=== PATIENT | female | born 1940 | race Caucasian/White ===

== ENCOUNTER → 2016-09-16 | Outpatient (CLI) | payer MEDICARE ==
[~2016-09-16] MED LIST: AMLO5TAB2 PO; AMLO5TAB22 PO; BACI500O OP; BENA25CA4 PO; BETAM.05%T TOP; BIOT1000 PO; BIOTSPR PO; CINN500C13 PO; COUM6TAB PO; CYAN25005 PO; FRESDRO EACH EYE; GUAI400T8 PO; LORA-520 PO; MEDR4PAK3 PO; REST0.05 EACH EYE; SENN-3 PO; TRAM50TA PO; VITA2000 PO; VITATAB11 PO; WARF-23 PO; WARF1TAB PO; WARF5TAB PO; ZANT300T PO
[2016-09-16 08:54] LABS: AUTOMATED NEUTROPHIL # 4.8 TH/MM3 (1.8-7.7); BASOPHIL # 0.1 TH/MM3 (0-0.2); BASOPHIL % 0.8 % (0.0-2.0); EOSINOPHIL # 0.1 TH/MM3 (0-0.4); EOSINOPHIL % 1.7 % (0.0-4.0); HEMATOCRIT 38.2 % (35.0-46.0); HEMO FLAGS DIFF FINAL; LYMPH % 19.6 % (9.0-44.0); LYMPHOCYTE # 1.4 TH/MM3 (1.0-4.8); MEAN CELL VOLUME 95.6 FL (80.0-100.0); MEAN CORPUSCULAR HEMOGLOBIN 32.2 PG (27.0-34.0); MEAN CORPUSCULAR HGB CONC 33.7 % (32.0-36.0); MONO % 8.3 % (0.0-8.0); NEUT % 69.6 % (16.0-70.0); PLATELET COUNT 345 TH/MM3 (150-450); RED CELL DISTRIBUTION WIDTH 12.7 % (11.6-17.2); WHITE BLOOD COUNT 6.9 TH/MM3 (4.0-11.0)
[2016-09-16 09:03] LABS: INTERNATIONAL NORMALIZED RATIO 2.9 RATIO; PROTHROMBIN TIME - PATIENT 33.2 SEC (9.8-11.6)
[2016-09-16 09:08] LABS: MUCUS URINE FEW /lpf (OCC); SQUAMOUS EPITHELIAL CELL URINE <1 /hpf (0-5)
[2016-09-16 09:25] LABS: GLUCOSE,URINE NEG (NEG); KETONE, URINE NEG (NEG); PH, URINE 5.5 (5.0-8.5); URINE COLOR YELLOW (YELLW/STRAW)
[2016-09-16 09:26] LABS: BLOOD, URINE NEG (NEG); COMMENT (UR) CATH-CULT NOT IND; CULTURE IF INDICATED CATH CULTURE NOT IND; NITRITE,URINE NEG (NEG)
[2016-09-16 09:28] LABS: BICARBONATE 26.7 MEQ/L (21.0-32.0); POTASSIUM 4.3 MEQ/L (3.5-5.1)
--- NOTE | 2016-09-16 10:05 | RADRPT ---
EXAM DATE/TIME: 09/16/2016 09:38 [facility] COMPARISON: No previous studies available for comparison. INDICATIONS : Evaluate for Communicable disease, pneumonia, pneumothorax. Preop right total knee MEDICAL HISTORY : Atrial Fib SURGICAL HISTORY : None. ENCOUNTER: Initial ACUITY: 1 day PAIN SCORE: 0/10 LOCATION: Bilateral chest FINDINGS: The heart is at the upper limits of normal in size. There diffuse chronic interstitial changes within the pulmonary parenchyma. There is mild bronchiectasis in the lung bases bilaterally. The visualized bony structures are grossly intact. CONCLUSION: Chronic appearing interstitial changes and mild bronchiectasis. No acute abnormality. Alex Patel MD on September 16, 2016 at 10:02 Board Certified Radiologist. This report was verified electronically.
== END ==
LOC: CPRE 07:40
PROVIDERS: ATTEND Orthopaedic Surgery
DX: Z01.810 Encounter for preprocedural cardiovascular examination (principal); Z01.811 Encounter for preprocedural respiratory examination; Z01.812 Encounter for preprocedural laboratory examination; Z79.01 Long term (current) use of anticoagulants; M17.11 Unilateral primary osteoarthritis, right knee
CPT/HCPCS: 36415; 71020; 80048; 81001; 85025; 85610

== ENCOUNTER → 2016-09-23 | Outpatient (CLI) | payer MEDICARE ==
[~2016-09-23] MED LIST changes: -AMLO5TAB22 PO; -BACI500O OP; -BETAM.05%T TOP; -COUM6TAB PO; -MEDR4PAK3 PO; -WARF1TAB PO; -WARF5TAB PO
[2016-09-23 09:00] LABS: PROTHROMBIN TIME - PATIENT 11.4 SEC (9.8-11.6)
== END ==
LOC: CPRE 07:57
PROVIDERS: ATTEND Orthopaedic Surgery
DX: Z01.812 Encounter for preprocedural laboratory examination (principal); Z51.81 Encounter for therapeutic drug level monitoring; Z79.01 Long term (current) use of anticoagulants
CPT/HCPCS: 36415; 85610

== ENCOUNTER → 2016-11-01 | Outpatient (CLI) | payer MEDICARE ==
[~2016-11-01] MED LIST changes: +AUGM875T3 PO; +COLA100C PO; +DOXY50 PO; +LINA145C PO; +METR-1 PO; +TOBR3.5O LEFT EYE
[2016-11-01 11:10] LABS: AUTOMATED NEUTROPHIL # 4.1 TH/MM3 (1.8-7.7); BASOPHIL # 0.1 TH/MM3 (0-0.2); BASOPHIL % 1.2 % (0.0-2.0); EOSINOPHIL # 0.2 TH/MM3 (0-0.4); EOSINOPHIL % 2.5 % (0.0-4.0); HEMATOCRIT 39.2 % (35.0-46.0); HEMO FLAGS DIFF FINAL; LYMPHOCYTE # 1.8 TH/MM3 (1.0-4.8); MEAN CELL VOLUME 96.6 FL (80.0-100.0); MEAN CORPUSCULAR HEMOGLOBIN 32.7 PG (27.0-34.0); MEAN CORPUSCULAR HGB CONC 33.8 % (32.0-36.0); MONO % 9.8 % (0.0-8.0); NEUT % 60.5 % (16.0-70.0); PLATELET COUNT 295 TH/MM3 (150-450); RED BLOOD COUNT 4.06 MIL/MM3 (4.00-5.30); RED CELL DISTRIBUTION WIDTH 12.7 % (11.6-17.2); WHITE BLOOD COUNT 6.7 TH/MM3 (4.0-11.0)
[2016-11-01 11:23] LABS: PROTHROMBIN TIME - PATIENT 34.7 SEC (9.8-11.6)
[2016-11-01 11:37] LABS: BICARBONATE 28.1 MEQ/L (21.0-32.0); POTASSIUM 4.2 MEQ/L (3.5-5.1)
[2016-11-01 12:06] LABS: BLOOD, URINE NEG (NEG); GLUCOSE,URINE NEG (NEG); KETONE, URINE NEG (NEG); NITRITE,URINE NEG (NEG); PH, URINE 5.5 (5.0-8.5); SQUAMOUS EPITHELIAL CELL URINE <1 /hpf (0-5); URINE COLOR LIGHT-YELLOW (YELLW/STRAW)
[2016-11-01 12:11] LABS: COMMENT (UR) CATH-CULT NOT IND; CULTURE IF INDICATED CATH CULTURE NOT IND
== END ==
LOC: CPRE 10:31
PROVIDERS: ATTEND Orthopaedic Surgery
DX: Z01.812 Encounter for preprocedural laboratory examination (principal); M17.11 Unilateral primary osteoarthritis, right knee; Z79.01 Long term (current) use of anticoagulants
CPT/HCPCS: 36415; 80048; 81001; 85025; 85610

== ENCOUNTER 2016-11-19 15:42 | Emergency (ER) | payer MEDICARE ==
[~2016-11-19] VITALS: Ht 160 cm; Wt 67.0 kg
[~2016-11-19 15:42] MED LIST changes: -AUGM875T3 PO; -COLA100C PO; -METR-1 PO
[2016-11-19 15:44] VITALS: BP 141/76; PULSE 89; RESP 16; TEMP 98.1; O2SAT 95
[2016-11-19] MEDS ORDERED: SODIUM CHLORIDE 0.9% FLUSH 10 ML FLUSH IV FLUSH PRN (17:45)
[2016-11-19] MEDS ORDERED: ONDANSETRON HCL 4 MG/2 ML VIAL IVP ONE (17:45)
[2016-11-19 18:20] VITALS: PULSE 83; RESP 16; O2SAT 100
--- NOTE | 2016-11-19 18:44 | PD ---
HPI Chief Complaint: Complaint Time Seen by Provider: 17:36 Travel History International Travel<30 days: No Contact w/Intl Traveler<30days: No Traveled to known affect area: No History of Present Illness HPI Patient is a 76-year-old female presenting to the emergency department for evaluation of abdominal pain. Patient reports a history of urinary tract infection is currently on Cipro daily. She states for the last 4 days she has been having lower abdominal pain and nausea. She was uncertain if it was related to another urinary tract infection or diverticulitis. She has not vomited, she denies any fever or chills. She reports the pain as aching and crampy in nature. At its worst is a 5 out of 10. She denies any alleviating or exacerbating factors. Patient states that she also has burning and frequency with urination. PFSH Past Medical History Cancer: No Cardiovascular Problems: Yes (atrial fibrillation) Diabetes: No Endocrine: No Genitourinary: Yes (prolapsed bladder) Hepatitis: No Hiatal Hernia: No Immune Disorder: No Musculoskeletal: Yes (arthritis, chronic lower back and left leg, right shoulder) Neurologic: Yes (intermittent tingling/numbness hands and feet) Psychiatric: No Respiratory: No Thyroid Disease: No Past Surgical History Abdominal Surgery: Yes (appendectomy, colectomy) AICD: No Cardiac Surgery: No Ear Surgery: No Endocrine Surgery: No Eye Surgery: Yes (bilat cataracts) Genitourinary Surgery: Yes (bladder tack 2013) Gynecologic Surgery: Yes (partial hysterectomy) Joint Replacement: No Oral Surgery: No Pacemaker: No Thoracic Surgery: No Social History Alcohol Use: No Tobacco Use: No Substance Use: No Allergies-Medications (Allergen,Severity, Reaction): Coded Allergies: azithromycin (Verified Allergy, Severe, Rash, 11/19/16) erythromycin base (Verified Allergy, Severe, Rash, 11/19/16) codeine (Verified Allergy, Intermediate, Nausea/Vomiting, 11/19/16) Reported Meds & Prescriptions Reported Meds & Active Scripts Active Augmentin (Amoxicillin-Clavulanate) 875-125 Mg Tab 1 Tab PO BID 10 Days Flagyl (Metronidazole) 500 Mg Tab 500 Mg PO TID 10 Days Reported Colace (Docusate Sodium) 100 Mg Capsule 300 Mg PO DAILY Linzess (Linaclotide) 145 Mcg Cap 145 Mcg PO DAILY Restasis Opth 0.05% (Cyclosporine Opth 0.05%) 0.05% Emul 1 Drop EACH EYE HS Biotin 1,000 Mcg Tab 1,000 Mg PO DAILY Vitamin D3 (Cholecalciferol) 2,000 Unit Cap 2,000 Units PO DAILY Eql Cinnamon (Cinnamon) 500 Mg Cap 1,000 Mg PO DAILY Vitamin B12 (Cyanocobalamin (Vitamin B-12)) 2,500 Mcg Tab.chew 5,000 Mcg PO DAILY Tramadol (Tramadol HCl) 50 Mg Tab 50 Mg PO Q6H PRN Zantac (Ranitidine HCl) 300 Mg Tab 300 Mg PO DAILY PRN Warfarin 5 Mg Tab 5 Mg PO HS Amlodipine (Amlodipine Besylate) 5 Mg Tab 5 Mg PO DAILY Review of Systems Except as stated in HPI: all other systems reviewed are Neg Gastrointestinal: Positive: Nausea, Abdominal Pain Genitourinary: Positive: Frequency, Dysuria Physical Exam Narrative GENERAL: Well developed, well-nourished, alert female. Resting of the brain no acute distress. SKIN: Warm and dry. HEAD: Atraumatic. Normocephalic. EYES: Pupils equal and round. No scleral icterus. No injection or drainage. ENT: No nasal bleeding or discharge. Mucous membranes pink and moist. NECK: Trachea midline. No JVD. CARDIOVASCULAR: Regular rate and rhythm. RESPIRATORY: No accessory muscle use. Clear to auscultation. Breath sounds equal bilaterally. GASTROINTESTINAL: Abdomen soft, tender to palpation in left lower quadrant suprapubic region, nondistended. Hepatic and splenic margins not palpable. Positive bowel sounds, no rebound, no guarding. MUSCULOSKELETAL: Extremities without clubbing, cyanosis, or edema. No obvious deformities. NEUROLOGICAL: Awake and alert. No obvious cranial nerve deficits. Motor grossly within normal limits. Five out of 5 muscle strength in the arms and legs. Normal speech. PSYCHIATRIC: Appropriate mood and affect; insight and judgment normal. Data Data Last Documented VS Vital Signs Date Time Temp Pulse Resp B/P (MAP) Pulse Ox O2 Delivery O2 Flow Rate FiO2 11/19/16 22:50 11/19/16 18:20 83 16 100 Room Air 11/19/16 15:44 98.1 Orders Orders Complete Blood Count With Diff (11/19/16 17:45) Comprehensive Metabolic Panel (11/19/16 17:45) Prothrombin Time / Inr (Pt) (11/19/16 17:45) Act Partial Throm Time (Ptt) (11/19/16 17:45) Urinalysis - C+S If Indicated (11/19/16 17:45) Ct Abd/Pel W Iv Contrast(Rout) (11/19/16 17:45) Iv Access Insert/Monitor (11/19/16 17:45) Ecg Monitoring (11/19/16 17:45) Oximetry (11/19/16 17:45) Ondansetron Inj (Zofran Inj) (11/19/16 17:45) Sodium Chloride 0.9% Flush (Ns Flush) (11/19/16 17:45) Iohexol 350 Inj (Omnipaque 350 Inj) (11/19/16 20:42) Labs Laboratory Tests Test 11/19/16 18:15 White Blood Count 14.2 TH/MM3 Red Blood Count 3.86 MIL/MM3 Hemoglobin 12.8 GM/DL Hematocrit 36.9 % Mean Corpuscular Volume 95.7 FL Mean Corpuscular Hemoglobin 33.2 PG Mean Corpuscular Hemoglobin Concent 34.7 % Red Cell Distribution Width 12.7 % Platelet Count 265 TH/MM3 Mean Platelet Volume 8.2 FL Neutrophils (%) (Auto) 80.2 % Lymphocytes (%) (Auto) 11.2 % Monocytes (%) (Auto) 7.6 % Eosinophils (%) (Auto) 0.4 % Basophils (%) (Auto) 0.6 % Neutrophils # (Auto) 11.3 TH/MM3 Lymphocytes # (Auto) 1.6 TH/MM3 Monocytes # (Auto) 1.1 TH/MM3 Eosinophils # (Auto) 0.1 TH/MM3 Basophils # (Auto) 0.1 TH/MM3 CBC Comment DIFF FINAL Differential Comment Prothrombin Time 27.3 SEC Prothromb Time International Ratio 2.4 RATIO Activated Partial Thromboplast Time 47.0 SEC Urine Color YELLOW Urine Turbidity CLEAR Urine pH 6.0 Urine Specific [place] 1.019 Urine Protein TRACE mg/dL Urine Glucose (UA) NEG mg/dL Urine Ketones 10 mg/dL Urine Occult Blood TRACE Urine Nitrite NEG Urine Bilirubin NEG Urine Urobilinogen LESS THAN 2.0 MG/DL Urine Leukocyte Esterase LARGE Urine RBC 4 /hpf Urine WBC 5 /hpf Urine Squamous Epithelial Cells 2 /hpf Urine Bacteria RARE /hpf Urine Mucus FEW /lpf Microscopic Urinalysis Comment CULT NOT INDICATED Blood Urea Nitrogen 10 MG/DL Creatinine 0.56 MG/DL Random Glucose 99 MG/DL Total Protein 7.6 GM/DL Albumin 3.7 GM/DL Calcium Level 8.5 MG/DL Alkaline Phosphatase 69 U/L Aspartate Amino Transf (AST/SGOT) 10 U/L Alanine Aminotransferase (ALT/SGPT) 17 U/L Total Bilirubin 0.6 MG/DL Sodium Level 129 MEQ/L Potassium Level 4.4 MEQ/L Chloride Level 95 MEQ/L Carbon Dioxide Level 25.3 MEQ/L Anion Gap 9 MEQ/L Estimat Glomerular Filtration Rate 106 ML/MIN MDM Medical Decision Making Medical Screen Exam Complete: Yes Emergency Medical Condition: Yes Interpretation(s) Vital Signs Date Time Temp Pulse Resp B/P (MAP) Pulse Ox O2 Delivery O2 Flow Rate FiO2 11/19/16 18:20 83 16 100 Room Air 11/19/16 18:20 16 11/19/16 15:44 98.1 89 16 141/76 (97) 95 Differential Diagnosis UTI versus diverticulitis versus colitis versus gastroenteritis versus metabolic abnormality versus other Narrative Course Patient is a 76-year-old female presenting to emergency for evaluation of abdominal pain and urinary complaints. Patient has a history of urinary tract infections and has been seen by Dr. Patiño. She has an appointment tomorrow. She is currently on Cipro 1 tablet daily. She presented that she is unsure of her pain is from a bladder infection or diverticulitis. She also has felt nauseated but has not vomited. Her vital signs are stable. Labs and imaging ordered and pending. CBC with a white count of 14.2 with left shift Chemistry with a sodium of 129 otherwise unremarkable INR is 2.4, patient is on Coumadin for atrial fibrillation. Urinalysis with trace occult blood, large leukocyte esterase, 4 red blood cells , rare bacteria and mucus. We'll defer treatment until culture results as patient is already on ciprofloxacin. CT scan of the abdomen and pelvis is pending. Care of patient was transferred to Shanique HERNANDEZ at the end of my shift. She will determine patient's disposition. Scripts Amoxicillin-Clavulanate (Augmentin) 875-125 Mg Tab 1 TAB PO BID for Infection for 10 Days, #20 TAB 0 Refills Prov: Shanique Pitts 11/19/16 Metronidazole (Flagyl) 500 Mg Tab 500 MG PO TID for Infection for 10 Days, TAB 0 Refills Prov: Shanique Pitts 11/19/16 Kisha Friend Nov 19, 2016 18:44
[2016-11-19 18:47] LABS: AUTOMATED NEUTROPHIL # 11.3 TH/MM3 (1.8-7.7); BASOPHIL # 0.1 TH/MM3 (0-0.2); BASOPHIL % 0.6 % (0.0-2.0); EOSINOPHIL # 0.1 TH/MM3 (0-0.4); EOSINOPHIL % 0.4 % (0.0-4.0); HEMATOCRIT 36.9 % (35.0-46.0); HEMO FLAGS DIFF FINAL; LYMPH % 11.2 % (9.0-44.0); LYMPHOCYTE # 1.6 TH/MM3 (1.0-4.8); MEAN CELL VOLUME 95.7 FL (80.0-100.0); MEAN CORPUSCULAR HEMOGLOBIN 33.2 PG (27.0-34.0); MEAN CORPUSCULAR HGB CONC 34.7 % (32.0-36.0); MONO % 7.6 % (0.0-8.0); NEUT % 80.2 % (16.0-70.0); PLATELET COUNT 265 TH/MM3 (150-450); RED BLOOD COUNT 3.86 MIL/MM3 (4.00-5.30); RED CELL DISTRIBUTION WIDTH 12.7 % (11.6-17.2); WHITE BLOOD COUNT 14.2 TH/MM3 (4.0-11.0)
[2016-11-19 18:48] LABS: BACTERIA, URINE RARE /hpf; BLOOD, URINE TRACE (NEG); COMMENT (UR) CULT NOT INDICATED; CULTURE IF INDICATED CULT NOT INDICATED; GLUCOSE,URINE NEG (NEG); KETONE, URINE 10 mg/dL (NEG); MUCUS URINE FEW /lpf (OCC); NITRITE,URINE NEG (NEG); SQUAMOUS EPITHELIAL CELL URINE 2 /hpf (0-5); URINE COLOR YELLOW (YELLW/STRAW)
[2016-11-19 18:54] LABS: INTERNATIONAL NORMALIZED RATIO 2.4 RATIO; PROTHROMBIN TIME - PATIENT 27.3 SEC (9.8-11.6)
[2016-11-19 19:05] LABS: ANION GAP 9 MEQ/L (5-15); AST (GOT) 10 U/L (15-37); BICARBONATE 25.3 MEQ/L (21.0-32.0); BLOOD UREA NITROGEN 10 MG/DL (7-18); CHLORIDE 95 MEQ/L (98-107); GLOMERULAR FILTRATION RATE 106 ML/MIN (>89); POTASSIUM 4.4 MEQ/L (3.5-5.1); SODIUM (NA) 129 MEQ/L (136-145)
[2016-11-19 19:14] LABS: ALKALINE PHOSPHATASE 69 U/L (45-117); ALT (GPT) 17 U/L (10-53); TOTAL BILIRUBIN ADULT 0.6 MG/DL (0.2-1.0)
[2016-11-19] MEDS ORDERED: COLA100C PO (19:24)
[2016-11-19] MEDS ORDERED: IOHEXOL 350 MG/ML 10 ML VIAL (for RAD DIAG) IVCONTRAST ONE (20:42)
--- NOTE | 2016-11-19 21:34 | RADRPT ---
EXAM DATE/TIME: 11/19/2016 20:32 [facility] COMPARISON: No previous studies available for comparison. INDICATIONS : Lower abdominal pain. Frequent bladder infections. IV CONTRAST: 95 cc Omnipaque 350 (iohexol) IV ORAL CONTRAST: No oral contrast ingested. RADIATION DOSE: 10.52 CTDIvol (mGy) MEDICAL HISTORY : Ulcers. Prolapsed bladder. SURGICAL HISTORY : Appendectomy. Cholecystectomy. ENCOUNTER: Initial ACUITY: 1 day PAIN SCALE: 6/10 LOCATION: Bilateral lower quadrant TECHNIQUE: Volumetric scanning of the abdomen and pelvis was performed. Using automated exposure control and ad justment of the mA and/or kV according to patient size, radiation dose was kept as low as reasonably achievable to obtain optimal diagnostic quality images. DICOM format image data is available electro nically for review and comparison. FINDINGS: LOWER LUNGS: The visualized lower lungs are clear. LIVER: Homogeneous density without lesion. There is no dilation of the biliary tree. No calcified gallston es. SPLEEN: Normal size without lesion. PANCREAS: Within normal limits. KIDNEYS: Normal in size and shape. There is no mass, stone or hydronephrosis. ADRENAL GLANDS: Within normal limits. VASCULAR: There is no aortic aneurysm. BOWEL/MESENTERY: There is moderate diverticulitis of the sigmoid colon. No abscess, perforation or obstruction demonst rated. Tiny ventral hernia noted approximately midway between the umbilicus and pubic symphysis. A sm all segment of small bowel protrudes through the defect, series 2 image 70. The defect is estimated a t approximate 16 mm across. There is no bowel obstruction or definite bowel induration but the fat of the adjacent anterior abdominal wall is mildly edematous. ABDOMINAL WALL: Within normal limits. RETROPERITONEUM: There is no lymphadenopathy. BLADDER: No wall thickening or mass. REPRODUCTIVE: Previous hysterectomy. No free fluid. INGUINAL: There is no lymphadenopathy or hernia. MUSCULOSKELETAL: No acute bony abnormality. CONCLUSION: 1. Moderate severity uncomplicated sigmoid colon diverticulitis. 2. Tiny ventral hernia containing small bowel below the umbilicus. No associated obstruction but the adjacent anterior abdominal wall fat appears mildly indurated. No fluid collection. Tonny Lemon MD on November 19, 2016 at 21:30 Board Certified Radiologist. This report was verified electronically.
[2016-11-19] MEDS ORDERED: AUGM875T3 PO (21:54)
[2016-11-19] MEDS ORDERED: METR-1 PO (21:54)
--- NOTE | 2016-11-19 21:54 | PD ---
Physical Exam Time Seen by Provider: 21:51 Data Data Last Documented VS Vital Signs Date Time Temp Pulse Resp B/P (MAP) Pulse Ox O2 Delivery O2 Flow Rate FiO2 11/19/16 18:20 83 16 100 Room Air 11/19/16 15:44 98.1 Orders Orders Complete Blood Count With Diff (11/19/16 17:45) Comprehensive Metabolic Panel (11/19/16 17:45) Prothrombin Time / Inr (Pt) (11/19/16 17:45) Act Partial Throm Time (Ptt) (11/19/16 17:45) Urinalysis - C+S If Indicated (11/19/16 17:45) Ct Abd/Pel W Iv Contrast(Rout) (11/19/16 17:45) Iv Access Insert/Monitor (11/19/16 17:45) Ecg Monitoring (11/19/16 17:45) Oximetry (11/19/16 17:45) Ondansetron Inj (Zofran Inj) (11/19/16 17:45) Sodium Chloride 0.9% Flush (Ns Flush) (11/19/16 17:45) Iohexol 350 Inj (Omnipaque 350 Inj) (11/19/16 20:42) Labs Laboratory Tests Test 11/19/16 18:15 White Blood Count 14.2 TH/MM3 Red Blood Count 3.86 MIL/MM3 Hemoglobin 12.8 GM/DL Hematocrit 36.9 % Mean Corpuscular Volume 95.7 FL Mean Corpuscular Hemoglobin 33.2 PG Mean Corpuscular Hemoglobin Concent 34.7 % Red Cell Distribution Width 12.7 % Platelet Count 265 TH/MM3 Mean Platelet Volume 8.2 FL Neutrophils (%) (Auto) 80.2 % Lymphocytes (%) (Auto) 11.2 % Monocytes (%) (Auto) 7.6 % Eosinophils (%) (Auto) 0.4 % Basophils (%) (Auto) 0.6 % Neutrophils # (Auto) 11.3 TH/MM3 Lymphocytes # (Auto) 1.6 TH/MM3 Monocytes # (Auto) 1.1 TH/MM3 Eosinophils # (Auto) 0.1 TH/MM3 Basophils # (Auto) 0.1 TH/MM3 CBC Comment DIFF FINAL Differential Comment Prothrombin Time 27.3 SEC Prothromb Time International Ratio 2.4 RATIO Activated Partial Thromboplast Time 47.0 SEC Urine Color YELLOW Urine Turbidity CLEAR Urine pH 6.0 Urine Specific [place] 1.019 Urine Protein TRACE mg/dL Urine Glucose (UA) NEG mg/dL Urine Ketones 10 mg/dL Urine Occult Blood TRACE Urine Nitrite NEG Urine Bilirubin NEG Urine Urobilinogen LESS THAN 2.0 MG/DL Urine Leukocyte Esterase LARGE Urine RBC 4 /hpf Urine WBC 5 /hpf Urine Squamous Epithelial Cells 2 /hpf Urine Bacteria RARE /hpf Urine Mucus FEW /lpf Microscopic Urinalysis Comment CULT NOT INDICATED Blood Urea Nitrogen 10 MG/DL Creatinine 0.56 MG/DL Random Glucose 99 MG/DL Total Protein 7.6 GM/DL Albumin 3.7 GM/DL Calcium Level 8.5 MG/DL Alkaline Phosphatase 69 U/L Aspartate Amino Transf (AST/SGOT) 10 U/L Alanine Aminotransferase (ALT/SGPT) 17 U/L Total Bilirubin 0.6 MG/DL Sodium Level 129 MEQ/L Potassium Level 4.4 MEQ/L Chloride Level 95 MEQ/L Carbon Dioxide Level 25.3 MEQ/L Anion Gap 9 MEQ/L Estimat Glomerular Filtration Rate 106 ML/MIN [facility] Medical Record Reviewed: Yes Supervised Visit with TAMARA: No Narrative Course Patient decided to me with CT imaging pending. Please refer to previous providers documentation for details surrounding the patient's current visit. CT imaging results moderate severity diverticulitis without complication. Patient be started on Cipro and Flagyl outpatient. She is encouraged to follow- up with primary care provider and return immediately with any acute worsening of symptoms. Diagnosis Primary Impression: Diverticulitis Qualified Codes: K57.32 - Diverticulitis of large intestine without perforation or abscess without bleeding Referrals: Risk Control Specialist Primary Care Physician Patient Instructions: Diverticulitis (ED), General Instructions Additional Instruction: Follow-up with a primary care provider Seek gastroenterology evaluation Monitor INR carefully as antibiotic may affect your Coumadin therapeutic level Stop Cipro Start antibiotic as prescribed [id number] probiotic may help to alleviate GI upset Return immediately to the emergency department with any acute worsening symptoms Med/Other Pt SpecificInfo: Prescription(s) given Scripts Amoxicillin-Clavulanate (Augmentin) 875-125 Mg Tab 1 TAB PO BID for Infection for 10 Days, #20 TAB 0 Refills Prov: Shanique Pitts 11/19/16 Metronidazole (Flagyl) 500 Mg Tab 500 MG PO TID for Infection for 10 Days, TAB 0 Refills Prov: Shanique Pitts 11/19/16 Disposition: 01 DISCHARGE HOME Condition: Stable Shanique Pitts Nov 19, 2016 21:54
== END 2016-11-19 22:50 | disposition home or self-care (01) ==
LOC: NEPD 15:42
DX: K57.32 Diverticulitis of large intestine without perforation or abscess without bleeding (principal); Z87.440 Personal history of urinary (tract) infections
CPT/HCPCS: 74177; 80053; 81001; 85025; 85610; 85730; 96374; 99285; J2405; Q9967

== ENCOUNTER 2017-03-20 09:19 | Emergency (ER) | payer MEDICARE ==
[~2017-03-20] VITALS: Ht 157.5 cm; Wt 68.0 kg
[~2017-03-20 09:19] MED LIST changes: +AUGM875T3 PO; -BENA25CA4 PO; -BIOTSPR PO; -CINN500C13 PO; +CINN500C2 PO; +COLA100C5 PO; -DOXY50 PO; -FRESDRO EACH EYE; -GUAI400T8 PO; -LORA-520 PO; +METR-1 PO; -SENN-3 PO; -TOBR3.5O LEFT EYE; -VITATAB11 PO
[2017-03-20 09:35] VITALS: BP 138/77; PULSE 90; RESP 16; TEMP 98.9; O2SAT 95
--- NOTE | 2017-03-20 10:46 | PD ---
HPI Chief Complaint: Injury Time Seen by Provider: 10:28 Travel History International Travel<30 days: No Contact w/Intl Traveler<30days: No Traveled to known affect area: No History of Present Illness HPI Patient comes in complaining of right wrist and left rib pain status post mechanical fall last night. Patient states she's been having to use a walker to get around secondary to needing a knee replacement. Patient states she got up to go to the bathroom last night was using her walker, however it tipped over on her causing her to fall hitting her left rib cage on the corner of the chest, then catching herself with her right wrist, and then finally hitting her face on the ground. Patient complaining of a aching stabbing pain in her left anterior rib cage radiates to the back. Pain is worse with certain movement and deep inspiration. Patient complaining of an achy pain over the radial aspect of her right wrist without radiation. Pain is worse to palpation and radial deviation. Patient denies any numbness or tingling. Denies chest pain, headache, facial pain, head pain, numbness or tingling anywhere, shortness of breath, loss or change in bowel or bladder, or dizziness. Patient reports she is on Coumadin and her last INR was 1.9 checked 2 weeks ago. [facility] Past Medical History Cancer: No Cardiovascular Problems: Yes (atrial fibrillation) Diabetes: No Endocrine: No Gastrointestinal Disorders: Yes (acid reflux, 4 camaroon ulcers) Genitourinary: Yes (prolapsed bladder) Hepatitis: No Hiatal Hernia: No Hypertension: Yes (chol) Immune Disorder: No Medical other: Yes (restless leg) Musculoskeletal: Yes (arthritis, chronic lower back and left leg, right shoulder) Neurologic: Yes (intermittent tingling/numbness hands and feet) Psychiatric: No Respiratory: No Thyroid Disease: No Influenza Vaccination: Yes Past Surgical History Abdominal Surgery: Yes (appendectomy, colectomy) AICD: No Cardiac Surgery: No Ear Surgery: No Endocrine Surgery: No Eye Surgery: Yes (bilat cataracts) Genitourinary Surgery: Yes (bladder tack 2013) Gynecologic Surgery: Yes (partial hysterectomy) Joint Replacement: No Oral Surgery: No Pacemaker: No Thoracic Surgery: No Other Surgery: Yes Social History Alcohol Use: No Tobacco Use: No Substance Use: No Allergies-Medications (Allergen,Severity, Reaction): Coded Allergies: azithromycin (Verified Allergy, Severe, Rash, 03/20/17) erythromycin base (Verified Allergy, Severe, Rash, 03/20/17) codeine (Verified Allergy, Intermediate, Nausea/Vomiting, 03/20/17) Reported Meds & Prescriptions Reported Meds & Active Scripts Active Reported Colace (Docusate Sodium) 100 Mg Capsule 300 Mg PO DAILY Linzess (Linaclotide) 145 Mcg Cap 145 Mcg PO DAILY Restasis Opth (Cyclosporine Opth) 0.05% Emul 1 Drop EACH EYE HS Biotin 1,000 Mcg Tab 1,000 Mg PO DAILY Vitamin D3 (Cholecalciferol) 2,000 Unit Cap 2,000 Units PO DAILY Eql Cinnamon (Cinnamon) 500 Mg Cap 1,000 Mg PO DAILY Vitamin B12 (Cyanocobalamin (Vitamin B-12)) 2,500 Mcg Tab.chew 5,000 Mcg PO DAILY Tramadol (Tramadol HCl) 50 Mg Tab 50 Mg PO Q6H PRN Zantac (Ranitidine HCl) 300 Mg Tab 300 Mg PO DAILY PRN Warfarin 5 Mg Tab 5 Mg PO HS Amlodipine (Amlodipine Besylate) 5 Mg Tab 5 Mg PO DAILY Review of Systems Except as stated in HPI: all other systems reviewed are Neg Physical Exam Narrative GENERAL: Well-developed, overly nourished, in no acute distress, and non-ill appearing. SKIN: Focused skin assessment warm and dry. HEAD: Atraumatic. Normocephalic. EYES: Pupils equal and round. EOMI. No scleral icterus. No injection or drainage. ENT: No nasal bleeding or discharge. Mucous membranes pink and moist. No ecchymosis to the face. No flattening cheeks. No crepitus facial bones. No tenderness to the facial bones. NECK: Trachea midline. No tenderness or crepitus or midline cervical spine. Supple. No nuclear rigidity. CARDIOVASCULAR: Regular rate and rhythm. No murmur appreciated. Radial pulses 2+, intact, and equal bilaterally. Capillary refill less than 2 seconds. RESPIRATORY: No accessory muscle use. No respiratory distress. Clear to auscultation. Breath sounds equal bilaterally. GASTROINTESTINAL: Abdomen soft, non-tender, nondistended, and no guarding. Hepatic and splenic margins not palpable. No pulsatile mass. MUSCULOSKELETAL: No obvious deformities. No clubbing. No cyanosis. No edema. Full range of motion. Wrist: FROM and equal BL with passive flexion, extension, and pronation/supination. Capillary refill less than 2 seconds distal to injury and equal BL. FROM distal to injury and equal BL. Strength distal to injury equal BL. NV intact distal to injury. Flexion and extension of thumb equal BL. Equal strength and movement with abduction/adductions of BL fingers. Doctor [employer] strength equal BL. No tenderness to the anatomical snuffbox. Patient reports tenderness to palpation medial aspect of right wrist. No crepitus. Minimal soft tissue swelling noted. Patient reports tenderness to palpation left inferior rib cage. There is no crepitus noted. NEUROLOGICAL: Awake and alert. No obvious cranial nerve deficits. Motor grossly within normal limits. Normal speech. PSYCHIATRIC: Appropriate mood and affect; insight and judgment normal. Data Data Last Documented VS Vital Signs Date Time Temp Pulse Resp B/P (MAP) Pulse Ox O2 Delivery O2 Flow Rate FiO2 03/20/17 09:35 98.9 90 16 138/77 (97) [address] Brain W/O Iv Contrast(Rout) (03/20/17 ) Ct Cerv Spine W/O Contrast (03/20/17 ) Ribs, Uni (W/Exp Cxr-Min 3vw) (03/20/17 ) Wrist, Complete ([id number]) (03/20/17 ) Ice/Cold Pack (03/20/17 10:40) Act Partial Throm Time (Ptt) (03/20/17 10:41) Prothrombin Time / Inr (Pt) (03/20/17 10:41) Splint Or Brace Apply/Monitor (03/20/17 12:02) Resp Incentive Spirometry (03/20/17 ) Ed Discharge Order (03/20/17 12:39) Cockup Hand Splint (03/20/17 ) Labs Laboratory Tests Test 03/20/17 10:50 Prothrombin Time 29.2 SEC Prothromb Time International Ratio 2.9 RATIO Activated Partial Thromboplast Time 46.2 SEC MDM Medical Decision Making Medical Screen Exam Complete: Yes Emergency Medical Condition: Yes Interpretation(s) Last Impressions Wrist X-Ray 03/20/17 0000 Signed Impressions: Service Date/Time: March 11:05 - CONCLUSION: Negative trauma study. Khoi Wright MD Ribs X-Ray 03/20/17 Signed Impressions: Service Date/Time: March 11:05 - CONCLUSION: No rib fractures identified. There is no pneumothorax. Khoi Wright MD Head CT 03/20/17 0000 Signed Impressions: Service Date/Time: March 11:54 - CONCLUSION: Normal examination. Gibson Finch MD Cervical Spine CT 03/20/17 Signed Impressions: Service Date/Time: March 11:54 - CONCLUSION: Normal examination. Gibson Finch MD Differential Diagnosis Fracture, strain, contusion, sprain, supratherapeutic INR, subtherapeutic INR, intracranial hemorrhage, closed head injury, fall, pneumothorax Narrative Course Patient presents with closed head injury. There was no evidence of cranial or intracranial injury noted on CT of the head and no evidence of fracture or injury to cervical spine on C-spine CT. The patient has been behaving normally and no notable altered mental status. [place] score of 15. The neurologic exam is normal. The patient is awake and aware and motor sensory exams are normal. There is no clinical evidence to support intracranial injury or bleed. The patient suffered a minor chest wall contusion. There is no clinical evidence to suggest intrathoracic injury nor cardiac injury at this time. The patient has no significant pain, shortness of breath or dyspnea. The patient moves air well without difficulty and is clear to auscultation. Heart sounds are audible without rubs, murmurs or gallops. There is no palpable crepitus. Pulses are symmetrical and strong. There is no significant tenderness over the lower chest to suggest injury to the liver nor spleen. Diagnosis was discussed with they patient. The patient is to return if develops any worsening pain difficulty breathing, or if coughs up blood or develops fever. Patient agrees with plan and was recommended to follow up with their regular physician. There is no clinical evidence for fracture. There is no clinical evidence to suspect bony injury by exam. Radiographic examination revealed no fracture seen at this time. No obvious ligamental injury or internal derangement is noted at this time. The distal extremity appears neurovascularly intact, without evidence of neurovascular injury nor compartment syndrome. Tendon exam also was intact. The effected limb was splinted. The patient was discharged with sprain and splint care instructions and given warnings for vascular compromise. The patient is to follow up with hand surgeon. The patient agrees with plan. Patient in no obvious distress upon re-evaluation. All pertinent Radiology result(s) discussed with patient/family. Any questions/concerns in reference to patient diagnosis/condition discussed and clarified prior to patient's discharge. Reinforced sheer importance of close follow up with patient's primary physician or primary care clinic and/or hand surgeon. Instructed patient to return to ED immediately, if symptoms return/worsen. Patient showed understanding of above instructions. Further instructions and recommendations were detailed in discharge paperwork. Patient ambulated without difficulty out of ED at discharge. Diagnosis Primary Impression: Closed head injury Qualified Codes: S09.90XA - Unspecified injury of head, initial encounter Additional Impressions: Contusion of rib on left side Qualified Codes: S20.212A - Contusion of left front wall of thorax, initial encounter Right wrist sprain Qualified Codes: S63.501A - Unspecified sprain of right wrist, initial encounter Fall Qualified Codes: W19.XXXA - Unspecified fall, initial encounter therapeutic INR Referrals: Ari Philippe MD Patient Instructions: Fall Prevention (ED), General Instructions, Head Injury ( ED), Rib Contusion (ED), Splint Care (DC), Wrist Sprain (ED) Additional Instructions: Follow-up with your primary care physician and/or hand surgeon in 3-5 days for reevaluation. Use [id number] Tylenol as needed for pain control. Follow instructions on the packaging. Uses a spirometer 10 times per hour as instructed to help prevent pneumonia. Apply ice to affected area 20 minutes per hour for pain. Return to the emergency department if symptoms get worse. Disposition: 01 DISCHARGE HOME Condition: Stable Adán Clement Mar 20, 2017 10:46
[2017-03-20 11:19] LABS: INTERNATIONAL NORMALIZED RATIO 2.9 RATIO; PROTHROMBIN TIME - PATIENT 29.2 SEC (9.8-11.6)
--- NOTE | 2017-03-20 11:58 | RADRPT ---
EXAM DATE/TIME: 03/20/2017 11:05 [facility] COMPARISON: No previous studies available for comparison. INDICATIONS : Fall, left rib pain under breast. MEDICAL HISTORY : None. SURGICAL HISTORY : None. ENCOUNTER: Initial ACUITY: 1 day PAIN SCORE: 9/10 LOCATION: Left ribs FINDINGS: Multiple views of the left ribs were performed. There is no evidence of displaced fracture. No dest ructive lesions or areas of periosteal thickening are seen. Expiratory view of the chest is negative for pneumothorax. The mediastinal structures are midline. Tracheal calcifications are noted. There is mild scarring at the left lung base. Calcification is noted in the rib cartilage. CONCLUSION: No rib fractures identified. There is no pneumothorax. Khoi Wright MD on March 20, 2017 at 11:54 Board Certified Radiologist. This report was verified electronically.
--- NOTE | 2017-03-20 11:59 | RADRPT ---
EXAM DATE/TIME: 03/20/2017 11:05 [facility] COMPARISON: No previous studies available for comparison. INDICATIONS : Fall, right wrist pain and swelling. MEDICAL HISTORY : None. SURGICAL HISTORY : None. ENCOUNTER: Initial ACUITY: 1 day PAIN SCORE: 9/10 LOCATION: Right wrist FINDINGS: Three view examination of the right wrist demonstrates no soft tissue swelling, dislocation, or fract ure. The carpal bones are in normal alignment. There are mild degenerative changes with sclerosis. V ascular calcifications are present. Bony mineralization is normal. CONCLUSION: Negative trauma study. Khoi Wright MD on March 20, 2017 at 11:56 Board Certified Radiologist. This report was verified electronically.
--- NOTE | 2017-03-20 12:26 | RADRPT ---
EXAM DATE/TIME: 03/20/2017 11:54 [facility] COMPARISON: No previous studies available for comparison. INDICATIONS : Trauma. Fell last night. RADIATION DOSE: 56.88 CTDIvol (mGy) MEDICAL HISTORY : Cardiovascular disease. Ulcers. Hypertension. SURGICAL HISTORY : Appendectomy. Cholecystectomy.Hysterectomy.Bladder tack. ENCOUNTER: Initial ACUITY: 1 day PAIN SCALE: 2/10 LOCATION: cranial TECHNIQUE: Multiple contiguous axial images were obtained of the head. Using automated exposure control and adj ustment of the mA and/or kV according to patient size, radiation dose was kept as low as reasonably a chievable to obtain optimal diagnostic quality images. DICOM format image data is available electro nically for review and comparison. FINDINGS: CEREBRUM: The ventricles are normal for age. No evidence of midline shift, mass lesion, hemorrhage or acute in farction. No extra-axial fluid collections are seen. POSTERIOR FOSSA: The cerebellum and brainstem are intact. The 4th ventricle is midline. The cerebellopontine angle i s unremarkable. EXTRACRANIAL: The visualized portion of the orbits is intact. SKULL: The calvaria is intact. No evidence of skull fracture. CONCLUSION: Normal examination. Gibson Finch MD on March 20, 2017 at 12:24 Board Certified Radiologist. This report was verified electronically.
--- NOTE | 2017-03-20 12:28 | RADRPT ---
EXAM DATE/TIME: 03/20/2017 11:54 [facility] COMPARISON: No previous studies available for comparison. INDICATIONS : Trauma. Fell last night. RADIATION DOSE: 24.79 CTDIvol (mGy) MEDICAL HISTORY : Cardiovascular disease. Ulcers. Hypertension. SURGICAL HISTORY : Appendectomy. Cholecystectomy.Hysterectomy. ENCOUNTER: Initial ACUITY: 1 day PAIN SCALE: 4/10 LOCATION: neck TECHNIQUE: Volumetric scanning of the cervical spine was performed. Multiplanar reconstructions in the sagittal, coronal and oblique axial planes were performed. Using automated exposure control and adjustment o f the mA and/or kV according to patient size, radiation dose was kept as low as reasonably achievable to obtain optimal diagnostic quality images. DICOM format image data is available electronically f or review and comparison. FINDINGS: VERTEBRAE: Normal vertebral body height. ALIGNMENT: No evidence of subluxation. C2-C3: The bony spinal canal is normal in size. No evidence of disc bulge or herniation. The neural forami na are bilaterally patent. C3-C4: The bony spinal canal is normal in size. No evidence of disc bulge or herniation. The neural forami na are bilaterally patent. C4-C5: The bony spinal canal is normal in size. No evidence of disc bulge or herniation. The neural forami na are bilaterally patent. C5-C6: The bony spinal canal is normal in size. No evidence of disc bulge or herniation. The neural forami na are bilaterally patent. C6-C7: The bony spinal canal is normal in size. No evidence of disc bulge or herniation. The neural forami na are bilaterally patent. C7-T1: The bony spinal canal is normal in size. No evidence of disc bulge or herniation. The neural forami na are bilaterally patent. CONCLUSION: Normal examination. Gibson Finch MD on March 20, 2017 at 12:25 Board Certified Radiologist. This report was verified electronically.
== END 2017-03-20 13:13 | disposition home or self-care (01) ==
LOC: PHED 09:19 → PHEFT 13:13
DX: S09.90XA Unspecified injury of head, initial encounter (principal); S20.212A Contusion of left front wall of thorax, initial encounter; S60.211A Contusion of right wrist, initial encounter; S63.501A Unspecified sprain of right wrist, initial encounter; I48.91 Unspecified atrial fibrillation; W19.XXXA Unspecified fall, initial encounter; Z79.01 Long term (current) use of anticoagulants
CPT/HCPCS: 70450; 71101; 72125; 73110; 85610; 85730; 94150; 99285; L3908

== ENCOUNTER → 2017-05-22 | Outpatient (CLI) | payer MEDICARE ==
[~2017-05-22] MED LIST changes: -AUGM875T3 PO; -METR-1 PO
[2017-05-22 10:37] LABS: AUTOMATED NEUTROPHIL # 3.1 TH/MM3 (1.8-7.7); BASOPHIL # 0.1 TH/MM3 (0-0.2); EOSINOPHIL # 0.2 TH/MM3 (0-0.4); EOSINOPHIL % 3.6 % (0.0-4.0); HEMATOCRIT 37.9 % (35.0-46.0); HEMOGLOBIN 13.1 GM/DL (11.6-15.3); LYMPHOCYTE # 1.6 TH/MM3 (1.0-4.8); MEAN CELL VOLUME 94.1 FL (80.0-100.0); MEAN CORPUSCULAR HEMOGLOBIN 32.5 PG (27.0-34.0); MEAN CORPUSCULAR HGB CONC 34.5 % (32.0-36.0); MEAN PLATELET VOLUME 8.2 FL (7.0-11.0); MONO % 10.2 % (0.0-8.0); MONOCYTE # 0.6 TH/MM3 (0-0.9); NEUT % 55.2 % (16.0-70.0); PLATELET COUNT 272 TH/MM3 (150-450); RED BLOOD COUNT 4.03 MIL/MM3 (4.00-5.30); RED CELL DISTRIBUTION WIDTH 13.5 % (11.6-17.2); WHITE BLOOD COUNT 5.6 TH/MM3 (4.0-11.0)
[2017-05-22 10:39] LABS: INTERNATIONAL NORMALIZED RATIO 2.4 RATIO; PROTHROMBIN TIME - PATIENT 24.1 SEC (9.8-11.6)
[2017-05-22 10:39] LABS: BILIRUBIN, URINE NEG (NEG); BLOOD, URINE TRACE (NEG); GLUCOSE,URINE NEG (NEG); KETONE, URINE NEG (NEG); MUCUS URINE FEW /lpf (OCC); NITRITE,URINE NEG (NEG); SQUAMOUS EPITHELIAL CELL URINE 5 /hpf (0-5); TRANSITIONAL EPI CELLS, URINE <1 /hpf; URINE COLOR YELLOW (YELLW/STRAW); URINE LEUKOCYTE ESTERASE MOD (NEG)
--- NOTE | 2017-05-22 10:56 | RADRPT ---
EXAM DATE/TIME: 05/22/2017 10:39 [facility] COMPARISON: CHEST PA & LAT, September 16, 2016, 9:38. INDICATIONS : Evaluate for pneumonia, pneumothorax, or communicable disease. Pre-op for colon resection. MEDICAL HISTORY : None. SURGICAL HISTORY : None. ENCOUNTER: Initial ACUITY: 1 day PAIN SCORE: 0/10 LOCATION: Bilateral chest FINDINGS: PA and lateral views of the chest demonstrate the lungs to be symmetrically aerated without evidence of mass, infiltrate or effusion. The cardiomediastinal contours are unremarkable. Degenerative garcia es and scoliosis of the thoracolumbar spine are noted. CONCLUSION: No acute cardiopulmonary disease. Clayton Desouza MD on May 22, 2017 at 10:54 Board Certified Radiologist. This report was verified electronically.
[2017-05-22 11:02] LABS: ALBUMIN 3.9 GM/DL (3.4-5.0); AST (GOT) 16 U/L (15-37); BICARBONATE 29.7 MEQ/L (21.0-32.0); BLOOD UREA NITROGEN 13 MG/DL (7-18); CALCIUM 9.1 MG/DL (8.5-10.1); CHLORIDE 102 MEQ/L (98-107); GLOMERULAR FILTRATION RATE 97 ML/MIN (>89); GLUCOSE,FASTING 84 MG/DL (74-99); SODIUM (NA) 139 MEQ/L (136-145)
[2017-05-22 11:06] LABS: ALKALINE PHOSPHATASE 93 U/L (45-117); ALT (GPT) 18 U/L (10-53); TOTAL BILIRUBIN ADULT 0.4 MG/DL (0.2-1.0)
--- NOTE | 2017-05-22 13:52 | EKG ---
Date Performed: 05/22/2017 Time Performed: 09:44:56 PTAGE: 76 years EKG: ATRIAL FIBRILLATION ABNORMAL RHYTHM ECG NO PREVIOUS TRACING DOCTOR: Vijaya Calzada Interpretating Date/Time 05/22/2017 13:50:12
== END ==
LOC: CPRE 09:11
PROVIDERS: ATTEND Colon & Rectal Surgery
DX: Z01.810 Encounter for preprocedural cardiovascular examination (principal); Z01.811 Encounter for preprocedural respiratory examination; Z01.812 Encounter for preprocedural laboratory examination; Z01.818 Encounter for other preprocedural examination; Z79.01 Long term (current) use of anticoagulants; K57.32 Diverticulitis of large intestine without perforation or abscess without bleeding; R94.31 Abnormal electrocardiogram [ECG] [EKG]
CPT/HCPCS: 36415; 71046; 80053; 81001; 85025; 85610; 85730; 93005

== ENCOUNTER 2017-05-29 11:18 | Inpatient (IN) | payer MEDICARE ==
[2017-05-29] VITALS (8 sets, daily range): BP systolic 146–172; BP diastolic 70–79; PULSE 75–100; RESP 16–20; TEMP 97.9–98.3; O2SAT 96–99
[~2017-05-29] VITALS: Ht 160 cm; Wt 68.0 kg
[2017-05-29] MEDS ORDERED: ROCURONIUM INJ 50 MG/5 ML SYRINGE IV PUSH ONE (12:00)
[2017-05-29] MEDS ORDERED: LACTATED RINGER'S 1000 ML INJ 1,000 ML IV ONE (12:00)
[2017-05-29] MEDS ORDERED: ONDANSETRON HCL 4 MG/2 ML VIAL IV ONE (12:00)
[2017-05-29] MEDS ORDERED: LIDOCAINE HCL 1% PF 5 ML SYRINGE OTHER ONE (12:00)
[2017-05-29] MEDS ORDERED: DEXAMETHASONE SOD PHOS 4 MG/ML VIAL IV ONE (12:00)
[2017-05-29] MEDS ORDERED: GLYCOPYRROLATE 1 MG/5 ML SYRINGE IV PUSH ONE (12:00)
[2017-05-29] MEDS ORDERED: NEOSTIGMINE 5 MG/5 ML SYRINGE IV PUSH ONE (12:00)
[2017-05-29] MEDS ORDERED: PROPOFOL 200 MG/20 ML AMP IV ONE (12:00)
[2017-05-29] MEDS ORDERED: LACTATED RINGER'S 1000 ML IV PRN (13:00)
[2017-05-29] MEDS ORDERED: ceFAZolin 1,000 MG/NS 100 ML IV SCH ×2 (13:00)
[2017-05-29] MEDS ORDERED: INSULIN HUMAN REGULAR 1,000 UNITS/10 ML VIAL SQ PRN (13:00)
[2017-05-29] MEDS ORDERED: SODIUM CHLORID 0.9% 500 ML IV PRN (13:00)
[2017-05-29] MEDS ORDERED: METRONIDAZOLE 500 MG/100 ML ISONTONIC SOLN IV SCH (13:00)
[2017-05-29] MEDS ORDERED: POVIDONE IODINE 5% (ANTISEPSIS KIT) 4 APPLICATIONS EACH NARE PRN (13:00)
[2017-05-29] MEDS ORDERED: METOPROLOL TARTRATE 25 MG TAB PO PRN (13:00)
[2017-05-29] MEDS ORDERED: DEXT 5%-NACL 0.9% 1000 ML INJ 1,000 ML IV SCH (13:00)
[2017-05-29] MEDS ORDERED: ALVIMOPAN 12 MG CAPSULE - On Call PO SCH (13:00)
[2017-05-29] MEDS ORDERED: CHLORHEXIDINE GLUCONATE 2 % 1 PACK (2 CLOTHS) TOPICAL PRN (13:00)
[2017-05-29 13:07] LABS: INTERNATIONAL NORMALIZED RATIO 1.1 RATIO; PROTHROMBIN TIME - PATIENT 11.5 SEC (9.8-11.6)
[2017-05-29] MEDS ORDERED: ACETAMINOPHEN 1000 MG/100 ML 100 ML IV ONE (13:19)
--- NOTE | 2017-05-29 14:26 | PD.OP ---
Operative Report Date of Surgery: May 29, 2017 Preoperative Diagnosis: Sigmoid diverticulitis Postoperative Diagnosis: Same Procedure: Cystoscopy with bilateral ureteral catheter placement Anesthesia: [facility] Surgeon: Markus Harris Marshmallow Maker(s): None Resident Surgeon: None Operation and Findings: 76-year-old female with history of sigmoid diverticulitis elected to go undergo colon surgery by Dr. Del Valle and Dr. Larson. Request for made for bilateral ureteral catheter placement. Patient was brought to the operating room and placed in the dorsal lithotomy position. She was prepped and draped in usual sterile fashion and preprocedure antibiotics were administered. General endotracheal tube anesthesia was also administered. 22 Sudanese cystoscope was inserted in the bladder mac cystoscopy did not reveal any abnormalities. She was noted however to have a cystocele present. The left ureteral orifice was identified and a 5 Sudanese open-ended catheter was inserted in the left ureteral orifice without difficulty. This was repeated again on the right side without difficulty. The Stephenson was attached to the catheters and inserted without difficulty. She tolerated the procedure well. Markus Harris DO May 29, 2017 14:26
[2017-05-29] MEDS ORDERED: ENALAPRILAT 1.25 MG/ML VIAL IV PUSH PRN (16:15)
[2017-05-29] MEDS ORDERED: ZOLPIDEM TARTRATE 5 MG TAB PO PRN (16:15)
[2017-05-29] MEDS ORDERED: ACETAMINOPHEN/HYDROcodone 325 MG/5 MG TAB PO PRN (16:15)
[2017-05-29] MEDS ORDERED: POTASSIUM CHLOR 40 MEQ PREMIX 100 ML IV PRN (16:15)
[2017-05-29] MEDS ORDERED: ONDANSETRON HCL 4 MG/2 ML VIAL IV PUSH PRN (16:15)
[2017-05-29] MEDS: PCA - TOTAL MG MORPHINE DELIVERED PER SHIFT SCH ×2 (16:15→22:00)
[2017-05-29] MEDS ORDERED: POTASSIUM CHLOR 20 MEQ PREMIX 100 ML IV PRN (16:15)
[2017-05-29] MEDS ORDERED: NALOXONE HCL 0.4 MG/ML AMP IV PUSH PRN (16:15)
[2017-05-29] MEDS ORDERED: SODIUM CHLORIDE 0.9% FLUSH 10 ML FLUSH IV FLUSH PRN (16:15)
[2017-05-29] MEDS ORDERED: Post-op Orders (for Pharmacy) XX ONE (16:15)
[2017-05-29] MEDS ORDERED: *morphine SULFATE 4 MG/ML PERIprocedure ONLY ONE (16:35)
[2017-05-29] MEDS ORDERED: *morphine SULFATE 8 MG/ML PERIprocedure ONLY ONE (16:47)
[2017-05-29] MEDS ORDERED: HYDROmorphone HCL PF 2 MG/ML VIAL ONE ×2 (16:56→17:13)
[2017-05-29] MEDS: D5-LR + KCL 20 MEQ INJ 1,000 ML IV SCH ×2 (17:00→17:42)
[2017-05-29 17:10] LABS: AUTOMATED NEUTROPHIL # 18.4 TH/MM3 (1.8-7.7); BASOPHIL # 0.1 TH/MM3 (0-0.2); BASOPHIL % 0.3 % (0.0-2.0); EOSINOPHIL % 0.1 % (0.0-4.0); HEMATOCRIT 37.2 % (35.0-46.0); HEMOGLOBIN 12.4 GM/DL (11.6-15.3); LYMPH % 6.5 % (9.0-44.0); LYMPHOCYTE # 1.3 TH/MM3 (1.0-4.8); MEAN CORPUSCULAR HEMOGLOBIN 31.7 PG (27.0-34.0); MEAN CORPUSCULAR HGB CONC 33.3 % (32.0-36.0); MONO % 2.8 % (0.0-8.0); MONOCYTE # 0.6 TH/MM3 (0-0.9); NEUT % 90.3 % (16.0-70.0); PLATELET COUNT 267 TH/MM3 (150-450); RED BLOOD COUNT 3.92 MIL/MM3 (4.00-5.30); WHITE BLOOD COUNT 20.4 TH/MM3 (4.0-11.0)
[2017-05-29] MEDS ORDERED: LABETALOL HCL 100 MG/20 ML VIAL ONE (17:11)
[2017-05-29 17:16] LABS: BICARBONATE 23.3 MEQ/L (21.0-32.0); CALCIUM 8.2 MG/DL (8.5-10.1); CREATININE 0.58 MG/DL (0.50-1.00)
[2017-05-29] MEDS: KETOROLAC TROMETHAMINE 30 MG/ML (IVP) VIAL IVP PRN (17:16)
[2017-05-29] MEDS: MORPHINE SULFATE 30 MG/30 ML PCA IV SCH ×2 (17:44→23:58)
[2017-05-29] MEDS ORDERED: DO NOT ADM ANY ANTICOAGULANT DRUGS PRN (17:45)
[2017-05-29] MEDS ORDERED: POTASSIUM CHLOR 20 MEQ PREMIX 100 ML IV SCH (17:45)
[2017-05-29] MEDS: METOCLOPRAMIDE HCL 10 MG/2 ML VIAL IVS SCH ×2 (17:55→23:24)
--- NOTE | 2017-05-29 20:04 | MP ---
cc: Tonny Medina MD [facility] Hospital[facility]irley MD,Aureliano Adams MD DATE OF OPERATION: 05/29/2017 PREOPERATIVE DIAGNOSIS: Diverticulitis. POSTOPERATIVE DIAGNOSES: Diverticulitis with diffuse abdominal adhesions. PROCEDURE PERFORMED: 1. Descending and sigmoid colectomy with colorectal anastomosis, low anterior resection. 2. Extensive lysis of adhesions. SURGEON: Tonny Medina MD WARP CLAMPER: Michel Gong MD ANESTHESIA: General endotracheal. ESTIMATED BLOOD LOSS: 400 mL. OPERATING TIME: 1 hour and 50 minutes. OPERATIVE FINDINGS: This patient had multiple bouts of diverticulitis and she had difficult bowel motions with chronic constipation and a very difficult colonoscopy by Dr. Negrete because of sigmoid tortuosity. After multiple discussions with the patient and her family and friends, it was decided to plan on a sigmoid colectomy. Bilateral ureteral catheters were placed by Dr. Markus Harris to facilitate identification of the ureters. Exploration of the abdominal cavity revealed that the liver and gallbladder were palpably normal. There were diffuse adhesions throughout the abdomen including to the anterior abdominal wall from her previous midline incisions, as well as dense adhesions in the pelvis and her sigmoid was densely stuck in the pelvis with omental adhesions. There was one little area next to the short thickened area of diverticular disease that had fluid present in it, but it did not appear to be an abscess cavity. The fluid was brownish-green stained fluid. It was well away from the bowel wall, but appeared to be a walled off cavity from previous diverticulitis attacks. Nevertheless, after fully lysing the adhesions, allowing the surgery to proceed, the sigmoid colon and descending colon and transverse colon and splenic flexure were all fully mobilized, mobilizing the omentum from the colon to use as an omental flap at termination of the procedure. A full left colectomy was done with a colorectal anastomosis. OPERATIVE TECHNIQUE: The patient was placed on the table in the supine position. After adequate general endotracheal anesthesia, the legs were placed in the perineal lithotomy position and the abdomen and perineum were prepped and draped in usual manner. Transverse infraumbilical skin incision was made, carried down through the subcutaneous tissue and the rectus muscles and the peritoneal cavity was entered with the above-mentioned findings. Extensive lysis of adhesions was undertaken for at least an hour, fully mobilizing her bowel. The sigmoid colon, descending colon, splenic flexure and transverse colon were then mobilized along their peritoneal reflections. Both ureters were identified with the presence of the ureteral catheters and protected at all times. The superior hemorrhoidal vessels were doubly clamped, cut, and doubly ligated with 0 Vicryl ligatures, as was the inferior mesenteric vein. Next, the retrorectal space was entered and the lateral pelvic peritoneum was incised bilaterally and the sigmoid loop was quite stuck in the pelvis. Once it was freed from the bladder and the pelvic peritoneal edges, the rectum was actually quite free of inflammation or adhesions. The retrorectal space was entered and dissected down with electrocautery all the way to the pelvic floor and the lateral pelvic peritoneum was incised bilaterally. The anterior cul-de-sac was not entered. The mesorectum was then successively clamped, cut, and ligated in its upper portion and the upper rectum was cleared and was aspirated free of stool from below. A pursestring stapling device was used prior to dividing the rectum below the sigmoid. Once this was done, the point was chosen for division of the descending colon after full mobilization of the colon as above and the left colic vessel was clamped, cut, and ligated and the dissection of the mesentery was taken up to the marginal vessels distal to the middle colic vessels. Once this was done, the descending colon was divided after placing a pursestring stapling device and the anvil of the Ethicon 33 EEA was placed in the proximal bowel and the pursestring was tied. Once this was done, Dr. Gong went below and placed the EEA instrument transanally and the distal pursestring was tied and then the instrument was connected, closed and fired, creating the circular anastomosis. There was no tension on the anastomosis, the blood supply was excellent. Dr. Gong then did proctosigmoidoscopy examination, insufflating air into the rectum with saline solution in the pelvis and no air leaks were identified. Next, the omentum was placed down the left colic gutter and filled the pelvis as an omental flap and the abdominal cavity had been irrigated previously with several liters of saline solution and aspirated dry. A 10 flat Wallace drain was placed in the right lower quadrant and down into the retrorectal space. Next, the bowels were replaced in the abdominal cavity in an harpoon engagement planning operator manner and the abdominal cavity was closed in layers using a double-stranded #1 PDS for the posterior rectus sheath, a double-stranded #1 PDS for the anterior rectus sheath after irrigating the rectus muscle layer and then the subcutaneous tissue was irrigated thoroughly with saline solution and aspirated dry. The skin was closed with skin jose m because of her obesity. Dressings were applied. Sponge, needle and instrument counts were reported as correct. Estimated blood loss was 400 mL. Operating time was 1 hour and 50 minutes. The patient tolerated the procedure well and left the operating room in good condition. Tonny Medina MD JPRAVEEN/AMIRA , 07:35 PM , 08:03 PM
[2017-05-29] MEDS: ceFAZolin 2 GM PREMIX 50 ML IV SCH (20:33)
[2017-05-29] MEDS: SODIUM CHLORIDE 0.9% FLUSH 10 ML FLUSH IV FLUSH SCH (20:34)
[2017-05-29] MEDS: FUROSEMIDE 20 MG/2 ML VIAL IV PUSH SCH (20:34)
[2017-05-29] MEDS: metroNIDAZOLE 500 MG INJ 100 ML IV SCH (20:34)
[2017-05-29] MEDS: BENZOCAINE 6 MG/MENTHOL 10 MG LOZENGE BUCCAL PRN (20:41)
[2017-05-29] MEDS ORDERED: PT:CYCLOSPORINE OPTH SOL EACH EYE SCH (21:00)
[2017-05-29] MEDS ORDERED: CYCLOSPORINE OPTH EACH EYE SCH (21:00)
[2017-05-30] VITALS (22 sets, daily range): BP systolic 122–152; BP diastolic 59–79; PULSE 79–108; RESP 16–20; TEMP 98–99.6; O2SAT 94–99
[2017-05-30] MEDS: KETOROLAC TROMETHAMINE 30 MG/ML (IVP) VIAL IVP PRN ×2 (00:05→08:15)
[2017-05-30] MEDS: D5-LR + KCL 20 MEQ INJ 1,000 ML IV SCH ×2 (01:00→01:38)
[2017-05-30 03:25] LABS: AUTOMATED NEUTROPHIL # 16.9 TH/MM3 (1.8-7.7); BASOPHIL # 0.1 TH/MM3 (0-0.2); BASOPHIL % 0.3 % (0.0-2.0); HEMATOCRIT 33.2 % (35.0-46.0); HEMOGLOBIN 11.3 GM/DL (11.6-15.3); LYMPH % 2.7 % (9.0-44.0); LYMPHOCYTE # 0.5 TH/MM3 (1.0-4.8); MEAN CORPUSCULAR HEMOGLOBIN 31.9 PG (27.0-34.0); MEAN CORPUSCULAR HGB CONC 33.9 % (32.0-36.0); MEAN PLATELET VOLUME 8.7 FL (7.0-11.0); MONO % 7.7 % (0.0-8.0); MONOCYTE # 1.5 TH/MM3 (0-0.9); NEUT % 89.3 % (16.0-70.0); PLATELET COUNT 247 TH/MM3 (150-450); RED BLOOD COUNT 3.53 MIL/MM3 (4.00-5.30); RED CELL DISTRIBUTION WIDTH 13.1 % (11.6-17.2)
[2017-05-30 04:16] LABS: BICARBONATE 23.6 MEQ/L (21.0-32.0); CALCIUM 7.9 MG/DL (8.5-10.1); CREATININE 0.83 MG/DL (0.50-1.00)
[2017-05-30] MEDS: ceFAZolin 2 GM PREMIX 50 ML IV SCH ×2 (04:34→13:14)
[2017-05-30] MEDS: metroNIDAZOLE 500 MG INJ 100 ML IV SCH ×2 (05:24→14:00)
[2017-05-30] MEDS: METOCLOPRAMIDE HCL 10 MG/2 ML VIAL IVS SCH ×4 (05:25→22:50)
[2017-05-30] MEDS: PCA - TOTAL MG MORPHINE DELIVERED PER SHIFT SCH ×3 (05:59→21:47)
[2017-05-30] MEDS: amLODIPine BESYLATE 5 MG TAB PO SCH (08:54)
[2017-05-30] MEDS: PANTOPRAZOLE SODIUM 40 MG VIAL IVP SCH (08:54)
[2017-05-30] MEDS: ALVIMOPAN 12 MG CAPSULE - Post-op dosing PO SCH ×2 (08:54→21:00)
[2017-05-30] MEDS: FUROSEMIDE 20 MG/2 ML VIAL IV PUSH SCH ×2 (08:54→21:00)
[2017-05-30] MEDS: SODIUM CHLORIDE 0.9% FLUSH 10 ML FLUSH IV FLUSH SCH ×2 (09:00→21:00)
[2017-05-30] MEDS: BENZOCAINE 6 MG/MENTHOL 10 MG LOZENGE BUCCAL PRN (10:17)
--- NOTE | 2017-05-30 16:42 | HHI.PR ---
Subjective Remarks Multiple complaints. Pain in epigastrium and pelvis.. No N or V. No BMs Objective Vital Signs Date Time Temp Pulse Resp B/P (MAP) Pulse Ox O2 Delivery O2 Flow Rate FiO2 05/30/17 13:24 20 05/30/17 12:13 98.0 100 18 152/67 (95) 98 05/30/17 11:00 79 05/30/17 10:00 92 05/30/17 09:00 90 05/30/17 08:00 98 05/30/17 07:26 98.3 98 18 130/59 (82) 99 05/30/17 07:00 102 05/30/17 06:00 98 05/30/17 05:59 20 05/30/17 05:00 98 05/30/17 04:00 90 05/30/17 03:36 98.6 96 20 122/62 (82) 99 05/30/17 03:00 105 05/30/17 02:00 92 05/30/17 01:00 96 05/30/17 00:03 20 05/30/17 00:00 94 05/29/17 23:58 20 05/29/17 23:24 98.3 93 20 146/70 (95) 97 05/29/17 23:00 90 05/29/17 22:00 92 05/29/17 22:00 20 05/29/17 21:00 100 05/29/17 20:21 99 Nasal Cannula 1.00 05/29/17 20:00 75 05/29/17 19:00 98.0 98 20 172/77 (108) 96 05/29/17 19:00 82 05/29/17 18:39 97.9 78 16 150/79 (102) 99 05/29/17 18:15 20 05/29/17 17:45 97.7 68 17 147/70 (95) 100 Nasal Cannula 2 05/29/17 17:44 16 05/29/17 17:30 63 17 154/71 (98) 100 Nasal Cannula 2 05/29/17 17:15 63 17 136/61 (86) 99 Nasal Cannula 2 05/29/17 17:00 78 18 187/89 (121) 100 Nasal Cannula 2 05/29/17 16:45 78 18 194/80 (118) 100 Nasal Cannula 2 I/O 05/29/17 05/29/17 05/29/17 05/30/17 05/30/17 05/30/17 07:00 15:00 23:00 07:00 15:00 23:00 Intake Total 2500 ml 3050 ml 50 ml Output Total 1045 ml 1307 ml Balance 1455 ml 1743 ml 50 ml Intake Oral 400 ml IV Total 2500 ml 2650 ml 50 ml Output Urine Total 575 ml 1100 ml Drainage Total 70 ml 207 ml Estimated Blood Loss 400 ml Result Diagram: 05/30/17 0255 05/30/17 0255 Objective Remarks VS-S Abd: soft,dressing dry. I&Os and Labs-OK Assessment and Plan Assessment and Plan Stable POD#1 Remove christy tomorrow. Remove dressing tomorrow. IV to 125 Tonny Medina MD May 30, 2017 16:42
[2017-05-30] MEDS: MORPHINE SULFATE 30 MG/30 ML PCA IV SCH (17:10)
[2017-05-30] MEDS ORDERED: ALVIMOPAN 12 MG CAPSULE PO SCH (21:00)
[2017-05-31] VITALS: BP 149/68; PULSE 107; RESP 17; TEMP 99.4; O2SAT 92
[2017-05-31] MEDS: D5-LR + KCL 20 MEQ INJ 1,000 ML IV SCH ×3 (02:07→18:43)
[2017-05-31] MEDS: METOCLOPRAMIDE HCL 10 MG/2 ML VIAL IVS SCH ×4 (04:13→22:58)
[2017-05-31] MEDS: MORPHINE SULFATE 30 MG/30 ML PCA IV SCH (04:37)
[2017-05-31] MEDS: PCA - TOTAL MG MORPHINE DELIVERED PER SHIFT SCH (04:38)
[2017-05-31 04:39] VITALS: BP 165/66; PULSE 109; RESP 17; TEMP 97.7; O2SAT 97
[2017-05-31 07:16] LABS: AUTOMATED NEUTROPHIL # 14.9 TH/MM3 (1.8-7.7); BASOPHIL % 0.2 % (0.0-2.0); EOSINOPHIL # 0.1 TH/MM3 (0-0.4); EOSINOPHIL % 0.3 % (0.0-4.0); HEMATOCRIT 27.3 % (35.0-46.0); HEMOGLOBIN 9.5 GM/DL (11.6-15.3); LYMPH % 8.9 % (9.0-44.0); LYMPHOCYTE # 1.6 TH/MM3 (1.0-4.8); MEAN CELL VOLUME 94.6 FL (80.0-100.0); MEAN CORPUSCULAR HEMOGLOBIN 32.9 PG (27.0-34.0); MEAN CORPUSCULAR HGB CONC 34.7 % (32.0-36.0); MEAN PLATELET VOLUME 8.1 FL (7.0-11.0); MONO % 8.9 % (0.0-8.0); MONOCYTE # 1.6 TH/MM3 (0-0.9); NEUT % 81.7 % (16.0-70.0); PLATELET COUNT 201 TH/MM3 (150-450); RED BLOOD COUNT 2.89 MIL/MM3 (4.00-5.30); RED CELL DISTRIBUTION WIDTH 13.5 % (11.6-17.2); WHITE BLOOD COUNT 18.3 TH/MM3 (4.0-11.0)
[2017-05-31 07:49] LABS: BICARBONATE 30.7 MEQ/L (21.0-32.0); CALCIUM 8.1 MG/DL (8.5-10.1); CREATININE 0.46 MG/DL (0.50-1.00)
[2017-05-31 08:00] VITALS: BP 173/74; PULSE 112; RESP 19; TEMP 99; O2SAT 91
[2017-05-31] MEDS: ALVIMOPAN 12 MG CAPSULE - Post-op dosing PO SCH ×2 (08:36→22:40)
[2017-05-31] MEDS: FUROSEMIDE 20 MG/2 ML VIAL IV PUSH SCH ×2 (08:37→22:39)
[2017-05-31] MEDS: SODIUM CHLORIDE 0.9% FLUSH 10 ML FLUSH IV FLUSH SCH ×2 (08:37→22:40)
[2017-05-31] MEDS: PANTOPRAZOLE SODIUM 40 MG VIAL IVP SCH (08:39)
[2017-05-31] MEDS: amLODIPine BESYLATE 5 MG TAB PO SCH (08:42)
[2017-05-31 12:00] VITALS: BP 115/57; PULSE 102; RESP 19; TEMP 98.4; O2SAT 96
[2017-05-31 16:00] VITALS: BP 153/74; PULSE 109; RESP 19; TEMP 98.4; O2SAT 96
[2017-05-31] MEDS: ACETAMINOPHEN/HYDROcodone 325 MG/5 MG TAB PO PRN ×2 (17:24→23:54)
[2017-05-31 20:00] VITALS: BP 132/59; PULSE 103; RESP 20; TEMP 98; O2SAT 94
[2017-06-01] VITALS: BP 151/70; PULSE 91; RESP 17; TEMP 97.7; O2SAT 94
[2017-06-01] MEDS: ACETAMINOPHEN/HYDROcodone 325 MG/5 MG TAB PO PRN (06:06)
[2017-06-01] MEDS: METOCLOPRAMIDE HCL 10 MG/2 ML VIAL IVS SCH (06:07)
[2017-06-01] MEDS: D5-LR + KCL 20 MEQ INJ 1,000 ML IV SCH (06:14)
[2017-06-01 08:00] VITALS: BP 132/60; PULSE 108; RESP 18; TEMP 98.3; O2SAT 93
[2017-06-01] MEDS: PANTOPRAZOLE SODIUM 40 MG VIAL IVP SCH (08:50)
[2017-06-01] MEDS: FUROSEMIDE 20 MG/2 ML VIAL IV PUSH SCH (08:50)
[2017-06-01] MEDS: amLODIPine BESYLATE 5 MG TAB PO SCH (08:50)
[2017-06-01] MEDS: ALVIMOPAN 12 MG CAPSULE - Post-op dosing PO SCH (08:50)
[2017-06-01] MEDS: SODIUM CHLORIDE 0.9% FLUSH 10 ML FLUSH IV FLUSH SCH (08:51)
== END 2017-06-01 11:25 | disposition home or self-care (01) | DRG 331 ==
LOC: HSDI 11:18 → EDSTATUS 13:30 → HCPC 18:05 → N07A 05-30 22:35
PROVIDERS: ADMIT Colon & Rectal Surgery; ATTEND Colon & Rectal Surgery
PROC: 0DNM0ZZ Release Descending Colon, Open Approach (ICD-10-PCS; 2017-05-29)
PROC: 0DNN0ZZ Release Sigmoid Colon, Open Approach (ICD-10-PCS; 2017-05-29)
PROC: 0TJB8ZZ Inspection of Bladder, Via Natural or Artificial Opening Endoscopic (ICD-10-PCS; 2017-05-29)
PROC: 0T9880Z Drainage of Bilateral Ureters with Drainage Device, Via Natural or Artificial Opening Endoscopic (ICD-10-PCS; 2017-05-29)
PROC: 0DTN0ZZ Resection of Sigmoid Colon, Open Approach (ICD-10-PCS; principal; 2017-05-29 13:34)
PROC: 0DBM0ZZ Excision of Descending Colon, Open Approach (ICD-10-PCS; 2017-05-29 13:34)
DX: K57.32 Diverticulitis of large intestine without perforation or abscess without bleeding (principal); I48.91 Unspecified atrial fibrillation; K66.0 Peritoneal adhesions (postprocedural) (postinfection); N81.10 Cystocele, unspecified; I20.9 Angina pectoris, unspecified; Z79.01 Long term (current) use of anticoagulants; I10 Essential (primary) hypertension; K21.9 Gastro-esophageal reflux disease without esophagitis
CPT/HCPCS: 36430; 80048; 85025; 85610; 86077; 86850; 86870; 86900; 86901; 86902; 86920; 86922; 88309; 94150; C9113; J0131; J0690; J1100; J1170; J1885; J1940; J2270; J2405; J2710; J2765; J3010; J3480; J7120; P9016

== ENCOUNTER 2017-06-03 18:53 | Inpatient (IN) | payer MEDICARE ==
[~2017-06-03] VITALS: Ht 160 cm; Wt 64.0 kg
[2017-06-03 18:58] VITALS: BP 127/79; PULSE 84; RESP 18; TEMP 97.6; O2SAT 96
[2017-06-03 19:11] VITALS: BP 152/67; PULSE 93; RESP 20; TEMP 98; O2SAT 96
[2017-06-03 19:15] VITALS: RESP 20
[2017-06-03] MEDS ORDERED: SODIUM CHLORIDE 0.9% FLUSH 10 ML FLUSH IVF PRN (19:15)
--- NOTE | 2017-06-03 19:34 | PD ---
HPI . Neuro symptoms/deficits Chief Complaint: Neuro Symptoms/ Deficits Time Seen by Provider: 19:07 Travel History International Travel<30 days: No Contact w/Intl Traveler<30days: No Traveled to known affect area: No History of Present Illness HPI 76-year-old female with history of atrial fibrillation status post recent colon surgery just discharged from the hospital, noted having involuntary movements of her right arm when trying to use it this morning to hold a coffee cup. Patient expressed concern she may be having a stroke, EMS was called. Upon history taking, was noted the patient was taking 2 tablets of Ultram 50 mg every several hours over the past day since discharge from the hospital. Patient presents with slurred speech and toxidrome for possible intoxication. Patient also noted having paresthesias in the left side of her face since approximately 830 this morning which are still persistent. The involuntary movements of her right arm are no longer present. Patient normally takes Coumadin for her atrial fibrillation anticoagulation, however this was discontinued since 24 May for her recent surgery. Patient has not been reinstituted on blood thinners since. Patient's responses are somewhat slowed secondary possibly to the effects of the Ultram, however patient is offering a seemingly accurate history. Patient denies any headache, visual changes, neck pain or stiffness, chest pain, palpitations, worsening abdominal pain other than her postsurgical pain, and has no focal weakness or numbness currently. Family notes possible slight left facial droop PFSH Past Medical History Narrative Medical Past medical history reviewed. Past surgical history reviewed Cancer: No Cardiovascular Problems: Yes (atrial fibrillation) Diabetes: No Diminished Hearing: No Endocrine: No Gastrointestinal Disorders: Yes (acid reflux, 4 camaroon ulcers) Genitourinary: Yes (prolapsed bladder) Hepatitis: No Hiatal Hernia: No Hypertension: Yes ( ) Immune Disorder: No Medical other: Yes ( ) Musculoskeletal: Yes (arthritis, chronic lower back and left leg, right shoulder) Neurologic: Yes Psychiatric: No Reproductive: No Respiratory: No Immunizations Current: Yes Thyroid Disease: No Tetanus Vaccination: < 5 Years Influenza Vaccination: Yes ?: Not Past Surgical History Abdominal Surgery: Yes (appendectomy, colectomy) AICD: No Cardiac Surgery: No Ear Surgery: No Endocrine Surgery: No Eye Surgery: Yes (bilat cataracts) Genitourinary Surgery: Yes (bladder tack 2013) Gynecologic Surgery: Yes (partial hysterectomy) Joint Replacement: No Oral Surgery: No Pacemaker: No Thoracic Surgery: No Other Surgery: Yes Social History Alcohol Use: No Tobacco Use: No Substance Use: No Allergies-Medications (Allergen,Severity, Reaction): Coded Allergies: azithromycin (Verified Allergy, Severe, Rash, 03/20/17) erythromycin base (Verified Allergy, Severe, Rash, 03/20/17) codeine (Verified Allergy, Intermediate, Nausea/Vomiting, 03/20/17) Reported Meds & Prescriptions Reported Meds & Active Scripts Active Reported Colace (Docusate Sodium) 100 Mg Capsule 300 Mg PO DAILY Linzess (Linaclotide) 145 Mcg Cap 145 Mcg PO DAILY Restasis Opth (Cyclosporine Opth) 0.05% Emul 1 Drop EACH EYE HS Biotin 1,000 Mcg Tab 1,000 Mg PO DAILY Vitamin D3 (Cholecalciferol) 2,000 Unit Cap 4,000 Units PO DAILY Eql Cinnamon (Cinnamon) 500 Mg Cap 1,000 Mg PO DAILY Vitamin B12 (Cyanocobalamin (Vitamin B-12)) 2,500 Mcg Tab.chew 5,000 Mcg PO DAILY Tramadol (Tramadol HCl) 50 Mg Tab 50 Mg PO Q6H PRN Zantac (Ranitidine HCl) 300 Mg Tab 300 Mg PO DAILY PRN Warfarin 5 Mg Tab 5 Mg PO HS Amlodipine (Amlodipine Besylate) 5 Mg Tab 5 Mg PO DAILY Narrative Medication Allergies and medications reviewed. See HPI Review of Systems Except as stated in HPI: all other systems reviewed are Neg General / Constitutional: No: Fever Eyes: No: Visual changes HENT: No: Headaches Cardiovascular: No: Chest Pain or Discomfort Respiratory: No: Shortness of Breath Gastrointestinal: No: Abdominal Pain Genitourinary: No: Dysuria Musculoskeletal: No: Pain Skin: No Rash Neurologic: Positive: Focal Abnormalities, Tremor, Change in Mentation, Slurred Speech, Paresthesia, No: Weakness, Dizziness, Syncope, Coordination Problem, Ataxia, Incontinence, Sensory Disturbance Psychiatric: No: Depression Endocrine: No: Polydipsia Hematologic/Lymphatic: No: Easy Bruising Physical Exam Narrative GENERAL: Awake and possibly somewhat intoxicated, with slight slurred speech and slowed responses. Vital signs afebrile normal and stable. 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 Color is slightly pale otherwise no diaphoresis cyanosis HEAD: Atraumatic. Normocephalic. EYES: Pupils equal and round. No scleral icterus. No injection or drainage. No nystagmus ENT: No nasal bleeding or discharge. Mucous membranes pink and moist. NECK: Trachea midline. No JVD. Supple full range of motion CARDIOVASCULAR: Atrial fibrillation rate controlled at 87 bpm on building insulation installer , no murmurs rubs or gallops noted RESPIRATORY: No accessory muscle use. Clear to auscultation. Breath sounds equal bilaterally. GASTROINTESTINAL: Abdomen soft, non-tender, nondistended. Hepatic and splenic margins not palpable. MUSCULOSKELETAL: Extremities without clubbing, cyanosis, or edema. No obvious deformities. NEUROLOGICAL: Awake and possibly somewhat intoxicated, mild left facial droop, motor intact equal bilateral 4+5, reflexes intact equal bilateral, sensory to confrontation intact. Slight incoordination slight/ataxia bilaterally, possible medication effect PSYCHIATRIC: Appropriate mood and affect; insight and judgment normal. Data Data Last Documented VS Vital Signs Date Time Temp Pulse Resp B/P (MAP) Pulse Ox O2 Delivery O2 Flow Rate FiO2 06/03/17 19:15 20 06/03/17 19:11 98.0 93 96 Room Air Orders Orders Electrocardiogram (06/03/17 19:10) Prothrombin Time / Inr (Pt) (06/03/17 19:10) Act Partial Throm Time (Ptt) (06/03/17 19:10) Complete Blood Count With Diff (06/03/17 19:10) Comprehensive Metabolic Panel (06/03/17 19:10) Creatine Kinase (Cpk) (06/03/17 19:10) Drug Screen, Random Urine (06/03/17 19:10) Troponin I (06/03/17 19:10) Urinalysis - C+S If Indicated (06/03/17 19:10) Ct Brain W/O Iv Contrast(Rout) (06/03/17 19:10) Chest, Single Ap (06/03/17 19:10) Ecg Monitoring (06/03/17 19:10) Iv Access Insert/Monitor (06/03/17 19:10) Oximetry (06/03/17 19:10) Blood Glucose (06/03/17 19:10) Sodium Chloride 0.9% Flush (Ns Flush) (06/03/17 19:15) Sodium Chlorid 0.9% 500 Ml Inj (Ns 500 M (06/03/17 20:30) Ondansetron Inj (Zofran Inj) (06/03/17 20:30) Abdomen, Flat & Upright (06/03/17 ) Urine Culture (06/03/17 20:05) Diet Npo (06/04/17 Breakfast) D5-Lr + Kcl 20 Meq Inj (D5-Lr + Kcl 20 M (06/03/17 21:00) Enoxaparin Inj (Lovenox Inj) (06/03/17 21:00) Admit Order (Ed Use Only) (06/03/17 22:19) Place In Observation (06/03/17 ) Vital Signs (Adult) Q2HX12,Q4H (06/03/17 22:50) Nih Stroke Scale - Nihss .Daily (06/03/17 22:50) Neuro Checks Q2HX12,Q4H (06/03/17 22:50) Notify Dr: Other (06/03/17 22:50) Remove Urinary Catheter .ONCE (06/03/17 22:50) Ot Request For Service (06/03/17 22:50) Pt Request For Service (06/03/17 22:50) Case Management Consult (06/03/17 ) Activity Oob Ad Sonja (06/03/17 22:50) Nursing Bedside Swallow Assess .ONCE (06/03/17 22:50) Scd Bilateral/Knee High CYNTHIA.QSHIFT (06/03/17 22:50) Complete Blood Count With Diff (06/04/17 06:00) Hemoglobin (Hgb) A1c (06/03/17 22:50) Basic Metabolic Panel (Bmp) (06/04/17 06:00) Lipid Profile (06/04/17 06:00) Us Carotid Arteries Comp Bilat (06/03/17 ) Mra Brain W/O Contrast (Cow) (06/03/17 ) Mri Brain W/O Contrast (06/03/17 ) Echo 2d Comp With Doppler (06/03/17 ) ^ Hold Medication (06/03/17 22:50) Consult Neurology (06/03/17 ) Sodium Chloride 0.9% Flush (Ns Flush) (06/04/17 09:00) Sodium Chloride 0.9% Flush (Ns Flush) (06/03/17 23:00) Sodium Chlor 0.9% 1000 Ml Inj (Ns 1000 M (06/03/17 23:00) Bedside Glucose CYNTHIA.CSUGAR (06/03/17 22:50) ^ Discontinue Insulin Orders (06/03/17 22:50) Insulin Aspart Supplemtl Scale (Novolog (06/04/17 08:00) Dextrose 50% In Nadia (Vial) Inj (D50w (Vi (06/03/17 23:00) Glucagon Inj (Glucagon Inj) (06/03/17 23:00) Stock Blender / Telemetry CYNTHIA.Q8H (06/03/17 22:50) Consult Stroke Navigator (06/03/17 ) Labs Laboratory Tests Test 06/03/17 19:28 06/03/17 20:05 White Blood Count 11.3 TH/MM3 Red Blood Count 3.18 MIL/MM3 Hemoglobin 10.3 GM/DL Hematocrit 29.5 % Mean Corpuscular Volume 92.8 FL Mean Corpuscular Hemoglobin 32.5 PG Mean Corpuscular Hemoglobin Concent 35.0 % Red Cell Distribution Width 12.8 % Platelet Count 358 TH/MM3 Mean Platelet Volume 7.9 FL Neutrophils (%) (Auto) 89.3 % Lymphocytes (%) (Auto) 5.4 % Monocytes (%) (Auto) 4.4 % Eosinophils (%) (Auto) 0.4 % Basophils (%) (Auto) 0.5 % Neutrophils # (Auto) 10.1 TH/MM3 Lymphocytes # (Auto) 0.6 TH/MM3 Monocytes # (Auto) 0.5 TH/MM3 Eosinophils # (Auto) 0.0 TH/MM3 Basophils # (Auto) 0.1 TH/MM3 CBC Comment DIFF FINAL Differential Comment Prothrombin Time 11.0 SEC Prothromb Time International Ratio 1.1 RATIO Activated Partial Thromboplast Time 24.7 SEC Blood Urea Nitrogen 9 MG/DL Creatinine 0.46 MG/DL Random Glucose 118 MG/DL Total Protein 7.3 GM/DL Albumin 3.1 GM/DL Calcium Level 8.5 MG/DL Alkaline Phosphatase 72 U/L Aspartate Amino Transf (AST/SGOT) 18 U/L Alanine Aminotransferase (ALT/SGPT) 21 U/L Total Bilirubin 0.6 MG/DL Sodium Level 134 MEQ/L Potassium Level 3.1 MEQ/L Chloride Level 95 MEQ/L Carbon Dioxide Level 27.3 MEQ/L Anion Gap 12 MEQ/L Estimat Glomerular Filtration Rate 132 ML/MIN Total Creatine Kinase 63 U/L Troponin I LESS THAN 0.02 NG/ML Urine Color YELLOW Urine Turbidity CLEAR Urine pH 6.5 Urine Specific [place] 1.012 Urine Protein TRACE mg/dL Urine Glucose (UA) NEG mg/dL Urine Ketones 40 mg/dL Urine Occult Blood MOD Urine Nitrite NEG Urine Bilirubin NEG Urine Urobilinogen LESS THAN 2.0 MG/DL Urine Leukocyte Esterase TRACE Urine RBC 74 /hpf Urine WBC 8 /hpf Urine Squamous Epithelial Cells 1 /hpf Urine Mucus FEW /lpf Microscopic Urinalysis Comment CATH-CULTURE IND Urine Opiates Screen NEG Urine Barbiturates Screen NEG Urine Amphetamines Screen NEG Urine Benzodiazepines Screen NEG Urine Cocaine Screen NEG Urine Cannabinoids Screen NEG MDM Medical Decision Making Medical Screen Exam Complete: Yes Emergency Medical Condition: Yes Medical Record Reviewed: Yes Differential Diagnosis Medication reaction, intoxication from medication, acute CVA, TIA Narrative Course CT head negative for acute intracranial injury or hemorrhage. No obvious acute CVA noted Case discussed with neurology Dr. Stafford. Patient outside of TPA protocol secondary to atypical presentation, time of onset, and he H score of 1, resolution of symptoms. Aspirin 81 mg currently. Will discuss with surgery and hospitalist team regarding possible heparinization Surgery presented to ED to evaluate patient for postsurgical abdominal pain and vomiting. Flat and upright abdominal x-ray revealed no obstruction Case discussed with hospitalist service, admitted for CVA/TIA Diagnosis Primary Impression: CVA (cerebral vascular accident) Qualified Codes: I63.9 - Cerebral infarction, unspecified Additional Impression: Atrial fibrillation Qualified Codes: I48.2 - Chronic atrial fibrillation Admitting Information Admitting Physician Requests: Admit Chris Hirsch MD Jun 03, 2017 19:34
[2017-06-03 19:55] LABS: AUTOMATED NEUTROPHIL # 10.1 TH/MM3 (1.8-7.7); BASOPHIL # 0.1 TH/MM3 (0-0.2); BASOPHIL % 0.5 % (0.0-2.0); EOSINOPHIL % 0.4 % (0.0-4.0); HEMATOCRIT 29.5 % (35.0-46.0); HEMOGLOBIN 10.3 GM/DL (11.6-15.3); INTERNATIONAL NORMALIZED RATIO 1.1 RATIO; LYMPH % 5.4 % (9.0-44.0); LYMPHOCYTE # 0.6 TH/MM3 (1.0-4.8); MEAN CELL VOLUME 92.8 FL (80.0-100.0); MEAN CORPUSCULAR HEMOGLOBIN 32.5 PG (27.0-34.0); MEAN PLATELET VOLUME 7.9 FL (7.0-11.0); MONO % 4.4 % (0.0-8.0); MONOCYTE # 0.5 TH/MM3 (0-0.9); NEUT % 89.3 % (16.0-70.0); PLATELET COUNT 358 TH/MM3 (150-450); RED BLOOD COUNT 3.18 MIL/MM3 (4.00-5.30); RED CELL DISTRIBUTION WIDTH 12.8 % (11.6-17.2); WHITE BLOOD COUNT 11.3 TH/MM3 (4.0-11.0)
--- NOTE | 2017-06-03 20:03 | RADRPT ---
EXAM DATE/TIME: 06/03/2017 19:34 [facility] COMPARISON: No previous studies available for comparison. INDICATIONS : Short of breath. MEDICAL HISTORY : None. SURGICAL HISTORY : None. ENCOUNTER: Initial ACUITY: 1 day PAIN SCORE: 0/10 LOCATION: Bilateral chest FINDINGS: The heart size is normal. There is increased density at the left base in the retrocardiac region. The right lung is clear. No effusion is seen. CONCLUSION: Mild left lower lobe consolidation or atelectasis. Tonny Kohler MD on June 03, 2017 at 20:01 Board Certified Radiologist. This report was verified electronically.
[2017-06-03 20:17] LABS: ALBUMIN 3.1 GM/DL (3.4-5.0); ALKALINE PHOSPHATASE 72 U/L (45-117); ALT (GPT) 21 U/L (10-53); AST (GOT) 18 U/L (15-37); BICARBONATE 27.3 MEQ/L (21.0-32.0); BLOOD UREA NITROGEN 9 MG/DL (7-18); CALCIUM 8.5 MG/DL (8.5-10.1); CHLORIDE 95 MEQ/L (98-107); CREATININE 0.46 MG/DL (0.50-1.00); GLOMERULAR FILTRATION RATE 132 ML/MIN (>89); GLUCOSE,RANDOM 118 MG/DL (74-106); SODIUM (NA) 134 MEQ/L (136-145); TOTAL BILIRUBIN ADULT 0.6 MG/DL (0.2-1.0); TOTAL PROTEIN 7.3 GM/DL (6.4-8.2); TROPONIN I LESS THAN 0.02 NG/ML (0.02-0.05)
[2017-06-03] MEDS ORDERED: ONDANSETRON HCL 4 MG/2 ML VIAL IV PUSH ONE (20:30)
[2017-06-03] MEDS ORDERED: SODIUM CHLORID 0.9% 500 ML INJ 500 ML IV ONE (20:30)
--- NOTE | 2017-06-03 20:39 | RADRPT ---
EXAM DATE/TIME: 06/03/2017 19:35 [facility] COMPARISON: CT BRAIN W/O CONTRAST, March 20, 2017, 11:54. INDICATIONS : Difficulty speaking. RADIATION DOSE: 56.35 CTDIvol (mGy) MEDICAL HISTORY : Cardiovascular disease. Hypertension. SURGICAL HISTORY : Hysterectomy. ENCOUNTER: Initial ACUITY: 1 day PAIN SCALE: 5/10 LOCATION: cranial TECHNIQUE: Multiple contiguous axial images were obtained of the head. Using automated exposure control and adj ustment of the mA and/or kV according to patient size, radiation dose was kept as low as reasonably a chievable to obtain optimal diagnostic quality images. DICOM format image data is available electro nically for review and comparison. FINDINGS: CEREBRUM: The ventricles are normal for age. No evidence of midline shift, mass lesion, hemorrhage or acute in farction. No extra-axial fluid collections are seen. There is low-density seen throughout the cerebr al white matter. There is possible small old lacunar infarct of the anterior left basal ganglia. POSTERIOR FOSSA: The cerebellum and brainstem are intact. The 4th ventricle is midline. The cerebellopontine angle i s unremarkable. EXTRACRANIAL: The visualized portion of the orbits is intact. SKULL: The calvaria is intact. No evidence of skull fracture. CONCLUSION: 1. No acute abnormality seen. 2. Persistent low density in the cerebral white matter likely from small vessel ischemic change. Tonny Kohler MD on June 03, 2017 at 20:36 Board Certified Radiologist. This report was verified electronically.
--- NOTE | 2017-06-03 21:01 | MR ---
cc: Michel Gong MD [facility]ir[facility] MD DATE: 06/03/2017 HISTORY OF PRESENT ILLNESS: This is a 76-year-old who is 5 days status post low anterior resection for diverticulitis. The patient was discharged 2 days ago. She has had difficulty today with vomiting and was also noticing some numbness and tingling in her face and hands. She presents to the emergency room for further evaluation. She has been having normal incisional pain. She denies fevers. She states that her bowels have been moving with some stool and gas. She has taken a large amount of tramadol in the last 10 hours. She apparently has had eight 50 mg pills. PAST MEDICAL HISTORY: Includes atrial fibrillation. She is normally on Coumadin, she was offered prior to surgery and she has not resumed it after surgery. PHYSICAL EXAMINATION: GENERAL: She is alert. Her speech is slightly slurred. She is moving her arms and legs well at this time. LUNGS: Respirations are normal. SKIN: Warm and dry. ABDOMEN: Soft, nontender and nondistended without tympany. EXTREMITIES: Normal. LABORATORY DATA: Show normal CBC. Coagulation studies are normal. Chemistries are pending. A CT scan of the brain was negative and a chest x-ray shows some possible left lower lobe consolidation. ASSESSMENT: Likely tramadol reaction creating the neurologic symptoms and nausea. The patient will be admitted to the hospital for IV fluids and observation. Michel Gong MD DLM/rt , 08:22 PM , 09:00 PM
[2017-06-03 21:06] LABS: BILIRUBIN, URINE NEG (NEG); BLOOD, URINE MOD (NEG); GLUCOSE,URINE NEG (NEG); KETONE, URINE 40 mg/dL (NEG); MUCUS URINE FEW /lpf (OCC); NITRITE,URINE NEG (NEG); PH, URINE 6.5 (5.0-8.5); SQUAMOUS EPITHELIAL CELL URINE 1 /hpf (0-5); URINE COLOR YELLOW (YELLW/STRAW); URINE LEUKOCYTE ESTERASE TRACE (NEG)
[2017-06-03] MEDS: D5-LR + KCL 20 MEQ INJ 1,000 ML IV SCH (21:52)
[2017-06-03] MEDS ORDERED: ASPIRIN 325 MG TAB PO ONE (22:00)
--- NOTE | 2017-06-03 22:07 | RADRPT ---
EXAM DATE/TIME: 06/03/2017 21:10 [facility] COMPARISON: No previous studies available for comparison. INDICATIONS : Abdominal obstruction. MEDICAL HISTORY : None. SURGICAL HISTORY : None. ENCOUNTER: Initial ACUITY: 1 day PAIN SCORE: 3/10 LOCATION: Bilateral abdomen FINDINGS: Supine and upright views of the abdomen were performed. The abdominal bowel gas pattern is normal. No air fluid levels are seen. No abnormal masses, calcifications, or organomegaly is seen. The visu alized lower lungs are clear. No evidence of free intraperitoneal gas. There is degenerative change in the lumbar spine. Skin jose m are seen over the lower abdomen. CONCLUSION: Significantly distended bowel is not seen. Tonny Kohler MD on June 03, 2017 at 22:05 Board Certified Radiologist. This report was verified electronically.
--- NOTE | 2017-06-03 22:25 | EKG ---
Date Performed: 06/03/2017 Time Performed: 19:20:43 PTAGE: 76 years EKG: ATRIAL FIBRILLATION WITH ABERRANT CONDUCTION OR VENTRICULAR PREMATURE COMPLEXES VOLTAGE CRI TERIA FOR LVH NONSPECIFIC ST & T-WAVE ABNORMALITY ABNORMAL ECG PREVIOUS TRACING : 05/22/2017 09.44 Since the previous tracing, no significant change noted DOCTOR: Dee Dee Vance Interpretating Date/Time 06/03/2017 22:23:32
[2017-06-03] MEDS: ENOXAPARIN SODIUM 40 MG/0.4 ML SYRINGE SQ SCH (22:59)
[2017-06-03] MEDS ORDERED: GLUCAGON 1 MG/ML VIAL OTHER PRN (23:00)
[2017-06-03] MEDS ORDERED: SODIUM CHLORIDE 0.9% FLUSH 10 ML FLUSH IV FLUSH PRN (23:00)
[2017-06-03] MEDS: SODIUM CHLOR 0.9% 1000 ML INJ 1,000 ML IV SCH (23:00)
[2017-06-03] MEDS ORDERED: DEXTROSE 50% IN WATER 50 ML VIAL(D50) IV PUSH PRN (23:00)
[2017-06-03 23:12] VITALS: BP 150/59; PULSE 107; RESP 18; O2SAT 96
[2017-06-03] MEDS ORDERED: ASPIRIN 81 MG CHEW TAB PO ONE (23:30)
[2017-06-04] MEDS ORDERED: PROCHLORPERAZINE INJ 10 MG/2 ML VIAL IV PUSH PRN (04:30)
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
[2017-06-04 04:44] VITALS: BP 142/79; PULSE 82; RESP 16; O2SAT 98
[2017-06-04 06:00] LABS: AUTOMATED NEUTROPHIL # 11.1 TH/MM3 (1.8-7.7); BASOPHIL % 0.3 % (0.0-2.0); EOSINOPHIL # 0.2 TH/MM3 (0-0.4); EOSINOPHIL % 1.3 % (0.0-4.0); HEMATOCRIT 26.6 % (35.0-46.0); HEMOGLOBIN 9.5 GM/DL (11.6-15.3); LYMPH % 8.4 % (9.0-44.0); LYMPHOCYTE # 1.1 TH/MM3 (1.0-4.8); MEAN CELL VOLUME 92.4 FL (80.0-100.0); MEAN CORPUSCULAR HEMOGLOBIN 32.9 PG (27.0-34.0); MEAN CORPUSCULAR HGB CONC 35.6 % (32.0-36.0); MEAN PLATELET VOLUME 7.3 FL (7.0-11.0); MONO % 8.9 % (0.0-8.0); MONOCYTE # 1.2 TH/MM3 (0-0.9); NEUT % 81.1 % (16.0-70.0); PLATELET COUNT 327 TH/MM3 (150-450); RED BLOOD COUNT 2.88 MIL/MM3 (4.00-5.30); WHITE BLOOD COUNT 13.7 TH/MM3 (4.0-11.0)
[2017-06-04 06:07] VITALS: BP 164/78; PULSE 100; RESP 17; O2SAT 97
[2017-06-04 06:31] LABS: BICARBONATE 27.7 MEQ/L (21.0-32.0); BLOOD UREA NITROGEN 8 MG/DL (7-18); CALCIUM 8.1 MG/DL (8.5-10.1); CHLORIDE 100 MEQ/L (98-107); CHOLESTEROL 140 MG/DL (120-200); CHOLESTEROL/ HDL RATIO 4.82 RATIO; CREATININE 0.45 MG/DL (0.50-1.00); GLOMERULAR FILTRATION RATE 136 ML/MIN (>89); GLUCOSE,RANDOM 106 MG/DL (74-106); LDL CHOLESTEROL 84 MG/DL (0-99); SODIUM (NA) 137 MEQ/L (136-145); TRIGLYCERIDES 133 MG/DL (42-150)
[2017-06-04 07:30] VITALS: BP 136/75; PULSE 78; RESP 16; O2SAT 95
[2017-06-04] MEDS: INSULIN ASPART SUPPLEMENTAL SCALE SQ SCH ×4 (08:00→21:00)
[2017-06-04] MEDS: SODIUM CHLORIDE 0.9% FLUSH 10 ML FLUSH IV FLUSH SCH ×2 (09:00→21:58)
--- NOTE | 2017-06-04 09:03 | RADRPT ---
EXAM DATE/TIME: 06/04/2017 08:23 [facility] COMPARISON: No previous studies available for comparison. INDICATIONS : Cerebrovascular accident. MEDICAL HISTORY : Hypertension. Arthritis. Tinnitus. Afib. Ulcers. GERD. Prolapsed bladder. SURGICAL HISTORY : Appendectomy. Hysterectomy. Bilateral cataracts. Colectomy. Bladder tuck. Left hip orthoscopic. Rig ht wrist surgery. ENCOUNTER: Initial ACUITY: 2 days PAIN SCORE: 2/10 LOCATION: Bilateral neck PEAK SYSTOLIC VELOCITIES (cm/sec): ICA/CCA RATIO: Right: 2.0 Left: 1.1 ICA: Right: 146 Left: 101 CCA: Right: 75 Left: 90 ECA: Right: 82 Left: 98 VERTEBRAL: Right: 57 antegrade Left: 82 antegrade Elevated flow velocities and ICA/CCA ratios have been found to correlate with increased degrees of vessel stenosis, calculated as percentage of diameter relative to a normal segment of distal ICA/CCA FINDINGS: RIGHT CAROTID: There is mild atherosclerotic plaquing at the carotid bifurcation. There is mild elevated velocity wi thin the right internal carotid artery. LEFT CAROTID: There is mild atherosclerotic plaquing in the common carotid artery at the bifurcation. No significan t stenosis is visualized. The waveforms are within normal limits. VERTEBRAL ARTERIES: Antegrade flow is seen in both vertebral arteries. MISCELLANEOUS: None. CONCLUSION: 1. There is mild atherosclerotic plaquing at both carotid bifurcations. 2. There is mild elevated velocity within the right internal carotid artery suggesting some mild to m oderate narrowing. If clinically indicated, CTA of the carotids could be performed for further evalua tion. 3. Otherwise, no focal high grade or hemodynamically significant stenosis is demonstrated. Jaciel Chin MD on June 04, 2017 at 8:59 Board Certified Radiologist. This report was verified electronically.
[2017-06-04] MEDS: ENOXAPARIN SODIUM 40 MG/0.4 ML SYRINGE SQ SCH ×2 (09:24→21:58)
--- NOTE | 2017-06-04 10:28 | RADRPT ---
EXAM DATE/TIME: 06/04/2017 09:52 [facility] COMPARISON: MRI BRAIN W/O CONTRAST, June 04, 2017, 9:52. INDICATIONS : Altered mental status. CVA. MEDICAL HISTORY : Hypertension. Gastroesophageal reflux disease. SURGICAL HISTORY : Appendectomy. Hysterectomy. Left hip. Colectomy. Bladder. ENCOUNTER: Subsequent ACUITY: 2 day PAIN SCORE: 0/10 LOCATION: head. Please note a normal MRA of the brain does not entirely exclude the possibility of a small aneurysm, nor the possibility of distal intracranial vessel disease. TECHNIQUE: 3D time of flight MRA was performed. Source images, multiplanar STS MIP, and 3D volume MIP reconstru ctions were reviewed. FINDINGS: There is excellent visualization of the major intracranial arteries out to the second-order branch ve ssels. There is no evidence for aneurysm, vessel truncation or stenosis, and no evidence for vascula r malformation. There is mild relative hypoplasia of the left A1 segment of anterior cerebral artery and origin of the left posterior cerebral artery. CONCLUSION: No acute [place] vascular findings Tonny Fletcher MD on June 04, 2017 at 10:22 Board Certified Radiologist. This report was verified electronically.
[2017-06-04 10:30] VITALS: BP 139/61; PULSE 102; RESP 16; O2SAT 95
--- NOTE | 2017-06-04 10:33 | RADRPT ---
EXAM DATE/TIME: 06/04/2017 09:52 [facility] COMPARISON: CT BRAIN W/O CONTRAST, June 03, 2017, 19:35. INDICATIONS : Altered mental status. CVA. MEDICAL HISTORY : Hypertension. Gastroesophageal reflux disease. SURGICAL HISTORY : Appendectomy. Hysterectomy. Colectomy. Left hip. Bladder surgery. ENCOUNTER: Subsequent ACUITY: 2 day PAIN SCORE: 0/10 LOCATION: head. TECHNIQUE: Multiplanar, multisequence MRI of the brain was performed without contrast. FINDINGS: CEREBRUM: The ventricles are normal for age. There is bilateral cortical atrophy. No evidence of midline shift, mass lesion, hemorrhage or acute infarction. No extraaxial fluid collections are seen. The pituita ry gland and suprasellar cistern are normal in configuration. WHITE MATTER: Moderate diffuse chronic white matter changes are seen throughout the white matter tracts. This is ch aracteristic of ischemic demyelinization. POSTERIOR FOSSA: There is evidence of several focal areas of acute infarction involving predominantly in the right cer ebellar hemisphere and the right side of the midbrain. This is best demonstrated on the diffusion alisha ghted images. The largest focal acute infarct is seen directly adjacent to the fourth ventricle in th e right cerebellar hemisphere measuring 1.3 cm. On the SWI images, there may be a small microhemorrha ge in the right cerebellar hemisphere. DIFFUSION IMAGING: There is areas of restricted diffusion noted in the right cerebellar hemisphere. There is also some r estricted diffusion on the right side of the midbrain characteristic of areas of acute infarction. EXTRACRANIAL: The visualized portions of the orbits and paranasal sinuses are unremarkable. CONCLUSION: 1. There is several focal areas of acute infarction involving the right cerebellar hemisphere and rig ht side of the midbrain best demonstrated on the diffusion weighted images. 2. Possible small microhemorrhage in the right cerebellar hemisphere seen on the SWI images. 3. Diffuse bilateral cortical atrophy and diffuse chronic white matter changes characteristic for [facility]'s age. Jaciel Chin MD on June 04, 2017 at 10:26 Board Certified Radiologist. This report was verified electronically.
--- NOTE | 2017-06-04 11:16 | MB ---
cc: Esther Longo MD DATE: 06/04/2017 DATE OF : 1940 AGE: [age] years old. REASON FOR CONSULTATION: Stroke. HISTORY OF PRESENT ILLNESS: This is a 76-year-old woman with a history of atrial fibrillation, usually on Coumadin as an outpatient, placed on hold 05/24/2017 for sigmoid colectomy to be performed on 05/29/2017 for severe diverticular disease. She presented to the ED on 06/03/2017 after experiencing numbness and tingling in her left face, hand with slurred speech. She was out of the window for t-PA. My associate was called. She still has dysarthria, numbness in the left arm and face. PAST MEDICAL HISTORY: She has a history of severe diverticular disease, colectomy on 05/29/2017, atrial fibrillation, cataracts, hypertension, impaired hearing, reflux, cystocele, cataracts. PAST SURGICAL HISTORY: Sigmoid colectomy, partial hysterectomy, bladder suspension, left hip arthroplasty, right wrist repair, appendectomy. HOME MEDICATIONS: 1. Colace. 2. Linzess. 3. Restasis. 4. Biotin. 5. Vitamin D3. 6. Cinnamon. 7. B12. 8. Tramadol. 9. Zantac. 10. Warfarin that was on hold. 11. Amlodipine. ALLERGIES: AZITHROMYCIN, ERYTHROMYCIN, CODEINE. FAMILY HISTORY: Atrial fibrillation and heart disease in a brother. SOCIAL HISTORY: He does not smoke, drink or use drugs. PHYSICAL EXAMINATION: VITAL SIGNS: Temperature 98, pulse 102 irregular, respiratory rate 16, blood pressure 139/61, sating 95% on room air. NECK: Supple, no bruits. HEART: Irregularly irregular. NEUROLOGICAL EXAMINATION: She is awake, alert and follows commands. She has a left facial droop. Pupils reactive. Visual freire are full. Tongue is midline. Left face V2-3 is abnormal to light touch. She states her tongue and inner cheek part is also numb. Motor-silva, she has a left drift and a left leg lag. Left toe is upgoing. She is at best day 4/5 in the arm. DTRs are 1+. Cerebellar is intact except slower on the left. Gait is withheld. IMAGING: Brain MRI does confirm several foci of acute infarct right cerebellar hemisphere and also right side of the mid-brain best on diffusion seen. There is also possible small micro-hemorrhage in the right cerebellar hemisphere on SWI, atrophy, white matter change also noted. Carotid ultrasound - Mild atherosclerotic plaquing both carotids. Mild elevated velocity right internal and mild to moderate narrowing. Otherwise no focal high-grade stenosis. MRA of [place] did not show anything acute in the [place]. LABORATORY DATA: White count 13.7, hemoglobin 9.5, hematocrit 26.6, platelets are 327,000. Coag panel is normal. Chemistries: Her potassium is 2.8. Hemoglobin A1c is pending. Calcium 8.1. Cholesterol 140, triglycerides 133, LDL 84, HDL 29. Tox screen is negative. Urine culture is pending. IMAGING: As stated. ASSESSMENT AND PLAN: A 76-year-old woman with atrial fibrillation off of her Coumadin with what looks like embolic strokes in the cerebellum and right midbrain. There is some question of micro-hemorrhage on SWI imaging. Recommend restarting her on Lovenox. Followup CT in the morning. PT, OT, speech therapy. Diet has been ordered with thickened liquids. Echo should be done. I will consult also rehabilitation, Dr. Rocha' team for evaluation to see if she is a candidate for inpatient physical therapy. This occurred approximately 2 days ago. Start normalizing her blood pressure and, at this point even though she does have that little micro-hemorrhage possibility, I will continue her on anticoagulants with a follow-up CT in the morning. MD MALCOM Raygoza/BRANDYN , 10:55 AM , 11:15 AM
--- NOTE | 2017-06-04 12:04 | ECHRPT ---
Indication: CVA/TIA CONCLUSIONS Normal left ventricular size. Wall thickness is normal. The left ventricular systolic function is normal with an estimated ejection fraction in the range of 60-65%. Mitral annular calcification is present. mild to moderate mitral valve regurgitation. Aortic valve sclerosis is present. mean gradient = 20 mm hg c/w mild aortic valve stenosis There is severe tricuspid regurgitation. The estimated pulmonary arterial pressure is 64.9 mmHg. There is estimated fbenlfob-zx-[id number] pulmonary hypertension present BP: / HR: Rhythm: MEASUREMENTS (Male / Female) Normal Values Technical Quality: 2D ECHO LV Diastolic Diameter PLAX 4.1 cm 4.2 - 5.9 / 3.9 - 5.3 cm LV Systolic Diameter PLAX 3.1 cm IVS Diastolic Thickness 1.1 cm 0.6 - 1.0 / 0.6 - 0.9 cm LVPW Diastolic Thickness 0.7 cm 0.6 - 1.0 / 0.6 - 0.9 cm LV Relative Wall Thickness 0.4 LA Systolic Diameter LX 4.1 cm 3.0 - 4.0 / 2.7 - 3.8 cm M-MODE Aortic Root Diameter MM 2.8 cm AV Cusp Separation MM 1.7 cm DOPPLER AV Peak Velocity 292.7 cm/s AV Peak Gradient 34.3 mmHg AV Mean Gradient 16.7 mmHg AV Velocity Time Integral 53.5 cm LVOT Peak Velocity 106.0 cm/s LVOT Peak Gradient 4.5 mmHg LVOT Velocity Time Integral 18.2 cm TR Peak Velocity 387.0 cm/s TR Peak Gradient 59.9 mmHg Right Atrial Pressure 5.0 mmHg Pulmonary Artery Systolic Pressu 64.9 mmHg Right Ventricular Systolic Press 64.9 mmHg FINDINGS LEFT VENTRICLE Normal left ventricular size. Wall thickness is normal. The left ventricular systolic function is normal with an estimated ejection fraction in the range of 60-65%. RIGHT VENTRICLE Normal right ventricular size and systolic function. LEFT ATRIUM The left atrial size is normal. RIGHT ATRIUM The right atrial size is normal. ATRIAL SEPTUM Normal atrial septal thickness without atrial level shunting by limited color doppler interrogation. AORTA The aortic root and proximal ascending aorta are normal in size on limited imaging. MITRAL VALVE Mitral annular calcification is present. Trace mitral valve regurgitation. AORTIC VALVE Aortic valve sclerosis is present. TRICUSPID VALVE There is severe tricuspid regurgitation. The estimated pulmonary arterial pressure is 64.9 mmHg. There is estimated [id number] pulmonary hypertension present PULMONARY VALVE No pulmonary valve regurgitation or stenosis. VESSELS The inferior vena cava is normal in size. PERICARDIUM No pericardial effusion. Antelmo Linares MD, FACC, FSCAI (Electronically Signed) Final Date:04 June 2017 12:03
[2017-06-04] MEDS: D5-LR + KCL 20 MEQ INJ 1,000 ML IV SCH (13:37)
[2017-06-04] MEDS: SODIUM CHLOR 0.9% 1000 ML INJ 1,000 ML IV SCH (13:38)
--- NOTE | 2017-06-04 13:41 | HHI.PR ---
Subjective Remarks Pt seen last night on arrival by Dr Gong and by me at 9AM today. Pts Coumadin was not on hold . She was instructed to restart on Friday(see D/C instructions) . She did not start it. Has been off Coumadin 10-11 days. OK from my standpoint to be on Coumadin. Has mild Aphasia and ataxia. Objective Vital Signs Date Time Temp Pulse Resp B/P (MAP) Pulse Ox O2 Delivery O2 Flow Rate FiO2 06/04/17 12:45 06/04/17 10:30 102 16 139/61 (87) 95 Room Air 06/04/17 07:30 78 16 136/75 (95) 95 Room Air 06/04/17 06:07 100 17 164/78 (106) 97 Room Air 06/04/17 04:44 82 16 142/79 (100) 98 Room Air 06/03/17 23:12 107 18 150/59 (89) 96 Room Air 06/03/17 19:15 20 06/03/17 19:11 98.0 93 20 152/67 (95) 96 Room Air 06/03/17 18:58 97.6 84 18 127/79 (95) 96 Result Diagram: 06/04/17 0545 06/04/17 0545 Objective Remarks VS-S Abd: soft,non tender,wound clean Assessment and Plan Assessment and Plan Stable from CRS standpoint. OK to resume diet if able to swallow. OK to resume Coumadin anytime. Will follow with you Tonny Medina MD Jun 04, 2017 13:41
[2017-06-04] MEDS ORDERED: ENALAPRILAT 1.25 MG/ML VIAL IV PUSH PRN (14:00)
--- NOTE | 2017-06-04 14:56 | HHI.PR ---
Addendum to Inpatient Note Addendum Reason: Additional Documentation Additional Information Pt feels down w currently diagnosis. No CP/SOB/N/V. Pt states she still has trouble w her speech. feels some weakness on her lower ext. Stroke educator at bedside. son at bedside Acute ischemic CVA v -Head CT with no acute abnormality seen. Persistent low density in the cerebral white matter likely from small vessel ischemic change. -Neurology consulted in the ER -patient outside the window of TPA -appreciate assistance and recommendations - Dr. Stafford recommended chewable baby aspirin in ED -continue neuro checks. MRI shows acute infarction involving right cerebellar hemisphere and right side of the midbrain. Possible small microhemorrhate in right cerebellar hemisphere. MRA neg. -echo pending -carotid arteries shows mild to mod narrowing in the right internal carotid art -Continuous cardiac telemetry to monitor arrhythmia -Lipid profile TG 133, LDL 84, HDL 29 and hemoglobin A1c pending. -PT, OT, and ST evaluations -Repeat CT of head in AM to monitor microhemorrhages. neurology recommends lovenox which pt is on -Per neuro, ok to start normalizing BP. Slowly bring it down. I have resumed pt' s home amlodipine dose. Atrial fibrillation -Dr. Wheeler is patient's outpatient greenhouse worker. -Anticoagulation with Lovenox 40 mg twice daily per colorectal surgery -will need to bridge to Coumadin -Continuous cardiac telemetry to monitor her arrhythmia and rate -Control rate as needed -cardiology consultation if necessary Hypokalemia -Initial K+ 2.8 today. replace w 60mEq KCl. check Mg -D5LR + KCL 20 meq at 100 cc/hr Abnormal urinalysis -Patient status post cystoscopy with bilateral ureteral cath insertion during sigmoid colectomy surgery -performed by Dr. Markus Harris -Abnormalities may be secondary to recent procedure and do not clearly point to infection -white blood count downward trending since recent hospitalization - was 18.3 on 05/31 and is now 11.3 and patient is afebrile -she has chronic urinary symptoms secondary to cystocele -Await final urine culture -urine neg x 24 hrs. Rosy Vega MD Jun 04, 2017 14:56
[2017-06-04] MEDS ORDERED: POTASSIUM CHLORIDE 20 MEQ CONTROLLED RELEASE TAB PO ONE (15:00)
[2017-06-04 15:15] VITALS: BP 119/58; PULSE 79; RESP 12; TEMP 98.8; O2SAT 98
[2017-06-04 20:10] VITALS: BP 133/66; PULSE 90; RESP 17; O2SAT 98
[2017-06-04] MEDS ORDERED: CYCLOSPORINE OPTH 0.05% EACH EYE SCH (21:00)
[2017-06-04 22:34] LABS: HEMOGLOBIN A1C 5.2 % (4.3-6.0)
[2017-06-05] VITALS (12 sets, daily range): BP systolic 134–157; BP diastolic 60–69; PULSE 69–109; RESP 17–18; TEMP 96.6–100.1; O2SAT 95–99
[2017-06-05] MEDS: SODIUM CHLOR 0.9% 1000 ML INJ 1,000 ML IV SCH (03:37)
[2017-06-05 04:57] LABS: AUTOMATED NEUTROPHIL # 12.5 TH/MM3 (1.8-7.7); BASOPHIL # 0.1 TH/MM3 (0-0.2); BASOPHIL % 0.5 % (0.0-2.0); EOSINOPHIL # 0.3 TH/MM3 (0-0.4); EOSINOPHIL % 1.7 % (0.0-4.0); HEMATOCRIT 28.3 % (35.0-46.0); HEMOGLOBIN 9.9 GM/DL (11.6-15.3); LYMPH % 10.9 % (9.0-44.0); LYMPHOCYTE # 1.8 TH/MM3 (1.0-4.8); MEAN CELL VOLUME 95.9 FL (80.0-100.0); MEAN CORPUSCULAR HEMOGLOBIN 33.4 PG (27.0-34.0); MEAN CORPUSCULAR HGB CONC 34.9 % (32.0-36.0); MEAN PLATELET VOLUME 7.7 FL (7.0-11.0); MONO % 9.7 % (0.0-8.0); MONOCYTE # 1.6 TH/MM3 (0-0.9); NEUT % 77.2 % (16.0-70.0); PLATELET COUNT 364 TH/MM3 (150-450); RED BLOOD COUNT 2.95 MIL/MM3 (4.00-5.30); RED CELL DISTRIBUTION WIDTH 13.3 % (11.6-17.2); WHITE BLOOD COUNT 16.2 TH/MM3 (4.0-11.0)
[2017-06-05] MEDS: INSULIN ASPART SUPPLEMENTAL SCALE SQ SCH ×4 (08:00→21:00)
[2017-06-05] MEDS: SODIUM CHLORIDE 0.9% FLUSH 10 ML FLUSH IV FLUSH SCH ×2 (08:15→21:00)
[2017-06-05] MEDS: amLODIPine BESYLATE 5 MG TAB PO SCH (08:45)
[2017-06-05] MEDS: ENOXAPARIN SODIUM 40 MG/0.4 ML SYRINGE SQ SCH ×2 (08:47→21:45)
--- NOTE | 2017-06-05 12:04 | RADRPT ---
EXAM DATE/TIME: 06/05/2017 11:29 [facility] COMPARISON: MRA BRAIN W/O CONTRAST, June 04, 2017, 9:52. MRI BRAIN W/O CONTRAST, June 04, 2017, 9:52. CT BRAI N W/O CONTRAST, June 03, 2017, 19:35. INDICATIONS : CVA, rule out bleed. RADIATION DOSE: 56.35 CTDIvol (mGy) MEDICAL HISTORY : Hypertension. Cardiovascular disease Cerebrovascular disease. SURGICAL HISTORY : None. ENCOUNTER: Initial ACUITY: 1 day PAIN SCALE: 0/10 LOCATION: cranial TECHNIQUE: Multiple contiguous axial images were obtained of the head. Using automated exposure control and adj ustment of the mA and/or kV according to patient size, radiation dose was kept as low as reasonably a chievable to obtain optimal diagnostic quality images. DICOM format image data is available electro nically for review and comparison. FINDINGS: CEREBRUM: The ventricles are normal for age. Cerebral hemispheres appear stable compared to recent CT. No evid ence of midline shift, mass lesion, hemorrhage or acute infarction. No extra-axial fluid collections are seen. POSTERIOR FOSSA: The evolving infarct is identified in the right cerebellum. There is no evidence of acute hemorrhage. There is no significant mass effect. EXTRACRANIAL: The visualized portion of the orbits is intact. SKULL: The calvaria is intact. No evidence of skull fracture. CONCLUSION: 1. No evidence of acute hemorrhage. 2. Evolving right cerebellar infarct. 3. No CT evidence of infarct or hemorrhage within the cerebral hemispheres. Nate Talley MD on June 05, 2017 at 11:58 Board Certified Radiologist. This report was verified electronically.
[2017-06-05 15:40] LABS: CALCIUM 8.1 MG/DL (8.5-10.1); CREATININE 0.49 MG/DL (0.50-1.00); MAGNESIUM 1.8 MG/DL (1.5-2.5)
--- NOTE | 2017-06-05 17:55 | HHI.PR ---
Subjective Remarks Patient says she is feeling well. Denies any chest pain shortness of breath. Denies any abdominal pain. Objective Vital Signs Date Time Temp Pulse Resp B/P (MAP) Pulse Ox O2 Delivery O2 Flow Rate FiO2 06/05/17 16:14 98.5 105 18 145/61 (89) 99 06/05/17 15:19 95 06/05/17 13:06 98.8 86 18 157/64 (95) 99 06/05/17 11:56 86 06/05/17 08:17 96.6 80 18 134/60 (84) 98 06/05/17 07:08 109 06/05/17 03:40 98.3 87 17 154/69 (97) 96 06/05/17 02:00 69 06/05/17 00:04 100.1 86 17 148/65 (92) 95 06/04/17 20:10 90 17 133/66 (88) 98 06/04/17 18:15 I/O 06/04/17 06/04/17 06/04/17 06/05/17 06/05/17 06/05/17 07:00 15:00 23:00 07:00 15:00 23:00 Output Total 300 ml Balance -300 ml Output Urine Total 300 ml # Voids 5 Result Diagram: 06/05/17 0417 06/05/17 1443 Objective Remarks GENERAL: Patient sitting up in chair. Appears comfortable. SKIN: Warm and dry. HEAD: Normocephalic. EYES: No scleral icterus. No injection or drainage. NECK: Supple, trachea midline. No JVD. CARDIOVASCULAR: Regular rate and rhythm without murmurs, gallops, or rubs. RESPIRATORY: Breath sounds equal bilaterally. No accessory muscle use. GASTROINTESTINAL: Abdomen soft, non-tender, nondistended. MUSCULOSKELETAL: No cyanosis. +1 BL LE EDEMA BACK: Nontender without obvious deformity. No CVA tenderness. A/P Assessment and Plan //Acute ischemic CVA -Head CT with no acute abnormality seen. Persistent low density in the cerebral white matter likely from small vessel ischemic change. -Neurology consulted in the ER -patient outside the window of TPA -appreciate assistance and recommendations - Dr. Stafford recommended chewable baby aspirin in ED -continue neuro checks. MRI shows acute infarction involving right cerebellar hemisphere and right side of the midbrain. Possible small microhemorrhate in right cerebellar hemisphere. MRA neg. -echo pending -carotid arteries shows mild to mod narrowing in the right internal carotid art -Continuous cardiac telemetry to monitor arrhythmia -Lipid profile TG 133, LDL 84, HDL 29 and hemoglobin A1c pending. -PT, OT, and ST evaluations -Repeat CT of head in AM to monitor microhemorrhages. neurology recommends lovenox which pt is on -Per neuro, ok to start normalizing BP. Slowly bring it down. I have resumed pt' s home amlodipine dose. = Back on nectar thick liquids. Vital signs stable. Patient comfortable. Rehab medicine following. Appreciate assistance. //Atrial fibrillation //Moderate to severe pulmonary hypertension //Bilateral lower extremity edema -Dr. Wheeler is patient's outpatient hog operator. -Anticoagulation with Lovenox 40 mg twice daily per colorectal surgery -will need to bridge to Coumadin -Continuous cardiac telemetry to monitor her arrhythmia and rate -Control rate as needed = Stop IV fluids. Cardiology consultation to rule out cardioembolic phenomenon PFO versus A. fib. Bilateral ultrasound to rule out DVT. Hypokalemia -Initial K+ 2.8 today. replace w 60mEq KCl. check Mg -D5LR + KCL 20 meq at 100 cc/hr = 06/05. Potassium 3.2. Replace. //Abnormal urinalysis -Patient status post cystoscopy with bilateral ureteral cath insertion during sigmoid colectomy surgery -performed by Dr. Markus Harris -Abnormalities may be secondary to recent procedure and do not clearly point to infection -white blood count downward trending since recent hospitalization - was 18.3 on 05/31 and is now 11.3 and patient is afebrile -she has chronic urinary symptoms secondary to cystocele = -urine neg x 24 hrs. = Mild hematuria. Follow-up with primary care. //Leukocytosis of 16. Could be secondary to stress. No signs of infection currently. Continue to monitor. //Recent colon resection for diverticulitis. Colorectal surgery following. Appreciate assistance. Discharge Planning Pending ultrasound to rule out DVT Cardiology consultation Rehab medicine Possibly discharge to rehab tomorrow if cleared by neurology, cardiology. Placido Rodas MD Jun 05, 2017 17:55
[2017-06-05] MEDS ORDERED: POTASSIUM CHLORIDE 10 MEQ CONTROLLED RELEASE TAB PO ONE (18:00)
--- NOTE | 2017-06-05 18:04 | HHI.PR ---
Subjective . No N or V. No BMs. CVA Sxs improved. No further facial droop. Speech clear. Objective . VS-S Abd: Benign,jose m intact Assessment/Plan . Improved CVA Plan: OK to restart Coumadin from CRS standpoint Tonny Medina MD Jun 05, 2017 18:04
[2017-06-05] MEDS ORDERED: IOHEXOL 350 MG/ML 100 ML BTL (for RAD DIAG) IVCONTRAST ONE (21:30)
[2017-06-05] MEDS ORDERED: traMADol HCL 50 MG TAB PO ONE (21:30)
--- NOTE | 2017-06-05 21:42 | RADRPT ---
EXAM DATE/TIME: 06/05/2017 20:57 [facility] COMPARISON: No previous studies available for comparison. INDICATIONS : Syncopal episode. IV CONTRAST: 75 cc Omnipaque 350 (iohexol) IV RADIATION DOSE: 32.35 CTDIvol (mGy) MEDICAL HISTORY : Cardiovascular disease. SURGICAL HISTORY : None. ENCOUNTER: Subsequent ACUITY: 2 days PAIN SCALE: 0/10 LOCATION: neck Elevated flow velocities and ICA/CCA ratios have been found to correlate with increased degrees of vessel stenosis, calculated as percentage of diameter relative to a normal segment of distal ICA/CCA. TECHNIQUE: Volumetric scanning was performed using a multirow detector CT scanner. The data was post processed with a variety of visualization algorithms including full-volume maximum intensity projection, multip lanar sliding thin-slab reformation, curved-planar reformation, and surface-rendering techniques. Us ing automated exposure control and adjustment of the mA and/or kV according to patient size, radiatio n dose was kept as low as reasonably achievable to obtain optimal diagnostic quality images. DICOM f ormat image data is available electronically for review and comparison. FINDINGS: AORTIC ARCH: There is a three-vessel origin of the great vessels from the aorta. No evidence of ostial narrowing. Calcifications are seen at the ostial regions without significant stenosis. RIGHT CAROTID: The common carotid artery is intact. Calcifications are seen at the carotid bulb regions without sign ificant stenosis. The internal carotid artery lumen is smooth without stenosis. The external carotid artery is intact. LEFT CAROTID: The common carotid artery is intact. Calcifications are seen at the carotid bulb regions without sig nificant stenosis. The internal carotid artery lumen is smooth without stenosis. The external caroti d artery is intact. VERTEBRALS: The vertebral arteries have a symmetric diameter. No stenotic lesions are seen. CONCLUSION: Atherosclerotic calcifications without a significant stenosis. Tonny Kohler MD on June 05, 2017 at 21:38 Board Certified Radiologist. This report was verified electronically.
--- NOTE | 2017-06-05 22:57 | RADRPT ---
EXAM DATE/TIME: 06/05/2017 22:33 [facility] COMPARISON: No previous studies available for comparison. INDICATIONS : Leg pain. MEDICAL HISTORY : Hypertension. Gastroesophageal reflux disease. Arthritis. SURGICAL HISTORY : Appendectomy.Colon resection. Partial hysterectomy. Bladder suspension 2012. Left hip arthroplasty. Right wrist repair. ENCOUNTER: Initial ACUITY: 2 day PAIN SCORE: 3/10 LOCATION: Left leg. TECHNIQUE: Venous ultrasound of the left and right leg was performed from the inguinal ligament to the proximal calf. Real-time, color Doppler and spectral tracing, compression and augmentation techniques were us ed. FINDINGS: RIGHT LEG: There is normal compressibility of the deep venous system from the inguinal region to the proximal ca lf. No echogenic clot is seen in the lumen of the common femoral, femoral, popliteal, and posterior tibial veins. There is a normal response of the venous system to proximal and distal augmentation an d respiration. LEFT LEG: There is normal compressibility of the deep venous system from the inguinal region to the proximal ca lf. No echogenic clot is seen in the lumen of the common femoral, femoral, popliteal, and posterior tibial veins. There is a normal response of the venous system to proximal and distal augmentation an d respiration. CONCLUSION: No DVT. Tonny Kohler MD on June 05, 2017 at 22:54 Board Certified Radiologist. This report was verified electronically.
[2017-06-06] VITALS (7 sets, daily range): BP systolic 132–168; BP diastolic 65–81; PULSE 62–123; RESP 14–18; TEMP 96.8–98.4; O2SAT 90–99
[2017-06-06 07:31] LABS: AUTOMATED NEUTROPHIL # 7.5 TH/MM3 (1.8-7.7); BASOPHIL # 0.1 TH/MM3 (0-0.2); BASOPHIL % 0.9 % (0.0-2.0); EOSINOPHIL # 0.4 TH/MM3 (0-0.4); EOSINOPHIL % 3.5 % (0.0-4.0); HEMATOCRIT 23.7 % (35.0-46.0); HEMOGLOBIN 8.2 GM/DL (11.6-15.3); LYMPHOCYTE # 1.4 TH/MM3 (1.0-4.8); MEAN CELL VOLUME 95.4 FL (80.0-100.0); MEAN CORPUSCULAR HGB CONC 34.6 % (32.0-36.0); MEAN PLATELET VOLUME 7.5 FL (7.0-11.0); MONO % 11.5 % (0.0-8.0); MONOCYTE # 1.2 TH/MM3 (0-0.9); NEUT % 71.1 % (16.0-70.0); PLATELET COUNT 370 TH/MM3 (150-450); RED BLOOD COUNT 2.49 MIL/MM3 (4.00-5.30); RED CELL DISTRIBUTION WIDTH 13.5 % (11.6-17.2); WHITE BLOOD COUNT 10.6 TH/MM3 (4.0-11.0)
[2017-06-06 07:59] LABS: ALBUMIN 2.6 GM/DL (3.4-5.0); BICARBONATE 25.9 MEQ/L (21.0-32.0); CALCIUM 8.1 MG/DL (8.5-10.1); CREATININE 0.4 MG/DL (0.50-1.00); MAGNESIUM 1.9 MG/DL (1.5-2.5)
[2017-06-06] MEDS: INSULIN ASPART SUPPLEMENTAL SCALE SQ SCH ×4 (08:00→21:00)
[2017-06-06 08:01] LABS: PHOSPHORUS 3.2 MG/DL (2.5-4.9)
[2017-06-06] MEDS ORDERED: ENOX40P SQ (08:36)
[2017-06-06] MEDS ORDERED: ATOR10TA15 PO (08:36)
[2017-06-06] MEDS ORDERED: ASPI81TA23 PO (08:39)
[2017-06-06] MEDS: SODIUM CHLORIDE 0.9% FLUSH 10 ML FLUSH IV FLUSH SCH ×2 (08:59→21:34)
[2017-06-06] MEDS: amLODIPine BESYLATE 5 MG TAB PO SCH (09:00)
[2017-06-06] MEDS: ENOXAPARIN SODIUM 40 MG/0.4 ML SYRINGE SQ SCH ×3 (09:00→21:33)
--- NOTE | 2017-06-06 09:17 | HHI.PR ---
Subjective Remarks Pt much improved. Speaking normally. Denies weakness. Swallowing well. Had BM Objective Vital Signs Date Time Temp Pulse Resp B/P (MAP) Pulse Ox O2 Delivery O2 Flow Rate FiO2 06/06/17 07:19 96.8 82 14 145/65 (91) 98 06/06/17 04:32 98.3 75 18 155/70 (98) 93 06/05/17 23:02 98.5 94 18 136/68 (90) 98 06/05/17 23:00 85 06/05/17 22:45 18 06/05/17 21:14 98.3 85 18 153/67 (95) 96 06/05/17 16:14 98.5 105 18 145/61 (89) 99 06/05/17 15:19 95 06/05/17 13:06 98.8 86 18 157/64 (95) 99 06/05/17 11:56 86 I/O 06/05/17 06/05/17 06/05/17 06/06/17 06/06/17 06/06/17 07:00 15:00 23:00 07:00 15:00 23:00 Intake Total 240 ml Output Total 720 ml Balance -480 ml Intake Oral 240 ml Output Urine Total 720 ml # Voids 5 Result Diagram: 06/06/1718 06/06/17617 Objective Remarks VS-S Abd: soft,non tender,wound clean Assessment and Plan Assessment and Plan Stable from CRS standpoint. OK to resume Coumadin anytime. Remove skin jose m today Tonny Medina MD Jun 06, 2017 09:17
[2017-06-06] MEDS ORDERED: traMADol HCL 50 MG TAB PO ONE (10:00)
--- NOTE | 2017-06-06 13:04 | RADRPT ---
EXAM DATE/TIME: 06/06/2017 12:45 [facility] COMPARISON: CT BRAIN W/O CONTRAST, June 05, 2017, 11:29. INDICATIONS : Stroke alert, aphasia and left sided weakness. RADIATION DOSE: 30.48 CTDIvol (mGy) This report was called by Dr. Martin to Dr. Hernandez at 1300 MEDICAL HISTORY : Non-responsive. SURGICAL HISTORY : Non-responsive. ENCOUNTER: Initial ACUITY: 1 day PAIN SCALE: Non-responsive LOCATION: cranial TECHNIQUE: Multiple contiguous axial images were obtained of the head. Using automated exposure control and adj ustment of the mA and/or kV according to patient size, radiation dose was kept as low as reasonably a chievable to obtain optimal diagnostic quality images. DICOM format image data is available electro nically for review and comparison. FINDINGS: CEREBRUM: The ventricles are normal for age. Stable periventricular areas of diminished attenuation characteris tic of small vessel ischemic demyelination. Stable bifrontal atrophic changes. No evidence of midline shift, mass lesion, hemorrhage or acute infarction. No extra-axial fluid collections are seen. POSTERIOR FOSSA: Right cerebellar infarct is stable. No new lesions. The 4th ventricle is midline. The cerebellopont ine angle is unremarkable. EXTRACRANIAL: The visualized portion of the orbits is intact. SKULL: The calvaria is intact. No evidence of skull fracture. CONCLUSION: 1. Stable chronic changes of periventricular small vessel ischemic demyelination, symmetric bifrontal atrophy and 1.9 cm right cerebellar infarct. 2. Nothing acute. No acute intracranial hemorrhage. David Martin MD on June 06, 2017 at 12:58 Board Certified Radiologist. This report was verified electronically.
--- NOTE | 2017-06-06 13:06 | MB ---
cc: Elia Westbrook DO DATE: 06/06/2017 IMPRESSIONS: 1. Acute cerebrovascular accident, cerebellar possible micro hemorrhage noted on MRI. 2. Hypertension. 3. Chronic atrial fibrillation on Warfarin. 4. Diverticulitis and diverticulosis. 5. Esophageal reflux disease. 6. Presbycusis. RECOMMENDATIONS: The patient is currently on Lovenox therapy. Need to restart Coumadin when okay with Neurology. The possibility of a cerebellar hemorrhage is of great concern, may need to wait 7-10 days prior to resuming warfarin. I would continue Lovenox at this point in time. CLINICAL DATA: Mrs. Bishop is a 76-year-old female who was admitted to the hospital with perioral numbness and loss of coordination in her right upper extremity. She has a history of atrial fibrillation. She apparently had stopped her warfarin on 05/24/2017 and had a sigmoid colectomy performed on 05/29/2017 for severe diverticular disease. There apparently was some confusion as she did not start her warfarin after discharge from the hospital. She developed neurologic symptoms on the 06/04/2017 prompting readmission to the hospital. She has a history of chronic atrial fibrillation. She has a history of hypertension. There is no history of diabetes or dyslipidemia. She does not smoke or use alcohol. She has no history of peripheral vascular or atherosclerotic heart disease. There is no history of myocardial infarction, congestive heart failure or ventricular arrhythmias. She has no previous history of stroke or seizure. There is no history of asthma, chronic bronchitis, or emphysema. There is no history of bleeding complications from long-term warfarin therapy. There is no history of liver or gallbladder disease. There is no history of renal disease. ALLERGIES: AZITHROMYCIN, ERYTHROMYCIN, CODEINE. MEDICATIONS: At the time of his admission included: Colace, Linzess, Restasis eyedrops, Biotin, vitamin D3, cinnamon capsules, vitamin B12, amlodipine 5 mg daily, ranitidine 300 mg as needed, and warfarin 5 mg daily, she was not taking warfarin, however. PAST SURGICAL HISTORY: Includes a recent partial colectomy, appendectomy, partial hysterectomy, bladder surgery, left hip replacement and orthopedic surgery on her right arm. She has had SYSTEMS: Chest pain. She has had no syncope. She has had no palpitations. She has had no shortness of breath. She has had no vertigo or dizzy spells. She does have hearing loss. PHYSICAL EXAMINATION: GENERAL: At this time, exam demonstrates an alert, oriented female. She is sitting on the bedside commode in the emergency room. VITAL SIGNS: Blood pressure 136/68 with a heart rate of 80 and irregularly irregular. NEUROLOGIC: Her speech is fluent. NECK: Jugular venous pressures are normal. There are no bruits. LUNGS: She has clear lung freire. CARDIAC: There is an irregularly irregular rhythm, 1/6 systolic ejection murmur. There are no gallops noted. EXTREMITIES: Free of cyanosis, clubbing or edema. PERTINENT LABORATORY STUDIES: Most recent electrolytes 141, 3.4, 106, 26 with a BUN of 6, creatinine of 0.4, cholesterol 140, LDL 84, HDL 29. Hematocrit 24%, white cell count 10,600, platelet count 370,000. Electrocardiogram demonstrates atrial fibrillation, normal axis, controlled ventricular response rate, nonspecific ST-T changes and voltage criteria for left ventricular hypertrophy. Multiple [employer]ARD [employer] SUPER[employer]OR imaging studies as noted in the open remarks demonstrated an acute cerebellar stroke with possible micro hemorrhage. DISCUSSION: This is a 76-year-old female admitted to the hospital with an acute cerebrovascular accident related to atrial fibrillation. Her warfarin had been stopped in anticipation for a sigmoid colectomy. Recommendations are as noted above. Elia Westbrook, DO BGS/DL , 12:39 PM , 01:04 PM
[2017-06-06] MEDS ORDERED: IODIXANOL 320 MG/ML 10 ML VIAL (for Rad CT) IVCONTRAST ONE (13:10)
[2017-06-06 13:12] LABS: AUTOMATED NEUTROPHIL # 8.1 TH/MM3 (1.8-7.7); BASOPHIL # 0.1 TH/MM3 (0-0.2); BASOPHIL % 0.7 % (0.0-2.0); EOSINOPHIL # 0.3 TH/MM3 (0-0.4); EOSINOPHIL % 2.3 % (0.0-4.0); HEMATOCRIT 26.2 % (35.0-46.0); LYMPH % 13.3 % (9.0-44.0); LYMPHOCYTE # 1.5 TH/MM3 (1.0-4.8); MEAN CELL VOLUME 94.9 FL (80.0-100.0); MEAN CORPUSCULAR HEMOGLOBIN 32.7 PG (27.0-34.0); MEAN CORPUSCULAR HGB CONC 34.5 % (32.0-36.0); MEAN PLATELET VOLUME 7.1 FL (7.0-11.0); MONO % 12.2 % (0.0-8.0); MONOCYTE # 1.4 TH/MM3 (0-0.9); NEUT % 71.5 % (16.0-70.0); PLATELET COUNT 424 TH/MM3 (150-450); RED BLOOD COUNT 2.76 MIL/MM3 (4.00-5.30); RED CELL DISTRIBUTION WIDTH 13.8 % (11.6-17.2); WHITE BLOOD COUNT 11.3 TH/MM3 (4.0-11.0)
[2017-06-06] MEDS ORDERED: ASPIRIN 81 MG CHEW TAB CHEW ONE (13:15)
[2017-06-06] MEDS ORDERED: POTASSIUM CHLOR 10 MEQ PREMIX 100 ML IV ONE (13:15)
--- NOTE | 2017-06-06 13:17 | HHI.PR ---
Subjective Remarks Patient says she is feeling well. Denies any chest pain shortness of breath. Denies any abdominal pain. Objective Vital Signs Date Time Temp Pulse Resp B/P (MAP) Pulse Ox O2 Delivery O2 Flow Rate FiO2 06/06/17 12:05 98.2 62 14 143/77 (99) 96 06/06/17 07:19 96.8 82 14 145/65 (91) 98 06/06/17 04:32 98.3 75 18 155/70 (98) 93 06/05/17 23:02 98.5 94 18 136/68 (90) 98 06/05/17 23:00 85 06/05/17 22:45 18 06/05/17 21:14 98.3 85 18 153/67 (95) 96 06/05/17 16:14 98.5 105 18 145/61 (89) 99 06/05/17 15:19 95 I/O 06/05/17 06/05/17 06/05/17 06/06/17 06/06/17 06/06/17 07:00 15:00 23:00 07:00 15:00 23:00 Intake Total 240 ml Output Total 720 ml Balance -480 ml Intake Oral 240 ml Output Urine Total 720 ml # Voids 5 Result Diagram: 06/06/1718 06/06/17617 Objective Remarks GENERAL: Patient sitting up in chair. Appears comfortable. No change on exam. SKIN: Warm and dry. HEAD: Normocephalic. EYES: No scleral icterus. No injection or drainage. NECK: Supple, trachea midline. No JVD. CARDIOVASCULAR: Regular rate and rhythm without murmurs, gallops, or rubs. RESPIRATORY: Breath sounds equal bilaterally. No accessory muscle use. GASTROINTESTINAL: Abdomen soft, non-tender, nondistended. MUSCULOSKELETAL: No cyanosis. +1 BL LE EDEMA BACK: Nontender without obvious deformity. No CVA tenderness. A/P Assessment and Plan //Acute ischemic CVA -Head CT with no acute abnormality seen. Persistent low density in the cerebral white matter likely from small vessel ischemic change. -Neurology consulted in the ER -patient outside the window of TPA -appreciate assistance and recommendations - Dr. Stafford recommended chewable baby aspirin in ED -continue neuro checks. MRI shows acute infarction involving right cerebellar hemisphere and right side of the midbrain. Possible small microhemorrhate in right cerebellar hemisphere. MRA neg. -echo pending -carotid arteries shows mild to mod narrowing in the right internal carotid art -Continuous cardiac telemetry to monitor arrhythmia -Lipid profile TG 133, LDL 84, HDL 29 and hemoglobin A1c pending. -PT, OT, and ST evaluations -Repeat CT of head in AM to monitor microhemorrhages. neurology recommends lovenox which pt is on -Per neuro, ok to start normalizing BP. Slowly bring it down. I have resumed pt' s home amlodipine dose. = Back on nectar thick liquids. Vital signs stable. Patient comfortable. Rehab medicine following. Appreciate assistance. = Patient doing well this morning. //Atrial fibrillation //Moderate to severe pulmonary hypertension //Bilateral lower extremity edema -Dr. Wheeler is patient's outpatient life science taxonomist. -Anticoagulation with Lovenox 40 mg twice daily per colorectal surgery -will need to bridge to Coumadin -Continuous cardiac telemetry to monitor her arrhythmia and rate -Control rate as needed = Stop IV fluids. Cardiology consultation to rule out cardioembolic phenomenon PFO versus A. fib. Bilateral ultrasound to rule out DVT. Hypokalemia -Initial K+ 2.8 today. replace w 60mEq KCl. check Mg -D5LR + KCL 20 meq at 100 cc/hr = 06/05. Potassium 3.2. Replace. = 06/06. Potassium 3.4. Replace. //Abnormal urinalysis -Patient status post cystoscopy with bilateral ureteral cath insertion during sigmoid colectomy surgery -performed by Dr. Markus Harris -Abnormalities may be secondary to recent procedure and do not clearly point to infection -white blood count downward trending since recent hospitalization - was 18.3 on 05/31 and is now 11.3 and patient is afebrile -she has chronic urinary symptoms secondary to cystocele = -urine neg x 24 hrs. = Mild hematuria. Follow-up with primary care. //Leukocytosis of 16. Could be secondary to stress. No signs of infection currently. Continue to monitor. = Resolved. //Anemia. Hemoglobin 8.2 from 9.9 yesterday. Could be dilutional. Versus lab error. Repeat CBC. //Recent colon resection for diverticulitis. Colorectal surgery following. Appreciate assistance. Discharge Planning DVT Cardiology consultation Rehab medicine Placido Rodas MD Jun 06, 2017 13:17
--- NOTE | 2017-06-06 13:18 | RADRPT ---
EXAM DATE/TIME: 06/06/2017 12:45 [facility] COMPARISON: No previous studies available for comparison. INDICATIONS : Stroke alert, left sided weakness and aphasia. IV CONTRAST: 78 cc Visipaque (iodixanol) IV ; Cumulative dose for multiple exams. RADIATION DOSE: 25.43 CTDIvol (mGy) ; Combined studies - Thorax/Abdomen/Pelvis MEDICAL HISTORY : Non-responsive. SURGICAL HISTORY : Non-responsive. ENCOUNTER: Initial ACUITY: 1 day PAIN SCALE: 0/10 LOCATION: cranial TECHNIQUE: Volumetric scanning was performed using a multi-row detector CT scanner. The data was post processed with a variety of visualization algorithms including full volume maximum intensity projection, multi -planar sliding thin slab reformation, curved planar reformation, and surface rendering techniques. Using automated exposure control and adjustment of the mA and/or kV according to patient size, radiat ion dose was kept as low as reasonably achievable to obtain optimal diagnostic quality images. DICO M format image data is available electronically for review and comparison. FINDINGS: There is excellent visualization of the major intracranial arteries out to the second-order branch ve ssels. There is no evidence for aneurysm, vessel truncation or stenosis, and no evidence for vascula r malformation. CONCLUSION: Unremarkable examination. Khoi Wright MD on June 06, 2017 at 13:13 Board Certified Radiologist. This report was verified electronically.
[2017-06-06 13:20] LABS: INTERNATIONAL NORMALIZED RATIO 1.1 RATIO; PROTHROMBIN TIME - PATIENT 11.3 SEC (9.8-11.6)
[2017-06-06 13:35] LABS: TROPONIN I LESS THAN 0.02 NG/ML (0.02-0.05)
--- NOTE | 2017-06-06 13:44 | RADRPT ---
EXAM DATE/TIME: 06/06/2017 12:45 [facility] COMPARISON: No previous studies available for comparison. INDICATIONS : Stroke alert, left sided weakness and aphasia. IV CONTRAST: 78 cc Visipaque (iodixanol) IV ; Cumulative dose for multiple exams. RADIATION DOSE: 25.43 CTDIvol (mGy) ; Combined studies MEDICAL HISTORY : Non-responsive. SURGICAL HISTORY : Non-responsive. ENCOUNTER: Initial ACUITY: 1 day PAIN SCALE: 0/10 LOCATION: neck Elevated flow velocities and ICA/CCA ratios have been found to correlate with increased degrees of vessel stenosis, calculated as percentage of diameter relative to a normal segment of distal ICA/CCA. TECHNIQUE: Volumetric scanning was performed using a multirow detector CT scanner. The data was post processed with a variety of visualization algorithms including full-volume maximum intensity projection, multip lanar sliding thin-slab reformation, curved-planar reformation, and surface-rendering techniques. Us ing automated exposure control and adjustment of the mA and/or kV according to patient size, radiatio n dose was kept as low as reasonably achievable to obtain optimal diagnostic quality images. DICOM f ormat image data is available electronically for review and comparison. FINDINGS: AORTIC ARCH: There is a three-vessel origin of the great vessels from the aorta. No evidence of ostial narrowing. RIGHT CAROTID: The common carotid artery is intact. The carotid bulb has a normal configuration without ulceration o r narrowing. The internal carotid artery lumen is smooth without stenosis. The external carotid yanely ry is intact. LEFT CAROTID: The common carotid artery is intact. The carotid bulb has a normal configuration without ulceration or narrowing. The internal carotid artery lumen is smooth without stenosis. The external carotid ar prema is intact. VERTEBRALS: Vertebral arteries are patent bilaterally, left side dominant. There is patchy mild parenchymal disease in the lung apices. CONCLUSION: No evidence of carotid stenosis. Parenchymal opacities in the lung apices. Further evaluation with CT chest recommended Tonny Fletcher MD on June 06, 2017 at 13:37 Board Certified Radiologist. This report was verified electronically.
--- NOTE | 2017-06-06 14:42 | MB ---
cc: Kelechi Hernandez MD, PhD DATE: 06/06/2017 REASON FOR CONSULTATION: Stroke alert. HISTORY OF PRESENT ILLNESS: Ms. Bishop is a 76-year-old woman who had abdominal surgery for diverticulitis on the 05/29/2017. She has a history of atrial fibrillation. She had a recent cerebellar and brainstem infarct demonstrated on MRI scan several days ago. She was recovering, getting ready to go to rehab when she had sudden onset of aphasia as well as right-sided weakness with abnormal choreiform convulsive-type movements of the right upper extremity. Therefore, a stroke alert was called. Emergent CT scan of the brain was obtained and reviewed showing a 1.9 cm right cerebellar infarct. No hemorrhage was seen. Periventricular ischemic demyelination was identified. The patient was not a candidate for IV TPA because of the recent stroke with micro hemorrhage as well as the recent surgery, so we elected to proceed with an emergent CTA of the neck and head to evaluate for the possibility of large vessel occlusion. However, these studies were within normal limits with no evidence of any large vessel occlusion and no evidence of any significant carotid artery stenosis. The patient does have atrial fibrillation. She has been started on Lovenox 40 mg subq b.i.d. PAST MEDICAL HISTORY: Remarkable for her diverticulitis with recent abdominal surgery, atrial fibrillation, recent cerebellar and brainstem stroke, cataracts, hypertension, GE reflux, Chandana ulcer, cystocele, osteoarthritis of the spine, hysterectomy, bladder suspension, left hip arthroplasty, appendectomy. CURRENT MEDICATIONS: Lovenox 40 mg subcutaneous b.i.d., aspirin 81 mg daily which was just started, potassium chloride, amlodipine 5 mg daily,Vasotec p.r.n. hypertension, insulin sliding scale p.r.n. PHYSICAL EXAMINATION: VITAL SIGNS: Blood pressure is 149/74, pulse 122, respiratory rate is 14, temperature 98 degrees. HIGHER CORTICAL FUNCTION: At this time, she is much improved. She is alert, oriented x 3. Speech is slightly dysarthric but not aphasic. She follows commands. She can repeat simple phrases. Cranial nerves are normal. On motor examination, there is 5/5 strength of all groups in the upper and lower extremities. There is no drift. Cognitive skills normal. Reflexes are symmetric. IMAGING STUDIES: CT scan as well as CTA of the brain as noted above. LABORATORY DATA: White count 11,300; hemoglobin 9; hematocrit 26%; platelet count is 424,000. PT 11.3, INR 1.1, APTT 25. Sodium is 138, potassium 3.5, chloride 98, BUN is 6, creatinine 0.4. LDL 84, HDL is 29. IMPRESSION AND PLAN: The event today was most likely a transient ischemic attack, which is resolving. As noted above, the patient was not a TPA candidate due to the recent surgery, as well as the recent posterior circulation stroke with micro hemorrhage and also the fact that she is resolving her symptoms. She has been evaluated for the possibility of intra-arterial therapy, but there is no evidence of any large vessel occlusion. At the present time, would recommend continuing the current dose of Lovenox. I would not recommend increasing the Lovenox dose because of the micro hemorrhages in the cerebellum. We will increase the aspirin to 325 mg daily. Also, resume Coumadin with close followup of the INR. Once Coumadin therapeutic could stop the Lovenox. We will continue close neuro checks. She will be admitted to the fifth floor of the hospital for further evaluation. Kelechi Hernandez MD, PhD GRETA/AMIRA , 02:12 PM , 02:41 PM
[2017-06-06] MEDS: WARFARIN SOD 5 MG TAB PO SCH (16:40)
--- NOTE | 2017-06-06 20:27 | MG ---
cc: Kelechi Hernandez MD, PhD TEST NUMBER: [id number]. TECHNIQUE: A 17-channel EEG. DESCRIPTION: The background rhythm reveals a symmetrical alpha rhythm, frequency of 8 Hz. Amplitude is about 20-30 microvolts. During drowsiness, there is slowing in the theta range. There is a fair amount of muscle artifact. There are no epileptiform discharges. No lateralizing features are identified. Photic results in a fairly well-developed driving response. INTERPRETATION: This is a normal EEG. Kelechi Hernandez MD, PhD GRETA/ALEXNADR , 08:12 PM , 08:27 PM
[2017-06-06] MEDS ORDERED: diphenhydrAMINE HCL 25 MG CAP PO ONE (20:30)
[2017-06-06 21:36] LABS: BACTERIA, URINE RARE /hpf; BILIRUBIN, URINE NEG (NEG); BLOOD, URINE TRACE (NEG); GLUCOSE,URINE NEG (NEG); KETONE, URINE NEG (NEG); MUCUS URINE FEW /lpf (OCC); NITRITE,URINE NEG (NEG); PH, URINE 6.5 (5.0-8.5); SQUAMOUS EPITHELIAL CELL URINE 1 /hpf (0-5); URINE COLOR LIGHT-YELLOW (YELLW/STRAW); URINE LEUKOCYTE ESTERASE LARGE (NEG)
[2017-06-06] MEDS: NYSTATIN SUSP 500,000 U/5 ML CUP SWISH-SWAL SCH (21:42)
[2017-06-06] MEDS: traMADol HCL 50 MG TAB PO PRN (23:10)
[2017-06-07] VITALS (13 sets, daily range): BP systolic 123–169; BP diastolic 58–103; PULSE 64–110; RESP 18–21; TEMP 97.4–99.1; O2SAT 96–100
[2017-06-07 04:22] LABS: AUTOMATED NEUTROPHIL # 10.1 TH/MM3 (1.8-7.7); BASOPHIL # 0.1 TH/MM3 (0-0.2); BASOPHIL % 0.9 % (0.0-2.0); EOSINOPHIL # 0.4 TH/MM3 (0-0.4); EOSINOPHIL % 3.4 % (0.0-4.0); HEMOGLOBIN 8.9 GM/DL (11.6-15.3); LYMPH % 10.3 % (9.0-44.0); LYMPHOCYTE # 1.4 TH/MM3 (1.0-4.8); MEAN CELL VOLUME 94.8 FL (80.0-100.0); MEAN CORPUSCULAR HEMOGLOBIN 32.4 PG (27.0-34.0); MEAN CORPUSCULAR HGB CONC 34.2 % (32.0-36.0); MEAN PLATELET VOLUME 7.4 FL (7.0-11.0); MONO % 9.5 % (0.0-8.0); MONOCYTE # 1.3 TH/MM3 (0-0.9); NEUT % 75.9 % (16.0-70.0); PLATELET COUNT 453 TH/MM3 (150-450); RED BLOOD COUNT 2.74 MIL/MM3 (4.00-5.30); RED CELL DISTRIBUTION WIDTH 13.4 % (11.6-17.2); WHITE BLOOD COUNT 13.4 TH/MM3 (4.0-11.0)
[2017-06-07 04:24] LABS: INTERNATIONAL NORMALIZED RATIO 1.1 RATIO; PROTHROMBIN TIME - PATIENT 11.5 SEC (9.8-11.6)
[2017-06-07 04:41] LABS: ALBUMIN 2.8 GM/DL (3.4-5.0); BICARBONATE 28.4 MEQ/L (21.0-32.0); CREATININE 0.43 MG/DL (0.50-1.00); MAGNESIUM 1.8 MG/DL (1.5-2.5); PHOSPHORUS 3.8 MG/DL (2.5-4.9)
[2017-06-07] MEDS: traMADol HCL 50 MG TAB PO PRN (06:04)
[2017-06-07] MEDS: INSULIN ASPART SUPPLEMENTAL SCALE SQ SCH ×4 (08:00→21:00)
--- NOTE | 2017-06-07 08:53 | PD.CARD.PN ---
Subjective Subjective Remarks 76 year old female lying flat in bed. Her 2 daughters are at the bedside. They state they have noticed a significant change in her mental status over night. Yesterday she was able to get out of bed to the toilet and talk normally. Today her speech is slurred. She is able to nod her head to answer questions. She denies any chest pain or SOB. She repots having pain in the back of her head and neck. She is receiving lovenox injections and her coumadin was restarted yesterday, will continue to follow INR closely. Will notify neurology about her change in mental status. (Vidhya Iglesias) Objective Medications Current Medications Medications (Trade) Dose Ordered Sig/Rita Route Start Time Stop Time Status Last Admin (Lovenox Inj) 40 mg BID SQ 06/03/17 21:00 06/06/17 21:33 (NS Flush) 2 ml BID IV FLUSH 06/04/17 09:00 06/06/17 21:34 (NS Flush) 2 ml UNSCH PRN IV FLUSH 06/03/17 23:00 (NovoLOG SUPPLEMENTAL SCALE) 1 ACHS SQ 06/04/17 08:00 (D50w (Vial) Inj) 50 ml UNSCH PRN IV PUSH 06/03/17 23:00 (Glucagon Inj) 1 mg UNSCH PRN OTHER 06/03/17 23:00 (Compazine Inj) 5 mg Q4H PRN IV PUSH 06/04/17 04:30 (Norvasc) 5 mg DAILY PO 06/05/17 09:00 06/06/17 09:00 Patient Own Medication PT OWN MED: (Cyclosporine O... HS EACH EYE 06/04/17 21:00 Future Hold (Vasotec Inj) 1.25 mg Q6H PRN IV PUSH 06/04/17 14:00 (Aspirin) 325 mg DAILY PO 06/07/17 09:00 (Coumadin) 5 mg DAILY@1600 PO 06/06/17 16:00 06/06/17 16:40 (Mycostatin Liq) 5 ml QID SWISH-SWAL 06/06/17 21:00 06/06/17 21:42 (Ultram) 50 mg Q6H PRN PO 06/06/17 19:45 06/07/17 06:04 Vital Signs / I&O Vital Signs Date Time Temp Pulse Resp B/P (MAP) Pulse Ox O2 Delivery O2 Flow Rate FiO2 06/07/17 08:14 Nasal Cannula 2.00 06/07/17 07:39 97.9 80 18 169/70 (103) 98 06/07/17 04:00 97.9 92 18 149/69 (95) 96 06/07/17 00:30 98 06/07/17 00:00 98.3 98 18 152/68 (96) 99 06/06/17 20:30 114 06/06/17 20:00 98.4 123 18 168/70 (102) 97 06/06/17 16:30 97.8 76 16 132/81 (98) 99 06/06/17 13:04 98.4 122 14 149/74 (99) 90 06/06/17 12:05 98.2 62 14 143/77 (99) 96 I/O 06/06/17 06/06/17 06/06/17 06/07/17 06/07/17 06/07/17 07:00 15:00 23:00 07:00 15:00 23:00 Output Total 700 ml Balance -700 ml Output Urine Total 700 ml # Voids 3 3 # Bowel Movements 0 0 Physical Exam GENERAL: Elderly female lying in bed NEUROLOGIC: Slurred speech NECK: Jugular venous pressures are normal. There are no bruits. LUNGS: She has clear lung freire. No wheezes or crackles noted. CARDIAC: There is an irregularly irregular rhythm, 1/6 systolic ejection murmur. There are no gallops noted. EXTREMITIES: Free of cyanosis, clubbing or edema. NEUROLOGIC: Follows commands, speech is slurred, weakness noted in left arm and left leg. Laboratory Laboratory Tests Test 06/06/17 12:55 06/06/17 20:50 06/07/17 03:28 White Blood Count 11.3 TH/MM3 13.4 TH/MM3 Red Blood Count 2.76 MIL/MM3 2.74 MIL/MM3 Hemoglobin 9.0 GM/DL 8.9 GM/DL Bedside Hemoglobin 8.5 G/DL Hematocrit 26.2 % 26.0 % Bedside Hematocrit 25.0 % Mean Corpuscular Volume 94.9 FL 94.8 FL Mean Corpuscular Hemoglobin 32.7 PG 32.4 PG Mean Corpuscular Hemoglobin Concent 34.5 % 34.2 % Red Cell Distribution Width 13.8 % 13.4 % Platelet Count 424 TH/MM3 453 TH/MM3 Mean Platelet Volume 7.1 FL 7.4 FL Neutrophils (%) (Auto) 71.5 % 75.9 % Lymphocytes (%) (Auto) 13.3 % 10.3 % Monocytes (%) (Auto) 12.2 % 9.5 % Eosinophils (%) (Auto) 2.3 % 3.4 % Basophils (%) (Auto) 0.7 % 0.9 % Neutrophils # (Auto) 8.1 TH/MM3 10.1 TH/MM3 Lymphocytes # (Auto) 1.5 TH/MM3 1.4 TH/MM3 Monocytes # (Auto) 1.4 TH/MM3 1.3 TH/MM3 Eosinophils # (Auto) 0.3 TH/MM3 0.4 TH/MM3 Basophils # (Auto) 0.1 TH/MM3 0.1 TH/MM3 CBC Comment DIFF FINAL DIFF FINAL Differential Comment Prothrombin Time 11.3 SEC 11.5 SEC Prothromb Time International Ratio 1.1 RATIO 1.1 RATIO Activated Partial Thromboplast Time 25.0 SEC Fibrinogen 402 mg/dL Bedside Sodium 138 MMOL/L Bedside Potassium 3.5 MMOL/L Bedside Chloride 98 MMOL/L Bedside Blood Urea Nitrogen 5 MG/DL Bedside Creatinine 0.4 MG/DL Bedside Glucose 99 MG/DL Total Creatine Kinase 38 U/L Troponin I LESS THAN 0.02 NG/ML Human Chorionic Gonadotropin, Quant 3 MIU/ML Urine Color LIGHT-YELLOW Urine Turbidity HAZY Urine pH 6.5 Urine Specific [place] 1.015 Urine Protein NEG mg/dL Urine Glucose (UA) NEG mg/dL Urine Ketones NEG mg/dL Urine Occult Blood TRACE Urine Nitrite NEG Urine Bilirubin NEG Urine Urobilinogen LESS THAN 2.0 MG/DL Urine Leukocyte Esterase LARGE Urine RBC 5 /hpf Urine WBC 23 /hpf Urine Squamous Epithelial Cells 1 /hpf Urine Bacteria RARE /hpf Urine Mucus FEW /lpf Urine Opiates Screen NEG Urine Barbiturates Screen NEG Urine Amphetamines Screen NEG Urine Benzodiazepines Screen NEG Urine Cocaine Screen NEG Urine Cannabinoids Screen NEG Blood Urea Nitrogen 6 MG/DL Creatinine 0.43 MG/DL Random Glucose 100 MG/DL Albumin 2.8 GM/DL Calcium Level 8.0 MG/DL Phosphorus Level 3.8 MG/DL Magnesium Level 1.8 MG/DL Sodium Level 139 MEQ/L Potassium Level 3.3 MEQ/L Chloride Level 103 MEQ/L Carbon Dioxide Level 28.4 MEQ/L Anion Gap 8 MEQ/L Estimat Glomerular Filtration Rate 143 ML/MIN Imaging Last 72 hours Impressions Neck CTA 06/06/17 1243 Signed Impressions: Service Date/Time: Tuesday, June 06, 2017 12:45 - CONCLUSION: No evidence of carotid stenosis. Parenchymal opacities in the lung apices. Further evaluation with CT chest recommended Tonny Fletcher MD Head CTA 06/06/17 124 Signed Impressions: Service Date/Time: Tuesday, June 06, 2017 12:45 - CONCLUSION: Unremarkable examination. Khoi Wright MD Head CT 06/06/17 0000 Signed Impressions: Service Date/Time: Tuesday, June 06, 2017 12:45 - CONCLUSION: 1. Stable chronic changes of periventricular small vessel ischemic demyelination, symmetric bifrontal atrophy and 1.9 cm right cerebellar infarct. 2. Nothing acute. No acute intracranial hemorrhage. David Martin MD Neck CTA 06/05/17 1828 Signed Impressions: Service Date/Time: May 20:57 - CONCLUSION: Atherosclerotic calcifications without a significant stenosis. Tonny Kohler MD Lower Extremity Ultrasound 06/05/17 0000 Signed Impressions: Service Date/Time: May 22:33 - CONCLUSION: No DVT. Tonny Kohler MD Head CT 06/05/17 0000 Signed Impressions: Service Date/Time: May 11:29 - CONCLUSION: 1. No evidence of acute hemorrhage. 2. Evolving right cerebellar infarct. 3. No CT evidence of infarct or hemorrhage within the cerebral hemispheres. Nate Talley MD Last 24 hours Impressions Neck CTA 06/06/17 1243 Signed Impressions: Service Date/Time: Tuesday, June 06, 2017 12:45 - CONCLUSION: No evidence of carotid stenosis. Parenchymal opacities in the lung apices. Further evaluation with CT chest recommended Tonny Fletcher MD Head CTA 06/06/17 1243 Signed Impressions: Service Date/Time: Tuesday, June 06, 2017 12:45 - CONCLUSION: Unremarkable examination. Khoi Wright MD ([facility]) Assessment and Plan Assessment and Plan -Acute cerebrovascular accident, cerebellar possible micro hemorrhage noted on MRI. -Chronic atrial fibrillation on Warfarin. -Hypokalemia -Hypertension -Diverticulitis and diverticulosis. -Frequent UTI Plan Spoke with Dr. Hernandez, he is ordering STAT CT head and transferring pt to the unit. Pending CT results he will decide if anticoagulation needs to be held. Will recheck potassium level at 4pm The patient was seen by Dr. Wilburn who completed face to face encounter and physical exam and participated in evaluation and management. (Vidhya Iglesias) Assessment and Plan The exam, history, and the medical decision-making described in the above note were completed with the assistance of the mid-level provider. I reviewed and agree with the findings presented. I attest that I had a [id number] encounter with the patient on the same day, and personally performed and documented my assessment and findings in the medical record. ct scan shows no new hemorrhage, so will continue present rx or as per Dr Hernandez neurology (Andrea Wilburn MD) Vidhya Iglesias Jun 07, 2017 08:53 Andrea Wilburn MD Jun 07, 2017 12:04
[2017-06-07] MEDS ORDERED: ASPIRIN 325 MG TAB PO SCH (09:00)
[2017-06-07] MEDS: amLODIPine BESYLATE 5 MG TAB PO SCH (09:00)
[2017-06-07] MEDS ORDERED: ASPIRIN 81 MG CHEW TAB CHEW SCH (09:00)
[2017-06-07] MEDS: NYSTATIN SUSP 500,000 U/5 ML CUP SWISH-SWAL SCH ×4 (09:00→21:00)
[2017-06-07] MEDS: ENOXAPARIN SODIUM 40 MG/0.4 ML SYRINGE SQ SCH (09:00)
--- NOTE | 2017-06-07 09:08 | HHI.PR ---
Review/Management Diagnosis recent right cerebellar cva and midbrain cva--now with left HP and increased dysarthria afib---on lovenox and coumadin started yesterday and on asa. Plan STAT CT brain to r/o hemorrhage vs stroke extension transfer to ICU Diagnosis/Plan: Subjective Subjective Comments Patient has developed more lethargy and dysarthria and left sided weakness Active Medications Current Medications Medications (Trade) Dose Ordered Sig/Rita Route Start Time Stop Time Status Last Admin (Lovenox Inj) 40 mg BID SQ 06/03/17 21:00 06/06/17 21:33 (NS Flush) 2 ml BID IV FLUSH 06/04/17 09:00 06/06/17 21:34 (NS Flush) 2 ml UNSCH PRN IV FLUSH 06/03/17 23:00 (NovoLOG SUPPLEMENTAL SCALE) 1 ACHS SQ 06/04/17 08:00 (D50w (Vial) Inj) 50 ml UNSCH PRN IV PUSH 06/03/17 23:00 (Glucagon Inj) 1 mg UNSCH PRN OTHER 06/03/17 23:00 (Compazine Inj) 5 mg Q4H PRN IV PUSH 06/04/17 04:30 (Norvasc) 5 mg DAILY PO 06/05/17 09:00 06/06/17 09:00 Patient Own Medication PT OWN MED: (Cyclosporine O... HS EACH EYE 06/04/17 21:00 Future Hold (Vasotec Inj) 1.25 mg Q6H PRN IV PUSH 06/04/17 14:00 (Aspirin) 325 mg DAILY PO 06/07/17 09:00 (Coumadin) 5 mg DAILY@1600 PO 06/06/17 16:00 06/06/17 16:40 (Mycostatin Liq) 5 ml QID SWISH-SWAL 06/06/17 21:00 06/06/17 21:42 (Ultram) 50 mg Q6H PRN PO 06/06/17 19:45 06/07/17 06:04 Allergies Allergies Coded Allergies azithromycin (Verified Allergy, Severe, Rash, 03/20/17) erythromycin base (Verified Allergy, Severe, Rash, 03/20/17) codeine (Verified Allergy, Intermediate, Nausea/Vomiting, 03/20/17) Exam I&O / VS Vital Signs Date Time Temp Pulse Resp B/P (MAP) Pulse Ox O2 Delivery O2 Flow Rate FiO2 06/07/17 08:14 Nasal Cannula 2.00 06/07/17 07:39 97.9 80 18 169/70 (103) 98 06/07/17 04:00 97.9 92 18 149/69 (95) 96 06/07/17 00:30 98 06/07/17 00:00 98.3 98 18 152/68 (96) 99 06/06/17 20:30 114 06/06/17 20:00 98.4 123 18 168/70 (102) 97 06/06/17 16:30 97.8 76 16 132/81 (98) 99 06/06/17 13:04 98.4 122 14 149/74 (99) 90 06/06/17 12:05 98.2 62 14 143/77 (99) 96 Exam Comments lethargic but arouses easily and follows commands Speech is very dyarthric--more so than yesterday perrl EOM intact Left facial weakness 3/5 LUE and 2/5 LLE 5/5 RUE and RLE Objective Micro and Labs Laboratory Tests Test 06/06/17 12:55 06/06/17 20:50 06/07/17 03:28 White Blood Count 11.3 13.4 Red Blood Count 2.76 2.74 Hemoglobin 9.0 8.9 Bedside Hemoglobin 8.5 Hematocrit 26.2 26.0 Bedside Hematocrit 25.0 Mean Corpuscular Volume 94.9 94.8 Mean Corpuscular Hemoglobin 32.7 32.4 Mean Corpuscular Hemoglobin Concent 34.5 34.2 Red Cell Distribution Width 13.8 13.4 Platelet Count 424 453 Mean Platelet Volume 7.1 7.4 Neutrophils (%) (Auto) 71.5 75.9 Lymphocytes (%) (Auto) 13.3 10.3 Monocytes (%) (Auto) 12.2 9.5 Eosinophils (%) (Auto) 2.3 3.4 Basophils (%) (Auto) 0.7 0.9 Neutrophils # (Auto) 8.1 10.1 Lymphocytes # (Auto) 1.5 1.4 Monocytes # (Auto) 1.4 1.3 Eosinophils # (Auto) 0.3 0.4 Basophils # (Auto) 0.1 0.1 CBC Comment DIFF FINAL DIFF FINAL Differential Comment Prothrombin Time 11.3 11.5 Prothromb Time International Ratio 1.1 1.1 Activated Partial Thromboplast Time 25.0 Fibrinogen 402 Bedside Sodium 138 Bedside Potassium 3.5 Bedside Chloride 98 Bedside Blood Urea Nitrogen 5 Bedside Creatinine 0.4 Bedside Glucose 99 Total Creatine Kinase 38 Troponin I LESS THAN 0.02 Human Chorionic Gonadotropin, Quant 3 Urine Color LIGHT-YELLOW Urine Turbidity HAZY Urine pH 6.5 Urine Specific [place] 1.015 Urine Protein NEG Urine Glucose (UA) NEG Urine Ketones NEG Urine Occult Blood TRACE Urine Nitrite NEG Urine Bilirubin NEG Urine Urobilinogen LESS THAN 2.0 Urine Leukocyte Esterase LARGE Urine RBC 5 Urine WBC 23 Urine Squamous Epithelial Cells 1 Urine Bacteria RARE Urine Mucus FEW Urine Opiates Screen NEG Urine Barbiturates Screen NEG Urine Amphetamines Screen NEG Urine Benzodiazepines Screen NEG Urine Cocaine Screen NEG Urine Cannabinoids Screen NEG Blood Urea Nitrogen 6 Creatinine 0.43 Random Glucose 100 Albumin 2.8 Calcium Level 8.0 Phosphorus Level 3.8 Magnesium Level 1.8 Sodium Level 139 Potassium Level 3.3 Chloride Level 103 Carbon Dioxide Level 28.4 Anion Gap 8 Estimat Glomerular Filtration Rate 143 Date/Time Source Procedure Growth Status 06/03/17 20:05 Urine Catheterized Urine Urine Culture - Final NO GROWTH IN 48 HOURS. Complete Kelechi Hernandez MD PhD Jun 07, 2017 09:08
--- NOTE | 2017-06-07 09:54 | RADRPT ---
EXAM DATE/TIME: 06/07/2017 09:40 [facility] COMPARISON: MRI BRAIN W/O CONTRAST, June 04, 2017, 9:52. CT BRAIN W/O CONTRAST, June 05, 2017, 11:29. CT BRAI N W/O CONTRAST, June 06, 2017, 12:45. INDICATIONS : Lethargy, left side weakness; recent right cerebellar infarct. RADIATION DOSE: 44.61 CTDIvol (mGy) MEDICAL HISTORY : Stroke. Hypertension. Atrial fibrillation. SURGICAL HISTORY : None. ENCOUNTER: Initial ACUITY: 1 day PAIN SCALE: 0/10 LOCATION: cranial TECHNIQUE: Multiple contiguous axial images were obtained of the head. Using automated exposure control and adj ustment of the mA and/or kV according to patient size, radiation dose was kept as low as reasonably a chievable to obtain optimal diagnostic quality images. DICOM format image data is available electro nically for review and comparison. FINDINGS: CEREBRUM: The ventricles are normal for age. No evidence of midline shift, mass lesion, hemorrhage or acute in farction. No extra-axial fluid collections are seen. POSTERIOR FOSSA: The brainstem remains intact. The known right cerebellar infarct and area of decreased attenuation is not significantly changed. The 4th ventricle is midline. The cerebellopontine angle is unremarkable . EXTRACRANIAL: The visualized portion of the orbits is intact. SKULL: The calvaria is intact. No evidence of skull fracture. CONCLUSION: 1. No significant change in the known subacute right cerebellar hemisphere infarct. 2. No evidence of hemorrhage or mass effect. Khoi Wright MD on June 07, 2017 at 9:49 Board Certified Radiologist. This report was verified electronically.
[2017-06-07] MEDS ORDERED: ASPIRIN 300 MG SUPP RECTAL SCH (10:30)
--- NOTE | 2017-06-07 10:31 | HHI.PR ---
Subjective Remarks 3- PATIENTS DC WAS HELD SEEN BY NEUROLOGY 3 FELT TO HAVE A RECENT RIGHT CEREBELLAR CVA AND MIDBRAIN CVA- NO WITH LEFT HP AND INCREASED DYSARTHRIA GOING FOR STAT CT AND CTA OF BRAIN SWITCH ASPIRIN TO 300MG PER RECTUM START ROCEPHIN FOR ?UTI IV FLUIDS DW RN AND PATIENT AND FAMILY WILL BE TRANSFERRED TO ICU FOR CLOSE MONITORING HAS BEEN SEEN AGAIN BY NEUROLOGY Objective Vitals Vital Signs Date Time Temp Pulse Resp B/P (MAP) Pulse Ox O2 Delivery O2 Flow Rate FiO2 06/07/17 08:14 Nasal Cannula 2.00 06/07/17 07:39 97.9 80 18 169/70 (103) 98 06/07/17 04:00 97.9 92 18 149/69 (95) 96 06/07/17 00:30 98 06/07/17 00:00 98.3 98 18 152/68 (96) 99 06/06/17 20:30 114 06/06/17 20:00 98.4 123 18 168/70 (102) 97 06/06/17 16:30 97.8 76 16 132/81 (98) 99 06/06/17 13:04 98.4 122 14 149/74 (99) 90 06/06/17 12:05 98.2 62 14 143/77 (99) 96 I/O 06/06/17 06/06/17 06/06/17 06/07/17 06/07/17 06/07/17 07:00 15:00 23:00 07:00 15:00 23:00 Output Total 700 ml Balance -700 ml Output Urine Total 700 ml # Voids 3 3 # Bowel Movements 0 0 Result Diagram: 06/07/17 0328 06/07/17 0328 Other Results Laboratory Tests Test 06/05/17 04:17 06/05/17 14:43 06/06/17 06:18 06/06/17 12:55 White Blood Count 16.2 TH/MM3 10.6 TH/MM3 11.3 TH/MM3 Red Blood Count 2.95 MIL/MM3 2.49 MIL/MM3 2.76 MIL/MM3 Hemoglobin 9.9 GM/DL 8.2 GM/DL 9.0 GM/DL Hematocrit 28.3 % 23.7 % 26.2 % Mean Corpuscular Volume 95.9 FL 95.4 FL 94.9 FL Mean Corpuscular Hemoglobin 33.4 PG 33.0 PG 32.7 PG Mean Corpuscular Hemoglobin Concent 34.9 % 34.6 % 34.5 % Red Cell Distribution Width 13.3 % 13.5 % 13.8 % Platelet Count 364 TH/MM3 370 TH/MM3 424 TH/MM3 Mean Platelet Volume 7.7 FL 7.5 FL 7.1 FL Neutrophils (%) (Auto) 77.2 % 71.1 % 71.5 % Lymphocytes (%) (Auto) 10.9 % 13.0 % 13.3 % Monocytes (%) (Auto) 9.7 % 11.5 % 12.2 % Eosinophils (%) (Auto) 1.7 % 3.5 % 2.3 % Basophils (%) (Auto) 0.5 % 0.9 % 0.7 % Neutrophils # (Auto) 12.5 TH/MM3 7.5 TH/MM3 8.1 TH/MM3 Lymphocytes # (Auto) 1.8 TH/MM3 1.4 TH/MM3 1.5 TH/MM3 Monocytes # (Auto) 1.6 TH/MM3 1.2 TH/MM3 1.4 TH/MM3 Eosinophils # (Auto) 0.3 TH/MM3 0.4 TH/MM3 0.3 TH/MM3 Basophils # (Auto) 0.1 TH/MM3 0.1 TH/MM3 0.1 TH/MM3 CBC Comment DIFF FINAL DIFF FINAL DIFF FINAL Differential Comment Blood Urea Nitrogen 5 MG/DL 6 MG/DL Creatinine 0.49 MG/DL 0.40 MG/DL Random Glucose 120 MG/DL 94 MG/DL Calcium Level 8.1 MG/DL 8.1 MG/DL Magnesium Level 1.8 MG/DL 1.9 MG/DL Sodium Level 144 MEQ/L 141 MEQ/L Potassium Level 3.2 MEQ/L 3.4 MEQ/L Chloride Level 108 MEQ/L 106 MEQ/L Carbon Dioxide Level 28.0 MEQ/L 25.9 MEQ/L Anion Gap 8 MEQ/L 9 MEQ/L Estimat Glomerular Filtration Rate 123 ML/MIN 156 ML/MIN Albumin 2.6 GM/DL Phosphorus Level 3.2 MG/DL Bedside Hemoglobin 8.5 G/DL Bedside Hematocrit 25.0 % Prothrombin Time 11.3 SEC Prothromb Time International Ratio 1.1 RATIO Activated Partial Thromboplast Time 25.0 SEC Fibrinogen 402 mg/dL Bedside Sodium 138 MMOL/L Bedside Potassium 3.5 MMOL/L Bedside Chloride 98 MMOL/L Bedside Blood Urea Nitrogen 5 MG/DL Bedside Creatinine 0.4 MG/DL Bedside Glucose 99 MG/DL Total Creatine Kinase 38 U/L Troponin I LESS THAN 0.02 NG/ML Human Chorionic Gonadotropin, Quant 3 MIU/ML Test 06/06/17 20:50 06/07/17 03:28 Urine Color LIGHT-YELLOW Urine Turbidity HAZY Urine pH 6.5 Urine Specific [place] 1.015 Urine Protein NEG mg/dL Urine Glucose (UA) NEG mg/dL Urine Ketones NEG mg/dL Urine Occult Blood TRACE Urine Nitrite NEG Urine Bilirubin NEG Urine Urobilinogen LESS THAN 2.0 MG/DL Urine Leukocyte Esterase LARGE Urine RBC 5 /hpf Urine WBC 23 /hpf Urine Squamous Epithelial Cells 1 /hpf Urine Bacteria RARE /hpf Urine Mucus FEW /lpf Urine Opiates Screen NEG Urine Barbiturates Screen NEG Urine Amphetamines Screen NEG Urine Benzodiazepines Screen NEG Urine Cocaine Screen NEG Urine Cannabinoids Screen NEG White Blood Count 13.4 TH/MM3 Red Blood Count 2.74 MIL/MM3 Hemoglobin 8.9 GM/DL Hematocrit 26.0 % Mean Corpuscular Volume 94.8 FL Mean Corpuscular Hemoglobin 32.4 PG Mean Corpuscular Hemoglobin Concent 34.2 % Red Cell Distribution Width 13.4 % Platelet Count 453 TH/MM3 Mean Platelet Volume 7.4 FL Neutrophils (%) (Auto) 75.9 % Lymphocytes (%) (Auto) 10.3 % Monocytes (%) (Auto) 9.5 % Eosinophils (%) (Auto) 3.4 % Basophils (%) (Auto) 0.9 % Neutrophils # (Auto) 10.1 TH/MM3 Lymphocytes # (Auto) 1.4 TH/MM3 Monocytes # (Auto) 1.3 TH/MM3 Eosinophils # (Auto) 0.4 TH/MM3 Basophils # (Auto) 0.1 TH/MM3 CBC Comment DIFF FINAL Differential Comment Prothrombin Time 11.5 SEC Prothromb Time International Ratio 1.1 RATIO Blood Urea Nitrogen 6 MG/DL Creatinine 0.43 MG/DL Random Glucose 100 MG/DL Albumin 2.8 GM/DL Calcium Level 8.0 MG/DL Phosphorus Level 3.8 MG/DL Magnesium Level 1.8 MG/DL Sodium Level 139 MEQ/L Potassium Level 3.3 MEQ/L Chloride Level 103 MEQ/L Carbon Dioxide Level 28.4 MEQ/L Anion Gap 8 MEQ/L Estimat Glomerular Filtration Rate 143 ML/MIN Imaging Last Impressions Head CT 06/07/17 0000 Signed Impressions: Service Date/Time: Wednesday, June 07, 2017 09:40 - CONCLUSION: 1. No significant change in the known subacute right cerebellar hemisphere infarct. 2. No evidence of hemorrhage or mass effect. Khoi Wright MD Neck CTA 06/06/[id number] Signed Impressions: Service Date/Time: Tuesday, June 06, 2017 12:45 - CONCLUSION: No evidence of carotid stenosis. Parenchymal opacities in the lung apices. Further evaluation with CT chest recommended Tonny Fletcher MD Head CTA 06/06/17 1243 Signed Impressions: Service Date/Time: Tuesday, June 06, 2017 12:45 - CONCLUSION: Unremarkable examination. Khoi Wright MD Lower Extremity Ultrasound 06/05/17 0000 Signed Impressions: Service Date/Time: May 22:33 - CONCLUSION: No DVT. Tonny Kohler MD Head Magnetic Resonance Angiography 06/04/17 0000 Signed Impressions: Service Date/Time: Sunday, June 04, 2017 09:52 - CONCLUSION: No acute [place] vascular findings Tonny Fletcher MD Carotid Artery Ultrasound 06/04/17 0000 Signed Impressions: Service Date/Time: Sunday, June 04, 2017 08:23 - CONCLUSION: 1. There is mild atherosclerotic plaquing at both carotid bifurcations. 2. There is mild elevated velocity within the right internal carotid artery suggesting some mild to moderate narrowing. If clinically indicated, CTA of the carotids could be performed for further evaluation. 3. Otherwise, no focal high grade or hemodynamically significant stenosis is demonstrated. Jaciel Chin MD Brain MRI 06/04/17 0000 Signed Impressions: Service Date/Time: Sunday, June 04, 2017 09:52 - CONCLUSION: 1. There is several focal areas of acute infarction involving the right cerebellar hemisphere and right side of the midbrain best demonstrated on the diffusion weighted images. 2. Possible small microhemorrhage in the right cerebellar hemisphere seen on the SWI images. 3. Diffuse bilateral cortical atrophy and diffuse chronic white matter changes characteristic for patient's age. Jaciel Chin MD Chest X-Ray 3/27/18 1910 Signed Impressions: Service Date/Time: Saturday, June 03, 2017 19:34 - CONCLUSION: Mild left lower lobe consolidation or atelectasis. Tonny Kohler MD Abdomen X-Ray 06/03/17 0000 Signed Impressions: Service Date/Time: Saturday, June 03, 2017 21:10 - CONCLUSION: Significantly distended bowel is not seen. Tonny Kohler MD Objective Remarks GENERAL: AWake and alert and aphasic not moving left side as well as she was yesterday Poor oral and SKIN: Warm and dry. HEAD: Atraumatic. Normocephalic. EYES: Pupils equal and round. No scleral icterus. No injection or drainage. Extraocular muscles intact ENT: No nasal bleeding or discharge. Mucous membranes pink and moist. Tongue is midline NECK: Trachea midline. No JVD. Supple CARDIOVASCULAR: IRRegular rate and rhythm. S1-S2 no S3 or S4 RESPIRATORY: No accessory muscle use. Clear to auscultation. Breath sounds equal bilaterally. GASTROINTESTINAL: Abdomen soft, non-tender, nondistended. Hepatic and splenic margins not palpable. MUSCULOSKELETAL: Extremities without clubbing, cyanosis, or edema. No obvious deformities. NEUROLOGICAL: Awake and alert. No obvious cranial nerve deficits. Motor grossly within normal limits. 3 out of 5 muscle strength in the arms and legs on the left 5 out of 5 in upper extremity and lower extremity on the right. ABNormal speech. PSYCHIATRIC: INAppropriate mood and affect; insight and judgment ABnormal. Aphasic Medications and IVs Current Medications Sodium Chloride (NS Flush) 2 ml UNSCH PRN IVF FLUSH AFTER USING IV ACCESS; Start 06/03/17 at 19:15; Stop 06/06/17 at 20:09; Status DC Sodium Chloride 500 ml @ 500 mls/hr BOLUS ONCE IV Last administered on at 21:23; Start 06/03/17 at 20:30; Stop 06/03/17 at 21:29; Status DC Ondansetron HCl (Zofran Inj) 4 mg ONCE ONCE IV PUSH Last administered on at 21:24; Start 06/03/17 at 20:30; Stop 06/03/17 at 20:31; Status DC Potassium Cl/ Dextrose/Lact Ringer's 1,000 ml @ 100 mls/hr Q10H IV Last administered on 06/04/17at 13:37; Start 06/03/17 at 21:00; Stop 06/04/17 at 13:49 ; Status DC Enoxaparin Sodium (Lovenox Inj) 40 mg BID SQ Last administered on 06/06/17at 21: 33; Start 06/03/17 at 21:00 Aspirin (Aspirin) 81 mg ONCE ONCE PO ; Start 06/03/17 at 22:00; Stop 06/03/17 at 22:01; Status Cancel Sodium Chloride (NS Flush) 2 ml BID IV FLUSH Last administered on 06/06/17at 21: 34; Start 06/04/17 at 09:00 Sodium Chloride (NS Flush) 2 ml UNSCH PRN IV FLUSH FLUSH AFTER USING IV ACCESS ; Start 06/03/17 at 23:00 Sodium Chloride 1,000 ml @ 70 mls/hr [id number] IV Last administered on at 03:37; Start 06/03/17 at 23:00; Stop 06/05/17 at 17:42; Status DC Insulin Aspart (NovoLOG SUPPLEMENTAL SCALE) 1 ACHS SQ ; Start 06/04/17 at 08:00 Dextrose (D50w (Vial) Inj) 50 ml UNSCH PRN IV PUSH HYPOGLYCEMIA-SEE COMMENTS; Start 06/03/17 at 23:00 Glucagon (Glucagon Inj) 1 mg UNSCH PRN OTHER HYPOGLYCEMIA-SEE COMMENTS; Start 06/03/17 at 23:00 Aspirin (Aspirin Chew) 81 mg ONCE ONCE PO Last administered on 06/03/17at 23:28 ; Start 06/03/17 at 23:30; Stop 06/03/17 at 23:31; Status DC Prochlorperazine Edisylate (Compazine Inj) 5 mg Q4H PRN IV PUSH NAUSEA OR VOMITING; Start 06/04/17 at 04:30 Amlodipine Besylate (Norvasc) 5 mg DAILY PO Last administered on 06/06/17at 09: 00; Start 06/05/17 at 09:00 Patient Own Medication PT OWN MED: (Cyclosporine O... HS EACH EYE ; Start at 21:00; Status Future Hold Enalaprilat (Vasotec Inj) 1.25 mg Q6H PRN IV PUSH SBP>160, DBP>90; Start 3/28/ 18 at 14:00 Potassium Chloride (KCl) 60 meq ONCE ONCE PO Last administered on 06/04/17at 15 :00; Start 06/04/17 at 15:00; Stop 06/04/17 at 15:01; Status DC Potassium Chloride (KCl) 30 meq ONCE ONCE PO Last administered on 06/05/17at 18 :32; Start 06/05/17 at 18:00; Stop 06/05/17 at 18:02; Status DC Tramadol HCl (Ultram) 50 mg ONCE ONCE PO Last administered on 06/05/17at 21:45 ; Start 06/05/17 at 21:30; Stop 06/05/17 at 21:31; Status DC Iohexol (Omnipaque 350 Inj) 75 ml STK-MED ONCE IVCONTRAST Last administered on 06/05/17at 21:30; Start 06/05/17 at 21:30; Stop 06/05/17 at 21:31; Status DC Tramadol HCl (Ultram) 50 mg ONCE ONCE PO ; Start 06/06/17 at 10:00; Stop at 10:01; Status DC Potassium Chloride 100 ml @ 100 mls/hr BOLUS ONCE IV Last administered on at 13:49; Start 06/06/17 at 13:15; Stop 06/06/17 at 14:14; Status DC Aspirin (Aspirin Chew) 324 mg ONCE ONCE CHEW Last administered on 06/06/17at 13 :48; Start 06/06/17 at 13:15; Stop 06/06/17 at 13:16; Status DC Aspirin (Aspirin Chew) 81 mg DAILY CHEW ; Start 06/07/17 at 09:00; Stop at 09:00; Status DC Iodixanol (VISIPAQUE 320 INJ (Rad CT)) 78 ml STK-MED ONCE IVCONTRAST Last administered on 06/06/17at 13:10; Start 06/06/17 at 13:10; Stop 06/06/17 at 13:11 ; Status DC Aspirin (Aspirin) 325 mg DAILY PO ; Start 06/07/17 at 09:00 Warfarin Sodium (Coumadin) 5 mg DAILY@1600 PO Last administered on 06/06/17at 16 :40; Start 06/06/17 at 16:00 Nystatin (Mycostatin Liq) 5 ml QID SWISH-SWAL Last administered on 06/06/17at 21:42; Start 06/06/17 at 21:00 Tramadol HCl (Ultram) 50 mg Q6H PRN PO pain 1-10 Last administered on at 06:04; Start 06/06/17 at 19:45 Diphenhydramine HCl (Benadryl) 25 mg ONCE ONCE PO Last administered on at 21:39; Start 06/06/17 at 20:30; Stop 06/06/17 at 20:31; Status DC A/P Assessment and Plan //Acute ischemic CVA -Head CT with no acute abnormality seen. Persistent low density in the cerebral white matter likely from small vessel ischemic change. -Neurology consulted in the ER -patient outside the window of TPA -appreciate assistance and recommendations - Dr. Stafford recommended chewable baby aspirin in ED -continue neuro checks. MRI shows acute infarction involving right cerebellar hemisphere and right side of the midbrain. Possible small microhemorrhage in right cerebellar hemisphere. MRA neg. -echo pending -carotid arteries shows mild to mod narrowing in the right internal carotid art -Continuous cardiac telemetry to monitor arrhythmia -Lipid profile TG 133, LDL 84, HDL 29 and hemoglobin A1c pending. -PT, OT, and ST evaluations -Repeat CT of head in AM to monitor microhemorrhages. neurology recommends lovenox which pt is on -Per neuro, ok to start normalizing BP. Slowly bring it down. I have resumed pt' s home amlodipine dose. = Back on nectar thick liquids. Vital signs stable. Patient comfortable. Rehab medicine following. Appreciate assistance. = Had a stroke alert called yesterday. June 06 Seen by neurology who wants her moved to ICU We will make sure she has a rectal aspirin continue on Lovenox //Atrial fibrillation //Moderate to severe pulmonary hypertension //Bilateral lower extremity edema -Dr. Wheeler is patient's outpatient pre fabricator. -Anticoagulation with Lovenox 40 mg twice daily per colorectal surgery -will need to bridge to Coumadin -Continuous cardiac telemetry to monitor her arrhythmia and rate -Control rate as needed Continue rectal aspirin Continue on Lovenox = Restart IV fluids due to poor oral intake cardiology consultation to rule out cardioembolic phenomenon PFO versus A. fib. Bilateral ultrasound to rule out DVT. Hypokalemia -Initial K+ 2.8 today. replace w 60mEq KCl. check Mg -D5LR + KCL 20 meq at 100 cc/hr = 06/05. Potassium 3.2. Replace. = 06/06. Potassium 3.4. Replace. 06-07 remains low we will replace potassium and //Abnormal urinalysis -Patient status post cystoscopy with bilateral ureteral cath insertion during sigmoid colectomy surgery -performed by Dr. Markus Harris -Abnormalities may be secondary to recent procedure and do not clearly point to infection -white blood count downward trending since recent hospitalization - was 18.3 on 05/31 and is now 11.3 and patient is afebrile -she has chronic urinary symptoms secondary to cystocele = -urine neg x 24 hrs. = Mild hematuria. Follow-up with primary care. Continue on Rocephin 1 g IV daily for the urinary tract--continue IV fluid //Leukocytosis of 16. Could be secondary to stress. No signs of infection currently. Continue to monitor. = Resolved. //Anemia. Hemoglobin 8.2 from 9.9 yesterday. Could be dilutional. Versus lab error. Repeat CBC. //Recent colon resection for diverticulitis. Colorectal surgery following. Appreciate assistance. Discharge Planning Pending neurologic improvement and clearance by neuro Ar Danilele DO Jun 07, 2017 10:31
[2017-06-07] MEDS: POTASSIUM CHLOR 20 MEQ PREMIX 100 ML IV SCH ×3 (11:00→19:00)
[2017-06-07] MEDS: SODIUM CHLOR 0.9% 1000 ML INJ 1,000 ML IV SCH ×2 (11:16→22:25)
[2017-06-07] MEDS ORDERED: IOHEXOL 350 MG/ML 10 ML VIAL (for RAD DIAG) IVCONTRAST ONE (11:17)
[2017-06-07] MEDS: cefTRIAXone INJ 1,000 MG in SODIUM CHLORIDE 0.9% INJ 100 ML IV SCH (11:19)
[2017-06-07] MEDS: SODIUM CHLORIDE 0.9% FLUSH 10 ML FLUSH IV FLUSH SCH ×2 (11:20→22:01)
--- NOTE | 2017-06-07 11:40 | RADRPT ---
EXAM DATE/TIME: 06/07/2017 10:55 [facility] COMPARISON: MRA BRAIN W/O CONTRAST, June 04, 2017, 9:52. CTA BRAIN W 3D RECON, June 06, 2017, 12:45. INDICATIONS : Altered mental status. Patient with known acute stroke with left-sided weakness and aphasia. Patient has new symptoms and is being evaluated for possible basilar artery occlusion. IV CONTRAST: 70 cc Omnipaque 350 (iohexol) IV RADIATION DOSE: 14.45 CTDIvol (mGy) MEDICAL HISTORY : Hypertension. SURGICAL HISTORY : Hysterectomy. ENCOUNTER: Initial ACUITY: 1 day PAIN SCALE: 0/10 LOCATION: Bilateral head TECHNIQUE: Volumetric scanning was performed using a multi-row detector CT scanner. The data was post processed with a variety of visualization algorithms including full volume maximum intensity projection, multi -planar sliding thin slab reformation, curved planar reformation, and surface rendering techniques. Using automated exposure control and adjustment of the mA and/or kV according to patient size, radiat ion dose was kept as low as reasonably achievable to obtain optimal diagnostic quality images. DICO M format image data is available electronically for review and comparison. FINDINGS: There is excellent visualization of the major intracranial arteries out to the second-order branch ve ssels. There is no evidence for aneurysm, vessel truncation or stenosis, and no evidence for vascula r malformation. The basal artery remains patent and intact. Mild atherosclerotic changes remain. CONCLUSION: Stable appearance. The basilar artery remains stable and intact. Khoi Wright MD on June 07, 2017 at 11:34 Board Certified Radiologist. This report was verified electronically.
--- NOTE | 2017-06-07 12:55 | HHI.PR ---
Subjective Remarks PO CVA after colon resection repeat event yesterday, no with dysarthria, left sided weakness Objective Vital Signs Date Time Temp Pulse Resp B/P (MAP) Pulse Ox O2 Delivery O2 Flow Rate FiO2 06/07/17 11:41 97.4 104 18 152/72 (98) 97 06/07/17 08:14 Nasal Cannula 2.00 06/07/17 07:39 97.9 80 18 169/70 (103) 98 06/07/17 04:00 97.9 92 18 149/69 (95) 96 06/07/17 00:30 98 06/07/17 00:00 98.3 98 18 152/68 (96) 99 06/06/17 20:30 114 06/06/17 20:00 98.4 123 18 168/70 (102) 97 06/06/17 16:30 97.8 76 16 132/81 (98) 99 06/06/17 13:04 98.4 122 14 149/74 (99) 90 I/O 06/06/17 06/06/17 06/06/17 06/07/17 06/07/17 06/07/17 06:59 14:59 22:59 06:59 14:59 22:59 Output Total 700 ml Balance -700 ml Output Urine Total 700 ml # Voids 3 3 # Bowel Movements 0 0 Result Diagram: 06/07/178 06/07/17327 Objective Remarks Abdomen benign Awakens easily, speech garbled, follows commands, left side weak Assessment and Plan Assessment and Plan Await OT/PT Stable from CRS standpoint Zenaida Turner MD Jun 07, 2017 12:55
--- NOTE | 2017-06-07 14:34 | EKG ---
Date Performed: 06/06/2017 Time Performed: 13:22:26 PTAGE: 76 years EKG: ATRIAL FIBRILLATION NONSPECIFIC ST & T-WAVE ABNORMALITY ABNORMAL RHYTHM ECG Since PREVIOUS TRACING , no significant change noted PREVIOUS TRACIN06/03/2017 19.20 DOCTOR: Michel Turner Interpretating Date/Time 06/07/2017 14:34:03
--- NOTE | 2017-06-07 15:41 | HHI.PR ---
Review/Management Diagnosis recent right cerebellar cva and midbrain cva--now with left HP and increased dysarthria afib---on lovenox and coumadin started yesterday and on asa. Event this after noon could represent extension of her brainstem stroke, but focal sz is a possibility as well Plan STAT MRI brai start cerebyx If MRI negative for hemorrhage, resume lovenox. Diagnosis/Plan: Subjective Subjective Comments I was called because the patient had a change in status--becoming less responsive and weaker on the left side I reviewed previous CT and CTA from earlier today--no change and no sign of basilar artery thrombus Active Medications Current Medications Medications (Trade) Dose Ordered Sig/Rita Route Start Time Stop Time Status Last Admin (Lovenox Inj) 40 mg BID SQ 06/03/17 21:00 06/06/17 21:33 (NS Flush) 2 ml BID IV FLUSH 06/04/17 09:00 06/07/17 11:20 (NS Flush) 2 ml UNSCH PRN IV FLUSH 06/03/17 23:00 (NovoLOG SUPPLEMENTAL SCALE) 1 ACHS SQ 06/04/17 08:00 (D50w (Vial) Inj) 50 ml UNSCH PRN IV PUSH 06/03/17 23:00 (Glucagon Inj) 1 mg UNSCH PRN OTHER 06/03/17 23:00 (Compazine Inj) 5 mg Q4H PRN IV PUSH 06/04/17 04:30 (Norvasc) 5 mg DAILY PO 06/05/17 09:00 06/06/17 09:00 Patient Own Medication PT OWN MED: (Cyclosporine O... HS EACH EYE 06/04/17 21:00 Future Hold (Vasotec Inj) 1.25 mg Q6H PRN IV PUSH 06/04/17 14:00 (Aspirin) 325 mg DAILY PO 06/07/17 09:00 (Coumadin) 5 mg DAILY@1600 PO 06/06/17 16:00 06/06/17 16:40 (Mycostatin Liq) 5 ml QID SWISH-SWAL 06/06/17 21:00 06/06/17 21:42 (Ultram) 50 mg Q6H PRN PO 06/06/17 19:45 06/07/17 06:04 Ceftriaxone Sodium 1000 mg/ Sodium Chloride 100 ml @ 200 mls/hr Q24H IV 06/07/17 11:00 06/07/17 11:19 (Aspirin Supp) 300 mg DAILY RECTAL 06/07/17 10:30 06/07/17 11:19 Sodium Chloride 1,000 ml @ 84 mls/hr [id number] IV 06/07/17 10:30 06/07/17 11:16 Potassium Chloride 100 ml @ 50 mls/hr Q2H IV 06/07/17 11:00 06/07/17 16:59 06/07/17 11:00 Allergies Allergies Coded Allergies azithromycin (Verified Allergy, Severe, Rash, 03/20/17) erythromycin base (Verified Allergy, Severe, Rash, 03/20/17) codeine (Verified Allergy, Intermediate, Nausea/Vomiting, 03/20/17) Exam I&O / VS 06/07/17 06/07/17 06/08/17 14:59 22:59 06:59 # Voids 1 Vital Signs Date Time Temp Pulse Resp B/P (MAP) Pulse Ox O2 Delivery O2 Flow Rate FiO2 06/07/17 11:41 97.4 104 18 152/72 (98) 97 06/07/17 08:14 Nasal Cannula 2.00 06/07/17 07:39 97.9 80 18 169/70 (103) 98 06/07/17 04:00 97.9 92 18 149/69 (95) 96 06/07/17 00:30 98 06/07/17 00:00 98.3 98 18 152/68 (96) 99 06/06/17 20:30 114 06/06/17 20:00 98.4 123 18 168/70 (102) 97 06/06/17 16:30 97.8 76 16 132/81 (98) 99 Exam Comments lethargic but arouses. No speech. Follow simple commands Left gaze preferecne. PERRL ? Left facial droop MOTOR--has repetative movement RUE--hold the arm up and moves it in a rotational pattern. Has approximately equal shift production supervisor Objective Micro and Labs Laboratory Tests Test 06/06/17 20:50 06/07/17 03:28 Urine Color LIGHT-YELLOW Urine Turbidity HAZY Urine pH 6.5 Urine Specific [place] 1.015 Urine Protein NEG Urine Glucose (UA) NEG Urine Ketones NEG Urine Occult Blood TRACE Urine Nitrite NEG Urine Bilirubin NEG Urine Urobilinogen LESS THAN 2.0 Urine Leukocyte Esterase LARGE Urine RBC 5 Urine WBC 23 Urine Squamous Epithelial Cells 1 Urine Bacteria RARE Urine Mucus FEW Urine Opiates Screen NEG Urine Barbiturates Screen NEG Urine Amphetamines Screen NEG Urine Benzodiazepines Screen NEG Urine Cocaine Screen NEG Urine Cannabinoids Screen NEG White Blood Count 13.4 Red Blood Count 2.74 Hemoglobin 8.9 Hematocrit 26.0 Mean Corpuscular Volume 94.8 Mean Corpuscular Hemoglobin 32.4 Mean Corpuscular Hemoglobin Concent 34.2 Red Cell Distribution Width 13.4 Platelet Count 453 Mean Platelet Volume 7.4 Neutrophils (%) (Auto) 75.9 Lymphocytes (%) (Auto) 10.3 Monocytes (%) (Auto) 9.5 Eosinophils (%) (Auto) 3.4 Basophils (%) (Auto) 0.9 Neutrophils # (Auto) 10.1 Lymphocytes # (Auto) 1.4 Monocytes # (Auto) 1.3 Eosinophils # (Auto) 0.4 Basophils # (Auto) 0.1 CBC Comment DIFF FINAL Differential Comment Prothrombin Time 11.5 Prothromb Time International Ratio 1.1 Blood Urea Nitrogen 6 Creatinine 0.43 Random Glucose 100 Albumin 2.8 Calcium Level 8.0 Phosphorus Level 3.8 Magnesium Level 1.8 Sodium Level 139 Potassium Level 3.3 Chloride Level 103 Carbon Dioxide Level 28.4 Anion Gap 8 Estimat Glomerular Filtration Rate 143 Date/Time Source Procedure Growth Status 06/03/17 20:05 Urine Catheterized Urine Urine Culture - Final NO GROWTH IN 48 HOURS. Complete Kelechi Hernandez MD PhD Jun 07, 2017 15:41
[2017-06-07] MEDS ORDERED: FOSPHENYTOIN INJ 1,000 MGPE in SODIUM CHLORIDE 0.9% INJ 50 ML IV ONE (15:45)
[2017-06-07] MEDS: WARFARIN SOD 5 MG TAB PO SCH (16:00)
--- NOTE | 2017-06-07 16:45 | RADRPT ---
EXAM DATE/TIME: 06/07/2017 16:12 [facility] COMPARISON: CTA BRAIN W 3D RECON, June 06, 2017, 12:45. MRI BRAIN W/O CONTRAST, June 04, 2017, 9:52. INDICATIONS : Altered mental status. MEDICAL HISTORY : Hypertension. SURGICAL HISTORY : Hysterectomy. Appendectomy. Colectomy. ENCOUNTER: Initial ACUITY: 1 day PAIN SCORE: 0/10 LOCATION: cranial TECHNIQUE: Multiplanar, multisequence MRI of the brain was performed without contrast. FINDINGS: There is increased diffusion abnormality involving the right cerebellar hemisphere, as well as persis tent diffusion abnormality but slightly less conspicuous in the right midbrain. There is a new diffus ion abnormality in the right frontal parafalcine region as well as the left temporal and occipital re gion characteristic of areas of acute infarction. There is extensive white matter disease again seen. There is no definite hemorrhage. No midline shift or mass effect. CONCLUSION: Evolving right cerebellar infarct, as well as no areas of acute infarction as described above bilater al cerebral hemispheres. Malcolm Briones MD on June 07, 2017 at 16:40 Board Certified Radiologist. This report was verified electronically.
[2017-06-07] MEDS: ENOXAPARIN SODIUM 80 MG/0.8 ML SYRINGE SQ SCH (18:30)
[2017-06-07] MEDS: FOSPHENYTOIN SODIUM 100 MG PE/2 ML VIAL IV SCH (22:00)
[2017-06-08] VITALS (15 sets, daily range): BP systolic 122–173; BP diastolic 56–74; PULSE 68–114; RESP 16–22; TEMP 99–99.6; O2SAT 99–100
[2017-06-08 05:23] LABS: AUTOMATED NEUTROPHIL # 10.6 TH/MM3 (1.8-7.7); BASOPHIL # 0.1 TH/MM3 (0-0.2); EOSINOPHIL # 0.4 TH/MM3 (0-0.4); EOSINOPHIL % 2.7 % (0.0-4.0); HEMATOCRIT 28.7 % (35.0-46.0); HEMOGLOBIN 9.9 GM/DL (11.6-15.3); LYMPH % 10.9 % (9.0-44.0); LYMPHOCYTE # 1.5 TH/MM3 (1.0-4.8); MEAN CELL VOLUME 94.8 FL (80.0-100.0); MEAN CORPUSCULAR HEMOGLOBIN 32.8 PG (27.0-34.0); MEAN CORPUSCULAR HGB CONC 34.6 % (32.0-36.0); MEAN PLATELET VOLUME 7.2 FL (7.0-11.0); MONO % 8.2 % (0.0-8.0); MONOCYTE # 1.1 TH/MM3 (0-0.9); NEUT % 77.2 % (16.0-70.0); PLATELET COUNT 557 TH/MM3 (150-450); RED BLOOD COUNT 3.03 MIL/MM3 (4.00-5.30); RED CELL DISTRIBUTION WIDTH 13.3 % (11.6-17.2); WHITE BLOOD COUNT 13.7 TH/MM3 (4.0-11.0)
[2017-06-08 05:29] LABS: INTERNATIONAL NORMALIZED RATIO 1.2 RATIO; PROTHROMBIN TIME - PATIENT 11.7 SEC (9.8-11.6)
[2017-06-08 05:52] LABS: ALBUMIN 2.8 GM/DL (3.4-5.0); AST (GOT) 15 U/L (15-37); BICARBONATE 27.5 MEQ/L (21.0-32.0); BLOOD UREA NITROGEN 6 MG/DL (7-18); CALCIUM 8.4 MG/DL (8.5-10.1); CHLORIDE 104 MEQ/L (98-107); GLOMERULAR FILTRATION RATE 156 ML/MIN (>89); GLUCOSE,RANDOM 90 MG/DL (74-106); MAGNESIUM 2.1 MG/DL (1.5-2.5); SODIUM (NA) 139 MEQ/L (136-145)
[2017-06-08 06:02] LABS: ALKALINE PHOSPHATASE 70 U/L (45-117); ALT (GPT) 18 U/L (10-53); FREE T4 1.29 NG/DL (0.76-1.46); PHENYTOIN (DILANTIN) 10.6 MCG/ML (10.0-20.0); PHOSPHORUS 3.5 MG/DL (2.5-4.9); TOTAL BILIRUBIN ADULT 0.5 MG/DL (0.2-1.0); TOTAL PROTEIN 6.8 GM/DL (6.4-8.2)
[2017-06-08] MEDS: FOSPHENYTOIN SODIUM 100 MG PE/2 ML VIAL IV SCH ×3 (06:04→21:25)
[2017-06-08] MEDS: INSULIN ASPART SUPPLEMENTAL SCALE SQ SCH ×4 (08:00→21:00)
[2017-06-08] MEDS: SODIUM CHLORIDE 0.9% FLUSH 10 ML FLUSH IV FLUSH SCH ×2 (09:00→21:23)
--- NOTE | 2017-06-08 09:29 | PD.CARD.PN ---
Subjective Subjective Remarks 76 year old female lying flat in bed. Several family members with her at the bedside. She is unable to open eyes or speak today. She does squeeze my hands when asked, and is moving both feet in the bed. She is receiving lovenox injections and her coumadin was restarted, INR is 1.2 today, will continue to follow INR closely. (Harris,Vidhya HERNANDEZ) Objective Medications Current Medications Medications (Trade) Dose Ordered Sig/Rita Route Start Time Stop Time Status Last Admin (NS Flush) 2 ml BID IV FLUSH 06/04/17 09:00 06/07/17 22:01 (NS Flush) 2 ml UNSCH PRN IV FLUSH 06/03/17 23:00 (NovoLOG SUPPLEMENTAL SCALE) 1 ACHS SQ 06/04/17 08:00 (D50w (Vial) Inj) 50 ml UNSCH PRN IV PUSH 06/03/17 23:00 (Glucagon Inj) 1 mg UNSCH PRN OTHER 06/03/17 23:00 (Compazine Inj) 5 mg Q4H PRN IV PUSH 06/04/17 04:30 (Norvasc) 5 mg DAILY PO 06/05/17 09:00 06/06/17 09:00 Patient Own Medication PT OWN MED: (Cyclosporine O... HS EACH EYE 06/04/17 21:00 Future Hold (Vasotec Inj) 1.25 mg Q6H PRN IV PUSH 06/04/17 14:00 (Coumadin) 5 mg DAILY@1600 PO 06/06/17 16:00 06/06/17 16:40 (Mycostatin Liq) 5 ml QID SWISH-SWAL 06/06/17 21:00 06/06/17 21:42 (Ultram) 50 mg Q6H PRN PO 06/06/17 19:45 06/07/17 06:04 Ceftriaxone Sodium 1000 mg/ Sodium Chloride 100 ml @ 200 mls/hr Q24H IV 06/07/17 11:00 06/07/17 11:19 Sodium Chloride 1,000 ml @ 84 mls/hr [id number] IV 06/07/17 10:30 06/07/17 22:25 (Cerebyx Inj) 100 mgpe Q8HR IV 06/07/17 22:00 06/08/17 06:04 (Lovenox Inj) 70 mg BID SQ 06/07/17 17:50 06/07/17 18:30 Vital Signs / I&O Vital Signs Date Time Temp Pulse Resp B/P (MAP) Pulse Ox O2 Delivery O2 Flow Rate FiO2 06/08/17 06:00 69 06/08/17 04:00 99.3 93 20 133/56 (81) 99 06/08/17 04:00 73 06/08/17 02:00 82 06/08/17 00:00 99.2 102 22 125/58 (80) 100 06/08/17 00:00 88 06/07/17 22:00 87 06/07/17 21:36 100 Nasal Cannula 1.00 06/07/17 20:00 99 06/07/17 20:00 99.1 110 20 123/58 (79) 100 06/07/17 20:00 Nasal Cannula 3.00 06/07/17 18:00 70 06/07/17 16:00 98.4 94 21 159/103 (121) 100 06/07/17 16:00 94 06/07/17 15:00 104 06/07/17 12:00 98.4 74 18 155/71 (99) 99 06/07/17 11:41 97.4 104 18 152/72 (98) 97 I/O 06/07/17 06/07/17 06/07/17 06/08/17 06/08/17 06/08/17 07:00 15:00 23:00 07:00 15:00 23:00 Intake Total 1270 ml 519 ml Output Total 350 ml 1000 ml Balance 920 ml -481 ml Intake Oral 0 ml IV Total 1270 ml 519 ml Output Urine Total 350 ml 1000 ml # Voids 3 1 2 # Bowel Movements 0 0 Physical Exam GENERAL: Elderly female lying in bed NEUROLOGIC: Unable to speak or open eyes, does squeeze hands when prompted. NECK: Jugular venous pressures are normal. There are no bruits. LUNGS: She has clear lung freire. No wheezes or crackles noted. CARDIAC: There is an irregularly irregular rhythm, 1/6 systolic ejection murmur. There are no gallops noted. EXTREMITIES: Free of cyanosis, clubbing or edema. Laboratory Laboratory Tests Test 06/07/17 17:05 06/08/17 04:03 Potassium Level 3.6 MEQ/L 3.9 MEQ/L White Blood Count 13.7 TH/MM3 Red Blood Count 3.03 MIL/MM3 Hemoglobin 9.9 GM/DL Hematocrit 28.7 % Mean Corpuscular Volume 94.8 FL Mean Corpuscular Hemoglobin 32.8 PG Mean Corpuscular Hemoglobin Concent 34.6 % Red Cell Distribution Width 13.3 % Platelet Count 557 TH/MM3 Mean Platelet Volume 7.2 FL Neutrophils (%) (Auto) 77.2 % Lymphocytes (%) (Auto) 10.9 % Monocytes (%) (Auto) 8.2 % Eosinophils (%) (Auto) 2.7 % Basophils (%) (Auto) 1.0 % Neutrophils # (Auto) 10.6 TH/MM3 Lymphocytes # (Auto) 1.5 TH/MM3 Monocytes # (Auto) 1.1 TH/MM3 Eosinophils # (Auto) 0.4 TH/MM3 Basophils # (Auto) 0.1 TH/MM3 CBC Comment DIFF FINAL Differential Comment Prothrombin Time 11.7 SEC Prothromb Time International Ratio 1.2 RATIO Blood Urea Nitrogen 6 MG/DL Creatinine 0.40 MG/DL Random Glucose 90 MG/DL Total Protein 6.8 GM/DL Albumin 2.8 GM/DL Calcium Level 8.4 MG/DL Phosphorus Level 3.5 MG/DL Magnesium Level 2.1 MG/DL Alkaline Phosphatase 70 U/L Aspartate Amino Transf (AST/SGOT) 15 U/L Alanine Aminotransferase (ALT/SGPT) 18 U/L Total Bilirubin 0.5 MG/DL Sodium Level 139 MEQ/L Chloride Level 104 MEQ/L Carbon Dioxide Level 27.5 MEQ/L Anion Gap 8 MEQ/L Estimat Glomerular Filtration Rate 156 ML/MIN Free Thyroxine 1.29 NG/DL Thyroid Stimulating Hormone 3rd Gen 0.891 uIU/ML Phenytoin (Dilantin) Level 10.6 MCG/ML Imaging Last 48 hours Impressions Head CTA 06/07/17 0000 Signed Impressions: Service Date/Time: Wednesday, June 07, 2017 10:55 - CONCLUSION: Stable appearance. The basilar artery remains stable and intact. Khoi Wright MD Head CT 06/07/17 0000 Signed Impressions: Service Date/Time: Wednesday, June 07, 2017 09:40 - CONCLUSION: 1. No significant change in the known subacute right cerebellar hemisphere infarct. 2. No evidence of hemorrhage or mass effect. Khoi Wright MD Brain MRI 06/07/17 0000 Signed Impressions: Service Date/Time: Wednesday, June 07, 2017 16:12 - CONCLUSION: Evolving right cerebellar infarct, as well as no areas of acute infarction as described above bilateral cerebral hemispheres. Malcolm Briones MD Neck CTA 06/06/17 1243 Signed Impressions: Service Date/Time: Tuesday, June 06, 2017 12:45 - CONCLUSION: No evidence of carotid stenosis. Parenchymal opacities in the lung apices. Further evaluation with CT chest recommended Tonny Fletcher MD Head CTA 06/06/17 1243 Signed Impressions: Service Date/Time: Tuesday, June 06, 2017 12:45 - CONCLUSION: Unremarkable examination. Khoi Wright MD (Vidhya Iglesias) Assessment and Plan Assessment and Plan -Acute cerebrovascular accident, cerebellar possible micro hemorrhage noted on MRI. -Chronic atrial fibrillation on Warfarin. -Hypokalemia -Hypertension -Diverticulitis and diverticulosis. -Frequent UTI Plan Currently recieving lovenox injection, coumadin has been restarted. INR is 1.2 today. Will continue to follow. Potassium in 3.9 today She is on IV antibiotics The patient was seen by Dr. Wilburn who completed face to face encounter and physical exam and participated in evaluation and management. (Vidhya Iglesias) Assessment and Plan Dr Westbrook will see as needed. (Andrea Wilburn MD) Vidhya Iglesias Jun 08, 2017 09:29 Andrea Wilburn MD Jun 08, 2017 09:35
[2017-06-08] MEDS: ENOXAPARIN SODIUM 80 MG/0.8 ML SYRINGE SQ SCH ×2 (09:59→21:24)
[2017-06-08] MEDS: NYSTATIN SUSP 500,000 U/5 ML CUP SWISH-SWAL SCH ×4 (09:59→21:24)
[2017-06-08] MEDS: SODIUM CHLOR 0.9% 1000 ML INJ 1,000 ML IV SCH ×2 (10:20→22:15)
--- NOTE | 2017-06-08 10:56 | HHI.PR ---
Subjective Remarks 3-30 PATIENTS DC WAS HELD SEEN BY NEUROLOGY 3-31 FELT TO HAVE A RECENT RIGHT CEREBELLAR CVA AND MIDBRAIN CVA- NO WITH LEFT HP AND INCREASED DYSARTHRIA GOING FOR STAT CT AND CTA OF BRAIN SWITCH ASPIRIN TO 300MG PER RECTUM START ROCEPHIN FOR ?UTI IV FLUIDS LORRAINE RN AND PATIENT AND FAMILY WILL BE TRANSFERRED TO ICU FOR CLOSE MONITORING HAS BEEN SEEN AGAIN BY NEUROLOGY 4-1 family wants an NGT WILL PLACE FOR MEDS AND NUTRITION CONSULT NUTRITION FOR TUBE FEEDS DW RN AND PATIENT AM LABS DID NOT PASS SWALLOW EVAL VERY LETHARGIC PT AND OT AND ST WILL NEED SNF VS INPT REHAB AM LABS Objective Vitals Vital Signs Date Time Temp Pulse Resp B/P (MAP) Pulse Ox O2 Delivery O2 Flow Rate FiO2 06/08/17 06:00 69 06/08/17 04:00 99.3 93 20 133/56 (81) 99 06/08/17 04:00 73 06/08/17 02:00 82 06/08/17 00:00 99.2 102 22 125/58 (80) 100 06/08/17 00:00 88 06/07/17 22:00 87 06/07/17 21:36 100 Nasal Cannula 1.00 06/07/17 20:00 99 06/07/17 20:00 99.1 110 20 123/58 (79) 100 06/07/17 20:00 Nasal Cannula 3.00 06/07/17 18:00 70 06/07/17 16:00 98.4 94 21 159/103 (121) 100 06/07/17 16:00 94 06/07/17 15:00 104 06/07/17 12:00 98.4 74 18 155/71 (99) 99 06/07/17 11:41 97.4 104 18 152/72 (98) 97 I/O 06/07/17 06/07/17 06/07/17 06/08/17 06/08/17 06/08/17 07:00 15:00 23:00 07:00 15:00 23:00 Intake Total 1270 ml 519 ml Output Total 350 ml 1000 ml Balance 920 ml -481 ml Intake Oral 0 ml IV Total 1270 ml 519 ml Output Urine Total 350 ml 1000 ml # Voids 3 1 2 # Bowel Movements 0 0 Result Diagram: 06/08/17 0403 06/08/17 0403 Other Results Laboratory Tests Test 06/05/17 14:43 06/06/17 06:18 06/06/17 12:55 06/06/17 20:50 Blood Urea Nitrogen 5 MG/DL 6 MG/DL Creatinine 0.49 MG/DL 0.40 MG/DL Random Glucose 120 MG/DL 94 MG/DL Calcium Level 8.1 MG/DL 8.1 MG/DL Magnesium Level 1.8 MG/DL 1.9 MG/DL Sodium Level 144 MEQ/L 141 MEQ/L Potassium Level 3.2 MEQ/L 3.4 MEQ/L Chloride Level 108 MEQ/L 106 MEQ/L Carbon Dioxide Level 28.0 MEQ/L 25.9 MEQ/L Anion Gap 8 MEQ/L 9 MEQ/L Estimat Glomerular Filtration Rate 123 ML/MIN 156 ML/MIN White Blood Count 10.6 TH/MM3 11.3 TH/MM3 Red Blood Count 2.49 MIL/MM3 2.76 MIL/MM3 Hemoglobin 8.2 GM/DL 9.0 GM/DL Hematocrit 23.7 % 26.2 % Mean Corpuscular Volume 95.4 FL 94.9 FL Mean Corpuscular Hemoglobin 33.0 PG 32.7 PG Mean Corpuscular Hemoglobin Concent 34.6 % 34.5 % Red Cell Distribution Width 13.5 % 13.8 % Platelet Count 370 TH/MM3 424 TH/MM3 Mean Platelet Volume 7.5 FL 7.1 FL Neutrophils (%) (Auto) 71.1 % 71.5 % Lymphocytes (%) (Auto) 13.0 % 13.3 % Monocytes (%) (Auto) 11.5 % 12.2 % Eosinophils (%) (Auto) 3.5 % 2.3 % Basophils (%) (Auto) 0.9 % 0.7 % Neutrophils # (Auto) 7.5 TH/MM3 8.1 TH/MM3 Lymphocytes # (Auto) 1.4 TH/MM3 1.5 TH/MM3 Monocytes # (Auto) 1.2 TH/MM3 1.4 TH/MM3 Eosinophils # (Auto) 0.4 TH/MM3 0.3 TH/MM3 Basophils # (Auto) 0.1 TH/MM3 0.1 TH/MM3 CBC Comment DIFF FINAL DIFF FINAL Differential Comment Albumin 2.6 GM/DL Phosphorus Level 3.2 MG/DL Bedside Hemoglobin 8.5 G/DL Bedside Hematocrit 25.0 % Prothrombin Time 11.3 SEC Prothromb Time International Ratio 1.1 RATIO Activated Partial Thromboplast Time 25.0 SEC Fibrinogen 402 mg/dL Bedside Sodium 138 MMOL/L Bedside Potassium 3.5 MMOL/L Bedside Chloride 98 MMOL/L Bedside Blood Urea Nitrogen 5 MG/DL Bedside Creatinine 0.4 MG/DL Bedside Glucose 99 MG/DL Total Creatine Kinase 38 U/L Troponin I LESS THAN 0.02 NG/ML Human Chorionic Gonadotropin, Quant 3 MIU/ML Urine Color LIGHT-YELLOW Urine Turbidity HAZY Urine pH 6.5 Urine Specific Roy 1.015 Urine Protein NEG mg/dL Urine Glucose (UA) NEG mg/dL Urine Ketones NEG mg/dL Urine Occult Blood TRACE Urine Nitrite NEG Urine Bilirubin NEG Urine Urobilinogen LESS THAN 2.0 MG/DL Urine Leukocyte Esterase LARGE Urine RBC 5 /hpf Urine WBC 23 /hpf Urine Squamous Epithelial Cells 1 /hpf Urine Bacteria RARE /hpf Urine Mucus FEW /lpf Urine Opiates Screen NEG Urine Barbiturates Screen NEG Urine Amphetamines Screen NEG Urine Benzodiazepines Screen NEG Urine Cocaine Screen NEG Urine Cannabinoids Screen NEG Test 06/07/17 03:28 06/07/17 17:05 06/08/17 04:03 White Blood Count 13.4 TH/MM3 13.7 TH/MM3 Red Blood Count 2.74 MIL/MM3 3.03 MIL/MM3 Hemoglobin 8.9 GM/DL 9.9 GM/DL Hematocrit 26.0 % 28.7 % Mean Corpuscular Volume 94.8 FL 94.8 FL Mean Corpuscular Hemoglobin 32.4 PG 32.8 PG Mean Corpuscular Hemoglobin Concent 34.2 % 34.6 % Red Cell Distribution Width 13.4 % 13.3 % Platelet Count 453 TH/MM3 557 TH/MM3 Mean Platelet Volume 7.4 FL 7.2 FL Neutrophils (%) (Auto) 75.9 % 77.2 % Lymphocytes (%) (Auto) 10.3 % 10.9 % Monocytes (%) (Auto) 9.5 % 8.2 % Eosinophils (%) (Auto) 3.4 % 2.7 % Basophils (%) (Auto) 0.9 % 1.0 % Neutrophils # (Auto) 10.1 TH/MM3 10.6 TH/MM3 Lymphocytes # (Auto) 1.4 TH/MM3 1.5 TH/MM3 Monocytes # (Auto) 1.3 TH/MM3 1.1 TH/MM3 Eosinophils # (Auto) 0.4 TH/MM3 0.4 TH/MM3 Basophils # (Auto) 0.1 TH/MM3 0.1 TH/MM3 CBC Comment DIFF FINAL DIFF FINAL Differential Comment Prothrombin Time 11.5 SEC 11.7 SEC Prothromb Time International Ratio 1.1 RATIO 1.2 RATIO Blood Urea Nitrogen 6 MG/DL 6 MG/DL Creatinine 0.43 MG/DL 0.40 MG/DL Random Glucose 100 MG/DL 90 MG/DL Albumin 2.8 GM/DL 2.8 GM/DL Calcium Level 8.0 MG/DL 8.4 MG/DL Phosphorus Level 3.8 MG/DL 3.5 MG/DL Magnesium Level 1.8 MG/DL 2.1 MG/DL Sodium Level 139 MEQ/L 139 MEQ/L Potassium Level 3.3 MEQ/L 3.6 MEQ/L 3.9 MEQ/L Chloride Level 103 MEQ/L 104 MEQ/L Carbon Dioxide Level 28.4 MEQ/L 27.5 MEQ/L Anion Gap 8 MEQ/L 8 MEQ/L Estimat Glomerular Filtration Rate 143 ML/MIN 156 ML/MIN Total Protein 6.8 GM/DL Alkaline Phosphatase 70 U/L Aspartate Amino Transf (AST/SGOT) 15 U/L Alanine Aminotransferase (ALT/SGPT) 18 U/L Total Bilirubin 0.5 MG/DL Free Thyroxine 1.29 NG/DL Thyroid Stimulating Hormone 3rd Gen 0.891 uIU/ML Phenytoin (Dilantin) Level 10.6 MCG/ML Imaging Last Impressions Head CTA 06/07/17 0000 Signed Impressions: Service Date/Time: Wednesday, June 07, 2017 10:55 - CONCLUSION: Stable appearance. The basilar artery remains stable and intact. Khoi Wright MD Head CT 06/07/17 0000 Signed Impressions: Service Date/Time: Wednesday, June 07, 2017 09:40 - CONCLUSION: 1. No significant change in the known subacute right cerebellar hemisphere infarct. 2. No evidence of hemorrhage or mass effect. Khoi Wright MD Brain MRI 06/07/17 0000 Signed Impressions: Service Date/Time: Wednesday, June 07, 2017 16:12 - CONCLUSION: Evolving right cerebellar infarct, as well as no areas of acute infarction as described above bilateral cerebral hemispheres. Malcolm Briones MD Neck CTA 06/06/17 1243 Signed Impressions: Service Date/Time: Tuesday, June 06, 2017 12:45 - CONCLUSION: No evidence of carotid stenosis. Parenchymal opacities in the lung apices. Further evaluation with CT chest recommended Tonny Fletcher MD Lower Extremity Ultrasound 06/05/17 0000 Signed Impressions: Service Date/Time: May 22:33 - CONCLUSION: No DVT. Tonny Kohler MD Head Magnetic Resonance Angiography 06/04/17 0000 Signed Impressions: Service Date/Time: Sunday, June 04, 2017 09:52 - CONCLUSION: No acute [place] vascular findings Tonny Fletcher MD Carotid Artery Ultrasound 06/04/17 0000 Signed Impressions: Service Date/Time: Sunday, June 04, 2017 08:23 - CONCLUSION: 1. There is mild atherosclerotic plaquing at both carotid bifurcations. 2. There is mild elevated velocity within the right internal carotid artery suggesting some mild to moderate narrowing. If clinically indicated, CTA of the carotids could be performed for further evaluation. 3. Otherwise, no focal high grade or hemodynamically significant stenosis is demonstrated. Jaciel Chin MD Chest X-Ray 06/03/17 1910 Signed Impressions: Service Date/Time: Saturday, June 03, 2017 19:34 - CONCLUSION: Mild left lower lobe consolidation or atelectasis. Tonny Kohler MD Abdomen X-Ray 06/03/17 0000 Signed Impressions: Service Date/Time: Saturday, June 03, 2017 21:10 - CONCLUSION: Significantly distended bowel is not seen. Tonny Kohler MD Objective Remarks GENERAL: AWake and alert and aphasic not moving left side as well as she was yesterday Poor oral and SKIN: Warm and dry. HEAD: Atraumatic. Normocephalic. EYES: Pupils equal and round. No scleral icterus. No injection or drainage. Extraocular muscles intact ENT: No nasal bleeding or discharge. Mucous membranes pink and moist. Tongue is midline NECK: Trachea midline. No JVD. Supple CARDIOVASCULAR: IRRegular rate and rhythm. S1-S2 no S3 or S4 RESPIRATORY: No accessory muscle use. Clear to auscultation. Breath sounds equal bilaterally. GASTROINTESTINAL: Abdomen soft, non-tender, nondistended. Hepatic and splenic margins not palpable. MUSCULOSKELETAL: Extremities without clubbing, cyanosis, or edema. No obvious deformities. NEUROLOGICAL: Awake and alert. No obvious cranial nerve deficits. Motor grossly within normal limits. 3 out of 5 muscle strength in the arms and legs on the left 5 out of 5 in upper extremity and lower extremity on the right. ABNormal speech. PSYCHIATRIC: INAppropriate mood and affect; insight and judgment ABnormal. Aphasic Medications and IVs Current Medications Sodium Chloride (NS Flush) 2 ml UNSCH PRN IVF FLUSH AFTER USING IV ACCESS; Start 06/03/17 at 19:15; Stop 06/06/17 at 20:09; Status DC Sodium Chloride 500 ml @ 500 mls/hr BOLUS ONCE IV Last administered on at 21:23; Start 06/03/17 at 20:30; Stop 06/03/17 at 21:29; Status DC Ondansetron HCl (Zofran Inj) 4 mg ONCE ONCE IV PUSH Last administered on at 21:24; Start 06/03/17 at 20:30; Stop 06/03/17 at 20:31; Status DC Potassium Cl/ Dextrose/Lact Ringer's 1,000 ml @ 100 mls/hr Q10H IV Last administered on 06/04/17at 13:37; Start 06/03/17 at 21:00; Stop 06/04/17 at 13:49 ; Status DC Enoxaparin Sodium (Lovenox Inj) 40 mg BID SQ Last administered on 06/06/17at 21: 33; Start 06/03/17 at 21:00; Stop 06/07/17 at 17:49; Status DC Aspirin (Aspirin) 81 mg ONCE ONCE PO ; Start 06/03/17 at 22:00; Stop 06/03/17 at 22:01; Status Cancel Sodium Chloride (NS Flush) 2 ml BID IV FLUSH Last administered on 06/07/17at 22: 01; Start 06/04/17 at 09:00 Sodium Chloride (NS Flush) 2 ml UNSCH PRN IV FLUSH FLUSH AFTER USING IV ACCESS ; Start 06/03/17 at 23:00 Sodium Chloride 1,000 ml @ 70 mls/hr [id number] IV Last administered on at 03:37; Start 06/03/17 at 23:00; Stop 06/05/17 at 17:42; Status DC Insulin Aspart (NovoLOG SUPPLEMENTAL SCALE) 1 ACHS SQ ; Start 06/04/17 at 08:00 Dextrose (D50w (Vial) Inj) 50 ml UNSCH PRN IV PUSH HYPOGLYCEMIA-SEE COMMENTS; Start 06/03/17 at 23:00 Glucagon (Glucagon Inj) 1 mg UNSCH PRN OTHER HYPOGLYCEMIA-SEE COMMENTS; Start 06/03/17 at 23:00 Aspirin (Aspirin Chew) 81 mg ONCE ONCE PO Last administered on 06/03/17at 23:28 ; Start 06/03/17 at 23:30; Stop 06/03/17 at 23:31; Status DC Prochlorperazine Edisylate (Compazine Inj) 5 mg Q4H PRN IV PUSH NAUSEA OR VOMITING; Start 06/04/17 at 04:30 Amlodipine Besylate (Norvasc) 5 mg DAILY PO Last administered on 06/06/17at 09: 00; Start 06/05/17 at 09:00 Patient Own Medication PT OWN MED: (Cyclosporine O... HS EACH EYE ; Start at 21:00; Status Future Hold Enalaprilat (Vasotec Inj) 1.25 mg Q6H PRN IV PUSH SBP>160, DBP>90; Start at 14:00 Potassium Chloride (KCl) 60 meq ONCE ONCE PO Last administered on 06/04/17at 15 :00; Start 06/04/17 at 15:00; Stop 06/04/17 at 15:01; Status DC Potassium Chloride (KCl) 30 meq ONCE ONCE PO Last administered on 06/05/17at 18 :32; Start 06/05/17 at 18:00; Stop 06/05/17 at 18:02; Status DC Tramadol HCl (Ultram) 50 mg ONCE ONCE PO Last administered on 06/05/17at 21:45 ; Start 06/05/17 at 21:30; Stop 06/05/17 at 21:31; Status DC Iohexol (Omnipaque 350 Inj) 75 ml STK-MED ONCE IVCONTRAST Last administered on 06/05/17at 21:30; Start 06/05/17 at 21:30; Stop 06/05/17 at 21:31; Status DC Tramadol HCl (Ultram) 50 mg ONCE ONCE PO ; Start 06/06/17 at 10:00; Stop at 10:01; Status DC Potassium Chloride 100 ml @ 100 mls/hr BOLUS ONCE IV Last administered on at 13:49; Start 06/06/17 at 13:15; Stop 06/06/17 at 14:14; Status DC Aspirin (Aspirin Chew) 324 mg ONCE ONCE CHEW Last administered on 06/06/17at 13 :48; Start 06/06/17 at 13:15; Stop 06/06/17 at 13:16; Status DC Aspirin (Aspirin Chew) 81 mg DAILY CHEW ; Start 06/07/17 at 09:00; Stop at 09:00; Status DC Iodixanol (VISIPAQUE 320 INJ (Rad CT)) 78 ml STK-MED ONCE IVCONTRAST Last administered on 06/06/17at 13:10; Start 06/06/17 at 13:10; Stop 06/06/17 at 13:11 ; Status DC Aspirin (Aspirin) 325 mg DAILY PO ; Start 06/07/17 at 09:00; Stop 06/07/17 at 17 :49; Status DC Warfarin Sodium (Coumadin) 5 mg DAILY@1600 PO Last administered on 06/06/17at 16 :40; Start 06/06/17 at 16:00 Nystatin (Mycostatin Liq) 5 ml QID SWISH-SWAL Last administered on 06/08/17at 09 :59; Start 06/06/17 at 21:00 Tramadol HCl (Ultram) 50 mg Q6H PRN PO pain 1-10 Last administered on at 06:04; Start 06/06/17 at 19:45 Diphenhydramine HCl (Benadryl) 25 mg ONCE ONCE PO Last administered on at 21:39; Start 06/06/17 at 20:30; Stop 06/06/17 at 20:31; Status DC Ceftriaxone Sodium 1000 mg/ Sodium Chloride 100 ml @ 200 mls/hr Q24H IV Last administered on 06/07/17at 11:19; Start 06/07/17 at 11:00 Aspirin (Aspirin Supp) 300 mg DAILY RECTAL Last administered on 06/07/17at 11:19 ; Start 06/07/17 at 10:30; Stop 06/07/17 at 17:49; Status DC Sodium Chloride 1,000 ml @ 84 mls/hr [id number] IV Last administered on at 22:25; Start 06/07/17 at 10:30 Potassium Chloride 100 ml @ 50 mls/hr Q2H IV Last administered on 06/07/17at 19 :00; Start 06/07/17 at 11:00; Stop 06/07/17 at 16:59; Status DC Iohexol (Omnipaque 350 Inj) 70 ml STK-MED ONCE IVCONTRAST Last administered on 06/07/17at 11:17; Start 06/07/17 at 11:17; Stop 06/07/17 at 11:18; Status DC Fosphenytoin Sodium 1000 mgpe/ Sodium Chloride 70 ml @ 280 mls/hr ONCE ONCE IV Last administered on 06/07/17at 18:27; Start 06/07/17 at 15:45; Stop at 16:02; Status DC Fosphenytoin Sodium (Cerebyx Inj) 100 mgpe Q8HR IV Last administered on at 06:04; Start 06/07/17 at 22:00 Enoxaparin Sodium (Lovenox Inj) 70 mg BID SQ Last administered on 06/08/17at 09: 59; Start 06/07/17 at 17:50 A/P Assessment and Plan //Acute ischemic CVA -Head CT with no acute abnormality seen. Persistent low density in the cerebral white matter likely from small vessel ischemic change. -Neurology consulted in the ER -patient outside the window of TPA -appreciate assistance and recommendations - Dr. Stafford recommended chewable baby aspirin in ED -continue neuro checks. MRI shows acute infarction involving right cerebellar hemisphere and right side of the midbrain. Possible small microhemorrhage in right cerebellar hemisphere. MRA neg. -echo pending -carotid arteries shows mild to mod narrowing in the right internal carotid art -Continuous cardiac telemetry to monitor arrhythmia -Lipid profile TG 133, LDL 84, HDL 29 and hemoglobin A1c pending. -PT, OT, and ST evaluations -Repeat CT of head in AM to monitor microhemorrhages. neurology recommends lovenox which pt is on -Per neuro, ok to start normalizing BP. Slowly bring it down. I have resumed pt' s home amlodipine dose. = Back on nectar thick liquids. Vital signs stable. Patient comfortable. Rehab medicine following. Appreciate assistance. = Had a stroke alert called yesterday. 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 -Anticoagulation with Lovenox 40 mg twice daily per colorectal surgery -will need to bridge to Coumadin -Continuous cardiac telemetry to monitor her arrhythmia and rate -Control rate as needed Continue rectal aspirin Continue on Lovenox WILL NEED COUMADIN = Restart IV fluids due to poor oral intake cardiology consultation to rule out cardioembolic phenomenon PFO versus A. fib. Bilateral ultrasound to rule out DVT. Hypokalemia -Initial K+ 2.8 today. replace w 60mEq KCl. check Mg -D5LR + KCL 20 meq at 100 cc/hr = 06/05. Potassium 3.2. Replace. = 06/06. Potassium 3.4. Replace. 3-31 remains low we will replace potassium and //Abnormal urinalysis -Patient status post cystoscopy with bilateral ureteral cath insertion during sigmoid colectomy surgery -performed by Dr. Markus Harris -Abnormalities may be secondary to recent procedure and do not clearly point to infection -white blood count downward trending since recent hospitalization - was 18.3 on 05/31 and is now 11.3 and patient is afebrile -she has chronic urinary symptoms secondary to cystocele = -urine neg x 24 hrs. = Mild hematuria. Follow-up with primary care. Continue on Rocephin 1 g IV daily for the urinary tract--continue IV fluid //Leukocytosis of 16. Could be secondary to stress. No signs of infection currently. Continue to monitor. = Resolved. //Anemia. Hemoglobin 8.2 from 9.9 yesterday. Could be dilutional. Versus lab error. Repeat CBC. //Recent colon resection for diverticulitis. Colorectal surgery following. Appreciate assistance. Discharge Planning Pending neurologic improvement and clearance by Ar Garcia DO Jun 08, 2017 10:56
[2017-06-08 11:05] LABS: HEMOGLOBIN A1C 5.1 % (4.3-6.0)
--- NOTE | 2017-06-08 13:24 | HHI.PR ---
Subjective Remarks PO CVA after colon resection severe dysphagia, opens eyes and tracks Objective Vital Signs Date Time Temp Pulse Resp B/P (MAP) Pulse Ox O2 Delivery O2 Flow Rate FiO2 06/08/17 12:32 100 Nasal Cannula 1.00 06/08/17 07:00 100 Nasal Cannula 3.00 06/08/17 06:00 69 06/08/17 04:00 99.3 93 20 133/56 (81) 99 06/08/17 04:00 73 06/08/17 02:00 82 06/08/17 00:00 99.2 102 22 125/58 (80) 100 06/08/17 00:00 88 06/07/17 22:00 87 06/07/17 21:36 100 Nasal Cannula 1.00 06/07/17 20:00 99 06/07/17 20:00 99.1 110 20 123/58 (79) 100 06/07/17 20:00 Nasal Cannula 3.00 06/07/17 18:00 70 06/07/17 16:00 98.4 94 21 159/103 (121) 100 06/07/17 16:00 94 06/07/17 15:00 104 I/O 06/07/17 06/07/17 06/07/17 06/08/17 06/08/17 06/08/17 07:00 15:00 23:00 07:00 15:00 23:00 Intake Total 1270 ml 519 ml Output Total 350 ml 1000 ml Balance 920 ml -481 ml Intake Oral 0 ml IV Total 1270 ml 519 ml Output Urine Total 350 ml 1000 ml # Voids 3 1 2 # Bowel Movements 0 0 Result Diagram: 06/08/17 0403 06/08/17 0403 Objective Remarks Abdomen benign Awakens easily, follows commands, left side weak Assessment and Plan Assessment and Plan Await OT/PT Stable from CRS standpoint - if no BM soon, may need suppository Zenaida Turner MD Jun 08, 2017 13:24
[2017-06-08] MEDS: amLODIPine BESYLATE 5 MG TAB PO SCH (14:14)
[2017-06-08] MEDS: cefTRIAXone INJ 1,000 MG in SODIUM CHLORIDE 0.9% INJ 100 ML IV SCH (14:14)
[2017-06-08] MEDS: WARFARIN SOD 5 MG TAB PO SCH (15:31)
--- NOTE | 2017-06-08 21:26 | RADRPT ---
EXAM DATE/TIME: 06/08/2017 20:55 [place] COMPARISON: No previous studies available for comparison. INDICATIONS : Ng tube placement MEDICAL HISTORY : Hypertension. SURGICAL HISTORY : Hysterectomy. Appendectomy. Colectomy. ENCOUNTER: Initial ACUITY: 2 days PAIN SCORE: Non-responsive. LOCATION: abdomen FINDINGS: Examination of the abdomen demonstrates a normal bowel gas pattern. No free air is identified. No o rganomegaly is evident. Osseous structures are intact. NG tube tip overlies the left upper quadrant in expected location of the stomach. It appears kinked at the level of the side port overlying the ga stric body. CONCLUSION: Enteric tube as above. Malcolm Briones MD on June 08, 2017 at 21:24 Board Certified Radiologist. This report was verified electronically.
[2017-06-09] VITALS (12 sets, daily range): BP systolic 127–163; BP diastolic 59–70; PULSE 77–98; RESP 14–22; TEMP 98.8–99.4; O2SAT 97–100
[2017-06-09 05:57] LABS: AUTOMATED NEUTROPHIL # 11.9 TH/MM3 (1.8-7.7); BASOPHIL # 0.1 TH/MM3 (0-0.2); BASOPHIL % 0.9 % (0.0-2.0); EOSINOPHIL # 0.3 TH/MM3 (0-0.4); EOSINOPHIL % 2.1 % (0.0-4.0); HEMATOCRIT 30.2 % (35.0-46.0); HEMOGLOBIN 10.4 GM/DL (11.6-15.3); LYMPH % 10.2 % (9.0-44.0); LYMPHOCYTE # 1.5 TH/MM3 (1.0-4.8); MEAN CELL VOLUME 93.9 FL (80.0-100.0); MEAN CORPUSCULAR HEMOGLOBIN 32.5 PG (27.0-34.0); MEAN CORPUSCULAR HGB CONC 34.7 % (32.0-36.0); MEAN PLATELET VOLUME 7.4 FL (7.0-11.0); MONO % 8.1 % (0.0-8.0); MONOCYTE # 1.2 TH/MM3 (0-0.9); NEUT % 78.7 % (16.0-70.0); PLATELET COUNT 583 TH/MM3 (150-450); RED BLOOD COUNT 3.21 MIL/MM3 (4.00-5.30); RED CELL DISTRIBUTION WIDTH 13.5 % (11.6-17.2); WHITE BLOOD COUNT 15.1 TH/MM3 (4.0-11.0)
[2017-06-09 06:24] LABS: ALBUMIN 2.7 GM/DL (3.4-5.0); AST (GOT) 22 U/L (15-37); BICARBONATE 22.9 MEQ/L (21.0-32.0); BLOOD UREA NITROGEN 9 MG/DL (7-18); CALCIUM 8.3 MG/DL (8.5-10.1); CHLORIDE 105 MEQ/L (98-107); CREATININE 0.32 MG/DL (0.50-1.00); GLOMERULAR FILTRATION RATE 201 ML/MIN (>89); GLUCOSE,RANDOM 64 MG/DL (74-106); MAGNESIUM 2.1 MG/DL (1.5-2.5); SODIUM (NA) 140 MEQ/L (136-145)
[2017-06-09 06:25] LABS: ALT (GPT) 17 U/L (10-53); PHOSPHORUS 3.2 MG/DL (2.5-4.9)
[2017-06-09 06:27] LABS: ALKALINE PHOSPHATASE 67 U/L (45-117); TOTAL BILIRUBIN ADULT 0.5 MG/DL (0.2-1.0); TOTAL PROTEIN 6.8 GM/DL (6.4-8.2)
[2017-06-09] MEDS: FOSPHENYTOIN SODIUM 100 MG PE/2 ML VIAL IV SCH ×3 (06:57→22:06)
[2017-06-09] MEDS: INSULIN ASPART SUPPLEMENTAL SCALE SQ SCH ×3 (08:00→21:00)
[2017-06-09] MEDS: amLODIPine BESYLATE 5 MG TAB PO SCH (08:00)
[2017-06-09] MEDS: ENOXAPARIN SODIUM 80 MG/0.8 ML SYRINGE SQ SCH ×2 (08:00→22:06)
[2017-06-09] MEDS: NYSTATIN SUSP 500,000 U/5 ML CUP SWISH-SWAL SCH ×3 (08:00→22:05)
[2017-06-09] MEDS: SODIUM CHLORIDE 0.9% FLUSH 10 ML FLUSH IV FLUSH SCH ×2 (08:01→22:06)
--- NOTE | 2017-06-09 10:16 | HHI.PR ---
Subjective Remarks Pt had CVA 6 days ago with complete resolution by 06/06/17. While on Lovenox 40 Q 12hrs. Pt had another CVA on 06/06/17 with stroke alert and transfer to 5th floor and then to 3rd. Awake and alert at present. Smiles and recognizes me. Able to move Right side. Left hemiparesis. N/G in place not connected to suction. Swallow evaluation proceeding now. Objective Vital Signs Date Time Temp Pulse Resp B/P (MAP) Pulse Ox O2 Delivery O2 Flow Rate FiO2 06/09/17 06:00 86 06/09/17 04:00 77 06/09/17 04:00 99.0 77 22 129/59 (82) 99 06/09/17 02:00 84 06/09/17 00:00 99.4 84 22 127/59 (81) 100 06/09/17 00:00 87 06/08/17 22:00 86 06/08/17 21:03 100 Nasal Cannula 1.00 06/08/17 20:00 99.4 94 16 131/62 (85) 100 06/08/17 20:00 94 06/08/17 19:00 100 Nasal Cannula 3.00 06/08/17 18:00 100 06/08/17 16:00 99.0 68 17 122/58 (79) 100 06/08/17 16:00 112 06/08/17 15:56 100 Nasal Cannula 1.00 06/08/17 14:00 112 06/08/17 12:32 100 Nasal Cannula 1.00 06/08/17 12:00 99.6 77 19 173/74 (107) 100 06/08/17 12:00 77 I/O 06/08/17 06/08/17 06/08/17 06/09/17 06/09/17 06/09/17 07:00 15:00 23:00 07:00 15:00 23:00 Intake Total 519 ml 60 ml Output Total 1000 ml 1375 ml Balance -481 ml -1315 ml Intake Oral 0 ml 0 ml IV Total 519 ml Tube Irrigant 60 ml Output Urine Total 1000 ml 1375 ml # Voids 3 # Bowel Movements 0 0 0 Result Diagram: 06/09/1744506/09/17445 Objective Remarks VS-S Abd: soft,non tender,wound clean Assessment and Plan Assessment and Plan Stable from CRS standpoint. Will give Dulcolax suppository today and PRN Await swallow eval. Either place N/G to suction or remove. Tonny Medina MD Jun 09, 2017 10:16
[2017-06-09] MEDS ORDERED: BISACODYL 10 MG SUPP RECTAL PRN (10:30)
[2017-06-09] MEDS: cefTRIAXone INJ 1,000 MG in SODIUM CHLORIDE 0.9% INJ 100 ML IV SCH (12:27)
[2017-06-09 13:04] LABS: INTERNATIONAL NORMALIZED RATIO 1.5 RATIO; PROTHROMBIN TIME - PATIENT 15.4 SEC (9.8-11.6)
--- NOTE | 2017-06-09 13:05 | HHI.PR ---
Subjective Remarks 3-30 PATIENTS DC WAS HELD SEEN BY NEUROLOGY 3-31 FELT TO HAVE A RECENT RIGHT CEREBELLAR CVA AND MIDBRAIN CVA- NO WITH LEFT HP AND INCREASED DYSARTHRIA GOING FOR STAT CT AND CTA OF BRAIN SWITCH ASPIRIN TO 300MG PER RECTUM START ROCEPHIN FOR ?UTI IV FLUIDS LORRAINE RN AND PATIENT AND FAMILY WILL BE TRANSFERRED TO ICU FOR CLOSE MONITORING HAS BEEN SEEN AGAIN BY NEUROLOGY 4-1 family wants an NGT WILL PLACE FOR MEDS AND NUTRITION CONSULT NUTRITION FOR TUBE FEEDS DW RN AND PATIENT AM LABS DID NOT PASS SWALLOW EVAL VERY LETHARGIC PT AND OT AND ST WILL NEED SNF VS INPT REHAB AM LABS 4-2 PASSED SWALLOW EVAL WITH PUREED DIET AND HONEY THICK LIQUIDS WITH SPEECH DW RN AND PT AND MANY FAMILY MEMBERS IN THE ROOM SEE ORDERS AM LABS INCREASE ACTIVITY WILL NEED SNF VS NEELY AT DC SEE HOW MUCH INTAKE CAN TOLERATE CALORIE COUNT Objective Vitals Vital Signs Date Time Temp Pulse Resp B/P (MAP) Pulse Ox O2 Delivery O2 Flow Rate FiO2 06/09/17 06:00 86 06/09/17 04:00 77 06/09/17 04:00 99.0 77 22 129/59 (82) 99 06/09/17 02:00 84 06/09/17 00:00 99.4 84 22 127/59 (81) 100 06/09/17 00:00 87 06/08/17 22:00 86 06/08/17 21:03 100 Nasal Cannula 1.00 06/08/17 20:00 99.4 94 16 131/62 (85) 100 06/08/17 20:00 94 06/08/17 19:00 100 Nasal Cannula 3.00 06/08/17 18:00 100 06/08/17 16:00 99.0 68 17 122/58 (79) 100 06/08/17 16:00 112 06/08/17 15:56 100 Nasal Cannula 1.00 06/08/17 14:00 112 I/O 06/08/17 06/08/17 06/08/17 06/09/17 06/09/17 06/09/17 07:00 15:00 23:00 07:00 15:00 23:00 Intake Total 519 ml 60 ml Output Total 1000 ml 1375 ml Balance -481 ml -1315 ml Intake Oral 0 ml 0 ml IV Total 519 ml Tube Irrigant 60 ml Output Urine Total 1000 ml 1375 ml # Voids 3 # Bowel Movements 0 0 0 Result Diagram: 06/09/17 0446 06/09/17 0446 Other Results Laboratory Tests Test 06/06/17 20:50 06/07/17 03:28 06/07/17 17:05 06/08/17 04:03 Urine Color LIGHT-YELLOW Urine Turbidity HAZY Urine pH 6.5 Urine Specific [place] 1.015 Urine Protein NEG mg/dL Urine Glucose (UA) NEG mg/dL Urine Ketones NEG mg/dL Urine Occult Blood TRACE Urine Nitrite NEG Urine Bilirubin NEG Urine Urobilinogen LESS THAN 2.0 MG/DL Urine Leukocyte Esterase LARGE Urine RBC 5 /hpf Urine WBC 23 /hpf Urine Squamous Epithelial Cells 1 /hpf Urine Bacteria RARE /hpf Urine Mucus FEW /lpf Urine Opiates Screen NEG Urine Barbiturates Screen NEG Urine Amphetamines Screen NEG Urine Benzodiazepines Screen NEG Urine Cocaine Screen NEG Urine Cannabinoids Screen NEG White Blood Count 13.4 TH/MM3 13.7 TH/MM3 Red Blood Count 2.74 MIL/MM3 3.03 MIL/MM3 Hemoglobin 8.9 GM/DL 9.9 GM/DL Hematocrit 26.0 % 28.7 % Mean Corpuscular Volume 94.8 FL 94.8 FL Mean Corpuscular Hemoglobin 32.4 PG 32.8 PG Mean Corpuscular Hemoglobin Concent 34.2 % 34.6 % Red Cell Distribution Width 13.4 % 13.3 % Platelet Count 453 TH/MM3 557 TH/MM3 Mean Platelet Volume 7.4 FL 7.2 FL Neutrophils (%) (Auto) 75.9 % 77.2 % Lymphocytes (%) (Auto) 10.3 % 10.9 % Monocytes (%) (Auto) 9.5 % 8.2 % Eosinophils (%) (Auto) 3.4 % 2.7 % Basophils (%) (Auto) 0.9 % 1.0 % Neutrophils # (Auto) 10.1 TH/MM3 10.6 TH/MM3 Lymphocytes # (Auto) 1.4 TH/MM3 1.5 TH/MM3 Monocytes # (Auto) 1.3 TH/MM3 1.1 TH/MM3 Eosinophils # (Auto) 0.4 TH/MM3 0.4 TH/MM3 Basophils # (Auto) 0.1 TH/MM3 0.1 TH/MM3 CBC Comment DIFF FINAL DIFF FINAL Differential Comment Prothrombin Time 11.5 SEC 11.7 SEC Prothromb Time International Ratio 1.1 RATIO 1.2 RATIO Blood Urea Nitrogen 6 MG/DL 6 MG/DL Creatinine 0.43 MG/DL 0.40 MG/DL Random Glucose 100 MG/DL 90 MG/DL Albumin 2.8 GM/DL 2.8 GM/DL Calcium Level 8.0 MG/DL 8.4 MG/DL Phosphorus Level 3.8 MG/DL 3.5 MG/DL Magnesium Level 1.8 MG/DL 2.1 MG/DL Sodium Level 139 MEQ/L 139 MEQ/L Potassium Level 3.3 MEQ/L 3.6 MEQ/L 3.9 MEQ/L Chloride Level 103 MEQ/L 104 MEQ/L Carbon Dioxide Level 28.4 MEQ/L 27.5 MEQ/L Anion Gap 8 MEQ/L 8 MEQ/L Estimat Glomerular Filtration Rate 143 ML/MIN 156 ML/MIN Total Protein 6.8 GM/DL Alkaline Phosphatase 70 U/L Aspartate Amino Transf (AST/SGOT) 15 U/L Alanine Aminotransferase (ALT/SGPT) 18 U/L Total Bilirubin 0.5 MG/DL Hemoglobin A1c 5.1 % Free Thyroxine 1.29 NG/DL Thyroid Stimulating Hormone 3rd Gen 0.891 uIU/ML Phenytoin (Dilantin) Level 10.6 MCG/ML Test 06/09/17 04:46 06/09/17 12:30 White Blood Count 15.1 TH/MM3 Red Blood Count 3.21 MIL/MM3 Hemoglobin 10.4 GM/DL Hematocrit 30.2 % Mean Corpuscular Volume 93.9 FL Mean Corpuscular Hemoglobin 32.5 PG Mean Corpuscular Hemoglobin Concent 34.7 % Red Cell Distribution Width 13.5 % Platelet Count 583 TH/MM3 Mean Platelet Volume 7.4 FL Neutrophils (%) (Auto) 78.7 % Lymphocytes (%) (Auto) 10.2 % Monocytes (%) (Auto) 8.1 % Eosinophils (%) (Auto) 2.1 % Basophils (%) (Auto) 0.9 % Neutrophils # (Auto) 11.9 TH/MM3 Lymphocytes # (Auto) 1.5 TH/MM3 Monocytes # (Auto) 1.2 TH/MM3 Eosinophils # (Auto) 0.3 TH/MM3 Basophils # (Auto) 0.1 TH/MM3 CBC Comment DIFF FINAL Differential Comment Blood Urea Nitrogen 9 MG/DL Creatinine 0.32 MG/DL Random Glucose 64 MG/DL Total Protein 6.8 GM/DL Albumin 2.7 GM/DL Calcium Level 8.3 MG/DL Phosphorus Level 3.2 MG/DL Magnesium Level 2.1 MG/DL Alkaline Phosphatase 67 U/L Aspartate Amino Transf (AST/SGOT) 22 U/L Alanine Aminotransferase (ALT/SGPT) 17 U/L Total Bilirubin 0.5 MG/DL Sodium Level 140 MEQ/L Potassium Level 3.6 MEQ/L Chloride Level 105 MEQ/L Carbon Dioxide Level 22.9 MEQ/L Anion Gap 12 MEQ/L Estimat Glomerular Filtration Rate 201 ML/MIN Imaging Last Impressions Abdomen X-Ray 06/08/17 0000 Signed Impressions: Service Date/Time: Thursday, June 08, 2017 20:55 - CONCLUSION: Enteric tube as above. Malcolm Briones MD Head CTA 06/07/17 0000 Signed Impressions: Service Date/Time: Wednesday, June 07, 2017 10:55 - CONCLUSION: Stable appearance. The basilar artery remains stable and intact. Khoi Wright MD Head CT 06/07/17 0000 Signed Impressions: Service Date/Time: Wednesday, June 07, 2017 09:40 - CONCLUSION: 1. No significant change in the known subacute right cerebellar hemisphere infarct. 2. No evidence of hemorrhage or mass effect. Khoi Wright MD Brain MRI 06/07/17 0000 Signed Impressions: Service Date/Time: Wednesday, June 07, 2017 16:12 - CONCLUSION: Evolving right cerebellar infarct, as well as no areas of acute infarction as described above bilateral cerebral hemispheres. Malcolm Briones MD Neck CTA 06/06/17 1243 Signed Impressions: Service Date/Time: Tuesday, June 06, 2017 12:45 - CONCLUSION: No evidence of carotid stenosis. Parenchymal opacities in the lung apices. Further evaluation with CT chest recommended Tonny Fletcher MD Lower Extremity Ultrasound 06/05/17 0000 Signed Impressions: Service Date/Time: May 22:33 - CONCLUSION: No DVT. Tonny Kohler MD Head Magnetic Resonance Angiography 06/04/17 0000 Signed Impressions: Service Date/Time: Sunday, June 04, 2017 09:52 - CONCLUSION: No acute huslia of [place] vascular findings Tonny Fletcher MD Carotid Artery Ultrasound 06/04/17 0000 Signed Impressions: Service Date/Time: Sunday, June 04, 2017 08:23 - CONCLUSION: 1. There is mild atherosclerotic plaquing at both carotid bifurcations. 2. There is mild elevated velocity within the right internal carotid artery suggesting some mild to moderate narrowing. If clinically indicated, CTA of the carotids could be performed for further evaluation. 3. Otherwise, no focal high grade or hemodynamically significant stenosis is demonstrated. aJciel Chin MD Chest X-Ray 06/03/17 1910 Signed Impressions: Service Date/Time: Saturday, June 03, 2017 19:34 - CONCLUSION: Mild left lower lobe consolidation or atelectasis. Tonny Kohler MD Objective Remarks GENERAL: AWake and alert and aphasic not moving left side as well as she was yesterday Poor oral and SKIN: Warm and dry. HEAD: Atraumatic. Normocephalic. EYES: Pupils equal and round. No scleral icterus. No injection or drainage. Extraocular muscles intact ENT: No nasal bleeding or discharge. Mucous membranes pink and moist. Tongue is midline NGT IN PLACE NECK: Trachea midline. No JVD. Supple CARDIOVASCULAR: IRRegular rate and rhythm. S1-S2 no S3 or S4 RESPIRATORY: No accessory muscle use. Clear to auscultation. Breath sounds equal bilaterally. GASTROINTESTINAL: Abdomen soft, non-tender, nondistended. Hepatic and splenic margins not palpable. MUSCULOSKELETAL: Extremities without clubbing, cyanosis, or edema. No obvious deformities. NEUROLOGICAL: Awake and alert. No obvious cranial nerve deficits. Motor grossly within normal limits. 3 out of 5 muscle strength in the arms and legs on the left 5 out of 5 in upper extremity and lower extremity on the right. ABNormal speech. PSYCHIATRIC: INAppropriate mood and affect; insight and judgment ABnormal. Aphasic Medications and IVs Current Medications Sodium Chloride (NS Flush) 2 ml UNSCH PRN IVF FLUSH AFTER USING IV ACCESS; Start 06/03/17 at 19:15; Stop 06/06/17 at 20:09; Status DC Sodium Chloride 500 ml @ 500 mls/hr BOLUS ONCE IV Last administered on at 21:23; Start 06/03/17 at 20:30; Stop 06/03/17 at 21:29; Status DC Ondansetron HCl (Zofran Inj) 4 mg ONCE ONCE IV PUSH Last administered on at 21:24; Start 06/03/17 at 20:30; Stop 06/03/17 at 20:31; Status DC Potassium Cl/ Dextrose/Lact Ringer's 1,000 ml @ 100 mls/hr Q10H IV Last administered on 06/04/17at 13:37; Start 06/03/17 at 21:00; Stop 06/04/17 at 13:49 ; Status DC Enoxaparin Sodium (Lovenox Inj) 40 mg BID SQ Last administered on 06/06/17at 21: 33; Start 06/03/17 at 21:00; Stop 06/07/17 at 17:49; Status DC Aspirin (Aspirin) 81 mg ONCE ONCE PO ; Start 06/03/17 at 22:00; Stop 06/03/17 at 22:01; Status Cancel Sodium Chloride (NS Flush) 2 ml BID IV FLUSH Last administered on 06/09/17at 08: 01; Start 06/04/17 at 09:00 Sodium Chloride (NS Flush) 2 ml UNSCH PRN IV FLUSH FLUSH AFTER USING IV ACCESS ; Start 06/03/17 at 23:00 Sodium Chloride 1,000 ml @ 70 mls/hr [id number] IV Last administered on at 03:37; Start 06/03/17 at 23:00; Stop 06/05/17 at 17:42; Status DC Insulin Aspart (NovoLOG SUPPLEMENTAL SCALE) 1 ACHS SQ ; Start 06/04/17 at 08:00 Dextrose (D50w (Vial) Inj) 50 ml UNSCH PRN IV PUSH HYPOGLYCEMIA-SEE COMMENTS Last administered on 06/09/17at 08:01; Start 06/03/17 at 23:00 Glucagon (Glucagon Inj) 1 mg UNSCH PRN OTHER HYPOGLYCEMIA-SEE COMMENTS; Start 06/03/17 at 23:00 Aspirin (Aspirin Chew) 81 mg ONCE ONCE PO Last administered on 06/03/17at 23:28 ; Start 06/03/17 at 23:30; Stop 06/03/17 at 23:31; Status DC Prochlorperazine Edisylate (Compazine Inj) 5 mg Q4H PRN IV PUSH NAUSEA OR VOMITING; Start 06/04/17 at 04:30 Amlodipine Besylate (Norvasc) 5 mg DAILY PO Last administered on 06/09/17at 08:00 ; Start 06/05/17 at 09:00 Patient Own Medication PT OWN MED: (Cyclosporine O... HS EACH EYE ; Start at 21:00; Status Future Hold Enalaprilat (Vasotec Inj) 1.25 mg Q6H PRN IV PUSH SBP>160, DBP>90; Start at 14:00 Potassium Chloride (KCl) 60 meq ONCE ONCE PO Last administered on 06/04/17at 15 :00; Start 06/04/17 at 15:00; Stop 06/04/17 at 15:01; Status DC Potassium Chloride (KCl) 30 meq ONCE ONCE PO Last administered on 06/05/17at 18 :32; Start 06/05/17 at 18:00; Stop 06/05/17 at 18:02; Status DC Tramadol HCl (Ultram) 50 mg ONCE ONCE PO Last administered on 06/05/17at 21:45 ; Start 06/05/17 at 21:30; Stop 06/05/17 at 21:31; Status DC Iohexol (Omnipaque 350 Inj) 75 ml STK-MED ONCE IVCONTRAST Last administered on 06/05/17at 21:30; Start 06/05/17 at 21:30; Stop 06/05/17 at 21:31; Status DC Tramadol HCl (Ultram) 50 mg ONCE ONCE PO ; Start 06/06/17 at 10:00; Stop at 10:01; Status DC Potassium Chloride 100 ml @ 100 mls/hr BOLUS ONCE IV Last administered on at 13:49; Start 06/06/17 at 13:15; Stop 06/06/17 at 14:14; Status DC Aspirin (Aspirin Chew) 324 mg ONCE ONCE CHEW Last administered on 06/06/17at 13 :48; Start 06/06/17 at 13:15; Stop 06/06/17 at 13:16; Status DC Aspirin (Aspirin Chew) 81 mg DAILY CHEW ; Start 06/07/17 at 09:00; Stop at 09:00; Status DC Iodixanol (VISIPAQUE 320 INJ (Rad CT)) 78 ml STK-MED ONCE IVCONTRAST Last administered on 06/06/17at 13:10; Start 06/06/17 at 13:10; Stop 06/06/17 at 13:11 ; Status DC Aspirin (Aspirin) 325 mg DAILY PO ; Start 06/07/17 at 09:00; Stop 06/07/17 at 17 :49; Status DC Warfarin Sodium (Coumadin) 5 mg DAILY@1600 PO Last administered on 06/08/17at 15: 31; Start 06/06/17 at 16:00 Nystatin (Mycostatin Liq) 5 ml QID SWISH-SWAL Last administered on 06/09/17at 12 :28; Start 06/06/17 at 21:00 Tramadol HCl (Ultram) 50 mg Q6H PRN PO pain 1-10 Last administered on at 06:04; Start 06/06/17 at 19:45 Diphenhydramine HCl (Benadryl) 25 mg ONCE ONCE PO Last administered on at 21:39; Start 06/06/17 at 20:30; Stop 06/06/17 at 20:31; Status DC Ceftriaxone Sodium 1000 mg/ Sodium Chloride 100 ml @ 200 mls/hr Q24H IV Last administered on 06/09/17at 12:27; Start 06/07/17 at 11:00 Aspirin (Aspirin Supp) 300 mg DAILY RECTAL Last administered on 06/07/17 11:19 ; Start 06/07/17 at 10:30; Stop 06/07/17 at 17:49; Status DC Sodium Chloride 1,000 ml @ 84 mls/hr [id number] IV Last administered on 06/08/17at 22:15; Start 06/07/17 at 10:30 Potassium Chloride 100 ml @ 50 mls/hr Q2H IV Last administered on 06/07/17at 19 :00; Start 06/07/17 at 11:00; Stop 06/07/17 at 16:59; Status DC Iohexol (Omnipaque 350 Inj) 70 ml STK-MED ONCE IVCONTRAST Last administered on 06/07/17at 11:17; Start 06/07/17 at 11:17; Stop 06/07/17 at 11:18; Status DC Fosphenytoin Sodium 1000 mgpe/ Sodium Chloride 70 ml @ 280 mls/hr ONCE ONCE IV Last administered on 06/07/17at 18:27; Start 06/07/17 at 15:45; Stop at 16:02; Status DC Fosphenytoin Sodium (Cerebyx Inj) 100 mgpe Q8HR IV Last administered on at 12:28; Start 06/07/17 at 22:00 Enoxaparin Sodium (Lovenox Inj) 70 mg BID SQ Last administered on 06/09/17at 08: 00; Start 06/07/17 at 17:50 Bisacodyl (Dulcolax Supp) 10 mg DAILY PRN RECTAL constipation; Start 06/09/17 at 10:30 A/P Assessment and Plan //Acute ischemic CVA -Head CT with no acute abnormality seen. Persistent low density in the cerebral white matter likely from small vessel ischemic change. -Neurology consulted in the ER -patient outside the window of TPA -appreciate assistance and recommendations - Dr. Stafford recommended chewable baby aspirin in ED -continue neuro checks. MRI shows acute infarction involving right cerebellar hemisphere and right side of the midbrain. Possible small microhemorrhage in right cerebellar hemisphere. MRA neg. -echo pending -carotid arteries shows mild to mod narrowing in the right internal carotid art -Continuous cardiac telemetry to monitor arrhythmia -Lipid profile TG 133, LDL 84, HDL 29 and hemoglobin A1c pending. -PT, OT, and ST evaluations -Repeat CT of head in AM to monitor microhemorrhages. neurology recommends lovenox which pt is on -Per neuro, ok to start normalizing BP. Slowly bring it down. I have resumed pt' s home amlodipine dose. = Back on nectar thick liquids. Vital signs stable. Patient comfortable. Rehab medicine following. Appreciate assistance. = Had a stroke alert called yesterday. June 06 Seen by neurology who wants her moved to ICU We will make sure she has a rectal aspirin continue on Lovenox ADD NGT SO CAN GET HER MEDICATIONS- PASSED SWALLOW EVAL WITH PUREED AND HONEY THICK LIQUIDS ON -2- NEED TO SEE IF CAN EAT ENOUGH CALORIES OR MAY STILL NEED TUBE FEEDS DW FAMILY IN AGREEMENT FOR NGT //Atrial fibrillation //Moderate to severe pulmonary hypertension //Bilateral lower extremity edema -Dr. Wheeler is patient's outpatient medical facilities section director. -Anticoagulation with Lovenox 40 mg twice daily per colorectal surgery -will need to bridge to Coumadin -Continuous cardiac telemetry to monitor her arrhythmia and rate -Control rate as needed Continue rectal aspirin Continue on Lovenox WILL NEED COUMADIN TRY TO RELOAD = Restart IV fluids due to poor oral intake cardiology consultation to rule out cardioembolic phenomenon PFO versus A. fib. Bilateral ultrasound to rule out DVT. Hypokalemia -Initial K+ 2.8 today. replace w 60mEq KCl. check Mg -D5LR + KCL 20 meq at 100 cc/hr = 06/05. Potassium 3.2. Replace. = 06/06. Potassium 3.4. Replace. 06-07 remains low we will replace potassium and //Abnormal urinalysis -Patient status post cystoscopy with bilateral ureteral cath insertion during sigmoid colectomy surgery -performed by Dr. Markus Harris -Abnormalities may be secondary to recent procedure and do not clearly point to infection -white blood count downward trending since recent hospitalization - was 18.3 on 05/31 and is now 11.3 and patient is afebrile -she has chronic urinary symptoms secondary to cystocele = -urine neg x 24 hrs. = Mild hematuria. Follow-up with primary care. Continue on Rocephin 1 g IV daily for the urinary tract--continue IV fluid //Leukocytosis of 16. Could be secondary to stress. No signs of infection currently. Continue to monitor. = Resolved. //Anemia. Hemoglobin 8.2 from 9.9 yesterday. Could be dilutional. Versus lab error. Repeat CBC. //Recent colon resection for diverticulitis. Colorectal surgery following. Appreciate assistance. Discharge Planning Pending neurologic improvement and clearance by Ar Garcia DO Jun 09, 2017 13:05
[2017-06-09] MEDS: WARFARIN SOD 5 MG TAB PO SCH (16:17)
--- NOTE | 2017-06-09 19:52 | HHI.PR ---
Review/Management Diagnosis recent right cerebellar cva and midbrain cva as well as bilateral parietal cva afib---on lovenox and asa possible focal sz Plan recheck MRI brain tomorrow Diagnosis/Plan: Subjective Subjective Comments No acute events reported Family reports patient has been more lethargic. Active Medications Current Medications Medications (Trade) Dose Ordered Sig/Rita Route Start Time Stop Time Status Last Admin (NS Flush) 2 ml BID IV FLUSH 06/04/17 09:00 06/09/17 08:01 (NS Flush) 2 ml UNSCH PRN IV FLUSH 06/03/17 23:00 (NovoLOG SUPPLEMENTAL SCALE) 1 ACHS SQ 06/04/17 08:00 (D50w (Vial) Inj) 50 ml UNSCH PRN IV PUSH 06/03/17 23:00 06/09/17 08:01 (Glucagon Inj) 1 mg UNSCH PRN OTHER 06/03/17 23:00 (Compazine Inj) 5 mg Q4H PRN IV PUSH 06/04/17 04:30 (Norvasc) 5 mg DAILY PO 06/05/17 09:00 06/09/17 08:00 Patient Own Medication PT OWN MED: (Cyclosporine O... HS EACH EYE 06/04/17 21:00 Future Hold (Vasotec Inj) 1.25 mg Q6H PRN IV PUSH 06/04/17 14:00 (Coumadin) 5 mg DAILY@1600 PO 06/06/17 16:00 06/09/17 16:17 (Mycostatin Liq) 5 ml QID SWISH-SWAL 06/06/17 21:00 06/09/17 12:28 (Ultram) 50 mg Q6H PRN PO 06/06/17 19:45 06/07/17 06:04 Ceftriaxone Sodium 1000 mg/ Sodium Chloride 100 ml @ 200 mls/hr Q24H IV 06/07/17 11:00 06/09/17 12:27 Sodium Chloride 1,000 ml @ 84 mls/hr [id number] IV 06/07/17 10:30 06/08/17 22:15 (Cerebyx Inj) 100 mgpe Q8HR IV 06/07/17 22:00 06/09/17 12:28 (Lovenox Inj) 70 mg BID SQ 06/07/17 17:50 06/09/17 08:00 (Dulcolax Supp) 10 mg DAILY PRN RECTAL 06/09/17 10:30 Allergies Allergies Coded Allergies azithromycin (Verified Allergy, Severe, Rash, 03/20/17) erythromycin base (Verified Allergy, Severe, Rash, 03/20/17) codeine (Verified Allergy, Intermediate, Nausea/Vomiting, 03/20/17) Exam I&O / VS 06/09/17 06/09/17 06/10/17 15:00 23:00 07:00 Intake Total 150 ml Output Total 500 ml Balance -350 ml Intake Oral 50 ml IV Total 100 ml Output Urine Total 500 ml # Voids 2 Vital Signs Date Time Temp Pulse Resp B/P (MAP) Pulse Ox O2 Delivery O2 Flow Rate FiO2 06/09/17 18:00 93 06/09/17 16:00 99.0 89 22 163/70 (101) 100 06/09/17 16:00 89 06/09/17 14:00 92 06/09/17 12:00 99.0 80 20 154/68 (96) 100 06/09/17 12:00 80 06/09/17 10:00 94 06/09/17 08:00 84 06/09/17 08:00 98.9 86 22 145/67 (93) 97 06/09/17 08:00 97 Nasal Cannula 2.00 06/09/17 06:00 86 06/09/17 04:00 77 06/09/17 04:00 99.0 77 22 129/59 (82) 99 06/09/17 02:00 84 06/09/17 00:00 99.4 84 22 127/59 (81) 100 06/09/17 00:00 87 06/08/17 22:00 86 06/08/17 21:03 100 Nasal Cannula 1.00 06/08/17 20:00 99.4 94 16 131/62 (85) 100 06/08/17 20:00 94 Exam Comments alert at this time. No speech. Follow simple commands . PERRL ? Left facial droop MOTOR--3/5 LUE and LLE Objective Micro and Labs Laboratory Tests Test 06/09/17 04:46 06/09/17 12:30 White Blood Count 15.1 Red Blood Count 3.21 Hemoglobin 10.4 Hematocrit 30.2 Mean Corpuscular Volume 93.9 Mean Corpuscular Hemoglobin 32.5 Mean Corpuscular Hemoglobin Concent 34.7 Red Cell Distribution Width 13.5 Platelet Count 583 Mean Platelet Volume 7.4 Neutrophils (%) (Auto) 78.7 Lymphocytes (%) (Auto) 10.2 Monocytes (%) (Auto) 8.1 Eosinophils (%) (Auto) 2.1 Basophils (%) (Auto) 0.9 Neutrophils # (Auto) 11.9 Lymphocytes # (Auto) 1.5 Monocytes # (Auto) 1.2 Eosinophils # (Auto) 0.3 Basophils # (Auto) 0.1 CBC Comment DIFF FINAL Differential Comment Blood Urea Nitrogen 9 Creatinine 0.32 Random Glucose 64 Total Protein 6.8 Albumin 2.7 Calcium Level 8.3 Phosphorus Level 3.2 Magnesium Level 2.1 Alkaline Phosphatase 67 Aspartate Amino Transf (AST/SGOT) 22 Alanine Aminotransferase (ALT/SGPT) 17 Total Bilirubin 0.5 Sodium Level 140 Potassium Level 3.6 Chloride Level 105 Carbon Dioxide Level 22.9 Anion Gap 12 Estimat Glomerular Filtration Rate 201 Prothrombin Time 15.4 Prothromb Time International Ratio 1.5 Date/Time Source Procedure Growth Status 06/03/17 20:05 Urine Catheterized Urine Urine Culture - Final NO GROWTH IN 48 HOURS. Complete Kelechi Hernandez MD PhD Jun 09, 2017 19:52
[2017-06-09] MEDS: SODIUM CHLOR 0.9% 1000 ML INJ 1,000 ML IV SCH (22:07)
[2017-06-10] VITALS (14 sets, daily range): BP systolic 129–194; BP diastolic 61–79; PULSE 75–102; RESP 16–22; TEMP 98.3–99.1; O2SAT 97–100
[2017-06-10] MEDS: FOSPHENYTOIN SODIUM 100 MG PE/2 ML VIAL IV SCH ×3 (05:30→21:09)
[2017-06-10 05:52] LABS: INTERNATIONAL NORMALIZED RATIO 2.2 RATIO; PROTHROMBIN TIME - PATIENT 22.7 SEC (9.8-11.6)
[2017-06-10 06:02] LABS: ALBUMIN 2.7 GM/DL (3.4-5.0); AST (GOT) 30 U/L (15-37); BICARBONATE 25.3 MEQ/L (21.0-32.0); BLOOD UREA NITROGEN 11 MG/DL (7-18); CHLORIDE 108 MEQ/L (98-107); CREATININE 0.44 MG/DL (0.50-1.00); GLOMERULAR FILTRATION RATE 139 ML/MIN (>89); GLUCOSE,RANDOM 94 MG/DL (74-106); SODIUM (NA) 140 MEQ/L (136-145)
[2017-06-10 06:06] LABS: ALKALINE PHOSPHATASE 74 U/L (45-117); ALT (GPT) 28 U/L (10-53); PHOSPHORUS 2.5 MG/DL (2.5-4.9); TOTAL BILIRUBIN ADULT 0.3 MG/DL (0.2-1.0); TOTAL PROTEIN 6.9 GM/DL (6.4-8.2)
[2017-06-10 06:24] LABS: AUTOMATED NEUTROPHIL # 9.5 TH/MM3 (1.8-7.7); BASOPHIL # 0.1 TH/MM3 (0-0.2); BASOPHIL % 1.1 % (0.0-2.0); EOSINOPHIL # 0.3 TH/MM3 (0-0.4); EOSINOPHIL % 2.5 % (0.0-4.0); HEMATOCRIT 35.4 % (35.0-46.0); HEMOGLOBIN 11.9 GM/DL (11.6-15.3); LYMPH % 13.8 % (9.0-44.0); LYMPHOCYTE # 1.8 TH/MM3 (1.0-4.8); MEAN CELL VOLUME 95.4 FL (80.0-100.0); MEAN CORPUSCULAR HEMOGLOBIN 32.1 PG (27.0-34.0); MEAN CORPUSCULAR HGB CONC 33.6 % (32.0-36.0); MEAN PLATELET VOLUME 7.1 FL (7.0-11.0); MONO % 9.5 % (0.0-8.0); MONOCYTE # 1.2 TH/MM3 (0-0.9); NEUT % 73.1 % (16.0-70.0); PLATELET COUNT 597 TH/MM3 (150-450); RED BLOOD COUNT 3.72 MIL/MM3 (4.00-5.30)
[2017-06-10] MEDS: INSULIN ASPART SUPPLEMENTAL SCALE SQ SCH ×4 (08:00→21:00)
[2017-06-10] MEDS: NYSTATIN SUSP 500,000 U/5 ML CUP SWISH-SWAL SCH ×4 (08:45→21:17)
[2017-06-10] MEDS: amLODIPine BESYLATE 5 MG TAB PO SCH (08:45)
[2017-06-10] MEDS: ENOXAPARIN SODIUM 80 MG/0.8 ML SYRINGE SQ SCH ×2 (08:45→21:00)
[2017-06-10] MEDS: SODIUM CHLORIDE 0.9% FLUSH 10 ML FLUSH IV FLUSH SCH ×2 (08:46→21:00)
[2017-06-10] MEDS: SODIUM CHLOR 0.9% 1000 ML INJ 1,000 ML IV SCH ×2 (08:46→21:55)
[2017-06-10] MEDS: cefTRIAXone INJ 1,000 MG in SODIUM CHLORIDE 0.9% INJ 100 ML IV SCH (11:54)
--- NOTE | 2017-06-10 12:39 | RADRPT ---
EXAM DATE/TIME: 06/10/2017 11:05 [facility] COMPARISON: MRI BRAIN W/O CONTRAST, June 07, 2017, 16:12. INDICATIONS : CVA. MEDICAL HISTORY : Hypertension. Gastroesophageal reflux disease. SURGICAL HISTORY : Appendectomy. Hysterectomy. Left hip. ENCOUNTER: Initial ACUITY: 4-6 days PAIN SCORE: Nonresponsive. LOCATION: head TECHNIQUE: Multiplanar, multisequence MRI of the brain was performed without contrast. FINDINGS: Areas of restricted diffusion are again noted involving the right cerebellar hemisphere, left parieta l cortex and medial right frontal lobe cortex and white matter all similar to before. There are a few sub-5 mm areas of restricted diffusion in the left bilateral lobe white matter and the right side of the corpus callosum that I believe are new. Chronic flair signal abnormality in the periventricular white matter again noted and not significantl y changed. No bleed demonstrated. No mass effect or midline shift. CONCLUSION: There are probable new tiny areas of infarction of the left parietal lobe white matter and the right side of the posterior corpus callosum. The subacute infarcts in multiple vascular territories involvi ng the right side of the cerebellum, left parietal cortex and right frontal cortex and white matter a re not significantly changed. Tonny Lemon MD on June 10, 2017 at 12:32 Board Certified Radiologist. This report was verified electronically.
[2017-06-10] MEDS ORDERED: HYDROCORTISONE 1% CREAM 30 GM TOPICAL PRN (13:30)
--- NOTE | 2017-06-10 13:32 | HHI.PR ---
Subjective Remarks Awake,alert,recognizes me. Objective Vital Signs Date Time Temp Pulse Resp B/P (MAP) Pulse Ox O2 Delivery O2 Flow Rate FiO2 06/10/17 06:00 75 06/10/17 04:00 99.1 101 16 166/72 (103) 99 06/10/17 04:00 101 06/10/17 02:00 95 06/10/17 00:00 76 06/10/17 00:00 98.5 79 19 129/61 (83) 99 06/09/17 22:06 100 Nasal Cannula 1.00 06/09/17 20:00 99 Nasal Cannula 2.00 06/09/17 20:00 99 Nasal Cannula 2.00 06/09/17 20:00 98 06/09/17 20:00 98.8 98 14 133/63 (86) 100 06/09/17 18:00 93 06/09/17 16:00 99.0 89 22 163/70 (101) 100 06/09/17 16:00 89 06/09/17 14:00 92 I/O 06/09/17 06/09/17 06/09/17 06/10/17 06/10/17 06/10/17 07:00 15:00 23:00 07:00 15:00 23:00 Intake Total 150 ml 340 ml Output Total 500 ml Balance -350 ml 340 ml Intake Oral 50 ml 240 ml IV Total 100 ml 100 ml Output Urine Total 500 ml # Voids 3 2 3 # Bowel Movements 0 0 Result Diagram: 06/10/17 0500 06/10/17 0500 Objective Remarks VS-S Abd: soft,non tender,wound clean Assessment and Plan Assessment and Plan Stable from CRS standpoint. Will give Dulcolax suppository today Passed swallow eval. Remove N/G if ok with consultants D/C antibiotics to avoid C.Diff. Urine culture. No growth Tonny Medina MD Jun 10, 2017 13:32
[2017-06-10] MEDS ORDERED: BISACODYL 10 MG SUPP RECTAL ONE (13:45)
[2017-06-10] MEDS: WARFARIN SOD 5 MG TAB PO SCH (18:00)
--- NOTE | 2017-06-10 18:34 | HHI.PR ---
Subjective Remarks Patient passed speech therapy Denies nausea, vomiting or abdominal pain afebrile Patient is nonverbal Objective Vitals Vital Signs Date Time Temp Pulse Resp B/P (MAP) Pulse Ox O2 Delivery O2 Flow Rate FiO2 06/10/17 16:50 Nasal Cannula 3.00 06/10/17 16:00 96 06/10/17 16:00 99.1 96 20 172/71 (104) 100 06/10/17 14:00 102 06/10/17 12:00 98.4 89 22 167/74 (105) 100 06/10/17 12:00 89 06/10/17 10:00 86 06/10/17 08:00 89 06/10/17 08:00 98.3 89 16 167/79 (108) 100 06/10/17 07:00 100 Nasal Cannula 2.00 06/10/17 06:00 75 06/10/17 04:00 99.1 101 16 166/72 (103) 99 06/10/17 04:00 101 06/10/17 02:00 95 06/10/17 00:00 76 06/10/17 00:00 98.5 79 19 129/61 (83) 99 06/09/17 22:06 100 Nasal Cannula 1.00 06/09/17 20:00 99 Nasal Cannula 2.00 06/09/17 20:00 99 Nasal Cannula 2.00 06/09/17 20:00 98 06/09/17 20:00 98.8 98 14 133/63 (86) 100 I/O 06/09/17 06/09/17 06/09/17 06/10/17 06/10/17 06/10/17 07:00 15:00 23:00 07:00 15:00 23:00 Intake Total 150 ml 340 ml Output Total 500 ml Balance -350 ml 340 ml Intake Oral 50 ml 240 ml IV Total 100 ml 100 ml Output Urine Total 500 ml # Voids 3 2 3 # Bowel Movements 0 0 Result Diagram: 06/10/17 0500 06/10/17 0500 Imaging Last Impressions Brain MRI 06/10/17 1000 Signed Impressions: Service Date/Time: Saturday, June 10, 2017 11:05 - CONCLUSION: There are probable new tiny areas of infarction of the left parietal lobe white matter and the right side of the posterior corpus callosum. The subacute infarcts in multiple vascular territories involving the right side of the cerebellum, left parietal cortex and right frontal cortex and white matter are not significantly changed. Tonny Lemon MD Abdomen X-Ray 06/08/17 0000 Signed Impressions: Service Date/Time: Thursday, June 08, 2017 20:55 - CONCLUSION: Enteric tube as above. Malcolm Briones MD Head CTA 06/07/17 0000 Signed Impressions: Service Date/Time: Wednesday, June 07, 2017 10:55 - CONCLUSION: Stable appearance. The basilar artery remains stable and intact. Khoi Wright MD Head CT 06/07/17 0000 Signed Impressions: Service Date/Time: Wednesday, June 07, 2017 09:40 - CONCLUSION: 1. No significant change in the known subacute right cerebellar hemisphere infarct. 2. No evidence of hemorrhage or mass effect. Khoi Wright MD Neck CTA 06/06/17 1243 Signed Impressions: Service Date/Time: Tuesday, June 06, 2017 12:45 - CONCLUSION: No evidence of carotid stenosis. Parenchymal opacities in the lung apices. Further evaluation with CT chest recommended Tonny Fletcher MD Lower Extremity Ultrasound 06/05/17 0000 Signed Impressions: Service Date/Time: May 22:33 - CONCLUSION: No DVT. Tonny Kohler MD Head Magnetic Resonance Angiography 06/04/17 0000 Signed Impressions: Service Date/Time: Sunday, June 04, 2017 09:52 - CONCLUSION: No acute [place] vascular findings Tonny Fletcher MD Carotid Artery Ultrasound 06/04/17 0000 Signed Impressions: Service Date/Time: Sunday, June 04, 2017 08:23 - CONCLUSION: 1. There is mild atherosclerotic plaquing at both carotid bifurcations. 2. There is mild elevated velocity within the right internal carotid artery suggesting some mild to moderate narrowing. If clinically indicated, CTA of the carotids could be performed for further evaluation. 3. Otherwise, no focal high grade or hemodynamically significant stenosis is demonstrated. Jaciel Chin MD Chest X-Ray 06/03/17 1910 Signed Impressions: Service Date/Time: Saturday, June 03, 2017 19:34 - CONCLUSION: Mild left lower lobe consolidation or atelectasis. Tonny Kohler MD Objective Remarks GENERAL: AWake and alert and aphasic not moving left side as well as she was yesterday Poor oral and SKIN: Warm and dry. HEAD: Atraumatic. Normocephalic. EYES: Pupils equal and round. No scleral icterus. No injection or drainage. Extraocular muscles intact ENT: No nasal bleeding or discharge. Mucous membranes pink and moist. Tongue is midline NGT IN PLACE NECK: Trachea midline. No JVD. Supple CARDIOVASCULAR: IRRegular rate and rhythm. S1-S2 no S3 or S4 RESPIRATORY: No accessory muscle use. Clear to auscultation. Breath sounds equal bilaterally. GASTROINTESTINAL: Abdomen soft, non-tender, nondistended. Hepatic and splenic margins not palpable. MUSCULOSKELETAL: Extremities without clubbing, cyanosis, or edema. No obvious deformities. NEUROLOGICAL: Awake and alert. No obvious cranial nerve deficits. Motor grossly within normal limits. 3 out of 5 muscle strength in the arms and legs on the left 5 out of 5 in upper extremity and lower extremity on the right. ABNormal speech. PSYCHIATRIC: INAppropriate mood and affect; insight and judgment ABnormal. Aphasic A/P Assessment and Plan //Acute ischemic CVA -Head CT with no acute abnormality seen. Persistent low density in the cerebral white matter likely from small vessel ischemic change. -Neurology consulted in the ER -patient outside the window of TPA -appreciate assistance and recommendations - Dr. Stafford recommended chewable baby aspirin in ED -continue neuro checks. MRI shows acute infarction involving right cerebellar hemisphere and right side of the midbrain. Possible small microhemorrhage in right cerebellar hemisphere. MRA neg. -echo pending -carotid arteries shows mild to mod narrowing in the right internal carotid art -Continuous cardiac telemetry to monitor arrhythmia -Lipid profile TG 133, LDL 84, HDL 29 and hemoglobin A1c pending. -PT, OT, and ST evaluations -Repeat CT of head in AM to monitor microhemorrhages. neurology recommends lovenox which pt is on -Per neuro, ok to start normalizing BP. Slowly bring it down. I have resumed pt' s home amlodipine dose. = Back on nectar thick liquids. Vital signs stable. Patient comfortable. Rehab medicine following. Appreciate assistance. = Had a stroke alert called yesterday. June 06 Seen by neurology who wants her moved to ICU We will make sure she has a rectal aspirin continue on Lovenox / Dc NG tube - patient passed dysphagia eval. MRI brain shows new areas of infarction - fu neurology recommendations. //Atrial fibrillation //Moderate to severe pulmonary hypertension //Bilateral lower extremity edema -Dr. 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 -Anticoagulation with Lovenox 40 mg twice daily per colorectal surgery -will need to bridge to Coumadin -Continuous cardiac telemetry to monitor her arrhythmia and rate -Control rate as needed Continue rectal aspirin Continue on Lovenox 06/10 INR 2.2 - DC Lovenox in am. Continue Coumadin. cardiology consultation to rule out cardioembolic phenomenon PFO versus A. fib. Bilateral ultrasound to rule out DVT. Hypokalemia -Initial K+ 2.8 today. replace w 60mEq KCl. check Mg -D5LR + KCL 20 meq at 100 cc/hr = 06/05. Potassium 3.2. Replace. = 06/06. Potassium 3.4. Replace. 06-07 remains low we will replace potassium and 06/10 Hypokalemia resolved. //Abnormal urinalysis -Patient status post cystoscopy with bilateral ureteral cath insertion during sigmoid colectomy surgery -performed by Dr. Markus Harris -Abnormalities may be secondary to recent procedure and do not clearly point to infection -white blood count downward trending since recent hospitalization - was 18.3 on 05/31 and is now 11.3 and patient is afebrile -she has chronic urinary symptoms secondary to cystocele = -urine neg x 24 hrs. = Mild hematuria. Follow-up with primary care. Continue on Rocephin 1 g IV daily for the urinary tract--continue IV fluid //Leukocytosis of 16. Could be secondary to stress. No signs of infection currently. Continue to monitor. = Resolved. //Anemia. Hemoglobin 8.2 from 9.9 yesterday. Could be dilutional. Versus lab error. Repeat CBC. //Recent colon resection for diverticulitis. Colorectal surgery following. Appreciate assistance. Max Betancur MD Jun 10, 2017 18:34
[2017-06-10] MEDS ORDERED: POTASSIUM CHLORIDE 10 MEQ CONTROLLED RELEASE TAB PO ONE (18:45)
[2017-06-11] VITALS (13 sets, daily range): BP systolic 131–173; BP diastolic 61–87; PULSE 83–105; RESP 20–24; TEMP 98.3–99.1; O2SAT 97–100
[2017-06-11 05:06] LABS: HEMATOCRIT 32.7 % (35.0-46.0); HEMOGLOBIN 11.4 GM/DL (11.6-15.3); MEAN CELL VOLUME 93.9 FL (80.0-100.0); MEAN CORPUSCULAR HEMOGLOBIN 32.7 PG (27.0-34.0); MEAN CORPUSCULAR HGB CONC 34.8 % (32.0-36.0); MEAN PLATELET VOLUME 7.3 FL (7.0-11.0); PLATELET COUNT 534 TH/MM3 (150-450); RED BLOOD COUNT 3.48 MIL/MM3 (4.00-5.30); RED CELL DISTRIBUTION WIDTH 13.6 % (11.6-17.2)
[2017-06-11 05:10] LABS: BICARBONATE 27.9 MEQ/L (21.0-32.0); CALCIUM 8.2 MG/DL (8.5-10.1); CREATININE 0.35 MG/DL (0.50-1.00); MAGNESIUM 1.9 MG/DL (1.5-2.5); PHOSPHORUS 2.5 MG/DL (2.5-4.9)
[2017-06-11 05:33] LABS: INTERNATIONAL NORMALIZED RATIO 2.8 RATIO; PROTHROMBIN TIME - PATIENT 28.1 SEC (9.8-11.6)
[2017-06-11] MEDS: FOSPHENYTOIN SODIUM 100 MG PE/2 ML VIAL IV SCH ×3 (05:33→20:59)
--- NOTE | 2017-06-11 06:39 | HHI.PR ---
Subjective Remarks Pt and family asleep and resting comfortably. Not awakened. N/G removed yesterday.Tolerating PO. Objective Vital Signs Date Time Temp Pulse Resp B/P (MAP) Pulse Ox O2 Delivery O2 Flow Rate FiO2 06/11/17 06:00 105 06/11/17 04:00 98.6 94 21 146/80 (102) 100 06/11/17 04:00 94 06/11/17 02:00 93 06/11/17 00:00 84 06/11/17 00:00 98.6 84 23 131/61 (84) 97 06/10/17 22:25 97 21 06/10/17 22:00 142/63 (89) 06/10/17 22:00 96 06/10/17 20:00 94 06/10/17 20:00 98.5 94 22 194/77 (116) 100 06/10/17 20:00 92 Room Air 06/10/17 18:00 98 06/10/17 16:50 Nasal Cannula 3.00 06/10/17 16:00 96 06/10/17 16:00 99.1 96 20 172/71 (104) 100 06/10/17 14:00 102 06/10/17 12:00 98.4 89 22 167/74 (105) 100 06/10/17 12:00 89 06/10/17 10:00 86 06/10/17 08:00 89 06/10/17 08:00 98.3 89 16 167/79 (108) 100 06/10/17 07:00 100 Nasal Cannula 2.00 I/O 06/10/17 06/10/17 06/10/17 06/11/17 06/11/17 06/11/17 07:00 15:00 23:00 07:00 15:00 23:00 Intake Total 340 ml 1240 ml 240 ml Output Total 1000 ml 1000 ml Balance 340 ml 240 ml -760 ml Intake Oral 240 ml 240 ml 240 ml IV Total 100 ml 1000 ml Output Urine Total 1000 ml 1000 ml # Voids 3 2 2 # Bowel Movements 0 1 2 Result Diagram: 06/11/1740806/11/17408 Objective Remarks VS-S Abd: soft,non tender,wound clean I&Os-OK Labs-OK Assessment and Plan Assessment and Plan Stable from CRS standpoint. Dulcolax suppository prn Per Neurology. ? D/C Lovenox since INR therapeutic. Tonny Medina MD Jun 11, 2017 06:38
[2017-06-11] MEDS: INSULIN ASPART SUPPLEMENTAL SCALE SQ SCH ×4 (08:00→20:59)
[2017-06-11] MEDS: ENOXAPARIN SODIUM 80 MG/0.8 ML SYRINGE SQ SCH (09:00)
[2017-06-11] MEDS: amLODIPine BESYLATE 5 MG TAB PO SCH (09:06)
[2017-06-11] MEDS: NYSTATIN SUSP 500,000 U/5 ML CUP SWISH-SWAL SCH ×4 (09:06→20:59)
[2017-06-11] MEDS: SODIUM CHLORIDE 0.9% FLUSH 10 ML FLUSH IV FLUSH SCH ×2 (09:07→20:59)
[2017-06-11] MEDS: SODIUM CHLOR 0.9% 1000 ML INJ 1,000 ML IV SCH (09:08)
[2017-06-11] MEDS: traMADol HCL 50 MG TAB PO PRN (12:28)
[2017-06-11] MEDS: WARFARIN SOD 5 MG TAB PO SCH (17:41)
--- NOTE | 2017-06-11 18:00 | HHI.PR ---
Subjective Remarks Patient is aphasic and unable to provide any history. As per RN the patient has tolerated that well and is eating a good amount of his portions. Patient is afebrile. Objective Vitals Vital Signs Date Time Temp Pulse Resp B/P (MAP) Pulse Ox O2 Delivery O2 Flow Rate FiO2 06/11/17 06:00 105 06/11/17 04:00 98.6 94 21 146/80 (102) 100 06/11/17 04:00 94 06/11/17 02:00 93 06/11/17 00:00 84 06/11/17 00:00 98.6 84 23 131/61 (84) 97 06/10/17 22:25 97 21 06/10/17 22:00 142/63 (89) 06/10/17 22:00 96 06/10/17 20:00 94 06/10/17 20:00 98.5 94 22 194/77 (116) 100 06/10/17 20:00 92 Room Air 06/10/17 18:00 98 I/O 06/10/17 06/10/17 06/10/17 06/11/17 06/11/17 06/11/17 07:00 15:00 23:00 07:00 15:00 23:00 Intake Total 340 ml 1240 ml 340 ml 1700 ml Output Total 1000 ml 1000 ml Balance 340 ml 240 ml -660 ml 1700 ml Intake Oral 240 ml 240 ml 240 ml IV Total 100 ml 1000 ml 100 ml 1700 ml Output Urine Total 1000 ml 1000 ml # Voids 3 2 2 # Bowel Movements 0 1 2 Result Diagram: 06/11/17 0409 06/11/17 0409 Imaging Last Impressions Brain MRI 06/10/17 1000 Signed Impressions: Service Date/Time: Saturday, June 10, 2017 11:05 - CONCLUSION: There are probable new tiny areas of infarction of the left parietal lobe white matter and the right side of the posterior corpus callosum. The subacute infarcts in multiple vascular territories involving the right side of the cerebellum, left parietal cortex and right frontal cortex and white matter are not significantly changed. Tonny Lemon MD Abdomen X-Ray 06/08/17 0000 Signed Impressions: Service Date/Time: Thursday, June 08, 2017 20:55 - CONCLUSION: Enteric tube as above. Malcolm Briones MD Head CTA 06/07/17 0000 Signed Impressions: Service Date/Time: Wednesday, June 07, 2017 10:55 - CONCLUSION: Stable appearance. The basilar artery remains stable and intact. Khoi Wright MD Head CT 06/07/17 0000 Signed Impressions: Service Date/Time: Wednesday, June 07, 2017 09:40 - CONCLUSION: 1. No significant change in the known subacute right cerebellar hemisphere infarct. 2. No evidence of hemorrhage or mass effect. Khoi Wright MD Neck CTA 06/06/17 1243 Signed Impressions: Service Date/Time: Tuesday, June 06, 2017 12:45 - CONCLUSION: No evidence of carotid stenosis. Parenchymal opacities in the lung apices. Further evaluation with CT chest recommended Tonny Fletcher MD Lower Extremity Ultrasound 06/05/17 0000 Signed Impressions: Service Date/Time: May 22:33 - CONCLUSION: No DVT. Tonny Kohler MD Head Magnetic Resonance Angiography 06/04/17 Signed Impressions: Service Date/Time: Sunday, June 04, 2017 09:52 - CONCLUSION: No acute [place] vascular findings Tonny Fletcher MD Carotid Artery Ultrasound 06/04/17 0000 Signed Impressions: Service Date/Time: Sunday, June 04, 2017 08:23 - CONCLUSION: 1. There is mild atherosclerotic plaquing at both carotid bifurcations. 2. There is mild elevated velocity within the right internal carotid artery suggesting some mild to moderate narrowing. If clinically indicated, CTA of the carotids could be performed for further evaluation. 3. Otherwise, no focal high grade or hemodynamically significant stenosis is demonstrated. Jaciel Chin MD Chest X-Ray 06/03/[id number] Signed Impressions: Service Date/Time: Saturday, June 03, 2017 19:34 - CONCLUSION: Mild left lower lobe consolidation or atelectasis. Tonny Kohler MD Objective Remarks GENERAL: AWake and alert and aphasic not moving left side as well as she was yesterday SKIN: Warm and dry. HEAD: Atraumatic. Normocephalic. EYES: Pupils equal and round. No scleral icterus. No injection or drainage. Extraocular muscles intact ENT: No nasal bleeding or discharge. Mucous membranes pink and moist. Tongue is midline NGT IN PLACE NECK: Trachea midline. No JVD. Supple CARDIOVASCULAR: IRRegular rate and rhythm. S1-S2 no S3 or S4 RESPIRATORY: No accessory muscle use. Clear to auscultation. Breath sounds equal bilaterally. GASTROINTESTINAL: Abdomen soft, non-tender, nondistended. Hepatic and splenic margins not palpable. MUSCULOSKELETAL: Extremities without clubbing, cyanosis, or edema. No obvious deformities. NEUROLOGICAL: Awake and alert. No obvious cranial nerve deficits. Motor grossly within normal limits. 3 out of 5 muscle strength in the arms and legs on the left 5 out of 5 in upper extremity and lower extremity on the right. ABNormal speech. PSYCHIATRIC: Appropriate mood and affect; patient is aphasic, therefore unable to federal judge insight and judgment. Procedures none Medications and IVs Current Medications Medications (Trade) Dose Ordered Sig/Rita Route Start Time Stop Time Status Last Admin (NS Flush) 2 ml BID IV FLUSH 06/04/17 09:00 06/11/17 09:07 (NS Flush) 2 ml UNSCH PRN IV FLUSH 06/03/17 23:00 (NovoLOG SUPPLEMENTAL SCALE) 1 ACHS SQ 06/04/17 08:00 (D50w (Vial) Inj) 50 ml UNSCH PRN IV PUSH 06/03/17 23:00 06/09/17 08:01 (Glucagon Inj) 1 mg UNSCH PRN OTHER 06/03/17 23:00 (Compazine Inj) 5 mg Q4H PRN IV PUSH 06/04/17 04:30 (Norvasc) 5 mg DAILY PO 06/05/17 09:00 06/11/17 09:06 Patient Own Medication PT OWN MED: (Cyclosporine O... HS EACH EYE 06/04/17 21:00 Future Hold (Vasotec Inj) 1.25 mg Q6H PRN IV PUSH 06/04/17 14:00 06/10/17 21:09 (Coumadin) 5 mg DAILY@1600 PO 06/06/17 16:00 06/11/17 17:41 (Mycostatin Liq) 5 ml QID SWISH-SWAL 06/06/17 21:00 06/11/17 17:41 (Ultram) 50 mg Q6H PRN PO 06/06/17 19:45 06/11/17 12:28 (Cerebyx Inj) 100 mgpe Q8HR IV 06/07/17 22:00 06/11/17 12:28 (Dulcolax Supp) 10 mg DAILY PRN RECTAL 06/09/17 10:30 (Hydrocortisone 1% Cream) 1 applic DAILY PRN TOPICAL 06/10/17 13:30 Pharmacy Profile Note 0 ml @ 0 mls/hr UNSCH OTHER 06/11/17 15:45 UNV Urinary Catheter: No Vascular Central Line Catheter: No A/P Problem List: (1) CVA (cerebral vascular accident) ICD Code: I63.9 - Cerebral infarction, unspecified (2) Atrial fibrillation ICD Code: I48.91 - Atrial fibrillation Status: Acute (3) Hypertension ICD Code: I10 - Hypertension Status: Acute (4) Hyperlipidemia ICD Code: E78.5 - Hyperlipidemia Status: Acute Assessment and Plan Acute ischemic CVA -Head CT with no acute abnormality seen. Persistent low density in the cerebral white matter likely from small vessel ischemic change. -Neurology consulted in the ER -patient outside the window of TPA -appreciate assistance and recommendations - Dr. Stafford recommended chewable baby aspirin in ED -continue neuro checks. MRI shows acute infarction involving right cerebellar hemisphere and right side of the midbrain. Possible small microhemorrhage in right cerebellar hemisphere. MRA neg. -echo pending -carotid arteries shows mild to mod narrowing in the right internal carotid art -Continuous cardiac telemetry to monitor arrhythmia -Lipid profile TG 133, LDL 84, HDL 29 and hemoglobin A1c pending. -PT, OT, and ST evaluations -Repeat CT of head in AM to monitor microhemorrhages. neurology recommends lovenox which pt is on -Per neuro, ok to start normalizing BP. Slowly bring it down. I have resumed pt' s home amlodipine dose. = Back on nectar thick liquids. Vital signs stable. Patient comfortable. Rehab medicine following. Appreciate assistance. = Had a stroke alert called yesterday. June 06 Seen by neurology who wants her moved to ICU We will make sure she has a rectal aspirin continue on Lovenox 06/10 Dc NG tube - patient passed dysphagia eval. MRI brain shows new areas of infarction - fu neurology recommendations. 06/11 patient tolerating diet well. Patient is progressing to diet now mechanical soft. Awaiting neurology recommendations regarding new findings on MRI. Patient okay to be out of bed with assistance. Atrial fibrillation Moderate to severe pulmonary hypertension Bilateral lower extremity edema -Dr. 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 -Anticoagulation with Lovenox 40 mg twice daily per colorectal surgery -will need to bridge to Coumadin -Continuous cardiac telemetry to monitor her arrhythmia and rate -Control rate as needed Continue rectal aspirin Continue on Lovenox 06/10 INR 2.2 - DC Lovenox in am. Continue Coumadin. 06/11 discontinue Lovenox. INR 2.8. Continue to monitor PT/INR daily. Hypokalemia Status post replacement IV and orally. Continue to monitor BMP. Hypokalemia resolved. Potassium 3.5 I will start on scheduled potassium tablets. Abnormal urinalysis -Patient status post cystoscopy with bilateral ureteral cath insertion during sigmoid colectomy surgery -performed by Dr. Markus Harris -Abnormalities may be secondary to recent procedure and do not clearly point to infection -white blood count downward trending since recent hospitalization - was 18.3 on 05/31 and is now 11.3 and patient is afebrile -she has chronic urinary symptoms secondary to cystocele = -urine neg x 24 hrs. = Mild hematuria. Follow-up with primary care. Continue on Rocephin 1 g IV daily for the urinary tract--continue IV fluid 06/11 the patient started on Rocephin for suspected UTI. Urine cultures negative. I will discontinue IV Rocephin and discontinue IV fluids. Leukocytosis WBCs trending down. No current active signs of infection. Continue to monitor CBC. Anemia. Likely dilutional. Continue to monitor hemoglobin which is stable. Hemoglobin 11.4 today. Recent colon resection for diverticulitis. Colorectal surgery following. Appreciate assistance. Discharge Planning Discharge pending neurology clearance. Possible DC in the next 1-2 days. The patient could possibly be discharged to [place]. Case management to help with discharge plans. Problem Qualifiers (1) CVA (cerebral vascular accident): Qualified Codes: I63.9 - Cerebral infarction, unspecified Max Betancur MD Jun 11, 2017 18:00
--- NOTE | 2017-06-11 18:11 | HHI.PR ---
Review/Management Diagnosis recent right cerebellar cva and midbrain cva as well as bilateral parietal cva afib---on lovenox and asa possible focal sz Plan continue anticoagulation Diagnosis/Plan: Subjective Subjective Comments No acute events reported Has been more alert according to her family Active Medications Current Medications Medications (Trade) Dose Ordered Sig/Rita Route Start Time Stop Time Status Last Admin (NS Flush) 2 ml BID IV FLUSH 06/04/17 09:00 06/11/17 09:07 (NS Flush) 2 ml UNSCH PRN IV FLUSH 06/03/17 23:00 (NovoLOG SUPPLEMENTAL SCALE) 1 ACHS SQ 06/04/17 08:00 (D50w (Vial) Inj) 50 ml UNSCH PRN IV PUSH 06/03/17 23:00 06/09/17 08:01 (Glucagon Inj) 1 mg UNSCH PRN OTHER 06/03/17 23:00 (Compazine Inj) 5 mg Q4H PRN IV PUSH 06/04/17 04:30 (Norvasc) 5 mg DAILY PO 06/05/17 09:00 06/11/17 09:06 Patient Own Medication PT OWN MED: (Cyclosporine O... HS EACH EYE 06/04/17 21:00 Future Hold (Vasotec Inj) 1.25 mg Q6H PRN IV PUSH 06/04/17 14:00 06/10/17 21:09 (Coumadin) 5 mg DAILY@1600 PO 06/06/17 16:00 06/11/17 17:41 (Mycostatin Liq) 5 ml QID SWISH-SWAL 06/06/17 21:00 06/11/17 17:41 (Ultram) 50 mg Q6H PRN PO 06/06/17 19:45 06/11/17 12:28 (Cerebyx Inj) 100 mgpe Q8HR IV 06/07/17 22:00 06/11/17 12:28 (Dulcolax Supp) 10 mg DAILY PRN RECTAL 06/09/17 10:30 (Hydrocortisone 1% Cream) 1 applic DAILY PRN TOPICAL 06/10/17 13:30 Pharmacy Profile Note 0 ml @ 0 mls/hr UNSCH OTHER 06/11/17 15:45 Allergies Allergies Coded Allergies azithromycin (Verified Allergy, Severe, Rash, 03/20/17) erythromycin base (Verified Allergy, Severe, Rash, 03/20/17) codeine (Verified Allergy, Intermediate, Nausea/Vomiting, 03/20/17) Exam I&O / VS 06/11/17 06/11/17 06/12/17 15:00 23:00 07:00 Intake Total 1700 ml Balance 1700 ml IV Total 1700 ml Vital Signs Date Time Temp Pulse Resp B/P (MAP) Pulse Ox O2 Delivery O2 Flow Rate FiO2 06/11/17 06:00 105 06/11/17 04:00 98.6 94 21 146/80 (102) 100 06/11/17 04:00 94 06/11/17 02:00 93 06/11/17 00:00 84 06/11/17 00:00 98.6 84 23 131/61 (84) 97 06/10/17 22:25 97 21 06/10/17 22:00 142/63 (89) 06/10/17 22:00 96 06/10/17 20:00 94 06/10/17 20:00 98.5 94 22 194/77 (116) 100 06/10/17 20:00 92 Room Air Exam Comments alert at this time. No speech. Follow simple commands . PERRL No facial droop MOTOR--4/5 LUE and LLE Objective Micro and Labs Laboratory Tests Test 06/11/17 04:09 06/11/17 05:08 White Blood Count 12.0 Red Blood Count 3.48 Hemoglobin 11.4 Hematocrit 32.7 Mean Corpuscular Volume 93.9 Mean Corpuscular Hemoglobin 32.7 Mean Corpuscular Hemoglobin Concent 34.8 Red Cell Distribution Width 13.6 Platelet Count 534 Mean Platelet Volume 7.3 Hematology Comments Blood Urea Nitrogen 4 Creatinine 0.35 Random Glucose 76 Calcium Level 8.2 Phosphorus Level 2.5 Magnesium Level 1.9 Sodium Level 144 Potassium Level 3.5 Chloride Level 107 Carbon Dioxide Level 27.9 Anion Gap 9 Estimat Glomerular Filtration Rate 182 Prothrombin Time 28.1 Prothromb Time International Ratio 2.8 Date/Time Source Procedure Growth Status 06/03/17 20:05 Urine Catheterized Urine Urine Culture - Final NO GROWTH IN 48 HOURS. Complete Kelechi Hernandez MD PhD Jun 11, 2017 18:11
[2017-06-11] MEDS: POTASSIUM CHLORIDE 20 MEQ CONTROLLED RELEASE TAB PO SCH (20:59)
[2017-06-12] VITALS (9 sets, daily range): BP systolic 121–167; BP diastolic 59–77; PULSE 81–124; RESP 18–25; TEMP 98.1–98.9; O2SAT 96–100
[2017-06-12] MEDS: FOSPHENYTOIN SODIUM 100 MG PE/2 ML VIAL IV SCH ×3 (05:03→23:15)
[2017-06-12 06:29] LABS: HEMATOCRIT 32.1 % (35.0-46.0); HEMOGLOBIN 11.1 GM/DL (11.6-15.3); MEAN CELL VOLUME 94.3 FL (80.0-100.0); MEAN CORPUSCULAR HEMOGLOBIN 32.6 PG (27.0-34.0); MEAN CORPUSCULAR HGB CONC 34.6 % (32.0-36.0); MEAN PLATELET VOLUME 6.7 FL (7.0-11.0); PLATELET COUNT 577 TH/MM3 (150-450); RED BLOOD COUNT 3.41 MIL/MM3 (4.00-5.30); RED CELL DISTRIBUTION WIDTH 13.9 % (11.6-17.2); WHITE BLOOD COUNT 8.9 TH/MM3 (4.0-11.0)
[2017-06-12 06:52] LABS: INTERNATIONAL NORMALIZED RATIO 3.4 RATIO; PROTHROMBIN TIME - PATIENT 33.9 SEC (9.8-11.6)
[2017-06-12 07:04] LABS: BICARBONATE 27.9 MEQ/L (21.0-32.0); CALCIUM 8.3 MG/DL (8.5-10.1); CREATININE 0.4 MG/DL (0.50-1.00)
[2017-06-12] MEDS: INSULIN ASPART SUPPLEMENTAL SCALE SQ SCH ×4 (07:59→21:00)
[2017-06-12] MEDS: POTASSIUM CHLORIDE 20 MEQ CONTROLLED RELEASE TAB PO SCH ×2 (08:49→23:12)
[2017-06-12] MEDS: NYSTATIN SUSP 500,000 U/5 ML CUP SWISH-SWAL SCH ×4 (08:49→23:11)
[2017-06-12] MEDS: amLODIPine BESYLATE 5 MG TAB PO SCH (08:49)
[2017-06-12] MEDS: traMADol HCL 50 MG TAB PO PRN ×2 (09:03→23:14)
[2017-06-12] MEDS ORDERED: POTASSIUM CHLORIDE 10 MEQ CONTROLLED RELEASE TAB PO ONE (11:00)
[2017-06-12] MEDS ORDERED: COUM5TAB PO (15:52)
--- NOTE | 2017-06-12 17:57 | HHI.PR ---
Subjective Remarks No major overnight events Afebrile expressive aphasia Objective Vitals Vital Signs Date Time Temp Pulse Resp B/P (MAP) Pulse Ox O2 Delivery O2 Flow Rate FiO2 06/12/17 16:34 100 21 06/12/17 16:00 98.4 96 18 138/63 (88) 99 06/12/17 11:52 98.9 99 18 121/59 (79) 97 06/12/17 10:30 18 06/12/17 07:32 98.6 124 23 167/72 (103) 96 06/12/17 06:00 87 06/12/17 04:00 87 06/12/17 04:00 98.1 92 24 152/77 (102) 100 06/12/17 02:00 89 06/12/17 00:00 87 06/12/17 00:00 98.5 81 20 152/77 (102) 100 06/11/17 22:00 87 06/11/17 20:18 98 Nasal Cannula 1.00 06/11/17 20:00 87 06/11/17 20:00 98.9 86 24 146/87 (106) 100 06/11/17 19:00 98 Room Air 06/11/17 18:00 87 I/O 06/11/17 06/11/17 06/11/17 06/12/17 06/12/17 06/12/17 07:00 15:00 23:00 07:00 15:00 23:00 Intake Total 340 ml 100 ml 2780 ml 200 ml Output Total 1000 ml 700 ml Balance -660 ml 100 ml 2080 ml 200 ml Intake Oral 240 ml 1080 ml 200 ml IV Total 100 ml 100 ml 1700 ml Output Urine Total 1000 ml 700 ml # Voids 2 2 2 1 # Bowel Movements 2 3 2 1 Result Diagram: 06/12/17 0603 06/12/17 0603 Imaging Last Impressions Brain MRI 06/10/17 1000 Signed Impressions: Service Date/Time: Saturday, June 10, 2017 11:05 - CONCLUSION: There are probable new tiny areas of infarction of the left parietal lobe white matter and the right side of the posterior corpus callosum. The subacute infarcts in multiple vascular territories involving the right side of the cerebellum, left parietal cortex and right frontal cortex and white matter are not significantly changed. Tonny Lemon MD Abdomen X-Ray 06/08/17 0000 Signed Impressions: Service Date/Time: Thursday, June 08, 2017 20:55 - CONCLUSION: Enteric tube as above. Malcolm Briones MD Head CTA 06/07/17 0000 Signed Impressions: Service Date/Time: Wednesday, June 07, 2017 10:55 - CONCLUSION: Stable appearance. The basilar artery remains stable and intact. Khoi Wright MD Head CT 06/07/17 0000 Signed Impressions: Service Date/Time: Wednesday, June 07, 2017 09:40 - CONCLUSION: 1. No significant change in the known subacute right cerebellar hemisphere infarct. 2. No evidence of hemorrhage or mass effect. Khoi Wright MD Neck CTA 06/06/17 1243 Signed Impressions: Service Date/Time: Tuesday, June 06, 2017 12:45 - CONCLUSION: No evidence of carotid stenosis. Parenchymal opacities in the lung apices. Further evaluation with CT chest recommended Tonny Fletcher MD Lower Extremity Ultrasound 06/05/17 0000 Signed Impressions: Service Date/Time: May 22:33 - CONCLUSION: No DVT. Tonny Kohler MD Head Magnetic Resonance Angiography 06/04/17 0000 Signed Impressions: Service Date/Time: Sunday, June 04, 2017 09:52 - CONCLUSION: No acute [place] vascular findings Tonny Fletcher MD Carotid Artery Ultrasound 06/04/17 0000 Signed Impressions: Service Date/Time: Sunday, June 04, 2017 08:23 - CONCLUSION: 1. There is mild atherosclerotic plaquing at both carotid bifurcations. 2. There is mild elevated velocity within the right internal carotid artery suggesting some mild to moderate narrowing. If clinically indicated, CTA of the carotids could be performed for further evaluation. 3. Otherwise, no focal high grade or hemodynamically significant stenosis is demonstrated. Jaciel Chin MD Chest X-Ray 06/03/17 1910 Signed Impressions: Service Date/Time: Saturday, June 03, 2017 19:34 - CONCLUSION: Mild left lower lobe consolidation or atelectasis. Tonny Kohler MD Objective Remarks GENERAL: AWake and alert and aphasic not moving left side as well as she was yesterday SKIN: Warm and dry. HEAD: Atraumatic. Normocephalic. EYES: Pupils equal and round. No scleral icterus. No injection or drainage. Extraocular muscles intact ENT: No nasal bleeding or discharge. Mucous membranes pink and moist. Tongue is midline NGT IN PLACE NECK: Trachea midline. No JVD. Supple CARDIOVASCULAR: IRRegular rate and rhythm. S1-S2 no S3 or S4 RESPIRATORY: No accessory muscle use. Clear to auscultation. Breath sounds equal bilaterally. GASTROINTESTINAL: Abdomen soft, non-tender, nondistended. Hepatic and splenic margins not palpable. MUSCULOSKELETAL: Extremities without clubbing, cyanosis, or edema. No obvious deformities. NEUROLOGICAL: Awake and alert. No obvious cranial nerve deficits. Motor grossly within normal limits. 3 out of 5 muscle strength in the arms and legs on the left 5 out of 5 in upper extremity and lower extremity on the right. ABNormal speech. PSYCHIATRIC: Appropriate mood and affect; patient is aphasic, therefore unable to channel opener insight and judgment. Procedures none Medications and IVs Current Medications Medications (Trade) Dose Ordered Sig/Rita Route Start Time Stop Time Status Last Admin (NS Flush) 2 ml BID IV FLUSH 06/04/17 09:00 06/11/17 20:59 (NS Flush) 2 ml UNSCH PRN IV FLUSH 06/03/17 23:00 (NovoLOG SUPPLEMENTAL SCALE) 1 ACHS SQ 06/04/17 08:00 06/11/17 18:30 (D50w (Vial) Inj) 50 ml UNSCH PRN IV PUSH 06/03/17 23:00 06/09/17 08:01 (Glucagon Inj) 1 mg UNSCH PRN OTHER 06/03/17 23:00 (Compazine Inj) 5 mg Q4H PRN IV PUSH 06/04/17 04:30 (Norvasc) 5 mg DAILY PO 06/05/17 09:00 06/12/17 08:49 Patient Own Medication PT OWN MED: (Cyclosporine O... HS EACH EYE 06/04/17 21:00 Future Hold (Vasotec Inj) 1.25 mg Q6H PRN IV PUSH 06/04/17 14:00 06/10/17 21:09 (Coumadin) 5 mg DAILY@1600 PO 06/06/17 16:00 Future Hold 06/11/17 17:41 (Mycostatin Liq) 5 ml QID SWISH-SWAL 06/06/17 21:00 06/12/17 17:14 (Ultram) 50 mg Q6H PRN PO 06/06/17 19:45 06/12/17 09:03 (Cerebyx Inj) 100 mgpe Q8HR IV 06/07/17 22:00 06/12/17 13:33 (Dulcolax Supp) 10 mg DAILY PRN RECTAL 06/09/17 10:30 (Hydrocortisone 1% Cream) 1 applic DAILY PRN TOPICAL 06/10/17 13:30 Pharmacy Profile Note 0 ml @ 0 mls/hr UNSCH OTHER 06/11/17 15:45 (KCl) 20 meq Q12HR PO 06/11/17 21:00 06/12/17 08:49 A/P Problem List: (1) CVA (cerebral vascular accident) ICD Code: I63.9 - Cerebral infarction, unspecified (2) Atrial fibrillation ICD Code: I48.91 - Atrial fibrillation Status: Acute (3) Hypertension ICD Code: I10 - Hypertension Status: Acute (4) Hyperlipidemia ICD Code: E78.5 - Hyperlipidemia Status: Acute Assessment and Plan Acute ischemic CVA -Head CT with no acute abnormality seen. Persistent low density in the cerebral white matter likely from small vessel ischemic change. -Neurology consulted in the ER -patient outside the window of TPA -appreciate assistance and recommendations - Dr. Stafford recommended chewable baby aspirin in ED -continue neuro checks. MRI shows acute infarction involving right cerebellar hemisphere and right side of the midbrain. Possible small microhemorrhage in right cerebellar hemisphere. MRA neg. -echo pending -carotid arteries shows mild to mod narrowing in the right internal carotid art -Continuous cardiac telemetry to monitor arrhythmia -Lipid profile TG 133, LDL 84, HDL 29 and hemoglobin A1c pending. -PT, OT, and ST evaluations -Repeat CT of head in AM to monitor microhemorrhages. neurology recommends lovenox which pt is on -Per neuro, ok to start normalizing BP. Slowly bring it down. I have resumed pt' s home amlodipine dose. = Back on nectar thick liquids. Vital signs stable. Patient comfortable. Rehab medicine following. Appreciate assistance. = Had a stroke alert called yesterday. June 06 Seen by neurology who wants her moved to ICU We will make sure she has a rectal aspirin continue on Lovenox 06/10 Dc NG tube - patient passed dysphagia eval. MRI brain shows new areas of infarction - fu neurology recommendations. 06/11 patient tolerating diet well. Patient is progressing to diet now mechanical soft. Awaiting neurology recommendations regarding new findings on MRI. Patient okay to be out of bed with assistance. 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 -Anticoagulation with Lovenox 40 mg twice daily per colorectal surgery -will need to bridge to Coumadin -Continuous cardiac telemetry to monitor her arrhythmia and rate -Control rate as needed Continue rectal aspirin Continue on Lovenox 06/10 INR 2.2 - DC Lovenox in am. Continue Coumadin. 06/11 discontinue Lovenox. INR 2.8. Continue to monitor PT/INR daily. 06/12 INR supratherapeutic - hold coumadin. Hypokalemia Status post replacement IV and orally. Continue to monitor BMP. Hypokalemia resolved. Potassium 3.5 I will start on scheduled potassium tablets. Abnormal urinalysis -Patient status post cystoscopy with bilateral ureteral cath insertion during sigmoid colectomy surgery -performed by Dr. Markus Harris -Abnormalities may be secondary to recent procedure and do not clearly point to infection -white blood count downward trending since recent hospitalization - was 18.3 on 05/31 and is now 11.3 and patient is afebrile -she has chronic urinary symptoms secondary to cystocele = -urine neg x 24 hrs. = Mild hematuria. Follow-up with primary care. Continue on Rocephin 1 g IV daily for the urinary tract--continue IV fluid 06/11 the patient started on Rocephin for suspected UTI. Urine cultures negative. I will discontinue IV Rocephin and discontinue IV fluids. Leukocytosis WBCs trending down. No current active signs of infection. Continue to monitor CBC. 06/12 Leukocytosis resolved. Anemia. Likely dilutional. Continue to monitor hemoglobin which is stable. Hemoglobin 11.4 today. Recent colon resection for diverticulitis. Colorectal surgery following. Appreciate assistance. Discharge Planning Dc to acute inpatient rehab when arranged. Problem Qualifiers (1) CVA (cerebral vascular accident): Qualified Codes: I63.9 - Cerebral infarction, unspecified Max Betancur MD Jun 12, 2017 17:57
[2017-06-12] MEDS: SODIUM CHLORIDE 0.9% FLUSH 10 ML FLUSH IV FLUSH SCH ×2 (21:00→23:13)
--- NOTE | 2017-06-12 22:21 | RADRPT ---
EXAM DATE/TIME: 06/12/2017 22:00 [facility] COMPARISON: No previous studies available for comparison. INDICATIONS : Evaluate for cerebral bleed. RADIATION DOSE: 34.29 CTDIvol (mGy) MEDICAL HISTORY : Hypertension. TIA SURGICAL HISTORY : None. ENCOUNTER: Subsequent ACUITY: 1 week PAIN SCALE: 0/10 LOCATION: cranial TECHNIQUE: Multiple contiguous axial images were obtained of the head. Using automated exposure control and adj ustment of the mA and/or kV according to patient size, radiation dose was kept as low as reasonably a chievable to obtain optimal diagnostic quality images. DICOM format image data is available electro nically for review and comparison. FINDINGS: There are evolving infarcts in the right cerebellar hemisphere and in the medial right frontal lobe a nd left parietal lobe. These are not associated with significant mass effect or midline shift. No hyd rocephalus. No acute bony abnormality. CONCLUSION: 1. Multifocal infarcts as above without associated hemorrhage or significant mass effect. Leandro Noonan MD on June 12, 2017 at 22:16 Board Certified Radiologist. This report was verified electronically.
[2017-06-13] VITALS: BP 161/98; PULSE 100; RESP 24; TEMP 98.3; O2SAT 100
[2017-06-13 01:36] VITALS: BP 141/75; PULSE 90; RESP 22; TEMP 99.1; O2SAT 96
[2017-06-13 05:10] VITALS: BP 157/73; PULSE 89; RESP 18; TEMP 98.5; O2SAT 98
[2017-06-13] MEDS: FOSPHENYTOIN SODIUM 100 MG PE/2 ML VIAL IV SCH (05:40)
[2017-06-13 08:00] VITALS: BP 155/70; PULSE 88; PULSE 89; RESP 18; TEMP 97.9; O2SAT 95
[2017-06-13] MEDS: INSULIN ASPART SUPPLEMENTAL SCALE SQ SCH ×2 (08:00→12:00)
[2017-06-13 08:49] LABS: PROTHROMBIN TIME - PATIENT 19.8 SEC (9.8-11.6)
[2017-06-13] MEDS: SODIUM CHLORIDE 0.9% FLUSH 10 ML FLUSH IV FLUSH SCH (09:00)
[2017-06-13] MEDS: NYSTATIN SUSP 500,000 U/5 ML CUP SWISH-SWAL SCH ×2 (09:22→12:59)
[2017-06-13] MEDS: POTASSIUM CHLORIDE 20 MEQ CONTROLLED RELEASE TAB PO SCH (09:22)
[2017-06-13] MEDS: amLODIPine BESYLATE 5 MG TAB PO SCH (09:22)
[2017-06-13 10:38] VITALS: O2SAT 97
--- NOTE | 2017-06-13 10:51 | HHI.PR ---
Subjective Remarks Follow-up CVA. Patient reportedly had times of a TIA last night. She was reported to have had facial droop and confusion. The symptoms resolved and she is doing much better today. Her family states that she is talking much more today. The patient denies chest pain or dyspnea. She denies numbness, tingling , and weakness of her extremities. Objective Vitals Vital Signs Date Time Temp Pulse Resp B/P (MAP) Pulse Ox O2 Delivery O2 Flow Rate FiO2 06/13/17 10:38 97 06/13/17 05:10 98.5 89 18 157/73 (101) 98 06/13/17 01:36 99.1 90 22 141/75 (97) 96 06/13/17 00:00 98.3 100 24 161/98 (119) 100 06/12/17 20:00 Room Air 06/12/17 20:00 98.3 92 25 137/63 (87) 98 06/12/17 20:00 124 06/12/17 16:34 100 21 06/12/17 16:00 98.4 96 18 138/63 (88) 99 06/12/17 11:52 98.9 99 18 121/59 (79) 97 I/O 06/12/17 06/12/17 06/12/17 06/13/17 06/13/17 06/13/17 07:00 15:00 23:00 07:00 15:00 23:00 Intake Total 200 ml Balance 200 ml Intake Oral 200 ml # Voids 2 1 # Bowel Movements 2 1 Result Diagram: 06/12/17 0603 06/12/17 0603 Imaging Last Impressions Head CT 06/12/179 Signed Impressions: Service Date/Time: June 22:00 - CONCLUSION: 1. Multifocal infarcts as above without associated hemorrhage or significant mass effect. Leandro Noonan MD Brain MRI 06/10/17 1000 Signed Impressions: Service Date/Time: Saturday, June 10, 2017 11:05 - CONCLUSION: There are probable new tiny areas of infarction of the left parietal lobe white matter and the right side of the posterior corpus callosum. The subacute infarcts in multiple vascular territories involving the right side of the cerebellum, left parietal cortex and right frontal cortex and white matter are not significantly changed. Tonny Lemon MD Abdomen X-Ray 06/08/17 0000 Signed Impressions: Service Date/Time: Thursday, June 08, 2017 20:55 - CONCLUSION: Enteric tube as above. Malcolm Briones MD Head CTA 06/07/17 0000 Signed Impressions: Service Date/Time: Wednesday, June 07, 2017 10:55 - CONCLUSION: Stable appearance. The basilar artery remains stable and intact. Khoi Wright MD Neck CTA 06/06/17 1243 Signed Impressions: Service Date/Time: Tuesday, June 06, 2017 12:45 - CONCLUSION: No evidence of carotid stenosis. Parenchymal opacities in the lung apices. Further evaluation with CT chest recommended Tonny Fletcher MD Lower Extremity Ultrasound 06/05/17 0000 Signed Impressions: Service Date/Time: May 22:33 - CONCLUSION: No DVT. Tonny Kohler MD Head Magnetic Resonance Angiography 06/04/17 0000 Signed Impressions: Service Date/Time: Sunday, June 04, 2017 09:52 - CONCLUSION: No acute [place] vascular findings Tonny Fletcher MD Carotid Artery Ultrasound 06/04/17 0000 Signed Impressions: Service Date/Time: Sunday, June 04, 2017 08:23 - CONCLUSION: 1. There is mild atherosclerotic plaquing at both carotid bifurcations. 2. There is mild elevated velocity within the right internal carotid artery suggesting some mild to moderate narrowing. If clinically indicated, CTA of the carotids could be performed for further evaluation. 3. Otherwise, no focal high grade or hemodynamically significant stenosis is demonstrated. Jaciel Chin MD Chest X-Ray 06/03/17 1910 Signed Impressions: Service Date/Time: Saturday, June 03, 2017 19:34 - CONCLUSION: Mild left lower lobe consolidation or atelectasis. Tonny Kohler MD Objective Remarks General: No acute distress. Heart: Irregular rhythm. Lungs: Clear to auscultation bilaterally. No wheezes, rales, or rhonchi. Breathing is nonlabored. Abdomen: Soft, nontender, nondistended. Extremities: No lower extremity edema. Psych: Sleeping, but awakens easily. Answers questions appropriately. Neuro: No obvious cranial nerve deficits. 4/5 trauma coordinator strength on the right, 5/5 on the left. Drinks in the lower extremities is 4/5 on the right, 5/5 on the left. She does answer questions, but speech is somewhat slow. Procedures none Urinary Catheter: No Vascular Central Line Catheter: No A/P Problem List: (1) CVA (cerebral vascular accident) ICD Code: I63.9 - Cerebral infarction, unspecified (2) Atrial fibrillation ICD Code: I48.91 - Atrial fibrillation Status: Acute (3) Hypertension ICD Code: I10 - Hypertension Status: Acute (4) Hyperlipidemia ICD Code: E78.5 - Hyperlipidemia Status: Acute Assessment and Plan 1. Acute ischemic CVA: Appreciate neurology recommendations. Repeat CT done yesterday. Continue PT/OT/ST. Continue aspirin. Restart Coumadin. Cleared for discharge by neurology. 2. Atrial fibrillation, chronic: Rate controlled. Continue Coumadin for anticoagulation. Follow-up as outpatient with cardiology. I have placed a call to the patient's manager of employee relations, Dr. Wheeler, at the family's request to discuss her atrial fibrillation. 3. Hypokalemia: Resolved. Continue potassium supplementation. 4. Recurrent UTIs: Urine culture negative. Rocephin discontinued. 5. Leukocytosis: Resolved. 6. Anemia: Stable. 7. Recent colon resection for diverticulitis: Follow-up as outpatient with colorectal surgery. 8. DVT prophylaxis: Coumadin. Discharge Planning Discharge to inpatient rehab today. Patient has been cleared for discharge by neurology. Problem Qualifiers (1) CVA (cerebral vascular accident): Qualified Codes: I63.9 - Cerebral infarction, unspecified Ryan Hamm MD Jun 13, 2017 10:51
[2017-06-13] MEDS ORDERED: WARF-18 PO (10:53)
--- NOTE | 2017-06-13 10:53 | HHI.DCPOC ---
Discharge Care Plan Diagnosis: (1) CVA (cerebral vascular accident) (2) Hypertension (3) Hyperlipidemia (4) Atrial fibrillation Goals to Promote Your Health * To prevent worsening of your condition and complications * To maintain your health at the optimal level Directions to Meet Your Goals Take your medications as prescribed Follow your dietary instruction Follow activity as directed Keep your appointments as scheduled Take your immunizations and boosters as scheduled If your symptoms worsen call your PCP, if no PCP go to Urgent Care Center or Emergency Room Smoking is Dangerous to Your Health. Avoid second hand smoke Call the 24-hour hour crisis hotline for domestic abuse at Ryan Hamm MD Jun 13, 2017 10:53
[2017-06-13 12:00] VITALS: BP 115/67; PULSE 177; PULSE 81; RESP 20; TEMP 98.2; O2SAT 98
[2017-06-13] MEDS ORDERED: PHENYTOIN SODIUM 100 MG CAP PO SCH (13:00)
[2017-06-13 13:54] LABS: INTERNATIONAL NORMALIZED RATIO 1.8 RATIO; PROTHROMBIN TIME - PATIENT 18.4 SEC (9.8-11.6)
--- NOTE | 2017-06-13 14:39 | HHI.PR ---
Subjective Remarks Apparently more TIAs despite full anticoagulation. Pt awake and alert. Cleared for transfer to [facility] [place]. Objective Vital Signs Date Time Temp Pulse Resp B/P (MAP) Pulse Ox O2 Delivery O2 Flow Rate FiO2 06/13/17 12:00 98.2 81 20 115/67 (83) 98 06/13/17 12:00 177 06/13/17 10:38 97 06/13/17 08:00 88 06/13/17 08:00 97.9 89 18 155/70 (98) 95 06/13/17 05:10 98.5 89 18 157/73 (101) 98 06/13/17 01:36 99.1 90 22 141/75 (97) 96 06/13/17 00:00 98.3 100 24 161/98 (119) 100 06/12/17 20:00 Room Air 06/12/17 20:00 98.3 92 25 137/63 (87) 98 06/12/17 20:00 124 06/12/17 16:34 100 21 06/12/17 16:00 98.4 96 18 138/63 (88) 99 I/O 06/12/17 06/12/17 06/12/17 06/13/17 06/13/17 06/13/17 07:00 15:00 23:00 07:00 15:00 23:00 Intake Total 200 ml Balance 200 ml Intake Oral 200 ml # Voids 2 1 # Bowel Movements 2 1 Result Diagram: 06/12/17 0603 06/12/17 0603 Objective Remarks VS-S Abd: soft,non tender,wound clean,stooling I&Os-OK Labs-OK Assessment and Plan Assessment and Plan Stable from CRS standpoint. Dulcolax suppository prn To [facility] when stable. Tonny Medina MD Jun 13, 2017 14:39
[2017-06-13] MEDS ORDERED: WARFARIN SOD 2.5 MG TAB PO SCH (16:00)
== END 2017-06-13 15:38 | DRG 65 ==
LOC: NEPE 18:53 → UNDOADMIN 22:23 → UNDOADMOB 22:23 → NEDA 22:23 → INTOOBSV 22:51 → NEDA 22:51 → NEDH 06-04 03:13 → NEPFCDU 06-04 12:40 → OBSVTOIN 06-05 11:18 → N05A 06-06 16:05 → N03B 06-07 12:10 → N05B 06-13 01:33
PROVIDERS: ADMIT Family Medicine; ATTEND Family Medicine
DX: I63.40 Cerebral infarction due to embolism of unspecified cerebral artery (principal); N39.0 Urinary tract infection, site not specified; G81.94 Hemiplegia, unspecified affecting left nondominant side; I27.20 Pulmonary hypertension, unspecified; R47.01 Aphasia; R13.10 Dysphagia, unspecified; I48.2 Chronic atrial fibrillation; I10 Essential (primary) hypertension; E78.5 Hyperlipidemia, unspecified; E86.0 Dehydration; E87.6 Hypokalemia; H91.90 Unspecified hearing loss, unspecified ear; K21.9 Gastro-esophageal reflux disease without esophagitis; Z96.642 Presence of left artificial hip joint; R47.1 Dysarthria and anarthria; M47.9 Spondylosis, unspecified; D64.9 Anemia, unspecified; M79.605 Pain in left leg; R27.0 Ataxia, unspecified; R31.9 Hematuria, unspecified; Z90.49 Acquired absence of other specified parts of digestive tract; Z82.49 Family history of ischemic heart disease and other diseases of the circulatory system
CPT/HCPCS: 70450; 70496; 70498; 70544; 70551; 71045; 74018; 74019; 80048; 80053; 80061; 80069; 80185; 80307; 81001; 82550; 82948; 83036; 83735; 84100; 84132; 84439; 84443; 84484; 84702; 85025; 85027; 85384; 85610; 85730; 86850; 86900; 86901; 86902; 86920; 86922; 87086; 93005; 93306; 93880; 93970; 95819; 96361; 96365; 96366; 96372; 96375; G0378; G8987-GO; G8987-GP; G8988-GO; G8988-GP; G8996-GN; G8997-GN; J0696; J1650; J1815; J2405; J3480; J7030; J7040; Q2009; Q9967

== ENCOUNTER 2017-09-03 06:33 | Inpatient (IN) ==
[2017-09-07] MEDS ORDERED: Bisacodyl 10 MG Supp RECTAL PRN
[2017-09-07] MEDS ORDERED: Naloxone Inj 0.4 MG/ML Vial IV.PUSH PRN ×2
[2017-09-07] MEDS ORDERED: Temazepam 15 MG Capsule PO PRN
[2017-09-07] MEDS ORDERED: DO NOT ADM ANY ANTICOAGULANT DRUGS OTHER PRN
[2017-09-07] MEDS: Heparin Drip 25,000 UNIT/250 ML BAG IV.CONT PRN ×2 (07:00→13:23)
[2017-09-07 08:06] LABS: INR 1.8 Ratio; Prothrombin Time 17.9 sec (9.8-11.6)
[2017-09-07 08:22] LABS: Hematocrit 28.5 % (35.0-46.0); Hemoglobin 10.2 gm/dL (11.6-15.3); Mean Corpuscular HGB Conc 35.9 % (32.0-36.0); Mean Corpuscular Hemoglobin 32.2 pg (27.0-34.0); Mean Corpuscular Volume 89.8 fL (80.0-100.0); Mean Platelet Volume 7.5 fL (7.0-11.0); Platelet Count 277 th/mm3 (150-450); Red Blood Count 3.17 mil/mm3 (4.00-5.30); Red Cell Distribution Width 14.8 % (11.6-17.2)
[2017-09-07 08:36] LABS: Anion Gap 8 meq/L (5-15); Blood Urea Nitrogen 6 mg/dL (7-18); Calcium 8.4 mg/dL (8.5-10.1); Carbon Dioxide 27.6 meq/L (21.0-32.0); Chloride 110 meq/L (98-107); Glomerular Filtration Rate Greater Than 89 mL/min (>89); Glucose,Random 88 mg/dL (74-106); Potassium 3.4 meq/L (3.5-5.1); Sodium 146 meq/L (136-145)
[2017-09-07] MEDS: Citalopram 20 MG Tablet PO SCH (09:01)
[2017-09-07] MEDS: amLODIPine 5 MG Tablet PO SCH (09:01)
[2017-09-07] MEDS: Pantoprazole Inj 40 MG Vial IV.PUSH SCH (09:02)
--- NOTE | 2017-09-07 11:46 | P.PN ---
Subjective Interval history: Mrs. Bishop was afebrile with stable vital signs overnight. Patient reports that she noticed small quantity of blood (she describes as orange) when wiping and trace of blood in toilet when urinating (she saved dark colored urine for inspection); she denies any obvious bleeding since colonoscopy. She has not yet had bowel movement. Patient feeling ok at this time. Normal urination. Normal breathing. Physical Exam Vital signs: Vital Signs 09/06/17 19:42 09/07/17 00:00 09/07/17 04:00 Temperature 98.0 F 97.5 F L Pulse Rate 64 68 66 Respiratory Rate 18 16 Blood Pressure 130/57 L 122/68 Pulse Oximetry 99 97 09/07/17 08:00 Temperature 97.4 F L Pulse Rate 77 Respiratory Rate 20 Blood Pressure 119/68 Pulse Oximetry 100 Intake & Output 09/06/17 09/07/17 09/07/17 18:59 06:59 18:59 Intake Total 480 / 480 Output Total 1000 / 1000 Balance -520 / -520 Weight 66.5 kg 66 kg Intake: Oral 480 / 480 Output: Urine 1000 / 1000 Other: # Voids 2 # Bowel Movements 2 Narrative: GENERAL: no apparent distress. Skin: No visible lesions CARDIOVASCULAR: Normal rate and regular rhythm without murmurs RESPIRATORY: CTAB; normal rate GASTROINTESTINAL: Abdomen soft, non-tender, non-distended. Normal active bowel sounds MUSCULOSKELETAL: Extremities without cyanosis, or edema. Grossly normal ROM and motor function. NEURO: Alert & Oriented x4 to person, place, time, situation. Speech mildly impaired (she states since prior CVA) PSYCH: Appropriate mood and affect. Results - Labs CBC & Chem 7: 09/07/17 06:49 09/07/17 06:49 Laboratory Results - last 24 hr 09/03/17 09/04/17 09/04/17 19:57 06:02 06:02 WBC 5.9 RBC 2.88 L Hgb 7.3 L 8.8 L Hct 21.4 L 25.4 L MCV 88.3 D MCH 30.5 MCHC 34.6 RDW 15.5 Plt Count 236 D MPV 7.3 Neut % (Auto) 63.7 Lymph % (Auto) 20.8 [place] % (Auto) 10.0 H Eos % (Auto) 4.2 H Baso % (Auto) 1.3 Neut # (Auto) 3.8 Lymph # (Auto) 1.2 [place] # (Auto) 0.6 Eos # (Auto) 0.2 Baso # (Auto) 0.1 CBC Comment DIFF FINAL PT INR APTT Sodium 144 Potassium 3.7 Chloride 110 H Carbon Dioxide 24.2 Anion Gap 10 BUN 9 Creatinine 0.44 L Estimated GFR 139 Random Glucose 86 Calcium 7.5 L Total Bilirubin 1.2 H AST 10 L ALT 10 Alkaline Phosphatase 54 Total Protein 5.2 L D Albumin 2.7 L D 09/04/17 09/04/17 09/04/17 06:02 10:05 14:04 WBC RBC Hgb 9.2 L 8.9 L Hct 27.1 L 25.8 L MCV MCH MCHC RDW Plt Count MPV Neut % (Auto) Lymph % (Auto) [place] % (Auto) Eos % (Auto) Baso % (Auto) Neut # (Auto) Lymph # (Auto) [place] # (Auto) Eos # (Auto) Baso # (Auto) CBC Comment PT 26.6 H D INR 2.6 APTT Sodium Potassium Chloride Carbon Dioxide Anion Gap BUN Creatinine Estimated GFR Random Glucose Calcium Total Bilirubin AST ALT Alkaline Phosphatase Total Protein Albumin 09/04/17 09/04/17 09/05/17 15:55 17:30 04:00 WBC RBC Hgb 7.9 L 7.8 L Cancelled Hct 23.0 L 22.5 L Cancelled MCV MCH MCHC RDW Plt Count MPV Neut % (Auto) Lymph % (Auto) [place] % (Auto) Eos % (Auto) Baso % (Auto) Neut # (Auto) Lymph # (Auto) [place] # (Auto) Eos # (Auto) Baso # (Auto) CBC Comment PT INR APTT Sodium Potassium Chloride Carbon Dioxide Anion Gap BUN Creatinine Estimated GFR Random Glucose Calcium Total Bilirubin AST ALT Alkaline Phosphatase Total Protein Albumin 09/05/17 09/05/17 09/05/17 04:00 04:00 04:00 WBC 7.3 RBC 3.13 L Hgb 10.0 L D Hct 26.9 L MCV 86.1 MCH 31.8 MCHC 37.0 H RDW 14.8 Plt Count 203 MPV 7.7 Neut % (Auto) Lymph % (Auto) [place] % (Auto) Eos % (Auto) Baso % (Auto) Neut # (Auto) Lymph # (Auto) [place] # (Auto) Eos # (Auto) Baso # (Auto) CBC Comment PT 19.7 H INR 1.9 APTT Sodium 144 Potassium 3.7 Chloride 111 H Carbon Dioxide 25.6 Anion Gap 7 BUN 11 Creatinine 0.44 L Estimated GFR 139 Random Glucose 80 Calcium 7.8 L Total Bilirubin AST ALT Alkaline Phosphatase Total Protein Albumin 09/05/17 09/05/17 09/05/17 12:07 12:07 17:16 WBC RBC Hgb 11.1 L Hct 32.0 L MCV MCH MCHC RDW Plt Count MPV Neut % (Auto) Lymph % (Auto) [place] % (Auto) Eos % (Auto) Baso % (Auto) Neut # (Auto) Lymph # (Auto) [place] # (Auto) Eos # (Auto) Baso # (Auto) CBC Comment PT INR APTT 28.5 39.2 H D Sodium Potassium Chloride Carbon Dioxide Anion Gap BUN Creatinine Estimated GFR Random Glucose Calcium Total Bilirubin AST ALT Alkaline Phosphatase Total Protein Albumin 09/05/17 09/06/17 09/06/17 23:07 04:56 04:56 WBC 8.3 RBC 3.15 L Hgb 9.7 L Hct 27.6 L MCV 87.4 MCH 30.8 MCHC 35.3 RDW 15.0 Plt Count 242 MPV 7.5 Neut % (Auto) Lymph % (Auto) [place] % (Auto) Eos % (Auto) Baso % (Auto) Neut # (Auto) Lymph # (Auto) [place] # (Auto) Eos # (Auto) Baso # (Auto) CBC Comment PT INR APTT 67.6 H D Sodium 145 Potassium 3.2 L Chloride 109 H Carbon Dioxide 25.4 Anion Gap 11 BUN 6 L Creatinine 0.49 L Estimated GFR 123 Random Glucose 73 L Calcium 7.9 L Total Bilirubin AST ALT Alkaline Phosphatase Total Protein Albumin 09/06/17 09/06/17 09/06/17 04:56 08:59 20:36 WBC RBC Hgb Hct MCV MCH MCHC RDW Plt Count MPV Neut % (Auto) Lymph % (Auto) [place] % (Auto) Eos % (Auto) Baso % (Auto) Neut # (Auto) Lymph # (Auto) [place] # (Auto) Eos # (Auto) Baso # (Auto) CBC Comment PT 18.6 H INR 1.8 APTT 157.8 H* D 44.7 H D 84.2 H D Sodium Potassium Chloride Carbon Dioxide Anion Gap BUN Creatinine Estimated GFR Random Glucose Calcium Total Bilirubin AST ALT Alkaline Phosphatase Total Protein Albumin 09/07/17 09/07/17 09/07/17 06:49 06:49 06:49 WBC RBC Hgb Hct MCV MCH MCHC RDW Plt Count MPV Neut % (Auto) Lymph % (Auto) [place] % (Auto) Eos % (Auto) Baso % (Auto) Neut # (Auto) Lymph # (Auto) [place] # (Auto) Eos # (Auto) Baso # (Auto) CBC Comment PT 17.9 H INR 1.8 APTT 167.6 H* Sodium 146 H Potassium 3.4 L Chloride 110 H Carbon Dioxide 27.6 Anion Gap 8 BUN 6 L Creatinine 0.53 Estimated GFR Greater than 89 Random Glucose 88 Calcium 8.4 L Total Bilirubin AST ALT Alkaline Phosphatase Total Protein Albumin 09/07/17 09/07/17 06:49 10:32 WBC 7.0 RBC 3.17 L Hgb 10.2 L Hct 28.5 L MCV 89.8 MCH 32.2 MCHC 35.9 RDW 14.8 Plt Count 277 MPV 7.5 Neut % (Auto) Lymph % (Auto) [place] % (Auto) Eos % (Auto) Baso % (Auto) Neut # (Auto) Lymph # (Auto) [place] # (Auto) Eos # (Auto) Baso # (Auto) CBC Comment PT INR APTT 74.6 H D Sodium Potassium Chloride Carbon Dioxide Anion Gap BUN Creatinine Estimated GFR Random Glucose Calcium Total Bilirubin AST ALT Alkaline Phosphatase Total Protein Albumin Assessment and Plan - Assessment (1) GI bleed Code(s): K92.2 - Gastrointestinal hemorrhage, unspecified Status: Acute (2) Atrial fibrillation Code(s): I48.91 - Unspecified atrial fibrillation Status: Acute (3) Anemia Code(s): D64.9 - Anemia, unspecified Status: Acute (4) History of CVA (cerebrovascular accident) Code(s): Z86.73 - Personal history of transient ischemic attack (TIA), and cerebral infarction without residual deficits Status: Acute (5) HTN (hypertension) Code(s): I10 - Essential (primary) hypertension Status: Acute - Plan GI bleed Impression: Patient had melena earlier in the week. History of diverticular disease s/p colectomy in May. INR mildly supratherapeutic at 3.8 on presentation. Coumadin held initially; subsequently restarted. INR unchanged 09/06-today ( 1.8- > 1.8 today) EGD 09/06- suboptimal prep; did not show bleeding lesions. No blood; small ileocecal valve polyp (biopsy pending). Distal anastomosis good. Small nonbleeding diverticula and hemorrhoids s/p transfusion - GI consulted -Watch for high risk of re-bleeding (patient aware of risk) -Possible AVM's- will likely perform patency capsule prior to regular capsule endoscopy due to possibility of retention from ?SBO -If bleeding, stat nuclear bleeding scan or CT A a/p in case embolization needed - INR is now subtherapeutic, Transition back to Coumadin. Continue Heparin drip until INR equal or >2 - Need outpatient capsule endoscopy Acute posthemorrhagic anemia Impression: GI bleed as source; high concern for rebleeding -Monitor H&H closely -Transfuse if Hgb <8 -Follow-up H&H. Personal history of transient ischemic attack (TIA), and cerebral infarction without residual deficits Impression: Recent CVA with residual dysarthria. This occurs after her colectomy when she did not resume Coumadin at home. Monitor neuro status. (Patient was on 5 of Coumadin at home daily and 6 mg 3 times a week.) INR subtherapeutic after Coumadin was held. heparin drip transitioning to Coumadin. INR- 1.8 (09/06)-> 1.8 (09/07) -Continue Heparin until INR>2. -Will increase Coumadin to 6mg for today's dose -Monitor INR -High concern for rebleeding Atrial fibrillation Impression: Rate is controlled. See above for anticoagulation Cardiology following Essential (primary) hypertension -Continue amlodipine Unspecified abnormal findings in urine Impression: Contaminant. DC Rocephin. Discharge Planning: Will probably be able to DC back home when ready. Can DC home once INR therapeutic assuming no further GI bleeding. (1) GI bleed Qualifiers: GI bleed type/associated pathology: unspecified gastrointestinal hemorrhage type Qualified Code(s): K92.2 - Gastrointestinal hemorrhage, unspecified (2) Atrial fibrillation Qualifiers: Atrial fibrillation type: chronic Qualified Code(s): I48.2 - Chronic atrial fibrillation (3) Anemia Qualifiers: Anemia type: other cause Other causes of anemia: acute posthemorrhagic Qualified Code(s): D62 - Acute posthemorrhagic anemia (5) HTN (hypertension) Qualifiers: Hypertension type: essential hypertension Qualified Code(s): I10 - Essential (primary) hypertension
--- NOTE | 2017-09-07 12:15 | P.PN ---
Subjective Interval history: GI Bleed no current bleeding Physical Exam Vital signs: Vital Signs 09/06/17 19:42 09/07/17 00:00 09/07/17 04:00 Temperature 98.0 F 97.5 F L Pulse Rate 64 68 66 Respiratory Rate 18 16 Blood Pressure 130/57 L 122/68 Pulse Oximetry 99 97 09/07/17 08:00 Temperature 97.4 F L Pulse Rate 77 Respiratory Rate 20 Blood Pressure 119/68 Pulse Oximetry 100 Intake & Output 09/06/17 09/07/17 09/07/17 18:59 06:59 18:59 Intake Total 480 / 480 Output Total 1000 / 1000 Balance -520 / -520 Weight 66.5 kg 66 kg Intake: Oral 480 / 480 Output: Urine 1000 / 1000 Other: # Voids 2 # Bowel Movements 2 Narrative: Abdomen benign Results - Labs CBC & Chem 7: 09/07/17 06:49 09/07/17 06:49 Labs: Laboratory Results - last 24 hr 09/03/17 09/04/17 09/04/17 19:57 06:02 06:02 WBC 5.9 RBC 2.88 L Hgb 7.3 L 8.8 L Hct 21.4 L 25.4 L MCV 88.3 D MCH 30.5 MCHC 34.6 RDW 15.5 Plt Count 236 D MPV 7.3 Neut % (Auto) 63.7 Lymph % (Auto) 20.8 [place] % (Auto) 10.0 H Eos % (Auto) 4.2 H Baso % (Auto) 1.3 Neut # (Auto) 3.8 Lymph # (Auto) 1.2 [place] # (Auto) 0.6 Eos # (Auto) 0.2 Baso # (Auto) 0.1 CBC Comment DIFF FINAL PT INR APTT Sodium 144 Potassium 3.7 Chloride 110 H Carbon Dioxide 24.2 Anion Gap 10 BUN 9 Creatinine 0.44 L Estimated GFR 139 Random Glucose 86 Calcium 7.5 L Total Bilirubin 1.2 H AST 10 L ALT 10 Alkaline Phosphatase 54 Total Protein 5.2 L D Albumin 2.7 L D 09/04/17 09/04/17 09/04/17 06:02 10:05 14:04 WBC RBC Hgb 9.2 L 8.9 L Hct 27.1 L 25.8 L MCV MCH MCHC RDW Plt Count MPV Neut % (Auto) Lymph % (Auto) [place] % (Auto) Eos % (Auto) Baso % (Auto) Neut # (Auto) Lymph # (Auto) [place] # (Auto) Eos # (Auto) Baso # (Auto) CBC Comment PT 26.6 H D INR 2.6 APTT Sodium Potassium Chloride Carbon Dioxide Anion Gap BUN Creatinine Estimated GFR Random Glucose Calcium Total Bilirubin AST ALT Alkaline Phosphatase Total Protein Albumin 09/04/17 09/04/17 09/05/17 15:55 17:30 04:00 WBC RBC Hgb 7.9 L 7.8 L Cancelled Hct 23.0 L 22.5 L Cancelled MCV MCH MCHC RDW Plt Count MPV Neut % (Auto) Lymph % (Auto) [place] % (Auto) Eos % (Auto) Baso % (Auto) Neut # (Auto) Lymph # (Auto) [place] # (Auto) Eos # (Auto) Baso # (Auto) CBC Comment PT INR APTT Sodium Potassium Chloride Carbon Dioxide Anion Gap BUN Creatinine Estimated GFR Random Glucose Calcium Total Bilirubin AST ALT Alkaline Phosphatase Total Protein Albumin 09/05/17 09/05/17 09/05/17 04:00 04:00 04:00 WBC 7.3 RBC 3.13 L Hgb 10.0 L D Hct 26.9 L MCV 86.1 MCH 31.8 MCHC 37.0 H RDW 14.8 Plt Count 203 MPV 7.7 Neut % (Auto) Lymph % (Auto) [place] % (Auto) Eos % (Auto) Baso % (Auto) Neut # (Auto) Lymph # (Auto) [place] # (Auto) Eos # (Auto) Baso # (Auto) CBC Comment PT 19.7 H INR 1.9 APTT Sodium 144 Potassium 3.7 Chloride 111 H Carbon Dioxide 25.6 Anion Gap 7 BUN 11 Creatinine 0.44 L Estimated GFR 139 Random Glucose 80 Calcium 7.8 L Total Bilirubin AST ALT Alkaline Phosphatase Total Protein Albumin 09/05/17 09/05/17 09/05/17 12:07 12:07 17:16 WBC RBC Hgb 11.1 L Hct 32.0 L MCV MCH MCHC RDW Plt Count MPV Neut % (Auto) Lymph % (Auto) [place] % (Auto) Eos % (Auto) Baso % (Auto) Neut # (Auto) Lymph # (Auto) [place] # (Auto) Eos # (Auto) Baso # (Auto) CBC Comment PT INR APTT 28.5 39.2 H D Sodium Potassium Chloride Carbon Dioxide Anion Gap BUN Creatinine Estimated GFR Random Glucose Calcium Total Bilirubin AST ALT Alkaline Phosphatase Total Protein Albumin 09/05/17 09/06/17 09/06/17 23:07 04:56 04:56 WBC 8.3 RBC 3.15 L Hgb 9.7 L Hct 27.6 L MCV 87.4 MCH 30.8 MCHC 35.3 RDW 15.0 Plt Count 242 MPV 7.5 Neut % (Auto) Lymph % (Auto) [place] % (Auto) Eos % (Auto) Baso % (Auto) Neut # (Auto) Lymph # (Auto) [place] # (Auto) Eos # (Auto) Baso # (Auto) CBC Comment PT INR APTT 67.6 H D Sodium 145 Potassium 3.2 L Chloride 109 H Carbon Dioxide 25.4 Anion Gap 11 BUN 6 L Creatinine 0.49 L Estimated GFR 123 Random Glucose 73 L Calcium 7.9 L Total Bilirubin AST ALT Alkaline Phosphatase Total Protein Albumin 09/06/17 09/06/17 09/06/17 04:56 08:59 20:36 WBC RBC Hgb Hct MCV MCH MCHC RDW Plt Count MPV Neut % (Auto) Lymph % (Auto) [place] % (Auto) Eos % (Auto) Baso % (Auto) Neut # (Auto) Lymph # (Auto) [place] # (Auto) Eos # (Auto) Baso # (Auto) CBC Comment PT 18.6 H INR 1.8 APTT 157.8 H* D 44.7 H D 84.2 H D Sodium Potassium Chloride Carbon Dioxide Anion Gap BUN Creatinine Estimated GFR Random Glucose Calcium Total Bilirubin AST ALT Alkaline Phosphatase Total Protein Albumin 09/07/17 09/07/17 09/07/17 06:49 06:49 06:49 WBC RBC Hgb Hct MCV MCH MCHC RDW Plt Count MPV Neut % (Auto) Lymph % (Auto) [place] % (Auto) Eos % (Auto) Baso % (Auto) Neut # (Auto) Lymph # (Auto) [place] # (Auto) Eos # (Auto) Baso # (Auto) CBC Comment PT 17.9 H INR 1.8 APTT 167.6 H* Sodium 146 H Potassium 3.4 L Chloride 110 H Carbon Dioxide 27.6 Anion Gap 8 BUN 6 L Creatinine 0.53 Estimated GFR Greater than 89 Random Glucose 88 Calcium 8.4 L Total Bilirubin AST ALT Alkaline Phosphatase Total Protein Albumin 09/07/17 09/07/17 06:49 10:32 WBC 7.0 RBC 3.17 L Hgb 10.2 L Hct 28.5 L MCV 89.8 MCH 32.2 MCHC 35.9 RDW 14.8 Plt Count 277 MPV 7.5 Neut % (Auto) Lymph % (Auto) [place] % (Auto) Eos % (Auto) Baso % (Auto) Neut # (Auto) Lymph # (Auto) [place] # (Auto) Eos # (Auto) Baso # (Auto) CBC Comment PT INR APTT 74.6 H D Sodium Potassium Chloride Carbon Dioxide Anion Gap BUN Creatinine Estimated GFR Random Glucose Calcium Total Bilirubin AST ALT Alkaline Phosphatase Total Protein Albumin Assessment and Plan - Plan Hemoglobin stable Would have waited on Coumadin but she did get dose last night Continue heparin for 48 hours after first dose of coumadin Possible discharge Friday
--- NOTE | 2017-09-07 12:23 | P.PNGI ---
Subjective Interval history: Patient feeling good today. Tolerating her diet without any abdominal pain. Reports some blood in her urine as well as some orange stools which she thought was blood however her hemoglobin actually increased . patient is aware that her colonoscopy although the prep was not ideal did not show any bleeding lesions. There was no blood throughout the colon at all. There was a small polyp on the ileocecal valve which was biopsied and removed. Her distal colonic anastomosis looked good. There was a single isolated nonbleeding sigmoid diverticula. Small hemorrhoids are noted Physical Exam Vital signs: Vital Signs 09/06/17 19:42 09/07/17 00:00 09/07/17 04:00 Temperature 98.0 F 97.5 F L Pulse Rate 64 68 66 Respiratory Rate 18 16 Blood Pressure 130/57 L 122/68 Pulse Oximetry 99 97 09/07/17 08:00 Temperature 97.4 F L Pulse Rate 77 Respiratory Rate 20 Blood Pressure 119/68 Pulse Oximetry 100 Intake & Output 09/06/17 09/07/17 09/07/17 18:59 06:59 18:59 Intake Total 480 / 480 Output Total 1000 / 1000 Balance -520 / -520 Weight 66.5 kg 66 kg Intake: Oral 480 / 480 Output: Urine 1000 / 1000 Other: # Voids 2 # Bowel Movements 2 - Constitutional no acute distress - Routine HEENT Exam Eye: Present: PERRL, scleral injection ENT: Present: mucous membranes moist - Routine Neck Exam Present: supple - Routine Respiratory Exam Present: CTA bilaterally - Routine Cardiovascular Exam Present: RRR. Absent: murmur - Routine Abdominal Exam Present: soft, normoactive bowel sounds, surgical scars. Absent: tenderness, distended, rebound, guarding - Routine Extremities Exam Present: edema - Routine Skin Exam Present: warm. Absent: cyanosis - Routine Neurological Exam Present: alert, oriented X3 Results - Labs CBC & Chem 7: 09/07/17 06:49 09/07/17 06:49 Labs: Laboratory Results - last 24 hr 09/03/17 09/04/17 09/04/17 19:57 06:02 06:02 WBC 5.9 RBC 2.88 L Hgb 7.3 L 8.8 L Hct 21.4 L 25.4 L MCV 88.3 D MCH 30.5 MCHC 34.6 RDW 15.5 Plt Count 236 D MPV 7.3 Neut % (Auto) 63.7 Lymph % (Auto) 20.8 [place] % (Auto) 10.0 H Eos % (Auto) 4.2 H Baso % (Auto) 1.3 Neut # (Auto) 3.8 Lymph # (Auto) 1.2 [place] # (Auto) 0.6 Eos # (Auto) 0.2 Baso # (Auto) 0.1 CBC Comment DIFF FINAL PT INR APTT Sodium 144 Potassium 3.7 Chloride 110 H Carbon Dioxide 24.2 Anion Gap 10 BUN 9 Creatinine 0.44 L Estimated GFR 139 Random Glucose 86 Calcium 7.5 L Total Bilirubin 1.2 H AST 10 L ALT 10 Alkaline Phosphatase 54 Total Protein 5.2 L D Albumin 2.7 L D 09/04/17 09/04/17 09/04/17 06:02 10:05 14:04 WBC RBC Hgb 9.2 L 8.9 L Hct 27.1 L 25.8 L MCV MCH MCHC RDW Plt Count MPV Neut % (Auto) Lymph % (Auto) [place] % (Auto) Eos % (Auto) Baso % (Auto) Neut # (Auto) Lymph # (Auto) [place] # (Auto) Eos # (Auto) Baso # (Auto) CBC Comment PT 26.6 H D INR 2.6 APTT Sodium Potassium Chloride Carbon Dioxide Anion Gap BUN Creatinine Estimated GFR Random Glucose Calcium Total Bilirubin AST ALT Alkaline Phosphatase Total Protein Albumin 09/04/17 09/04/17 09/05/17 15:55 17:30 04:00 WBC RBC Hgb 7.9 L 7.8 L Cancelled Hct 23.0 L 22.5 L Cancelled MCV MCH MCHC RDW Plt Count MPV Neut % (Auto) Lymph % (Auto) [place] % (Auto) Eos % (Auto) Baso % (Auto) Neut # (Auto) Lymph # (Auto) [place] # (Auto) Eos # (Auto) Baso # (Auto) CBC Comment PT INR APTT Sodium Potassium Chloride Carbon Dioxide Anion Gap BUN Creatinine Estimated GFR Random Glucose Calcium Total Bilirubin AST ALT Alkaline Phosphatase Total Protein Albumin 09/05/17 09/05/17 09/05/17 04:00 04:00 04:00 WBC 7.3 RBC 3.13 L Hgb 10.0 L D Hct 26.9 L MCV 86.1 MCH 31.8 MCHC 37.0 H RDW 14.8 Plt Count 203 MPV 7.7 Neut % (Auto) Lymph % (Auto) [place] % (Auto) Eos % (Auto) Baso % (Auto) Neut # (Auto) Lymph # (Auto) [place] # (Auto) Eos # (Auto) Baso # (Auto) CBC Comment PT 19.7 H INR 1.9 APTT Sodium 144 Potassium 3.7 Chloride 111 H Carbon Dioxide 25.6 Anion Gap 7 BUN 11 Creatinine 0.44 L Estimated GFR 139 Random Glucose 80 Calcium 7.8 L Total Bilirubin AST ALT Alkaline Phosphatase Total Protein Albumin 09/05/17 09/05/17 09/05/17 12:07 12:07 17:16 WBC RBC Hgb 11.1 L Hct 32.0 L MCV MCH MCHC RDW Plt Count MPV Neut % (Auto) Lymph % (Auto) [place] % (Auto) Eos % (Auto) Baso % (Auto) Neut # (Auto) Lymph # (Auto) [place] # (Auto) Eos # (Auto) Baso # (Auto) CBC Comment PT INR APTT 28.5 39.2 H D Sodium Potassium Chloride Carbon Dioxide Anion Gap BUN Creatinine Estimated GFR Random Glucose Calcium Total Bilirubin AST ALT Alkaline Phosphatase Total Protein Albumin 09/05/17 09/06/17 09/06/17 23:07 04:56 04:56 WBC 8.3 RBC 3.15 L Hgb 9.7 L Hct 27.6 L MCV 87.4 MCH 30.8 MCHC 35.3 RDW 15.0 Plt Count 242 MPV 7.5 Neut % (Auto) Lymph % (Auto) [place] % (Auto) Eos % (Auto) Baso % (Auto) Neut # (Auto) Lymph # (Auto) [place] # (Auto) Eos # (Auto) Baso # (Auto) CBC Comment PT INR APTT 67.6 H D Sodium 145 Potassium 3.2 L Chloride 109 H Carbon Dioxide 25.4 Anion Gap 11 BUN 6 L Creatinine 0.49 L Estimated GFR 123 Random Glucose 73 L Calcium 7.9 L Total Bilirubin AST ALT Alkaline Phosphatase Total Protein Albumin 09/06/17 09/06/17 09/06/17 04:56 08:59 20:36 WBC RBC Hgb Hct MCV MCH MCHC RDW Plt Count MPV Neut % (Auto) Lymph % (Auto) [place] % (Auto) Eos % (Auto) Baso % (Auto) Neut # (Auto) Lymph # (Auto) [place] # (Auto) Eos # (Auto) Baso # (Auto) CBC Comment PT 18.6 H INR 1.8 APTT 157.8 H* D 44.7 H D 84.2 H D Sodium Potassium Chloride Carbon Dioxide Anion Gap BUN Creatinine Estimated GFR Random Glucose Calcium Total Bilirubin AST ALT Alkaline Phosphatase Total Protein Albumin 09/07/17 09/07/17 09/07/17 06:49 06:49 06:49 WBC RBC Hgb Hct MCV MCH MCHC RDW Plt Count MPV Neut % (Auto) Lymph % (Auto) [place] % (Auto) Eos % (Auto) Baso % (Auto) Neut # (Auto) Lymph # (Auto) [place] # (Auto) Eos # (Auto) Baso # (Auto) CBC Comment PT 17.9 H INR 1.8 APTT 167.6 H* Sodium 146 H Potassium 3.4 L Chloride 110 H Carbon Dioxide 27.6 Anion Gap 8 BUN 6 L Creatinine 0.53 Estimated GFR Greater than 89 Random Glucose 88 Calcium 8.4 L Total Bilirubin AST ALT Alkaline Phosphatase Total Protein Albumin 09/07/17 09/07/17 06:49 10:32 WBC 7.0 RBC 3.17 L Hgb 10.2 L Hct 28.5 L MCV 89.8 MCH 32.2 MCHC 35.9 RDW 14.8 Plt Count 277 MPV 7.5 Neut % (Auto) Lymph % (Auto) [place] % (Auto) Eos % (Auto) Baso % (Auto) Neut # (Auto) Lymph # (Auto) [place] # (Auto) Eos # (Auto) Baso # (Auto) CBC Comment PT INR APTT 74.6 H D Sodium Potassium Chloride Carbon Dioxide Anion Gap BUN Creatinine Estimated GFR Random Glucose Calcium Total Bilirubin AST ALT Alkaline Phosphatase Total Protein Albumin Assessment and Plan (1) Anemia Status: Acute Code(s): D64.9 - Anemia, unspecified (2) GI bleed Status: Acute Code(s): K92.2 - Gastrointestinal hemorrhage, unspecified - Plan 1. Advance diet as tolerated 2. Await pathology 3. As anticoagulation is increased watch for recurrent bleeding. Patient is aware she is high risk of rebleeding because the exact etiology of her bleeding is unclear. She may have AVMs of the small intestine and will need a capsule endoscopy done as an outpatient. She also reports possibly having a small bowel resection which means we will probably proceed with a patency capsule first before doing a regular capsule endoscopy. Basically we worry about capsule retention 4. If active bleeding noted please consider a stat nuclear bleeding scan or a stat CT angiography of abdomen pelvis to localize source of bleeding in case this needs to be embolized 5. Further recommendation depends how she does (1) Anemia Qualifiers: Anemia type: other cause Other causes of anemia: acute posthemorrhagic Qualified Code(s): D62 - Acute posthemorrhagic anemia (2) GI bleed Qualifiers: GI bleed type/associated pathology: unspecified gastrointestinal hemorrhage type Qualified Code(s): K92.2 - Gastrointestinal hemorrhage, unspecified
[2017-09-07] MEDS ORDERED: CYCLOSPORINE OPTH EACH EYE SCH (21:00)
[2017-09-07] MEDS: Acetaminophen 325 MG Tablet PO PRN (21:47)
[2017-09-08 07:12] LABS: Hemoglobin 9.9 gm/dL (11.6-15.3); Mean Corpuscular HGB Conc 34.2 % (32.0-36.0); Mean Corpuscular Hemoglobin 31.2 pg (27.0-34.0); Mean Corpuscular Volume 91.3 fL (80.0-100.0); Mean Platelet Volume 7.4 fL (7.0-11.0); Platelet Count 285 th/mm3 (150-450); Red Blood Count 3.17 mil/mm3 (4.00-5.30); Red Cell Distribution Width 14.3 % (11.6-17.2)
[2017-09-08 07:27] LABS: INR 1.7 Ratio; Prothrombin Time 16.9 sec (9.8-11.6)
[2017-09-08 07:40] LABS: Anion Gap 10 meq/L (5-15); Blood Urea Nitrogen 7 mg/dL (7-18); Calcium 8.8 mg/dL (8.5-10.1); Carbon Dioxide 24.6 meq/L (21.0-32.0); Chloride 109 meq/L (98-107); Glomerular Filtration Rate Greater Than 89 mL/min (>89); Glucose,Random 90 mg/dL (74-106); Potassium 3.2 meq/L (3.5-5.1); Sodium 144 meq/L (136-145)
[2017-09-08] MEDS: Citalopram 20 MG Tablet PO SCH (09:12)
[2017-09-08] MEDS: amLODIPine 5 MG Tablet PO SCH (09:13)
[2017-09-08] MEDS: Pantoprazole Inj 40 MG Vial IV.PUSH SCH (09:13)
--- NOTE | 2017-09-08 09:16 | P.PN ---
Subjective Interval history: Mrs. Bishop was afebrile with stable vital signs overnight. Discussed with nursing staff; no bleeding. Patient doing well. She reports tiny brown BM but no real bowel movement for past several days; no bleeding. No abdominal pain. Normal eating, breathing, bowel movements. Discussed with patient's son while in exam room (via phone); questions answered and possibility of NOAC discussed. Patient states she declined previously with her [employer] Pneumatic but would like to consider now due to her desire to go home despite INR <2 Physical Exam Vital signs: Vital Signs 09/07/17 12:00 09/07/17 16:00 09/07/17 19:50 Temperature 98.3 F 97.3 F L Pulse Rate 70 63 68 Respiratory Rate 20 20 Blood Pressure 116/66 122/66 Pulse Oximetry 97 95 09/07/17 20:00 09/07/17 23:45 09/08/17 00:00 Temperature 97.9 F 97.6 F Pulse Rate 74 67 60 Respiratory Rate 18 18 Blood Pressure 110/67 114/64 Pulse Oximetry 98 98 09/08/17 03:45 09/08/17 04:00 Temperature 97.6 F Pulse Rate 61 66 Respiratory Rate 16 Blood Pressure 120/61 Pulse Oximetry 98 Intake & Output 09/07/17 09/08/17 09/08/17 18:59 06:59 18:59 Intake Total 46 / 46 330 / 330 Output Total 1500 / 1500 Balance 46 / 46 -1170 / -1170 Weight 66.3 kg Intake: Oral 330 / 330 Other 46 / 46 Output: Urine 1500 / 1500 Narrative: GENERAL: no apparent distress. Skin: No visible lesions CARDIOVASCULAR: Normal rate and regular rhythm without murmurs RESPIRATORY: CTAB; normal rate GASTROINTESTINAL: Abdomen soft, non-tender, non-distended. Normal active bowel sounds MUSCULOSKELETAL: Extremities edema. Grossly normal ROM and motor function. NEURO: Alert & Oriented x4 to person, place, time, situation. Speech mildly impaired (she states since prior CVA) PSYCH: Appropriate mood and affect. Results - Labs CBC & Chem 7: 09/08/17 05:34 09/08/17 05:34 Laboratory Results - last 24 hr 09/07/17 09/07/17 09/07/17 06:49 10:32 18:57 WBC RBC Hgb Hct MCV MCH MCHC RDW Plt Count MPV PT INR APTT 74.6 H D 40.4 H D Sodium Potassium Chloride Carbon Dioxide Anion Gap BUN Creatinine Estimated GFR Greater than 89 Random Glucose Calcium 09/08/17 09/08/17 09/08/17 05:34 05:34 05:34 WBC 7.0 RBC 3.17 L Hgb 9.9 L Hct 29.0 L MCV 91.3 MCH 31.2 MCHC 34.2 RDW 14.3 Plt Count 285 MPV 7.4 PT 16.9 H INR 1.7 APTT Sodium 144 Potassium 3.2 L Chloride 109 H Carbon Dioxide 24.6 Anion Gap 10 BUN 7 Creatinine 0.60 Estimated GFR Greater than 89 Random Glucose 90 Calcium 8.8 Assessment and Plan - Assessment (1) GI bleed Code(s): K92.2 - Gastrointestinal hemorrhage, unspecified Status: Acute (2) Atrial fibrillation Code(s): I48.91 - Unspecified atrial fibrillation Status: Acute (3) Anemia Code(s): D64.9 - Anemia, unspecified Status: Acute (4) History of CVA (cerebrovascular accident) Code(s): Z86.73 - Personal history of transient ischemic attack (TIA), and cerebral infarction without residual deficits Status: Acute (5) HTN (hypertension) Code(s): I10 - Essential (primary) hypertension Status: Acute - Plan GI bleed Impression: Patient had melena earlier in the week. History of diverticular disease s/p colectomy in May. INR mildly supratherapeutic at 3.8 on presentation. Coumadin held initially; subsequently restarted. INR - ( 1.8-> 1.7 today) EGD 09/06- suboptimal prep; did not show bleeding lesions. No blood; small ileocecal valve polyp (biopsy pending). Distal anastomosis good. Small nonbleeding diverticula and hemorrhoids s/p transfusion - GI consulted -Watch for high risk of re-bleeding (patient aware of risk) -Possible AVM's- will likely perform patency capsule prior to regular capsule endoscopy due to possibility of retention from ?SBO -If bleeding, stat nuclear bleeding scan or CT A a/p in case embolization needed - Need outpatient capsule endoscopy -Regain anticoagulation for afib Acute posthemorrhagic anemia Impression: GI bleed as source; high concern for rebleeding -Monitor H&H closely -Transfuse if Hgb <8 -Follow-up H&H. Personal history of transient ischemic attack (TIA), and cerebral infarction without residual deficits Impression: Recent CVA with residual dysarthria. This occurs after her colectomy when she did not resume Coumadin at home. Monitor neuro status. (Patient was on 5 of Coumadin at home daily and 6 mg 3 times a week.) INR subtherapeutic after Coumadin was held. heparin drip transitioning to Coumadin. INR- 1.8 (09/06)-> 1.8 (09/07) -> 1.7 (10/09) -Continue Heparin until INR>2. -Will continue Coumadin 6mg for today's dose -Monitor INR -Discussed with patient/her son; consideration of NOAC based on bleeding risk/ opinion of GI Atrial fibrillation Impression: Rate is controlled. See above for anticoagulation Essential (primary) hypertension -Continue amlodipine Unspecified abnormal findings in urine Impression: Contaminant. DC Rocephin. Hypokalemia -Will give KCl and recheck tomorrow DVT PPX- GI bleed/heparin for Afib Discharge Planning: Will probably be able to DC back home when ready. Can DC home once INR therapeutic assuming no further GI bleeding. (1) GI bleed Qualifiers: GI bleed type/associated pathology: unspecified gastrointestinal hemorrhage type Qualified Code(s): K92.2 - Gastrointestinal hemorrhage, unspecified (2) Atrial fibrillation Qualifiers: Atrial fibrillation type: chronic Qualified Code(s): I48.2 - Chronic atrial fibrillation (3) Anemia Qualifiers: Anemia type: other cause Other causes of anemia: acute posthemorrhagic Qualified Code(s): D62 - Acute posthemorrhagic anemia (5) HTN (hypertension) Qualifiers: Hypertension type: essential hypertension Qualified Code(s): I10 - Essential (primary) hypertension
--- NOTE | 2017-09-08 10:28 | P.PNGI ---
Subjective Interval history: Patient feeling well. No further bleeding noted. Had brown stools this morning. No blood in urine either. Tolerating diet Physical Exam Vital signs: Vital Signs 09/07/17 12:00 09/07/17 16:00 09/07/17 19:50 Temperature 98.3 F 97.3 F L Pulse Rate 70 63 68 Respiratory Rate 20 20 Blood Pressure 116/66 122/66 Pulse Oximetry 97 95 09/07/17 20:00 09/07/17 23:45 09/08/17 00:00 Temperature 97.9 F 97.6 F Pulse Rate 74 67 60 Respiratory Rate 18 18 Blood Pressure 110/67 114/64 Pulse Oximetry 98 98 09/08/17 03:45 09/08/17 04:00 09/08/17 07:45 Temperature 97.6 F Pulse Rate 61 66 69 Respiratory Rate 16 Blood Pressure 120/61 Pulse Oximetry 98 Intake & Output 09/07/17 09/08/17 09/08/17 18:59 06:59 18:59 Intake Total 46 / 46 330 / 330 Output Total 1500 / 1500 Balance 46 / 46 -1170 / -1170 Weight 66.3 kg Intake: Oral 330 / 330 Other 46 / 46 Output: Urine 1500 / 1500 - Constitutional no acute distress - Routine HEENT Exam Eye: Present: PERRL - Routine Cardiovascular Exam Present: RRR - Routine Abdominal Exam Present: soft. Absent: tenderness, organomegaly - Routine Extremities Exam Absent: edema - Routine Skin Exam Present: warm - Routine Neurological Exam Present: alert, oriented X3 Results - Labs CBC & Chem 7: 09/08/17 05:34 09/08/17 05:34 Laboratory Results - last 24 hr 09/07/17 09/07/17 09/08/17 10:32 18:57 05:34 WBC 7.0 RBC 3.17 L Hgb 9.9 L Hct 29.0 L MCV 91.3 MCH 31.2 MCHC 34.2 RDW 14.3 Plt Count 285 MPV 7.4 PT INR APTT 74.6 H D 40.4 H D Sodium Potassium Chloride Carbon Dioxide Anion Gap BUN Creatinine Estimated GFR Random Glucose Calcium 09/08/17 09/08/17 09/08/17 05:34 05:34 05:34 WBC RBC Hgb Hct MCV MCH MCHC RDW Plt Count MPV PT 16.9 H INR 1.7 APTT 40.9 H Sodium 144 Potassium 3.2 L Chloride 109 H Carbon Dioxide 24.6 Anion Gap 10 BUN 7 Creatinine 0.60 Estimated GFR Greater than 89 Random Glucose 90 Calcium 8.8 Assessment and Plan (1) Anemia Status: Acute Code(s): D64.9 - Anemia, unspecified (2) GI bleed Status: Acute Code(s): K92.2 - Gastrointestinal hemorrhage, unspecified - Plan 1. Awaiting pathology 2. As anticoagulation is increased watch for recurrent bleeding. Patient is aware she is high risk of rebleeding because the exact etiology of her bleeding is unclear. She may have AVMs of the small intestine and will need a capsule endoscopy done as an outpatient. She also reports possibly having a small bowel resection which means we will probably proceed with a patency capsule first before doing a regular capsule endoscopy. Basically we worry about capsule retention 3. We will sign off. Patient to call Dr. Negrete in her office to arrange the patency capsule/capsule endoscopy (1) Anemia Qualifiers: Anemia type: other cause Other causes of anemia: acute posthemorrhagic Qualified Code(s): D62 - Acute posthemorrhagic anemia (2) GI bleed Qualifiers: GI bleed type/associated pathology: unspecified gastrointestinal hemorrhage type Qualified Code(s): K92.2 - Gastrointestinal hemorrhage, unspecified
[2017-09-08] MEDS: Acetaminophen 325 MG Tablet PO PRN ×2 (15:57→22:07)
--- NOTE | 2017-09-08 17:37 | P.PN ---
Subjective Interval history: GI Bleed no bleeding for 24 hours Physical Exam Vital signs: Vital Signs 09/07/17 19:50 09/07/17 20:00 09/07/17 23:45 Temperature 97.9 F Pulse Rate 68 74 67 Respiratory Rate 18 Blood Pressure 110/67 Pulse Oximetry 98 09/08/17 00:00 09/08/17 03:45 09/08/17 04:00 Temperature 97.6 F 97.6 F Pulse Rate 60 61 66 Respiratory Rate 18 16 Blood Pressure 114/64 120/61 Pulse Oximetry 98 98 09/08/17 07:45 09/08/17 08:00 09/08/17 12:00 Temperature 97.8 F 97.9 F Pulse Rate 69 70 58 L Respiratory Rate 18 17 Blood Pressure 124/70 123/60 Pulse Oximetry 97 96 09/08/17 17:01 Temperature Pulse Rate 60 Respiratory Rate Blood Pressure Pulse Oximetry Intake & Output 09/07/17 09/08/17 09/08/17 18:59 06:59 18:59 Intake Total 46 / 46 330 / 330 Output Total 1500 / 1500 Balance 46 / 46 -1170 / -1170 Weight 66.3 kg Intake: Oral 330 / 330 Other 46 / 46 Output: Urine 1500 / 1500 Narrative: Abdomen benign - Constitutional no acute distress Results - Labs CBC & Chem 7: 09/08/17 05:34 09/08/17 05:34 Laboratory Results - last 24 hr 09/07/17 09/08/17 09/08/17 18:57 05:34 05:34 WBC 7.0 RBC 3.17 L Hgb 9.9 L Hct 29.0 L MCV 91.3 MCH 31.2 MCHC 34.2 RDW 14.3 Plt Count 285 MPV 7.4 PT 16.9 H INR 1.7 APTT 40.4 H D Sodium Potassium Chloride Carbon Dioxide Anion Gap BUN Creatinine Estimated GFR Random Glucose Calcium 09/08/17 09/08/17 05:34 05:34 WBC RBC Hgb Hct MCV MCH MCHC RDW Plt Count MPV PT INR APTT 40.9 H Sodium 144 Potassium 3.2 L Chloride 109 H Carbon Dioxide 24.6 Anion Gap 10 BUN 7 Creatinine 0.60 Estimated GFR Greater than 89 Random Glucose 90 Calcium 8.8 Assessment and Plan - Plan Blood thinners per Medicine Service No further bleeding at this time. Will sign off, call for further bleeding
[2017-09-08 21:53] LABS: Baso # (Auto) 0.1 th/mm3 (0.0-0.2); Baso % (Auto) 1.5 % (0.0-2.0); Eos # (Auto) 0.4 th/mm3 (0.0-0.4); Eos % (Auto) 4.8 % (0.0-4.0); Hematocrit 28.7 % (35.0-46.0); Hemoglobin 9.8 gm/dL (11.6-15.3); Lymph # (Auto) 1.7 th/mm3 (1.0-4.8); Lymph % (Auto) 22.4 % (9.0-44.0); Mean Corpuscular HGB Conc 34.1 % (32.0-36.0); Mean Corpuscular Hemoglobin 31.2 pg (27.0-34.0); Mean Corpuscular Volume 91.5 fL (80.0-100.0); Mono # (Auto) 0.9 th/mm3 (0.0-0.9); Mono % (Auto) 11.9 % (0.0-8.0); Neut # (Auto) 4.4 th/mm3 (1.8-7.7); Neut % (Auto) 59.4 % (16.0-70.0); Platelet Count 284 th/mm3 (150-450); Red Blood Count 3.13 mil/mm3 (4.00-5.30); Red Cell Distribution Width 14.5 % (11.6-17.2); White Blood Count 7.4 th/mm3 (4.0-11.0)
[2017-09-08] MEDS: Heparin Drip 25,000 UNIT/250 ML BAG IV.CONT PRN (22:11)
[2017-09-09] MEDS: Pantoprazole Inj 40 MG Vial IV.PUSH SCH (08:26)
[2017-09-09] MEDS: Citalopram 20 MG Tablet PO SCH (08:27)
[2017-09-09] MEDS: amLODIPine 5 MG Tablet PO SCH (08:27)
[2017-09-09] MEDS: Acetaminophen 325 MG Tablet PO PRN (08:32)
[2017-09-09 09:50] LABS: Activated Partial Thrombo Time 45.3 sec (24.3-30.1); Prothrombin Time 20.7 sec (9.8-11.6)
[2017-09-09 10:04] LABS: Anion Gap 12 meq/L (5-15); Blood Urea Nitrogen 9 mg/dL (7-18); Calcium 8.8 mg/dL (8.5-10.1); Carbon Dioxide 23.4 meq/L (21.0-32.0); Chloride 108 meq/L (98-107); Glomerular Filtration Rate Greater Than 89 mL/min (>89); Glucose,Random 79 mg/dL (74-106); Potassium 3.6 meq/L (3.5-5.1); Sodium 143 meq/L (136-145)
--- NOTE | 2017-09-09 13:58 | P.DS ---
Date of admission: 09/03/17 08:31 Primary care physician: Zander Rodney MD Attending physician on discharge: Sudhir Levin Anticipated date of discharge: 09/09/17 Brief History from admission: HPI per Dr. Christine 76-year-old female with a medical history significant for atrial fibrillation, hypertension, severe diverticular disease status post colectomy on 05/30/[address] Medina. Patient had to be off of Coumadin for surgery and subsequently developed a CVA. She went to rehab and was eventually discharged home in good condition. The patient presented today to the emergency room with complaint of bright red blood per rectum. She reports about a week ago she noted some dark stool which she attributed to eating blueberries. That resolved. However this morning she had a bowel movement with significant amount of bright red blood in the toilet and on the wipes. She states she had some abdominal discomfort about a week ago but is no longer experiencing abdominal pain. She denies nausea or vomiting. She states she had some constipation last week after increasing Metamucil to 2 teaspoon a day. Workup in the emergency room revealed significant anemia with a hemoglobin of 7.0 and INR of 3.8. Her Coumadin dose has been adjusted about 2 weeks ago from 5 mg daily to 6 mg 3 days a week and 5 mg the rest of the days. Patient denies dysuria, flank pain, or fevers. DS: Diagnosis - Discharge Diagnosis (1) GI bleed Status: Acute (2) Atrial fibrillation Status: Acute (3) Anemia Status: Acute (4) History of CVA (cerebrovascular accident) Status: Acute (5) HTN (hypertension) Status: Acute DS: Medications - Discharge Medications Prescriptions: pantoprazole 40 mg PO DAILY #30 tab warfarin [Coumadin] See Label Instructions .ROUTE .COMPLEX #30 tab DS: Summary Hospital Course: Mrs. Bishop is a 76-year-old female with PMH atrial fibrillation, CVA, HTN, severe diverticular disease status post colectomy on 05/30/[address] Medina who presented with GI bleed; she was found to have Hgb 7 and INR 3.8. Patient received transfusion during hospitalization. GI consulted; endoscopy performed showing no visible sources of bleeding. After assurance of cessation of bleeding , patient had subtherapeutic INR; Coumadin was bridged with Heparin until therapeutic on day of discharge. Patient's hemoglobin remained stable after transfusion. Per GI, patient will need capsule/patency endoscopy as outpatient to evaluate for AVM. her chronic medical conditions were also treated during hospitalization. Update today Patient was found to have therapeutic INR (2 this morning) with no additional GI bleeding and normal BM; she was discharged home to f/u with her [employer] Medical [employer]. She will consider NOAC at f/u - Time Spent with Patient Total time spent providing and/or coordinating discharge services: Exam Vital signs: Vital Signs 09/08/17 16:00 09/08/17 17:01 09/08/17 20:00 Temperature 97.8 F Pulse Rate 59 L 60 65 Respiratory Rate 17 Blood Pressure 132/59 L Pulse Oximetry 99 09/09/17 00:00 09/09/17 04:00 09/09/17 08:00 Temperature 97.8 F 97.8 F 97.9 F Pulse Rate 65 61 69 Respiratory Rate 16 16 16 Blood Pressure 99/63 L 107/55 L 135/71 Pulse Oximetry 96 98 99 09/09/17 08:03 09/09/17 11:57 09/09/17 12:00 Temperature 97.9 F Pulse Rate 61 56 L 58 L Respiratory Rate 16 Blood Pressure 118/58 L Pulse Oximetry 100 Intake & Output 09/08/17 09/09/17 09/09/17 18:59 06:59 18:59 Intake Total 370 / 370 Output Total 1800 / 1800 Balance -1430 / -1430 Weight 68.3 kg Intake: IV 250 / 250 Heparin/D5W 25,000 U/250 mL 25, 250 / 250 000 unit In 250 ml @ 1,200 UNITS/HR 12 mls/hr IV.CONT TITRATE PRN Rx#:[id number] Oral 120 / 120 Output: Urine 1800 / 1800 Other: # Bowel Movements 0 Narrative: GENERAL: no apparent distress. Skin: No visible lesions CARDIOVASCULAR: Normal rate and regular rhythm without murmurs RESPIRATORY: CTAB; normal rate GASTROINTESTINAL: Abdomen soft, non-tender, non-distended. Normal active bowel sounds MUSCULOSKELETAL: Extremities edema. Grossly normal ROM and motor function. NEURO: Alert & Oriented x4 to person, place, time, situation. Speech mildly impaired (she states since prior CVA) PSYCH: Appropriate mood and affect. Results Procedures completed during hospitalization: Colonoscopy Labs on day of discharge: Labs from last 24 hours 09/09/17 09/09/17 09/08/17 08:22 08:22 20:51 WBC RBC Hgb Hct MCV MCH MCHC RDW Plt Count MPV Neut % (Auto) Lymph % (Auto) [place] % (Auto) Eos % (Auto) Baso % (Auto) Neut # (Auto) Lymph # (Auto) [place] # (Auto) Eos # (Auto) Baso # (Auto) WBC Differential Differential Comment PT 20.7 H INR 2.0 APTT 45.3 H Sodium 143 Potassium 3.6 Chloride 108 H Carbon Dioxide 23.4 Anion Gap 12 BUN 9 Creatinine 0.54 Estimated GFR Greater than 89 Random Glucose 79 Calcium 8.8 Magnesium 2.0 09/08/17 20:51 WBC 7.4 RBC 3.13 L Hgb 9.8 L Hct 28.7 L MCV 91.5 MCH 31.2 MCHC 34.1 RDW 14.5 Plt Count 284 MPV 8.0 Neut % (Auto) 59.4 Lymph % (Auto) 22.4 [place] % (Auto) 11.9 H Eos % (Auto) 4.8 H Baso % (Auto) 1.5 Neut # (Auto) 4.4 Lymph # (Auto) 1.7 [place] # (Auto) 0.9 Eos # (Auto) 0.4 Baso # (Auto) 0.1 WBC Differential . Differential Comment Auto diff final PT INR APTT Sodium Potassium Chloride Carbon Dioxide Anion Gap BUN Creatinine Estimated GFR Random Glucose Calcium Magnesium Discharge Plan - Discharge Disposition Patient Disposition: 01 Discharge Home - Discharge Condition Condition: Stable - Discharge Order Discharge Orders: Discharge Order (Routine); Ordered 09/09/17 Ordered By: Sudhir Levin - Discharge Details Anticipated Discharge Date: 09/09/17 - Physicians Team Primary Care Provider: Zander Rodney Attending Provider: Sudhir Levin Other Providers: Marcin Mccrary MD ; Elia Westbrook DO ; Tonny Medina MD - Rxs /Orders / Referrals /Forms Prescriptions: New pantoprazole 20 mg Tablet,Delayed Release (Dr/Ec) 40 mg PO DAILY Qty: 30 RF: 0 warfarin [Coumadin] 6 mg Tablet See Label Instructions .ROUTE .COMPLEX Qty: 30 RF: 0 Continue amlodipine 5 mg Tablet 5 mg PO DAILY biotin 1,000 mcg Tablet,Chewable 1,000 mg PO DAILY cholecalciferol (vitamin D3) 2,000 unit Capsule 4,000 unit PO DAILY cinnamon bark [Cinnamon] 500 mg Capsule 1,000 mg PO DAILY citalopram 10 mg Tablet 10 mg PO DAILY cyanocobalamin (vitamin B-12) 1,000 mcg Tablet 1,000 mcg PO DAILY cyclosporine [Restasis] 0.05 % Dropperette 1 drp OPHTHALMIC (EYE) HS linaclotide [Linzess] 145 mcg Capsule 145 mcg PO DAILY ranitidine HCl [Zantac] 300 mg Tablet 300 mg PO PRN PRN (Reason: Heartburn) tramadol 50 mg Tablet 50 mg PO Q4H PRN (Reason: Pain) Discontinued aspirin [Aspirin Low Dose] 81 mg Tablet,Delayed Release (Dr/Ec) 81 mg PO DAILY warfarin 5 mg Tablet 5 mg PO DAILY Referrals: Zander Rodney MD [Primary Care Provider] - See Instructions (Follow up with Primary care after discharge) [facility] [OT/PT/ST Therapy Services] - See Instructions Aureliano Negrete MD [Physician] - See Instructions (Follow up with Dr Negrete after Discharge) - Post Discharge Care Plan Care Plan Goals: Your Health Problems: Goals to Promote Your Health: * To prevent worsening of your condition * To maintain your health at the optimal level Directions to Meet Your Goals: * Take your medications as prescribed * Follow your dietary instruction * Follow activity as directed * Keep your appointments as scheduled * Take your immunizations and boosters as scheduled * If your symptoms worsen call your PCP * If no PCP go to Urgent Care or Emergency Room Smoking is dangerous to your health. Avoid second hand smoke. You may reach the 24-hour crisis hotline for domestic abuse at .
== END 2017-09-09 17:40 | disposition home or self-care (01) ==
LOC: N04 08:31
PROVIDERS: ADMIT Family Medicine; ATTEND Family Medicine